=== PATIENT | female | born 1960 | race Caucasian/White ===

== ENCOUNTER 2022-05-07 13:22 | Outpatient (RCR) | payer OTHER, SELFPAY ==
[2022-05-07 13:37] LABS: Basophils Absolute Auto 0.07 K/uL (0.00-0.30); Basophils Percent Auto 0.9 % (0.0-3.0); Eosinophils Absolute Auto 0.28 K/uL (0.00-0.50); Eosinophils Percent Auto 3.6 % (0.0-7.0); Hematocrit 38.8 % (33.0-51.0); Hemoglobin* 12.9 gm/dL (12.0-16.0); Lymphocytes Absolute Auto 2.68 K/uL (0.90-2.90); Lymphocytes Percent Auto 34.7 % (20-44); Mean Corpuscular HGB Conc 33 gm/dL (32-36); Mean Corpuscular Hemoglobin 32 pg (26-34); Mean Corpuscular Volume 97 fL (80-100); Monocytes Percent Auto 6.7 % (0.0-11.0); Neutrophils Absolute Auto 4.18 K/uL (1.7-7.0); Neutrophils Percent Auto 54.1 % (42.0-72.0); Platelet Count* 276 K/uL (140-440); RDW Coefficient of Variation % 13.7 % (11.5-15.5); White Blood Count* 7.73 K/uL (4.50-11.00)
[2022-05-07 13:42] LABS: Aspartate Amino Transferase* 22 U/L (12-35); Creatinine* 0.8 mg/dL (0.5-1.5); Estimated Glomerular Filt Rate 84 ml/min
[2022-05-07 13:50] LABS: Slide Review Reflex No
[2023-01-20 11:49] LABS: Basophils Percent Auto 1.3 % (0.0-3.0); Eosinophils Absolute Auto 0.22 K/uL (0.00-0.50); Eosinophils Percent Auto 2.9 % (0.0-7.0); Hematocrit 40.7 % (33.0-51.0); Hemoglobin* 13.5 gm/dL (12.0-16.0); Immature Granulocytes Abs Auto 0.01 K/uL (0.00-0.30); Immature Granulocytes Pct Auto 0.1 %; Lymphocytes Absolute Auto 2.83 K/uL (0.90-2.90); Lymphocytes Percent Auto 36.8 % (20-44); Mean Corpuscular HGB Conc 33 gm/dL (32-36); Mean Corpuscular Hemoglobin 32 pg (26-34); Mean Corpuscular Volume 95 fL (80-100); Neutrophils Absolute Auto 4.07 K/uL (1.7-7.0); Neutrophils Percent Auto 52.9 % (42.0-72.0); Platelet Count* 303 K/uL (140-440); RDW Coefficient of Variation % 12.9 % (11.5-15.5); Red Blood Count 4.29 m/uL (4.00-5.20); White Blood Count* 7.69 K/uL (4.50-11.00)
[2023-01-20 11:55] LABS: Creatinine* 0.8 mg/dL (0.5-1.5); Estimated Glomerular Filt Rate 84 ml/min
[2023-01-20 11:56] LABS: Aspartate Amino Transferase* 22 U/L (12-35)
[2023-01-20 11:58] LABS: Slide Review Reflex No
== END 2023-04-08 15:14 | disposition home or self-care (01) ==
LOC: LAB 13:22
PROVIDERS: PCP Internal Medicine
DX: M06.9 Rheumatoid arthritis, unspecified (principal)
CPT/HCPCS: 36415; 82565; 84450; 85025

== ENCOUNTER 2022-09-24 09:55 | Outpatient (CLI) | payer OTHER, SELFPAY | END 2022-09-24 09:56 | disposition home or self-care (01) | PROVIDERS: PCP Internal Medicine; Referring Provider Internal Medicine; Visit Provider Internal Medicine | DX: I10 Essential (primary) hypertension (principal); E03.9 Hypothyroidism, unspecified | CPT/HCPCS: 80048; 84443 ==

== ENCOUNTER 2022-12-18 11:10 | Outpatient (CLI) | payer OTHER, SELFPAY ==
--- NOTE | 2022-12-18 11:30 | CRLHL7_ITS ---
For Patients: As a result of the Century Cures Act, medical imaging exams and procedure reports are released immediately into your electronic medical record. You may view this report before your referring provider. If you have questions, please contact your health care provider. BILATERAL SCREENING MAMMOGRAM WITH COMPUTER-AIDED DETECTION AND TOMOSYNTHESIS TECHNIQUE: CC and MLO views were obtained. These mammographic images have been obtained using full-field digital technique. These mammographic images were interpreted with the benefit of computer-aided detection. Breast tomosynthesis was used in this interpretation. COMPARISON FILM: 04/17/21, 04/06/20, 04/05/19. FINDINGS: There are scattered areas of fibroglandular density. IMPRESSION: There is no radiographic evidence for malignancy. ASSESSMENT: BI-RADS Category 1: Negative RECOMMENDATION: Routine screening mammogram in 1 year. A lay language report of this examination will be provided to the patient. ALEX WESIS M.D. Diagnostic Radiologist [email or web address] Transcribed: 12/18/2022, 6:[address]/Dictated by: Alex Weiss MD @ 12/18/2022 11:55:00 AM (Electronically Signed)
== END 2022-12-18 11:11 | disposition home or self-care (01) ==
LOC: MAMMO 11:11
PROVIDERS: PCP Internal Medicine; Visit Provider Internal Medicine
DX: Z12.31 Encounter for screening mammogram for malignant neoplasm of breast (principal)
CPT/HCPCS: 77063; 77067

== ENCOUNTER 2023-06-01 11:33 | Emergency (ER) | payer OTHER, SELFPAY ==
[2023-06-01] VITALS (18 sets, daily range): BP systolic 138–166; BP diastolic 82–106; PULSE 77–139; RESP 16; TEMP 36.6; O2SAT 92–98; BMI 34.2
--- NOTE | 2023-06-01 12:05 | ED_ITS ---
HPI - Arrhythmia/Palpitations General Time Seen by Provider: 12:05 Date Seen: 06/01/23 Chief Complaint: Arrhythmia/Palpitations Stated Complaint: Elevated heartrate, lightheaded Time Seen by Provider: 06/01/23 12:05 Source: patient and RN notes reviewed Mode of arrival: ambulatory Limitations: no limitations History of Present Illness HPI narrative: Patient is a 63-year-old female coming in with a complaint of rapid heart rate. She maybe noticed it this morning upon getting up but was certainly there at 10:00 a.m.. By 10:00 a.m. she noticed it certainly was not resolving. She admits to alcoholic beverages last night. She is able to tell me that if she felt her heart rate this fast yesterday afternoon that she would certainly notice it. She denies any other recent episodes of a fast heart rate. She had a little cough maybe a few days ago but otherwise since then is felt normal, no illness, no fevers. Her heart rate was elevated in the 150s, nursing staff got an EKG appropriately on arrival in she is in atrial fibrillation with RVR. She felt lightheaded with this but has no chest pain, no shortness of breath. Has not had any recent edema. She does not have a history of prior arrhythmia that is been documented. She does have thyroid disease, is on levothyroxine, states it has been stable and gets checked yearly. She thinks last time was July. complaint: rapid heart beat and heart racing Related Data Home Medications Medication Instructions Recorded Confirmed cetirizine 10 mg tablet 10 mg PO QDAY PRN 01/24/22 06/01/23 folic acid 1 mg tablet 1 mg PO DAILY 09/26/22 06/01/23 methotrexate sodium 2.5 mg tablet 17.5 mg PO QWEEK 09/26/22 06/01/23 Previous Rx's Medication Instructions Recorded triamcinolone acetonide 0.1 % 1 applic topical QDAY PRN rash #80 06/17/22 topical cream grams levothyroxine 112 mcg tablet 112 - 168 mcg (1 - 1.5 x 112 mcg) 09/26/22 PO DAILY #100 tabs lisinopril 20 1 tab PO DAILY #90 tabs 09/26/22 mg-hydrochlorothiazide 25 mg tablet Allergies Allergy/AdvReac Type Severity Reaction Status Date / Time No Known Allergies Allergy Verified 06/01/23 11:50 Review of Systems Status of ROS: Reports: 6 or more systems reviewed and unremarkable except as noted in History and below PFSH [facility] Medical History History of anxiety ?Z86.59 - Personal history of other mental and behavioral disorders (ICD-10) Surgical History History of total knee replacement (2020) ?Z96.659 - Presence of unspecified artificial knee joint (ICD-10) History of laparoscopic cholecystectomy ?Z90.49 - Acquired absence of other specified parts of digestive tract (ICD- 10) History of knee surgery (05/30/10) ?Z98.890 - Other specified postprocedural states (ICD-10) History of hysterectomy (05/30/10) ?Z90.710 - Acquired absence of both cervix and uterus (ICD-10) Family History Father Colorectal cancer Social History Smoking Status: Former smoker Do you use any of these nicotine containing products: None Second hand tobacco smoke exposure: No How often do you have a drink containing alcohol: 2-3 times a week How many standard drinks containing alcohol do you have on a typical day: 3 or 4 How often do you have six or more drinks on one occasion: Less than monthly AUDIT-C Alcohol total score: 5 Non-prescribed substance use: denies use Little interest or pleasure in doing things: not at all Feeling down, depressed, or hopeless: not at all service: No Exam Const: Vital Signs, click to edit/add: Vital Signs - 24 hr 06/01/23 11:51 06/01/23 11:59 06/01/23 12:50 Temperature 97.8 F Pulse Rate 83 Pulse Rate [Pulse Oximeter] 139 H Respiratory Rate 16 Blood Pressure Blood Pressure [Ri ght Upper Arm] 166/106 H Pulse Oximetry 98 96 95 Oxygen Delivery Me thod Room Air 06/01/23 13:00 06/01/23 13:01 06/01/23 13:15 Temperature Pulse Rate 93 88 88 Pulse Rate [Pulse Oximeter] Respiratory Rate Blood Pressure 149/83 H Blood Pressure [Ri ght Upper Arm] Pulse Oximetry 96 94 96 Oxygen Delivery Me thod 06/01/23 13:30 06/01/23 13:31 Temperature Pulse Rate 94 93 Pulse Rate [Pulse Oximeter] Respiratory Rate Blood Pressure 150/95 H Blood Pressure [Ri ght Upper Arm] Pulse Oximetry 93 95 Oxygen Delivery Me thod Patient is a 63-year-old female that is alert, interactive, no apparent distress. She does have some mild proptosis, extraocular muscles intact, conjugate gaze, pupils are equal round. Symmetrical facial function. Neck is supple, no cervical adenopathy, no thyromegaly masses or nodules. She sits up easily, lungs are clear, good air entry, no wheezing or crackles. CV is initially fast, irregular at times, no murmur. As I am talking to her, do see her go into sinus tachycardia on the hospital monitor with a P-wave proceeding every QR axis, rate 102-104. She does go back into atrial fibrillation with RVR by the end of the time in with her. Nursing staff notes that they have been seen this intermittently on the monitor. She can tell when she is going back into the faster heart rate. Abdomen is soft, nontender, nondistended, no organomegaly. She has no lower extremity edema. Patient was ambulatory into the ED of her own accord. Follows commands, using extremities equally. Documenting provider has reviewed patient's vital signs: yes Course Course ED Course: Patient has atrial fibrillation with RVR intermittently. We have started a L of IV fluids as there is likely relative dehydration with alcohol use last night. Have ordered 5 mg IV metoprolol. Nurses are going to initially just give 2.5 mg IV metoprolol, can give this 2nd 2.5 if needed over the next 5-10 minutes. She will be on cardiac monitoring, pulse oximetry. Will obtain a chest x-ray to ensure no cardiopulmonary changes. She does not seem to be in any congestive heart failure. Will get full complement of labs and electrolytes including magnesium. She is not having chest pain but will look at her troponin. There is a mild strain pattern with her AFib with RVR. She is currently hemodynamically stable outside of the rapid heart rate. We have discussed cardioversion if she is not maintaining sinus rhythm on her own. I am hopeful with fluids that we can do medical cardioversion based on the intermittent sinus rhythm we are seeing. Reevaluation(s) Time of Reevaluation #1: 12:54 Reevaluation #1: Patient is in sinus rhythm on the monitor, in the 80s. She has been that way for about 5 minutes. Will have nursing staff get a repeat EKG. She has completed her 1 L of IV fluids, will order a 2 L over 2 hours while we observe her. Still awaiting her electrolytes. Discussed with them as they were questioning further management. Reviewed if she goes into sinus rhythm and stays in it here, would make recommendations for outpatient follow-up with an echo, ZIO patch monitoring. [facility] does come down here. Will await electrolytes/labs. She only received 2.5 mg of the IV metoprolol. Patient is aware that I will be replacing IV magnesium if it is lower relatively low. Time of Reevaluation #2: 12:58 Reevaluation #2: Magnesium is relatively low at 1.7. I have ordered 1 g IV magnesium. Time of Reevaluation #3: 14:52 Reevaluation #3: Patient is nearly done with her 2 L of IV fluids, magnesium is completed. She has maintained normal sinus rhythm. Will discharge her without anticoagulation at this point, with solitary episode I am not thinking she needs a suppressive medicine. Would recommend further outpatient follow-up with echo and ZIO patch monitoring. Vital Signs Vital signs: Initial Vital Signs Temperature 97.8 F 06/01/23 11:51 Temperature Source Temporal Artery Scan 06/01/23 11:51 Pulse Rate 139 H 06/01/23 11:51 Pulse Rhythm Irregular, Regularly Irregular 06/01/23 11:51 Pulse Strength 3+ Normal 06/01/23 11:51 Respiratory Rate 16 06/01/23 11:51 Blood Pressure 166/106 H 06/01/23 11:51 Blood Pressure Mean 126 H 06/01/23 11:51 Blood Pressure Position Sitting 06/01/23 11:51 Pulse Oximetry 98 06/01/23 11:51 Oxygen Delivery Method Room Air 06/01/23 11:51 Vital Signs Temperature 97.8 F 06/01/23 11:51 Pulse Rate 139 H 06/01/23 11:51 Respiratory Rate 16 06/01/23 11:51 Blood Pressure 166/106 H 06/01/23 11:51 Pulse Oximetry 98 06/01/23 11:51 Oxygen Delivery Method Room Air 06/01/23 11:51 Temperature 97.8 F 06/01/23 11:51 Pulse Rate 93 06/01/23 13:31 Respiratory Rate 16 06/01/23 11:51 Blood Pressure 150/95 H 06/01/23 13:31 Pulse Oximetry 95 06/01/23 13:31 Oxygen Delivery Method Room Air 06/01/23 11:51 Medications Administered Medications: Generic Name Dose Route Start Last Admin Trade Name Freq PRN Reason Stop Dose Admin Sodium Chloride 1,000 mls @ 500 mls/hr 06/01/23 12:55 06/01/23 13:06 0.9 % Sodium Chloride 1000 Ml IV 06/01/23 14:54 500 mls/hr .Q2H CHERRY Administration Discontinued Medications Generic Name Dose Route Start Last Admin Trade Name Freq PRN Reason Stop Dose Admin Sodium Chloride 1,000 mls @ 1,000 mls/hr 06/01/23 12:06 06/01/23 13:01 0.9 % Sodium Chloride 1000 Ml IV 06/01/23 13:05 Infused .Q1H CHERRY Infusion Magnesium Sulfate/Dextrose 1 gm in 100 mls @ 100 mls/hr 06/01/23 12:57 06/01/23 13:21 Magnesium Sulf 1 G/100 Ml-[id number] IVPB 06/01/23 13:56 100 mls/hr ONCE ONE Administration Metoprolol Tartrate 5 mg 06/01/23 12:05 06/01/23 12:18 Metoprolol Tartrate 1 Mg/Ml Inj IVP 06/01/23 12:06 2.5 mg ONCE ONE Administration MDM - Arrhythmia/Palpitations Lab Data Attestation: I reviewed the patient's lab results. Labs: Lab Results 06/01/23 06/01/23 Range/Units 12:08 12:16 WBC 7.41 (4.50-11.00) K/uL RBC 4.38 (4.00-5.20) m/uL Hgb 13.9 (12.0-16.0) gm/dL Hct 40.9 (33.0-51.0) % MCV 93 (80-100) fL MCH 32 (26-34) pg MCHC 34 (32-36) gm/dL RDW Coeff of Aishwarya 12.8 (11.5-15.5) % Plt Count 260 (140-440) K/uL Neut % (Auto) 69.7 (42.0-72.0) % Lymph % (Auto) 17.0 L (20-44) % [place] % (Auto) 10.4 (0.0-11.0) % Eos % (Auto) 1.9 (0.0-7.0) % Baso % (Auto) 0.9 (0.0-3.0) % Neut # (Auto) 5.16 (1.7-7.0) K/uL Lymph # (Auto) 1.30 (0.90-2.90) K/uL [place] # (Auto) 0.80 (0.00-0.90) K/UL Eos # (Auto) 0.14 (0.00-0.50) K/uL Baso # (Auto) 0.07 (0.00-0.30) K/uL Abs Immat Gran (auto) 0.01 (0.00-0.30) K/uL Imm/Tot Granulo (auto) 0.1 % Sodium 134 L (135-149) mmol/L Potassium 3.6 (3.6-5.1) mmol/L Chloride 97 (96-114) mmol/L Carbon Dioxide 26 (20-32) mmol/L Anion Gap 11 (7-15) mEq/L BUN 15 (7-30) mg/dL Creatinine 0.7 (0.5-1.5) mg/dL Estimated Creat Clear 46.13 Estimated GFR 98 ml/min Glucose 107 (60-115) mg/dL Lactate 1.4 (0.5-1.9) mmol/L Calcium 8.9 (8.4-10.6) mg/dL Magnesium 1.7 (1.5-2.6) mg/dL Total Bilirubin 0.8 (0.1-1.5) mg/dL AST 26 (12-35) U/L ALT 25 (4-35) U/L Alkaline Phosphatase 98 (40-150) U/L Troponin I < 0.01 L (0.01-0.04) ng/mL NT-Pro-B Natriuret Pep 274 pg/mL Total Protein 7.8 (6.0-8.3) g/dL Albumin 4.7 (3.3-5.0) g/dL TSH 1.630 (0.270-4.20) uIU/mL Ethyl Alcohol < 0.01 L (0.01-0.03) % Lab Acknowledgement Test Added Imaging Data Chest x-ray: Attestation: I have reviewed the pertinent imaging results. My impression: No evidence congestive heart failure, no x-ray evidence of cardiomegaly my preliminary review. Radiologist's impression: Patient: CHERYL JEFFERSON Facility:?[facility] Patient ID:?[id number] Site Patient ID:?[id number]. Site :?[id number] Study:?XRay Chest 1v portable-06/01/2023 12:59:51 PM Ordering Physician:Jovanna Iyer Final Report: INDICATION: Atrial fibrillation. FINDINGS: A portable AP view of the chest was obtained. The cardiac silhouette and pulmonary vasculature are within normal limits. The lungs are clear bilaterally. IMPRESSION: No evidence acute pulmonary disease. Dictated by Ottoniel Meyers MD @ 06/01/2023 1:39:44 PM (Electronic Signature) ECG Data Attestation: I personally reviewed and interpreted this ECG as follows: (Atrial fibrillation with RVR, 159 beats per minute. Poor R-wave progression in the anterior precordial leads and inferior, lateral precordial and lateral mild ST segment changes.) ECG interpretation date: 06/01/23 ECG interpretation time: 12:13 Prior ECG tracings: not available for review Interpretation: 12:57 p.m.: Patient shows conversion to sinus rhythm, 82 beats per minute. There is what appears to be a PVC in 3 the leads but is not in 1, do deem this to be probable artifact. QT corrected 450 milliseconds. No acute ischemia. Critical Care Time Critical Care Time Critical Care Time: Yes Attestation: The patient required my highest level preparedness to intervene emergently and I personally spent this critical care time directly and personally managing the patient. This critical care time included: Obtaining a history; Examining the patient; Pulse oximetry; Ordering and reviewing of studies; Arranging urgent treatment with development of a management plan; Evaluation of patients response to treatment; Frequent reassessment discussions with other providers. This critical care time was performed to assess and manage the high probability of imminent life-threatening deterioration that could result in multiorgan failure. It was exclusive of separate billable procedures and treating other patients and teaching time. Total Critical Care Time in Minutes: 45 Discharge Plan Discharge Clinical Impression: Paroxysmal atrial fibrillation with rapid ventricular response Patient Disposition: Home, Self-Care Condition: Stable Instructions: A-fib (Atrial Fibrillation) (ED) Additional Instructions: Stay hydrated, recommend minimal or no alcohol use. Need to follow up in clinic with your primary provider or someone that can see you within the next 1-2 weeks. Do recommend getting an outpatient echo scheduled, recommend getting a Zio patch which may have to be ordered through [facility]. In the meantime, should you note that your heart is racing nor heart rate is elevated again, please return to the ER. TSH was normal, no need to adjust your thyroid medicine. Activity Level: Activity as Tolerated Prescriptions: No Action cetirizine 10 mg tablet 10 mg PO QDAY PRN folic acid 1 mg tablet 1 mg PO DAILY methotrexate sodium 2.5 mg tablet 17.5 mg PO QWEEK lisinopril-hydrochlorothiazide 20-25 mg tablet 1 tab PO DAILY Qty: 90 3RF levothyroxine 112 mcg tablet 112 - 168 mcg PO DAILY Qty: 100 4RF Rx Instructions: 168 mcg (1 and 1/2 tabs) friday and friday, 112 mcg all other days triamcinolone acetonide 0.1 % cream 1 applic topical QDAY PRN (Reason: rash) Qty: 80 0RF Follow Up/Referrals: Hilda Palomares MD [Primary Care Provider] - Stand Alone Forms: [facility] Info Instructions
--- NOTE | 2023-06-01 12:06 | CRLHL7_ITS ---
For Patients: As a result of the Cures Act, medical imaging exams and procedure reports are released immediately into your electronic medical record. You may view this report before your referring provider. If you have questions, please contact your health care provider. INDICATION: Atrial fibrillation. FINDINGS: A portable AP view of the chest was obtained. The cardiac silhouette and pulmonary vasculature are within normal limits. The lungs are clear bilaterally. IMPRESSION: No evidence acute pulmonary disease. Dictated by Ottoniel Meyers MD @ 06/01/2023 1:39:44 PM (Electronically Signed)
[2023-06-01] MEDS: 0.9 % SODIUM CHLORIDE 1000 ml 1,000 ML IV (12:08)
[2023-06-01 12:15] LABS: Lactate* 1.4 mmol/L (0.5-1.9)
[2023-06-01] MEDS: METOPROLOL TARTRATE 1 MG/ML inj 5 MG IVP (12:18)
[2023-06-01 12:19] LABS: Basophils Absolute Auto 0.07 K/uL (0.00-0.30); Basophils Percent Auto 0.9 % (0.0-3.0); Eosinophils Absolute Auto 0.14 K/uL (0.00-0.50); Eosinophils Percent Auto 1.9 % (0.0-7.0); Hematocrit 40.9 % (33.0-51.0); Hemoglobin* 13.9 gm/dL (12.0-16.0); Immature Granulocytes Abs Auto 0.01 K/uL (0.00-0.30); Immature Granulocytes Pct Auto 0.1 %; Mean Corpuscular HGB Conc 34 gm/dL (32-36); Mean Corpuscular Hemoglobin 32 pg (26-34); Mean Corpuscular Volume 93 fL (80-100); Monocytes Percent Auto 10.4 % (0.0-11.0); Neutrophils Absolute Auto 5.16 K/uL (1.7-7.0); Neutrophils Percent Auto 69.7 % (42.0-72.0); Platelet Count* 260 K/uL (140-440); RDW Coefficient of Variation % 12.8 % (11.5-15.5); Red Blood Count 4.38 m/uL (4.00-5.20); Slide Review Reflex No; White Blood Count* 7.41 K/uL (4.50-11.00)
[2023-06-01 12:36] LABS: Albumin* 4.7 g/dL (3.3-5.0); Chloride* 97 mmol/L (96-114); Sodium* 134 mmol/L (135-149)
[2023-06-01 12:37] LABS: Potassium* 3.6 mmol/L (3.6-5.1)
[2023-06-01 12:39] LABS: Alanine Aminotransferase* 25 U/L (4-35); Alkaline Phosphatase* 98 U/L (40-150); Anion Gap 11 mEq/L (7-15); Aspartate Amino Transferase* 26 U/L (12-35); Bilirubin Total* 0.8 mg/dL (0.1-1.5); Blood Urea Nitrogen* 15 mg/dL (7-30); Calcium* 8.9 mg/dL (8.4-10.6); Carbon Dioxide* 26 mmol/L (20-32); Creatinine* 0.7 mg/dL (0.5-1.5); Est. Creatinine Clearance* 46.13; Estimated Glomerular Filt Rate 98 ml/min; Glucose* 107 mg/dL (60-115); Total Protein* 7.8 g/dL (6.0-8.3)
[2023-06-01 12:40] LABS: Magnesium* 1.7 mg/dL (1.5-2.6)
[2023-06-01 12:54] LABS: Ethanol* < 0.01 % (0.01-0.03); NT Pro B Type NatriureticPept* 274 pg/mL; Troponin I* < 0.01 ng/mL (0.01-0.04)
[2023-06-01] MEDS: 0.9 % SODIUM CHLORIDE 1000 ml 1,000 ML 500 ML IV (13:06)
--- NOTE | 2023-06-01 13:36 | ED.NURSE ---
reports that she is feeling better now that she has converted to nsr. did have a repeat 12 lead after she has had sustained nsr after the conversion around 1310. daughter at bs. is getting 1 gram of magnesium per mar. was assisted to bathroom ~1300 to urinate.
== END 2023-06-01 15:21 | disposition home or self-care (01) ==
PROVIDERS: Emergency Provider Family Medicine; PCP Internal Medicine
DX: I48.0 Paroxysmal atrial fibrillation (principal)
CPT/HCPCS: 36415; 71045; 80053; 82077; 83605; 83735; 83880; 84443; 84484; 85025; 94761; 96365; 96375; 99285; 99291; J3475; J7030

== ENCOUNTER 2023-06-19 08:38 | Outpatient (CLI) | payer OTHER, SELFPAY ==
--- OUTSIDE RECORDS SUMMARY | 2023-06-19 08:45 | XMS_ITS | Encounter Summary ---
Author Name Unknown Organization [facility] Address [address] [place] [address] Care Team Providers Care Emu Farm Worker Name Role Phone Elsewhere, Pcp Primary Care Provider Unavailabl e Reason for Visit * Outpatient (Routine) - Closed Specialty Diagnoses / Procedures Referred By Florian t Referred To Contact Dermatology Diagnoses Arthritis Rheumatoid (HCC) High Risk Medication Lesion Skin Alexandra Lopez, ANTONIO, C.N.P., D.N.P. [address] [place] [phone] [facility] Referral ID Status Reason Start Date Expiration Date Visits Re quested Visits Authorized [id number] Closed 05/09/2023 05/08/2024 1 1 Encounter Details Date Type Department Care Team (Latest Contact Info) Description 05/12/2023 11:20 AM VELVET STEAMER Comprehensive Visit Department of Dermatology in [place], [place] [address] [place] [phone] Jin Steiner M.D. [address] [place] [phone] Asteatosis (Primary Dx); Arthritis Rheumatoid (HCC); High Risk Medication; Lesion Skin; Keratosis Seborrheic Social History Tobacco Use Types Packs/Day Years Used Date Smoking Tobacco: Former Cigarettes 0 0 Q uit: 09/15/1998 Passive Smoke Exposure: Past Smokeless Tobacco: Never Alcohol Use Standard Drinks/Week Comments Yes 6 (1 standard drink = 0.6 oz pur e alcohol) Humiliation, Afraid, Rape, and Kick questionnair e Answer Date Recorded Within the last year, have y ou been afraid of your partner or ex-partner? No 07/13/2022 Within the last year, have y ou been humiliated or emotionally abused in other ways by your partner or ex-partner? No Within the last year, have y ou been kicked, hit, slapped, or otherwise physically hurt by your partner or ex-partner? No 07/13/2022 Within the last year, have y ou been raped or forced to have any kind of sexual activity by your partner or ex-partner? No 07/13/2022 Social Connection and Isolat ion Panel [NHANES] Answer Date Recorded In a typical week, how many times do you talk on the phone with family, friends, or neighbors? More than three times a week 07/13/2022 How often do you get togethe r with friends or relatives? More than three times a week 07/13/2022 How often do you attend [facility] or amish services? Patient declined 07/13/2022 Do you belong to any clubs o r organizations such as baptist groups, unions, fraternal or athletic groups, or school groups? Patient declined 07/13/2022 How often do you attend meet ings of the clubs or organizations you belong to? Patient declined 07/13/2022 Are you , , di vorced, , never , or living with a partner? 07/13/2022 AUDIT-C Answer Date Recorded Q1: How often do you have a drink containing alc ohol? 2-3 times a week 07/13/2022 Q2: How many drinks containi ng alcohol do you have on a typical day when you are drinking? 1 or 2 07/13/2022 Q3: How often do you have si x or more drinks on one occasion? Never 07/13/2022 Overall Financial Resource Strain (CARDIA) Answe r Date Recorded How hard is it for you to pa y for the very basics like food, housing, medical care, and heating? Patient declined 07/13/2022 [facility] Occupat ional Health - Occupational Stress Questionnaire Answer Date Recorded Do you feel stress - tense, restless, nervous, or anxious, or unable to sleep at night because your mind is troubled all the time - these days? Not at all 07/13/2022 Exercise Vital Sign Answer Date Recorde d On average, how many days pe r week do you engage in moderate to strenuous exercise (like a brisk walk)? 0 days 07/13/2022 On average, how many minutes do you engage in exercise at this level? 0 min 07/13/2022 Hunger Vital Sign Answer Date Recorded Within the past 12 months, y ou worried that your food would run out before you got the money to buy more. Never true 07/13/19 23 Within the past 12 months, t he food you bought just didn't last and you didn't have money to get more. Never true 07/13/2022 PRAPARE - Transportation Answer Date Re corded In the past 12 months, has l ack of transportation kept you from medical appointments or from getting medications? No 09/2022 In the past 12 months, has l ack of transportation kept you from meetings, work, or from getting things needed for daily living? No 07/13/2022 Housing Stability Vital Sign Answer Justin e Recorded In the last 12 months, was t here a time when you were not able to pay the mortgage or rent on time? No 07/13/2022 In the last 12 months, how many places have you lived? 1 07/13/2022 In the last 12 months, was t here a time when you did not have a steady place to sleep or slept in a retirement (including now)? No 07/13/2022 Nutrition Answer Date Recorded Nutrition: EVOO Fat Source No 07/13 On average, how many serving s of fruits and vegetables do you eat per day (serving size is equal to 1 cup or approximately the size of a tennis ball)? 2-3 07/13/2022 Dental Answer Date Recorded Dental: Regular Dentist Yes 10/16/19 Employment Answer Date Recorded Employment status Retired 07/13/2022 Education Answer Date Recorded What is the highest level of school you have completed or the highest degree you have received? 12th grade 07/14/2020 Sex and Gender Information Value Date Recorded Sex Assigned at Female 10/15/2021 8:27 AM CDT Gender Identity Female 10/15/2021 8:27 AM CDT Sexual Orientation Straight 10/15/2021 8: 27 AM CDT documented as of this encounter Consult Notes * Jin Steiner M.D. - 05/12/2023 11:20 AM CST SUBJECTIVE CHIEF COMPLAINT/REASON FOR VISIT General skin examination No history of skin cancer REFERRAL SOURCE Alexandra Lopez APRN, C.N.P., D.N.P. HISTORY OF PRESENT ILLNESS Cary Ingram is a very pleasant 63 y.o. female who is from [facility]. She presents for a general skin examination. She has no history of skin cancer. REVIEW OF SYSTEMS Current Outpatient Medications: cetirizine (ZyrTEC) 10 mg tablet, Take 10 mg by mouth daily., Disp: , Rfl: folic acid 1 mg tablet, Take 1 tablet (1 mg total) by mouth daily., Disp: 90 tablet, Rfl: 1 levothyroxine (SYNTHROID, LEVOTHROID) 112 mcg tablet, Take 112-168 mcg by mouth every morning before breakfast. Take 112 mg on Friday, Friday, , Friday and Friday. Take 168 mg (1.5 tablets) on Friday and Friday., Disp: , Rfl: lisinopril-hydroCHLOROthiazide (PRINZIDE,ZESTORETIC) 20-25 mg per tablet, Take 1 tablet by mouth daily., Disp: , Rfl: methotrexate 2.5 mg tablet, TAKE 7 TABLETS ( 17.5 MG TOTAL ) ONCE A WEEK, Disp: 84 tablet, Rfl: 1 predniSONE (DELTASONE) 2.5 mg tablet, Take 1 tablet (2.5 mg total) by mouth daily. all in AM with food, Disp: 90 tablet, Rfl: 0 triamcinolone (KENALOG) 0.1 % cream, Apply 1 application topically as needed., Disp: , Rfl: Allergies Allergen Reactions Pollen Extracts Other (see comments) Runny nose, itchy eyes, etc. 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 Family History Problem Relation Age of Onset Colon cancer Father Other cancer Father Tumor back of tongue Lung cancer Mother Other cancer Brother Sarcoma leg Social History Socioeconomic History Marital status: Highest education level: 12th grade Tobacco Use Smoking status: Former Packs/day: 0.00 Years: 0.00 Additional pack years: 0.00 Total pack years: 0.00 Types: Cigarettes Quit date: 09/15/1998 Years since quittin.6 Passive exposure: Past Smokeless tobacco: Never Vaping Use Vaping Use: never used Substance and Sexual Activity Alcohol use: Yes Alcohol/week: 6.0 standard drinks of alcohol Types: 2 Glasses of wine, 4 Cans of beer per week Drug use: Never Sexual activity: Not Currently Partners: Male control/protection: Post-menopausal OBJECTIVE VITAL SIGNS There were no vitals filed for this visit. PHYSICAL EXAMINATION Detailed Exam: General: Awake, alert, in no acute distress, and with appropriate affect. Eyes: No scleral injection or icterus. No eyelid abnormalities. Cardio: No lower extremity edema. Skin: I have examined the scalp, face, neck, chest, abdomen, back, bilateral upper, extremities, lower extremities, palms, soles, genitalia and buttocks Ledbetter type 2 skin with moderate changes of chronic sun exposure noted, freckling of the uppertrunk is noted. Generally dry skin noted. Scattered on the skin are multiple seborrheic keratoses and smith angiomas. None of them appeared suspicious for skin cancer or melanoma. Involving the right posterior scalp, a scaling patches noted consistent with seborrheic dermatitis. Involving the face, telangiectasias are noted. General: Alert, interactive 63 y.o. year old female, in no acute distress. ASSESSMENT / PLAN #1 No lesions suspicious for skin cancer or melanoma today. Ms. Ingram was reassured. Follow-up every 1-2 years or sooner if she notices any new lesions ofconcern. #2 Asteatosis We shared with her information on care of dry skin. #3 Keratosis Seborrheic Reassured these are benign require no specific treatment. #4 Scattered telangiectasias on the face These are benign. Observe. If she does want them treated for cosmetic purposes, consider laser. Shedeclines at this time which I think is very reasonable. ET STEAMER documented in this encounter Plan of Treatment Not on file documented as of this encounter Visit Diagnoses Diagnosis Asteatosis- Primary Arthritis Rheumatoid (HCC) High Risk Medication Lesion Skin Keratosis Seborrheic documented in this encounter Additional Health Concerns Infection Onset Date Last Indicated Resolved Time Protective Environment 10/10/2022 10/10/2022 documented as of this encounter Care Teams Emu Farm Worker Relationship Specialty Start Date End Date Elsewhere, Pcp PCP - General 05/22/18 documented as of this encounter
--- OUTSIDE RECORDS SUMMARY | 2023-06-19 08:45 | XMS_ITS | Clinical Summary ---
Author Name Unknown Organization [facility] Address [place], [place] [address] Care Team Providers Care Family Services Coordinator Name Role Phone [facility] Primary [facility] Provider Unavailable Allergies No known active allergies Medications Medication Sig Dispensed Refills Start Date End Date Status LEVOTHYROXINE 125 MCG TAB take 1 tablet (125 mcg) by oral route once daily 0 0 09/02/2008 Active Social History Tobacco Use Types Packs/Day Years Used Date Smoking Tobacco: Former Cigarettes Q uit: 06/09/1998 Tobacco Cessation:Counseling Given: Yes Alcohol Use Standard Drinks/Week Comments Yes 0 (1 standard drink = 0.6 oz pur e alcohol) occas Sex and Gender Information Value Date Recorded Sex Assigned at Not on file Gender Identity Not on file Sexual Orientation Not on file Obstetrics History Last Filed Vital Signs Vital Sign Reading Time Taken Comments Blood Pressure 147/86 07/11/2015 2:42 PM DRY COLOR MIXER Pulse 92 07/11/2015 2:42 PM DRY COLOR MIXER Temperature 36.4 ??C (97.6 ??F) 03/17/2009 8:12 AM CD T Respiratory Rate - - Oxygen Saturation 98% 07/11/2015 2:42 PM DRY COLOR MIXER Inhaled Oxygen Concentration - - Weight 86.5 kg (190 lb 9.6 oz) 07/11/2015 2:42 P M DRY COLOR MIXER Height - - Body Mass Index - - Plan of Treatment Health Maintenance Due Date Last Done Comments COVID-19 vaccine series (#1) 1961 Tdap 1972 Depression screening for age 12+ 1973 HIV for age 15-65 1976 BMI (ht and wt on same day) for age 18+ 1979 Hepatitis C screening for ag e 18-79 1979 Tetanus booster 1981 Pap test for age 21-65 1982 Colonoscopy through age 75 2006 Lipids for age 45-75 2006 Mammogram for age 45-75 2006 Zoster (shingles) series for age 50+ (1 of 2) 2011 Influenza for age 50-64 02/07/2023 Pneumococcal series for age 6-64 Aged Out No longer eligible based on patient's age to complete this topic Care Teams Family Services Coordinator Relationship Specialty Start Date End Date [facility] PCP - General 09/01/08
--- OUTSIDE RECORDS SUMMARY | 2023-06-19 08:45 | XMS_ITS | Referral Summary ---
Author Name Unknown Organization [facility] Address [address] [place] [address] Care Team Providers Care Personal Lines Account Manager Name Role Phone Elsewhere, Pcp Primary Care Provider Unavailabl e Source Comments Patient records contain information from all sites at [facility]. For routine questions regarding patient records, call [phone] during business hours, M-F 8:00 AM - 5:00 PM Central Time. Record requests for emergency care only can be directed to [phone] at any time.[facility] Encounters Date Type Department Care Team Description 05/12/2023 11:20 AM QA DEVELOPER Comprehensive Visit Department of Dermatology in [place], [place] [address] [place] [phone] Jin Steiner M.D. Asteatosis (Primary Dx); Arthritis Rheumatoid (HCC); High Risk Medication; Lesion Skin; Keratosis Seborrheic 05/09/2023 7:56 AM QA DEVELOPER - 05/09/2023 11:59 PM QA DEVELOPER Hospital Encounter Department of Laboratory Medicine and Pathology, [facility], in [place], [place] [address] [place] [phone] Alexandra Lopez APRN, C.N.P., D.N.P. Arthritis Rheumatoid (HCC); High Risk Medication Discharge Disposition: Home or Self Care 05/09/2023 10:30 AM QA DEVELOPER Office Visit Division of Rheumatology in [place], [place] [address] [place] [phone] Alexandra Lopez APRN, C.N.P., D.N.P. Lesion Skin (Primary Dx); Arthritis Rheumatoid (HCC); High Risk Medication 05/08/2023 12:00 PM QA DEVELOPER Clinical Communication Virtual Review in [place], [place] [address] [place] [address] Pre-visit Intake (PIETRO done 05/08 EEF) 04/07/2023 Refill Division of Rheumatology in [place], [place] [address] [place] [phone] Alexandra Lopez APRN, C.N.P., D.N.P. Med Refill from Last 3 Months Allergies Active Allergy Reactions Criticality Noted Date Comments Pollen Extracts Other (see comments) 07/14/2020 Runny nose, itchy eyes, etc. Medications Medication Sig Dispensed Refills Start Date End Date Status lisinopril-hydroCHL OROthiazide (PRINZIDE,ZESTORETI C) 20-25 mg per tablet Take 1 tablet by mouth daily. 0 04/24/2020 Active triamcinolone (KENALOG) 0.1 % cream Apply 1 application topically as needed. 0 04/18/2020 Active levothyroxine (SYNTHROID, LEVOTHROID) 112 mcg tablet Take 112-168 mcg by mouth every morning before breakfast. Take 112 mg on Friday, Friday, , Friday and Friday. Take 168 mg (1.5 tablets) on Friday and Friday. 0 Active cetirizine (ZyrTEC) 10 mg tablet Take 10 mg by mouth daily. 0 Active predniSONE (DELTASONE) 2.5 mg tabletIndications:A rthritis Rheumatoid (HCC) Take 1 tablet (2.5 mg total) by mouth daily. all in AM with food 90 tablet 0 07/15/2022 Active methotrexate 2.5 mg tabletIndications:A rthritis Rheumatoid (HCC) TAKE 7 TABLETS ( 17.5 MG TOTAL ) ONCE A WEEK 84 tablet 1 04/08/2023 Active folic acid 1 mg tabletIndications:A rthritis Rheumatoid (HCC) Take 1 tablet (1 mg total) by mouth daily. 90 tablet 1 05/09/2023 Active Active Problems Problem Noted Date Diagnosed Date Arthritis Rheumatoid 01/15/2022 Arthroplasty Total Knee Replacement Status Post Bilateral 07/17/2020 Resolved Problems Problem Noted Date Diagnosed Date Resolved Date Arthritis Inflammatory 07/17/202001/15 Immunizations Name Administration Dates Next Due Tdap 04/21/2008 Social History Tobacco Use Types Packs/Day Years [...] week 07/13/2022 How often do you attend chur or yazidism services? Patient declined 07/13/2022 Do you belong to any clubs o r organizations such as muslim groups, unions, fraternal or athletic groups, or [...] medical care, and heating? Patient declined 07/13/2022 [facility] of Occupat ional Health - Occupational Stress [...] place to sleep or slept in a intermediate (including now)? No 07/13/2022 Nutrition Answer Date [...] Orientation Straight 10/15/2021 8: 27 AM CDT Last Filed Vital Signs Vital Sign Reading Time Taken Comments Blood Pressure 134/82 05/09/2023 10:32 AM QA DEVELOPER Pulse 74 05/09/2023 10:32 AM QA DEVELOPER Temperature 37 ??C (98.6 ??F) 05/09/2023 10:32 AM QA DEVELOPER Respiratory Rate - - Oxygen Saturation - - Inhaled Oxygen Concentration - - Weight 85.1 kg (187 lb 9.8 oz) 05/09/2023 10:32 AM QA DEVELOPER Height 156.4 cm (5' 1.58) 05/09/2023 10:[address] Body Mass Index 34.79 05/09/2023 10:32 AM QA DEVELOPER Plan of Treatment Not on file Medical Devices Implanted Type Area Enterostomal Nurse Device Identifier Shelf Expiration Date Model / Serial / Lot Knee Implant- [id number] Implanted:06/09 (Quantity not on file) Knee Implant Bilatera l: Knee Description:Both joints were replaced. Procedures Procedure Name Priority Date/Time Associated Diagnosis Comments CREATININE WITH EGFR, S/P Routine 05/09/2023 8:08 AM QA DEVELOPER Arthritis Rheumatoid (HCC) High Risk Medication ASPARTATE AMINOTRANSFERASE (AST), S/P Routine 05/09/2023 8:08 AM QA DEVELOPER Arthritis Rheumatoid (HCC) High Risk Medication C-REACTIVE PROTEIN (CRP), S/P Routine 05/09/2023 8:08 AM QA DEVELOPER Arthritis Rheumatoid (HCC) High Risk Medication SEDIMENTATION RATE, B Routine 05/09/2023 8:08 AM QA DEVELOPER Arthritis Rheumatoid (HCC) High Risk Medication CBC WITH DIFFERENTIAL, B Routine 023 8:08 AM QA DEVELOPER Arthritis Rheumatoid (HCC) High Risk Medication from Last 3 Months Results * Sedimentation Rate (05/09/2023 8:08 AM QA DEVELOPER) Pathologist [facility] Sedimentation Rate, B 8 2 - 22 mm/h 05/09/2023 9:23 AM QA DEVELOPER DTL Blood (Blood, Venous) 05/09/2023 8:08 AM QA DEVELOPER 05/09/2023 8:31 AM QA DEVELOPER Alexandra Lopez APRN C.N.P., D.N.P. LAB B LOOD ADD-ON [facility] [address] [place] [address], [facility] [address] [place] [address] * (ABNORMAL) CBC with Differential, Blood (05/09/2023 8:08 AM QA DEVELOPER) [facility] Hemoglobin 13.3 11.6 - 15.0 g/dL 05/09/2023 8:44 AM QA DEVELOPER DTL Hematocrit 40.0 35.5 - 44.9 % 05/09/2023 8:44 AM QA DEVELOPER DTL Erythrocytes 4.09 3.92 - 5.13 x10(12)/L 05/09/2023 8:44 AM QA DEVELOPER DTL MCV 97.8 78.2 - 97.9 fL 05/09/2023 8:44 AM QA DEVELOPER DTL RBC Distrib Width 12.9 12.2 - 16.1 % 05/09/2023 8:44 AM QA DEVELOPER DTL Platelet Count 279 157 - 371 x10(9)/L 05/09/2023 8:44 AM QA DEVELOPER DTL Leukocytes 8.4 3.4 - 9.6 x10(9)/L 05/09/2023 8:44 AM QA DEVELOPER DTL Neutrophils 5.08 1.56 - 6.45 x10(9)/L 05/09/2023 8:44 AM QA DEVELOPER DHPM Lymphocytes 2.44 0.95 - 3.07 x10(9)/L 05/09/2023 8:44 AM QA DEVELOPER DTL Monocytes 0.53 0.26 - 0.81 x10(9)/L 05/09/2023 8:44 AM QA DEVELOPER DTL Eosinophils 0.24 0.03 - 0.48 x10(9)/L 05/09/2023 8:44 AM QA DEVELOPER DTL Basophils 0.09(H) 0.01 - 0.08 x10(9)/L 05/09/2023 8:44 AM QA DEVELOPER DTL Blood (Blood, Venous) 05/09/2023 8:08 AM QA DEVELOPER 05/09/2023 8:31 AM QA DEVELOPER Alexandra Lopez APRN, C.N.P., D.N.P. LAB B LOOD ADD-ON Performing Organization Address City/[facility]/ZIP Co de Phone Number [facility] [address] [place] [address], [facility] [address] [place], [place] [id number] [place] [address] 200 [place] [address] * CRP (C-Reactive Protein) (05/09/2023 8:08 AM QA DEVELOPER) C-Reactive Protein (CRP), S <3.0 <5.0 mg/L 05/09/2023 9:08 AM QA DEVELOPER DTL Blood (Blood, Venous) 05/09/2023 8:08 AM QA DEVELOPER 05/09/2023 8:50 AM QA DEVELOPER Alexandra Lopez APRN, C.N.P., D.N.P. LAB B LOOD ADD-ON [facility] [address] [place] [address], [facility] [address] [place] [address] * AST (Aspartate Aminotransferase) (05/09/2023 8:08 AM QA DEVELOPER) Aspartate Aminotransferase (AST), S 16 8 - 43 U/L 05/09/2023 9:08 AM QA DEVELOPER DTL Blood (Blood, Venous) 05/09/2023 8:08 AM QA DEVELOPER 05/09/2023 8:50 AM QA DEVELOPER James Wallace APRN.N.Viridiana., Rober.N.P. LAB B LOOD ADD-ON Performing Organization Address [place] de Phone Number [facility] [address] [place] [address], [facility] [address] [place] [address] * Creatinine with Estimated GFR (05/09/2023 8:08 AM QA DEVELOPER) Creatinine 0.86 0.59 - 1.04 mg/dL 05/09/2023 9:08 AM QA DEVELOPER DTL Estimated GFR (eGFR) 76 >=60 mL/min/BSA 05/09/2023 9:08 AM QA DEVELOPER DTL Comment: Estimated GFR calculated using the 2020 CKD_EPI creatinine equation. Blood (Blood, Venous) 05/09/2023 8:08 AM QA DEVELOPER 05/09/2023 8:50 AM QA DEVELOPER James Wallace APRN.N.P., D.N.P. LAB B LOOD ADD-ON Performing Organization Address [place] de Phone Number [facility] [address] [place] [address], [facility] [address] [place] [address] from Last 3 Months Additional Health Concerns Infection Onset Date Last Indicated Protective Environment 10/10/2022 3 Care Teams Personal Lines Account Manager Relationship Specialty Start Date End Date Elsewhere, Pcp PCP - General 05/22/18
--- OUTSIDE RECORDS SUMMARY | 2023-06-19 08:45 | XMS_ITS | Clinical Summary ---
Author Name Unknown Organization [facility] Address [address] [place] [address] Care Team Providers Care Java Designer Name Role Phone Elsewhere, Pcp Primary Care Provider Unavailabl e Source Comments Patient records contain information from all sites at [facility]. For routine questions regarding patient records, call [phone] during business hours, M-F 8:00 AM - 5:00 PM Central Time. Record requests for emergency care only can be directed to [phone] at any time.[facility] Allergies Active Allergy Reactions Criticality Noted Date [...] Diagnosed Date Resolved Date Arthritis Inflammatory 07/17/202001/15 Encounters Date Type Department Care Team Description 05/12/2023 11:20 AM CLERGY MEMBER Comprehensive Visit Department of Dermatology in [address] [phone] Jin Steiner M.D. Asteatosis (Primary Dx); Arthritis Rheumatoid (HCC); High Risk Medication; Lesion Skin; Keratosis Seborrheic 05/09/2023 10:30 AM CLERGY MEMBER Office Visit Division of Rheumatology in [address] [phone] Alexandra Lopez APRN, C.N.P., D.N.P. Lesion Skin (Primary Dx); Arthritis Rheumatoid (HCC); High Risk Medication 05/09/2023 7:56 AM CLERGY MEMBER - 05/09/2023 11:59 PM CLERGY MEMBER Hospital Encounter Department of Laboratory Medicine and Pathology, [facility], in [address] [phone] Alexandra Lopez APRN, C.N.P., D.N.P. Arthritis Rheumatoid (HCC); High Risk Medication Discharge Disposition: Home or Self Care 05/08/2023 12:00 PM CLERGY MEMBER Clinical Communication Virtual Review in [address] [address] Pre-visit Intake (PIETRO done 05/08) 04/07/2023 Refill Division of Rheumatology in [address] [phone] Alexandra Lopez APRN, C.N.P., D.N.P. Med Refill from Last 3 Months Immunizations Name Administration Dates Next Due Tdap 04/21/2008 Family History Medical History Relation Name Comments Other cancer Brother Florian Britt Sarcoma l eg Colon cancer Father Reji Britt Other cancer Father Reji Britt Tumor back o f tongue Lung cancer Mother Kenia Britt Relation Name Status Comments Brother Florian Britt Father Reji Britt Mother Kenia Britt Social History Tobacco Use Types Packs/Day Years [...] 07/13/2022 How often do you attend chur ch or cheondoism services? Patient declined 07/13/2022 Do you belong to any clubs o r organizations such as taoist groups, unions, fraternal or athletic groups, or [...] medical care, and heating? Patient declined 07/13/2022 [facility] Occup[facility] ional [facility] - Occupational [...] Comments Blood Pressure 134/82 05/09/2023 10:32 AM CLERGY MEMBER Pulse 74 05/09/2023 10:32 AM CLERGY MEMBER Temperature 37 ??C (98.6 ??F) 05/09/2023 10:32 AM CLERGY MEMBER Respiratory Rate - - Oxygen Saturation - - Inhaled Oxygen Concentration - - Weight 85.1 kg (187 lb 9.8 oz) 05/09/2023 10:32 AM CLERGY MEMBER Height 156.4 cm (5' 1.58) 05/09/2023 10:[address] Body Mass Index 34.79 05/09/2023 10:32 AM CLERGY MEMBER Plan of Treatment Health Maintenance Due Date Last Done Comments CT Colonography 1961 Cologuard 1961 Colonoscopy 1961 Colorectal Cancer Surveillance 1961 Fasting Glucose for Diabetes Screening 1961 Hepatitis C Screening 1961 Lipid (Cholesterol) Screening 1961 Potassium Level 1961 Sodium Level 1961 Thyroid Stimulating Hormone (TSH) test for thyroid function 1961 Pneumococcal vaccine (0-64 years) (1 of 2 - PCV) 1967 Zoster Vaccines (1 of 2) 1980 Mammogram 04/21/2009 04/21/2008, 03/09, 02/20/2006, Additional history exists COVID-19 Vaccine ( season) 2023 04/05/2022, 05/01/2021, 10/06/2020, Additional history exists Influenza Vaccine (#1) 2023 , 04/26/2021, 04/11/2020, Additional history exists Depression Screening (Annual PHQ-2) 06/09/2023 Creatinine Level (Kidney Function Test) 05/09/2024 05/09/2023, 01/20/2023, 10/10/2022, Additional history exists DTaP,Tdap,and Td Vaccines (3 - Td or Tdap) 04/06/2028 04/06/2018, 04/21/2008 HPV Vaccines Aged Out No longer eligi ble based on patient's age to complete this topic Medical Devices Implanted Type Area Reimbursement Analyst Device Identifier Shelf Expiration Date Model / Serial / Lot Knee Implant- [id number] Implanted:06/09 (Quantity not on file) Knee Implant Bilatera l: Knee Description:Both joints were replaced. Procedures Procedure Name Priority Date/Time Associated Diagnosis Comments CREATININE WITH EGFR, S/P Routine 05/09/2023 8:08 AM CLERGY MEMBER Arthritis Rheumatoid (HCC) High Risk Medication ASPARTATE AMINOTRANSFERASE (AST), S/P Routine 05/09/2023 8:08 AM CLERGY MEMBER Arthritis Rheumatoid (HCC) High Risk Medication C-REACTIVE PROTEIN (CRP), S/P Routine 05/09/2023 8:08 AM CLERGY MEMBER Arthritis Rheumatoid (HCC) High Risk Medication SEDIMENTATION RATE, B Routine 05/09/2023 8:08 AM CLERGY MEMBER Arthritis Rheumatoid (HCC) High Risk Medication CBC WITH DIFFERENTIAL, B Routine 023 8:08 AM CLERGY MEMBER Arthritis Rheumatoid (HCC) High Risk Medication from Last 3 Months Results * Sedimentation Rate (05/09/2023 8:08 AM CLERGY MEMBER) Sedimentation Rate, B 8 2 - 22 mm/h 05/09/2023 9:23 AM CLERGY MEMBER DTL Blood (Blood, Venous) 05/09/2023 8:08 AM CLERGY MEMBER 05/09/2023 8:31 AM CLERGY MEMBER Yonas Wallace APRNNCodyPCody, Rober.N.P. LAB B JULITO ADD-ON [facility] [address] [place] [address], [facility] DTL [facility] [address] [place] [address] * (ABNORMAL) CBC with Differential, Blood (05/09/2023 8:08 AM CLERGY MEMBER) Hemoglobin 13.3 11.6 - 15.0 g/dL 05/09/2023 8:44 AM CLERGY MEMBER DTL Hematocrit 40.0 35.5 - 44.9 % 05/09/2023 8:44 AM CLERGY MEMBER DTL Erythrocytes 4.09 3.92 - 5.13 x10(12)/L 05/09/2023 8:44 AM CLERGY MEMBER DTL MCV 97.8 78.2 - 97.9 fL 05/09/2023 8:44 AM CLERGY MEMBER DTL RBC Distrib Width 12.9 12.2 - 16.1 % 05/09/2023 8:44 AM CLERGY MEMBER DTL Platelet Count 279 157 - 371 x10(9)/L 05/09/2023 8:44 AM CLERGY MEMBER DTL Leukocytes 8.4 3.4 - 9.6 x10(9)/L 05/09/2023 8:44 AM CLERGY MEMBER DTL Neutrophils 5.08 1.56 - 6.45 x10(9)/L 05/09/2023 8:44 AM CLERGY MEMBER DHPM Lymphocytes 2.44 0.95 - 3.07 x10(9)/L 05/09/2023 8:44 AM CLERGY MEMBER DTL Monocytes 0.53 0.26 - 0.81 x10(9)/L 05/09/2023 8:44 AM CLERGY MEMBER DTL Eosinophils 0.24 0.03 - 0.48 x10(9)/L 05/09/2023 8:44 AM CLERGY MEMBER DTL Basophils 0.09(H) 0.01 - 0.08 x10(9)/L 05/09/2023 8:44 AM CLERGY MEMBER DTL Blood (Blood, Venous) 05/09/2023 8:08 AM CLERGY MEMBER 05/09/2023 8:31 AM CLERGY MEMBER Yonas Wallace APRNN.P., VargheseN.P. LAB B LOOD ADD-ON [facility] [address] [place] [address], [facility] [address] [place] [address] [facility] [address] [place] [address] * CRP (C-Reactive Protein) (05/09/2023 8:08 AM CLERGY MEMBER) C-Reactive Protein (CRP), S <3.0 <5.0 mg/L 05/09/2023 9:08 AM CLERGY MEMBER DT Blood (Blood, Venous) 05/09/2023 8:08 AM CLERGY MEMBER 05/09/2023 8:50 AM CLERGY MEMBER Yonas Wallace APRNN.P., Rober.N.P. LAB B LOOD ADD-ON Performing Organization Address City/[facility]/ZIP Co de Phone Number [facility] [address] [place] [address], [facility] 200 [place] [address] * AST (Aspartate Aminotransferase) (05/09/2023 8:08 AM CLERGY MEMBER) Aspartate Aminotransferase (AST), S 16 8 - 43 U/L 05/09/2023 9:08 AM CLERGY MEMBER DTL Blood (Blood, Venous) 05/09/2023 8:08 AM CLERGY MEMBER 05/09/2023 8:50 AM CLERGY MEMBER James Wallace APRN.N.P., Rober.N.P. LAB B LOOD ADD-ON [facility] [address] [place] [address], [facility] [address] [place] [address] * Creatinine with Estimated GFR (05/09/2023 8:08 AM CLERGY MEMBER) Creatinine 0.86 0.59 - 1.04 mg/dL 05/09/2023 9:08 AM CLERGY MEMBER DTL Estimated GFR (eGFR) 76 >=60 mL/min/BSA 05/09/2023 9:08 AM CLERGY MEMBER DTL Comment: Estimated GFR calculated using the 2020 CKD_EPI creatinine equation. Blood (Blood, Venous) 05/09/2023 8:08 AM CLERGY MEMBER 05/09/2023 8:50 AM CLERGY MEMBER Alexandra Lopez APRN, C.N.P., D.N.P. LAB B LOOD ADD-ON [facility] [address] [place] [address], [facility] [address] [place] [address] from Last 3 Months Additional Health Concerns Infection Onset Date Last Indicated Protective Environment 10/10/2022 3 Care Teams Java Designer Relationship Specialty Start Date End Date Elsewhere, Pcp PCP - General 05/22/18
--- OUTSIDE RECORDS SUMMARY | 2023-06-19 08:45 | XMS_ITS | Encounter Summary ---
Author Name Unknown Organization [facility] Address [address] [place] [address] Care Team Providers Care Soap Tender Name Role Phone Elsewhere, Pcp Primary Care Provider Unavailabl e Encounter Details Date Type Department Care Team (Latest Contact Info) Description 05/09/2023 7:56 AM RULING TECHNICIAN - 05/09/2023 11:59 PM [facility] Hospital Encounter Department of Laboratory Medicine and Pathology, [facility] in [place], [place] [address] [place] [phone] Alexandra Lopez, ANTONIO, C.N.P., D.N.P. [address] [place] [phone] Arthritis Rheumatoid (HCC); High Risk Medication Discharge Disposition: Home or Self Care Social History Tobacco Use Types Packs/Day Years [...] How often do you attend chur or scientology services? Patient declined 07/13/2022 Do you belong to any clubs o r organizations such as judaism groups, unions, fraternal or athletic groups, or [...] medical care, and heating? Patient declined 07/13/2022 [facility] Occupat ional Health - Occupational Stress [...] place to sleep or slept in a assisted (including now)? No 07/13/2022 Nutrition Answer Date [...] AM CDT documented as of this encounter Medications at Time of Discharge Medication Sig Dispensed Refills Start Date End Date cetirizine (ZyrTEC) 10 mg tablet Take 10 mg by mouth daily. 0 folic acid 1 mg tabletIndications:Arth ritis Rheumatoid (HCC) Take 1 tablet (1 mg total) by mouth daily. 90 tablet 1 05/09/2023 levothyroxine (SYNTHROID, LEVOTHROID) 112 mcg tablet Take 112-168 mcg by mouth every morning before breakfast. Take 112 mg on Friday, Friday, , Friday and Friday. Take 168 mg (1.5 tablets) on Friday and Friday. 0 lisinopril-hydroCHLORO thiazide (PRINZIDE,ZESTORETIC) 20-25 mg per tablet Take 1 tablet by mouth daily. 0 04/24/2020 methotrexate 2.5 mg tabletIndications:Arth ritis Rheumatoid (HCC) TAKE 7 TABLETS ( 17.5 MG TOTAL ) ONCE A WEEK 84 tablet 1 04/08/2023 predniSONE (DELTASONE) 2.5 mg tabletIndications:Arth ritis Rheumatoid (HCC) Take 1 tablet (2.5 mg total) by mouth daily. all in AM with food 90 tablet 0 07/15/2022 triamcinolone (KENALOG) 0.1 % cream Apply 1 application topically as needed. 0 04/18/2020 documented as of this encounter Plan of Treatment Not on file documented as of this encounter Procedures Procedure Name Priority Date/Time Associated Diagnosis Comments SEDIMENTATION RATE, B Routine 05/09/2023 8:08 AM RULING TECHNICIAN Arthritis Rheumatoid (HCC) High Risk Medication CBC WITH DIFFERENTIAL, B Routine 023 8:08 AM RULING TECHNICIAN Arthritis Rheumatoid (HCC) High Risk Medication C-REACTIVE PROTEIN (CRP), S/P Routine 05/09/2023 8:08 AM RULING TECHNICIAN Arthritis Rheumatoid (HCC) High Risk Medication ASPARTATE AMINOTRANSFERASE (AST), S/P Routine 05/09/2023 8:08 AM RULING TECHNICIAN Arthritis Rheumatoid (HCC) High Risk Medication CREATININE WITH EGFR, S/P Routine 05/09/2023 8:08 AM RULING TECHNICIAN Arthritis Rheumatoid (HCC) High Risk Medication documented in this encounter Results * Creatinine with Estimated GFR (05/09/2023 8:08 AM RULING TECHNICIAN) Creatinine 0.86 0.59 - 1.04 mg/dL 05/09/2023 9:08 AM RULING TECHNICIAN DTL Estimated GFR (eGFR) 76 >=60 mL/min/BSA 05/09/2023 9:08 AM RULING TECHNICIAN DTL Comment: Estimated GFR calculated using the 2020 CKD_EPI creatinine equation. Blood (Blood, Venous) 05/09/2023 8:08 AM RULING TECHNICIAN 05/09/2023 8:50 AM RULING TECHNICIAN Yonas Wallace APRNN.P., D.N.P. LAB B LOOD ADD-ON Performing Organization Address City/[facility] Co de Phone Number [facility] 200 [place], [place] [id number] [place] [address] 200 [place] [address] * AST (Aspartate Aminotransferase) (05/09/2023 8:08 AM RULING TECHNICIAN) Aspartate Aminotransferase (AST), S 16 8 - 43 U/L 05/09/2023 9:08 AM RULING TECHNICIAN DTL Blood (Blood, Venous) 05/09/2023 8:08 AM RULING TECHNICIAN 05/09/2023 8:50 AM RULING TECHNICIAN James Wallace APRN.N.P., D.N.P. LAB B LOOD ADD-ON Performing Organization Address [facility] Co de Phone Number [facility] 200 [place] [address], [facility] 200 [place] [address] * CRP (C-Reactive Protein) (05/09/2023 8:08 AM RULING TECHNICIAN) C-Reactive Protein (CRP), S <3.0 <5.0 mg/L 05/09/2023 9:08 AM RULING TECHNICIAN DTL Blood (Blood, Venous) 05/09/2023 8:08 AM RULING TECHNICIAN 05/09/2023 8:50 AM RULING TECHNICIAN James Wallace APRN.N.P., D.N.P. LAB B LOOD ADD-ON Performing Organization Address City/[facility] Co de Phone Number [facility] 200 [place] [address], [facility] [address] [place] [address] * Sedimentation Rate (05/09/2023 8:08 AM RULING TECHNICIAN) Pathologist [facility] Sedimentation Rate, B 8 2 - 22 mm/h 05/09/2023 9:23 AM RULING TECHNICIAN DTL Blood (Blood, Venous) 05/09/2023 8:08 AM RULING TECHNICIAN 05/09/2023 8:31 AM RULING TECHNICIAN Alexandra Lopez APRN, C.N.P., D.N.P. LAB B JULITO ADD-ON Performing Organization Address City/[facility]/ZIP Co de Phone Number [facility] [address] [place] [address], [facility] [address] [place] [address] * (ABNORMAL) CBC with Differential, Blood (05/09/2023 8:08 AM RULING TECHNICIAN) [facility] Hemoglobin 13.3 11.6 - 15.0 g/dL 05/09/2023 8:44 AM RULING TECHNICIAN DTL Hematocrit 40.0 35.5 - 44.9 % 05/09/2023 8:44 AM RULING TECHNICIAN DTL Erythrocytes 4.09 3.92 - 5.13 x10(12)/L 05/09/2023 8:44 AM RULING TECHNICIAN DTL MCV 97.8 78.2 - 97.9 fL 05/09/2023 8:44 AM RULING TECHNICIAN DTL RBC Distrib Width 12.9 12.2 - 16.1 % 05/09/2023 8:44 AM RULING TECHNICIAN DTL Platelet Count 279 157 - 371 x10(9)/L 05/09/2023 8:44 AM RULING TECHNICIAN DTL Leukocytes 8.4 3.4 - 9.6 x10(9)/L 05/09/2023 8:44 AM RULING TECHNICIAN DTL Neutrophils 5.08 1.56 - 6.45 x10(9)/L 05/09/2023 8:44 AM RULING TECHNICIAN DHPM Lymphocytes 2.44 0.95 - 3.07 x10(9)/L 05/09/2023 8:44 AM RULING TECHNICIAN DTL Monocytes 0.53 0.26 - 0.81 x10(9)/L 05/09/2023 8:44 AM RULING TECHNICIAN DTL Eosinophils 0.24 0.03 - 0.48 x10(9)/L 05/09/2023 8:44 AM RULING TECHNICIAN DTL Basophils 0.09(H) 0.01 - 0.08 x10(9)/L 05/09/2023 8:44 AM RULING TECHNICIAN DTL Blood (Blood, Venous) 05/09/2023 8:08 AM RULING TECHNICIAN 05/09/2023 8:31 AM RULING TECHNICIAN Alexandra Lopez APRN, C.N.P., D.N.P. LAB B LOOD ADD-ON [facility] [address] [place] [address], [facility] DTL [facility] [address] [place] [address] DHPM [facility] [address] [place] [address] documented in this encounter Visit Diagnoses Diagnosis Arthritis Rheumatoid (HCC) High Risk Medication documented in this encounter Additional Health Concerns Infection Onset Date Last Indicated Resolved Time Protective Environment 10/10/2022 10/10/2022 documented as of this encounter Care Teams Soap Tender Relationship Specialty Start Date End Date Elsewhere, Pcp PCP - General 05/22/18 documented as of this encounter
--- OUTSIDE RECORDS SUMMARY | 2023-06-19 08:45 | XMS_ITS ---
Author Name Unknown Organization [facility] Address [address] [place] [address] Care Team Providers Care Fiber Artist Name Role Phone Unavailable Unavailable Unavailable Surgery Details Not on file Complications Check Surgery Details section. Procedure Estimated Blood Loss Check Surgery Details section. Procedure Findings Check Surgery Details section. Procedure Specimens Taken Check Surgery Details section.
--- OUTSIDE RECORDS SUMMARY | 2023-06-19 08:46 | XMS_ITS | Encounter Summary ---
Author Name Unknown Organization [facility] Address [address] [place] [address] Care Team Providers Care Sap Bobj Developer Name Role Phone Elsewhere, Pcp Primary Care Provider Unavailabl e Encounter Details Date Type Department Care Team (Latest Contact Info) Description 10/10/2022 9:51 AM CDT - 10/10/2022 11:59 PM CDT Hospital Encounter Department of Laboratory Medicine and Pathology, [facility] in [place], [place] [address] [place] [phone] Alexandra Lopez, ANTONIO, C.N.P., D.N.P. [address] [place] [phone] Arthritis Rheumatoid (HCC) Discharge Disposition: Home or Self Care Social History Tobacco Use Types Packs/Day Years Used Date Smoking Tobacco: Former Cigarettes 0 0 Q uit: 09/15/1998 Smokeless Tobacco: Never Alcohol Use Standard Drinks/Week [...] How often do you attend chur or confucianist services? Patient declined 07/13/2022 Do you belong to any clubs o r organizations such as jehovah's witness groups, unions, fraternal or athletic groups, or [...] medical care, and heating? Patient declined 07/13/2022 [facility] of Occupat ional Health - Occupational [...] place to sleep or slept in a jail (including now)? No 07/13/2022 Nutrition Answer Date [...] Take 10 mg by mouth daily. 0 levothyroxine (SYNTHROID, LEVOTHROID) 112 mcg tablet Take 112-168 mcg by mouth every morning before breakfast. Take 112 mg on Friday, Friday, , Friday and Friday. Take 168 mg (1.5 tablets) on Friday and Friday. 0 lisinopril-hydroCHLOR Othiazide (PRINZIDE,ZESTORETIC) 20-25 mg per tablet Take 1 tablet by mouth daily. 0 04/24/2020 predniSONE (DELTASONE) 2.5 mg tabletIndications:Art hritis Rheumatoid (HCC) Take 1 tablet (2.5 mg total) by mouth daily. all in AM with food 90 tablet 0 07/15/2022 triamcinolone (KENALOG) 0.1 % cream Apply 1 application topically as needed. 0 04/18/2020 folic acid 1 mg tabletIndications:Art hritis Rheumatoid (HCC) Take 1 tablet (1 mg total) by mouth daily. 90 tablet 1 10/10/2022 05/09/2023 methotrexate 2.5 mg tabletIndications:Art hritis Rheumatoid (HCC) Take 7 tablets (17.5 mg total) by mouth once a week. 84 tablet 1 10/10/2022 04/08/2023 documented as of this encounter Plan of Treatment Not on file documented as of this encounter Procedures Procedure Name Priority Date/Time Associated Diagnosis Comments SEDIMENTATION RATE, B Routine 10/10/2022 10:05 AM CDT Arthritis Rheumatoid (HCC) CBC WITH DIFFERENTIAL, B Routine 023 10:05 AM CDT Arthritis Rheumatoid (HCC) C-REACTIVE PROTEIN (CRP), S/P Routine 10/10/2022 10:05 AM CDT Arthritis Rheumatoid (HCC) ASPARTATE AMINOTRANSFERASE (AST), S/P Routine 10/10/2022 10:05 AM CDT Arthritis Rheumatoid (HCC) CREATININE WITH EGFR, S/P Routine 10/10/2022 10:05 AM CDT Arthritis Rheumatoid (HCC) documented in this encounter Results * Creatinine with Estimated GFR (10/10/2022 10:05 AM CDT) Creatinine 0.87 0.59 - 1.04 mg/dL 10/10/2022 11:10 AM CDT DTL Estimated GFR (eGFR) 76 >=60 mL/min/BSA 10/10/2022 11:10 AM CDT DT Comment: Estimated GFR calculated using the 2020 CKD_EPI creatinine equation. Blood (Blood, Venous) 10/10/2022 10:05 AM CDT 10/10/2022 10:49 AM CDT James Wallace APRN.N.P., D.N.P. LAB B LOOD ADD-ON Performing Organization Address City/[facility] Co de Phone Number [facility] 200 [place] [address], [facility] 200 [place] [address] * AST (Aspartate Aminotransferase) (10/10/2022 10:05 AM CDT) Aspartate Aminotransferase (AST), S 19 8 - 43 U/L 10/10/2022 11:10 AM CDT DT Blood (Blood, Venous) 10/10/2022 10:05 AM CDT 10/10/2022 10:49 AM CDT James Wallace APRN.N.P., D.N.P. LAB B LOOD ADD-ON Performing Organization Address City/[facility] Co de Phone Number [facility] [address] [place] [address], [facility] [address] [place] [address] * CRP (C-Reactive Protein) (10/10/2022 10:05 AM CDT) C-Reactive Protein (CRP), S <3.0 <5.0 mg/L 10/10/2022 11:10 AM CDT DTL Blood (Blood, Venous) 10/10/2022 10:05 AM CDT 10/10/2022 10:49 AM CDT James Wallace APRN.N.P., D.N.P. LAB B LOOD ADD-ON Performing Organization Address City/[facility]/ZIP Co de Phone Number [facility] [address] [place] [address], [facility] [address] [place] [address] * Sedimentation Rate (10/10/2022 10:05 AM CDT) Pathologist [facility] Sedimentation Rate, B 10 2 - 22 mm/h 10/10/2022 11:34 AM CDT DTL Blood (Blood, Venous) 10/10/2022 10:05 AM CDT 10/10/2022 10:33 AM CDT Alexandra Lopez APRN, C.N.P., Rober.CelestinePCody LAB B LOOD ADD-ON Performing Organization Address City/[facility] Co de Phone Number [facility] [address] [place] [address], [facility] [address] [place] [address] * (ABNORMAL) CBC with Differential, Blood (10/10/2022 10:05 AM CDT) [facility] Hemoglobin 13.0 11.6 - 15.0 g/dL 10/10/2022 10:40 AM CDT DTL Hematocrit 39.2 35.5 - 44.9 % 10/10/2022 10:40 AM CDT DTL Erythrocytes 4.04 3.92 - 5.13 x10(12)/L 10/10/2022 10:40 AM CDT DTL MCV 97.0 78.2 - 97.9 fL 10/10/2022 10:40 AM CDT DTL RBC Distrib Width 13.2 12.2 - 16.1 % 10/10/2022 10:40 AM CDT DTL Platelet Count 276 157 - 371 x10(9)/L 10/10/2022 10:40 AM CDT DTL Leukocytes 7.7 3.4 - 9.6 x10(9)/L 10/10/2022 10:40 AM CDT DTL Neutrophils 3.86 1.56 - 6.45 x10(9)/L 10/10/2022 10:40 AM CDT DTL Lymphocytes 2.86 0.95 - 3.07 x10(9)/L 10/10/2022 10:40 AM CDT DTL Monocytes 0.61 0.26 - 0.81 x10(9)/L 10/10/2022 10:40 AM CDT DTL Eosinophils 0.28 0.03 - 0.48 x10(9)/L 10/10/2022 10:40 AM CDT DTL Basophils 0.10(H) 0.01 - 0.08 x10(9)/L 10/10/2022 10:40 AM CDT DTL Blood (Blood, Venous) 10/10/2022 10:05 AM CDT 10/10/2022 10:33 AM CDT Alexandra Lopez APRN, C.N.P., D.N.P. LAB B LOOD ADD-ON [facility] [address] [place] [address], [facility] DTFormerly named [facility] [address] [place] [address] documented in this encounter Visit Diagnoses Diagnosis Arthritis Rheumatoid (HCC) documented in this encounter Additional Health Concerns Infection Onset Date Last Indicated Resolved Time Protective Environment 10/10/2022 10/10/2022 documented as of this encounter Care Teams Sap Bobj Developer Relationship Specialty Start Date End Date Elsewhere, Pcp PCP - General 05/22/18 documented as of this encounter
--- OUTSIDE RECORDS SUMMARY | 2023-06-19 08:46 | XMS_ITS | Encounter Summary ---
Author Name Unknown Organization [facility] Address [address] [place] [address] Care Team Providers Care Captain Airline Pilot Name Role Phone Elsewhere, Pcp Primary Care Provider Unavailabl e Reason for Visit * Reason Onset Date Comments Previsit Preparation 07/11/2022 PIETRO done 2/ 2 EEF Encounter Details Date Type Department Care Team (Latest Contact Info) Description 07/11/2022 8:30 AM MENTAL HEALTH ADVANCED PRACTICE NURSE Clinical Communication Virtual Review in [place], [place] [address] [place] [address] Previsit Preparation (PIETRO done 2/2 EEF) Social History Tobacco Use Types Packs/Day Years Used Date Smoking Tobacco: Former Cigarettes 0 0 Q uit: 09/15/1998 Smokeless Tobacco: Never Tobacco Cessation:Counseling Given: Not Answered Alcohol Use Standard Drinks/Week Comments Yes 6 (1 standard drink = 0.6 oz pur e alcohol) Humiliation, Afraid, Rape, and Kick questionnair e Answer Date Recorded Within the last year, have y ou been afraid of your partner or ex-partner? No 10/15/2021 Within the last year, have y ou been humiliated or emotionally abused in other ways by your partner or ex-partner? No Within the last year, have y ou been kicked, hit, slapped, or otherwise physically hurt by your partner or ex-partner? No 10/15/2021 Within the last year, have y ou been raped or forced to have any kind of sexual activity by your partner or ex-partner? No 10/15/2021 Social Connection and Isolat ion Panel [NHANES] Answer Date Recorded In a typical week, how many times do you talk on the phone with family, friends, or neighbors? More than three times a week 10/15/2021 How often do you get togethe r with friends or relatives? Three times a week 10/15/2021 How often do you attend chur ch or scientologist services? 1 to 4 times per year 10/15/2021 Do you belong to any clubs o r organizations such as temple groups, unions, fraternal or athletic groups, or school groups? No 10/15/2021 How often do you attend meet ings of the clubs or organizations you belong to? Patient declined 10/15/2021 Are you , , di vorced, , never , or living with a partner? 10/15/2021 AUDIT-C Answer Date Recorded Q1: How often do you have a drink containing alc ohol? 2-3 times a week 10/15/2021 Q2: How many drinks containi ng alcohol do you have on a typical day when you are drinking? 1 or 2 10/15/2021 Q3: How often do you have si x or more drinks on one occasion? Never 10/15/2021 Overall Financial Resource Strain (CARDIA) Answe r Date Recorded How hard is it for you to pa y for the very basics like food, housing, medical care, and heating? Patient declined 10/15/2021 [facility] ional [facility] - Occupational Stress Questionnaire Answer Date Recorded Do you feel stress - tense, restless, nervous, or anxious, or unable to sleep at night because your mind is troubled all the time - these days? Not at all 10/15/2021 Exercise Vital Sign Answer Date Recorde d On average, how many days pe r week do you engage in moderate to strenuous exercise (like a brisk walk)? 0 days 10/15/2021 On average, how many minutes do you engage in exercise at this level? 0 min 10/15/2021 Hunger Vital Sign Answer Date Recorded Within the past 12 months, y ou worried that your food would run out before you got the money to buy more. Patient declined Within the past 12 months, t he food you bought just didn't last and you didn't have money to get more. Patient declined 02/2022 PRAPARE - Transportation Answer Date Re corded In the past 12 months, has l ack of transportation kept you from medical appointments or from getting medications? No 02/2022 In the past 12 months, has l ack of transportation kept you from meetings, work, or from getting things needed for daily living? No 10/15/2021 Housing Stability Vital Sign Answer Justin e Recorded In the last 12 months, was t here a time when you were not able to pay the mortgage or rent on time? Patient refused 10/16/19 In the last 12 months, how many places have you lived? 1 10/15/2021 In the last 12 months, was t here a time when you did not have a steady place to sleep or slept in a custodial (including now)? No 10/15/2021 Nutrition Answer Date Recorded Nutrition: EVOO Fat Source No 10/15 On average, how many serving s of fruits and vegetables do you eat per day (serving size is equal to 1 cup or approximately the size of a tennis ball)? 2-3 10/15/2021 Dental Answer Date Recorded Dental: Regular Dentist Yes 10/16/19 Employment Answer Date Recorded Employment status Retired 10/15/2021 Education Answer Date Recorded What is the highest level of school you have completed or the highest degree you have received? 12th grade 07/14/2020 Sex and Gender Information Value Date Recorded Sex Assigned at Female 10/15/2021 8:27 AM CDT Gender Identity Female 10/15/2021 8:27 AM CDT Sexual Orientation Straight 10/15/2021 8: 27 AM CDT documented as of this encounter Plan of Treatment Not on file documented as of this encounter Visit Diagnoses Not on filedocumented in this encounter Care Teams Captain Airline Pilot Relationship Specialty Start Date End Date Elsewhere, Pcp PCP - General 05/22/18 documented as of this encounter
--- OUTSIDE RECORDS SUMMARY | 2023-06-19 08:46 | XMS_ITS | Encounter Summary ---
Author Name Unknown Organization [facility] Address [address] [place] [address] Care Team Providers Care Law Enforcement Instructor Name Role Phone Elsewhere, Pcp Primary Care Provider Unavailabl e Reason for Referral * Outpatient (Routine) - Authorized Specialty Diagnoses / Procedures Referred By Florian cazares Referred To Contact Research Diagnoses Arthritis Rheumatoid (HCC) Steve Steiner III, M.D. [address] [place] [phone] [facility] Referral ID Status Reason Start Date Expiration Date V isits Requested Visits Authorized [id number] Authorized 06/06/2022 06/05/2025 1 1 R RESOURCE AGENT Encounter Details Date Type Department Care Team (Late st Contact Info) Description 06/06/2022 Orders Only Division of Rheumatology in [place], [place] [address] [place] [phone] Carie Burkett C.C.R.CCody, ACRP [address] [place] [phone] Arthritis Rheumatoid (HCC) (Primary Dx) Social History Tobacco Use Types Packs/Day Years [...] often do you attend chur ch or restorationist services? 1 to 4 times per year 10/15/2021 Do you belong to any clubs o r organizations such as adventism groups, unions, fraternal or athletic groups, or [...] medical care, and heating? Patient declined 10/15/2021 [facility] [place] [facility] Occupat ional Health - Occupational Stress [...] slept in a intermediate (including now)? No 10/15/2021 Nutrition Answer Date [...] as of this encounter Plan of Treatment Scheduled Referrals Name Type Priority Associated Diagnoses Order Schedule Research Car Rental Clerk office visit (clinic) Outpatient Referral Routine Arthritis Rheumatoid (HCC) Expected: 07/15/2022, Expires: 09/05/2023 documented as of this encounter Results * Miscellaneous Research, B (07/15/2022 10:40 AM WATER RESOURCE AGENT) Number of Specimens 5 07/15/2022 10:40 AM WATER RESOURCE AGENT HSS Blood (Blood, Venous) 07/15/2022 10:40 AM WATER RESOURCE AGENT 07/15/2022 10:40 AM WATER RESOURCE AGENT Steve Steiner III, M.D. LAB RESEARCH NO R ESULT ROUTING Performing Organization Address City/[facility]/ZIP Co de Phone Number [facility] [address] [place] [address], [facility] HSS [facility] [address] [place] [address] * Sedimentation Rate (07/15/2022 10:40 AM WATER RESOURCE AGENT) Sedimentation Rate, B 8 2 - 22 mm/h 07/15/2022 11:54 AM WATER RESOURCE AGENT DTL Blood (Blood, Venous) 07/15/2022 10:40 AM WATER RESOURCE AGENT 07/15/2022 11:03 AM WATER RESOURCE AGENT Steve Steiner III, M.D. LAB BLOOD ADD-ON Performing Organization Address City/[facility]/ZIP Co de Phone Number [facility] [address] [place] [address], [facility] DTL [facility] [address] [place] [address] documented in this encounter Visit Diagnoses Diagnosis Arthritis Rheumatoid (HCC)- Primary documented in this encounter Care Teams Law Enforcement Instructor Relationship Specialty Start Date End Date Elsewhere, Pcp PCP - General 05/22/18 documented as of this encounter
--- OUTSIDE RECORDS SUMMARY | 2023-06-19 08:46 | XMS_ITS | Encounter Summary ---
Author Name Unknown Organization [facility] Address [address] [place] [address] Care Team Providers Care Mig Tig Welder Name Role Phone Elsewhere, Pcp Primary Care Provider Unavailsalmia e Reason for Referral * Outpatient (Routine) - Closed Specialty Diagnoses / Procedures Referred By Florian t Referred To Contact Rheumatology Diagnoses Arthritis Rheumatoid (HCC) Alexandra Lopez APRN, C.N.P., D.N.P. [address] [place] [phone] [facility] Referral ID Status Reason Start Date Expiration Date Visits Re quested Visits Authorized [id number] Closed 07/15/2022 07/14/2025 1 1 GER NIGHT Reason for Visit * Outpatient (Routine) - Closed Specialty Diagnoses / Procedures Referred By Contac t Referred To Contact Rheumatology Ottoniel Talamantes M.D. [address] [place] [phone] [facility] Referral ID Status Reason Start Date Expiration Date Visits Re quested Visits Authorized [id number] Closed 03/20/2022 03/19/2025 1 1 Encounter Details Date Type Department Care Team (Latest Contact Info) Description 07/15/2022 1:00 PM MANAGER NIGHT Office Visit Division of Rheumatology in [place], [place] [address] [place] [phone] Alexandra Lopez APRN, C.N.P., D.N.P. 200 [place] [phone] Arthritis Rheumatoid (HCC) (Primary Dx) Social History [...] week 07/13/2022 How often do you attend [facility] or religion services? Patient declined 07/13/2022 Do you belong to any clubs o r organizations such as caodaism groups, unions, fraternal or athletic groups, or [...] medical care, and heating? Patient declined 07/13/2022 [facility] Questionnaire Answer Date Recorded [...] place to sleep or slept in a alf (including now)? No 07/13/2022 Nutrition Answer Date [...] AM CDT documented as of this encounter Last Filed Vital Signs Vital Sign Reading Time Taken Comments Blood Pressure 128/78 07/15/2022 12:56 PM MANAGER NIGHT Pulse 76 07/15/2022 12:56 PM MANAGER NIGHT Temperature 36.6 ??C (97.9 ??F) 07/15/2022 12:[address] Respiratory Rate - - Oxygen Saturation - - Inhaled Oxygen Concentration - - Weight 84.4 kg (186 lb 1.1 oz) 07/15/2022 12:56 PM MANAGER NIGHT Height 156.2 cm (5' 1.5) 07/15/2022 12:56 PM CS T Body Mass Index 34.59 07/15/2022 12:56 PM MANAGER NIGHT documented in this encounter Patient Instructions * Patient Instructions* Alexandra Lopez APRN, C.N.P., D.N.P. - 07/15/2022 1:00 PM MANAGER NIGHT Increase methotrexate to 7 tablets weekly. Continue folic acid daily. Starting around August 15, try decreasing prednisone to 2.5 mg daily for 2-4 weeks, and then try stopping. Follow up in 3 months. GER NIGHT documented in this encounter Progress Notes * Alexandra Lopez APRN, C.N.P., D.N.P. - 07/15/2022 1:00 PM CST SUBJECTIVE CHIEF COMPLAINT / REASON FOR VISIT Cary Ingram is a 62 y.o. female who presents for follow up of rheumatoid arthritis. HISTORY OF PRESENT ILLNESS Ms. Ingram has been followed by Dr. Talamantes. He saw her initially in July 2020 at which time she had a positive Rheumatoid Factor, she had undergone bilateral TKAs, but there was no evidence ofan inflammatory arthritis at that time. She returned to see him again in January 2022 following [facility] where [facility] demonstrated synovitis and tenosynovitis in her fingers. She had been given a course of prednisone that was helpful. Laboratory evaluation at that time included negative ALVARO, CCP, tick panel. Rheumatoid factor was significantly positive. At that time she met criteria for the diagnosis of rheumatoid arthritis and was started on methotrexate 15 mg weekly. She was also provided a prednisone burst and taper. She presents today for follow-up. I am meeting her for the 1st time today. She shares that she overall is doing significantly better. She reported she did completely taper off the prednisone, howevermore than a month ago she restarted it at 2.5 mg daily as she was experiencing some increased swelling and stiffness in her hands. About 1 week ago she increased to 5 mg daily. She is not certain shenoticed an improvement between 2.5 in 5 mg daily but in general somewhat better when on prednisone.She is tolerating methotrexate 15 mg weekly without any side effects. In general she reports some stiffness in her hands for the 1st 30 minutes or less in the morning. No nighttime pain. No recent, significant illnesses. No fevers, night sweats, skin rashes. Social history: She is . She has several children and grandchildren that live in the area and 1 that lives with her. Previous Reports Reviewed:lab reports and office notes The following portions of the patient's history were reviewed and updated as appropriate: allergies, current medications, family history, medical history, social history, surgical history, and problem list. REVIEW OF SYSTEMS Pertinent positives and negatives as documented in the above history of present illness. The following systems were negative: Constitutional, Skin, Eyes, ENT, Respiratory, Cardiovascular, Gastrointestinal, Genitourinary, Hematologic, Musculoskeletal, Neurological, Psychiatric OBJECTIVE PHYSICAL EXAMINATION Vitals reviewed. Constitutional Appearance: She is well-developed. Eyes Conjunctiva/sclera: Conjunctivae normal. Pupils: Pupils are equal, round, and reactive to light. Cardiovascular Rate and Rhythm: Normal rate and regular rhythm. Heart sounds: Normal heart sounds. Pulmonary Effort: Pulmonary effort is normal. Breath sounds: Normal breath sounds. Musculoskeletal Cervical back: Normal range of motion and neck supple. Comments: No synovitis of the upper and lower extremities including hands, wrists, elbows, knees, ankles or feet bilaterally. Range of motion of the extremities are within functional limits bilaterally. Lymphadenopathy Cervical: No cervical adenopathy. Skin General: Skin is warm and dry. Comments: No rheumatic rashes noted. Neurological Mental Status: She is alert and oriented to person, place, and time. Lab: Labs completed today include a normal CBC with differential, creatinine, AST, CRP. ASSESSMENT / PLAN #1 Arthritis Rheumatoid (HCC) It sounds as though Cary is significantly improved from the time of her initial visit in January. Unfortunately, she did experience some recurrence of symptoms as she tapered off of prednisone. Thereis no obvious joint tenderness or synovitis on exam today. Inflammatory markers are normal. Given that she feels better on a little bit of prednisone, I have recommended increasing methotrexate slightly to 17.5 mg weekly. After taking this dose for the next month she should then try decreasing prednisone down to 2.5 mg daily. After another 2-4 weeks, she can then consider stopping prednisone. I will plan to see her back in a few months for reassessment. I have encouraged her to contact me sooner with any questions or concerns. #2 High Risk Medication Recommend CBC with differential, creatinine, AST every 3 months while taking methotrexate. We will check these prior to her next visit. I answered the patient's questions to the best of my ability. The patient seemed pleased with our interaction. If she should have any additional questions or concerns, I have asked that she contact us at that time. PATIENT EDUCATION Ready to learn, no apparent learning barriers were identified; learning preferences include listening. Explained diagnosis and treatment plan; patient expressed understanding of the content. GER NIGHT documented in this encounter Plan of Treatment Scheduled Referrals Name Type Priority Associated Diagnoses Order Schedule Rheumatology office visit (clinic) Outpatient Referral Routine Arthritis Rheumatoid (HCC) Expected: 10/07/2022, Expires: 10/13/2023 documented as of this encounter Results * Creatinine with Estimated GFR (10/10/2022 10:05 AM CDT) Creatinine 0.87 0.59 - 1.04 mg/dL 10/10/2022 11:10 AM CDT DTL Estimated GFR (eGFR) 76 >=60 mL/min/BSA 10/10/2022 11:10 AM CDT DTL Comment: Estimated GFR calculated using the 2020 CKD_EPI creatinine equation. Blood (Blood, Venous) 10/10/2022 10:05 AM CDT 10/10/2022 10:49 AM CDT Alexandra Lopez APRN, C.N.P., D.N.P. LAB B LOOD ADD-ON Performing Organization Address City/[facility]/ZIP Co de Phone Number [facility] [place] [address] [place] [address] * AST (Aspartate Aminotransferase) (10/10/2022 10:05 AM CDT) Aspartate Aminotransferase (AST), S 19 8 - 43 U/L 10/10/2022 11:10 AM CDT DTL Blood (Blood, Venous) 10/10/2022 10:05 AM CDT 10/10/2022 10:49 AM CDT Alexandra Lopez APRN, C.N.P., D.N.P. LAB B LOOD ADD-ON [facility] [place] [address] [place], [place] [id number] [place] [address] * CRP (C-Reactive Protein) (10/10/2022 10:05 AM CDT) C-Reactive Protein (CRP), S <3.0 <5.0 mg/L 10/10/2022 11:10 AM CDT DTL Blood (Blood, Venous) 10/10/2022 10:05 AM CDT 10/10/2022 10:49 AM CDT James Wallace APRN.N.P., Rober.N.P. LAB B LOOD ADD-ON Performing Organization Address [facility] Co de Phone Number [facility] [place] [address] [place] [address] * Sedimentation Rate (10/10/2022 10:05 AM CDT) Pathologist [facility] Sedimentation Rate, B 10 2 - 22 mm/h 10/10/2022 11:34 AM CDT DTL Blood (Blood, Venous) 10/10/2022 10:05 AM CDT 10/10/2022 10:33 AM CDT James Wallace APRN.N.P., Rober.N.P. LAB B LOOD ADD-ON Performing Organization Address [facility] Co de Phone Number [facility] [place] [address] [place] [address] * (ABNORMAL) CBC with Differential, Blood (10/10/2022 10:05 AM CDT) [facility] Hemoglobin 13.0 11.6 - 15.0 g/dL 10/10/2022 [...] APRN, C.N.P., D.N.P. LAB B LOOD ADD-ON [facility] [place] [address] [place] [address], [facility] [address] [place] [address] documented in this encounter Visit Diagnoses Diagnosis Arthritis Rheumatoid (HCC)- Primary documented in this encounter Care Teams Mig Tig Welder Relationship Specialty Start Date End Date Elsewhere, Pcp PCP - General 05/22/18 documented as of this encounter
--- OUTSIDE RECORDS SUMMARY | 2023-06-19 08:46 | XMS_ITS | Encounter Summary ---
Author Name Unknown Organization [facility] Address [address] [place] [address] Care Team Providers Care Shipping Associate Name Role Phone Elsewhere, Pcp Primary Care Provider Unavailabl e Reason for Visit * Outpatient (Routine) - Authorized Specialty Diagnoses / Procedures Referred By Florian cazares Referred To Contact Research Diagnoses Arthritis Rheumatoid (HCC) Steve Steiner III, M.D. [address] [place] [phone] [facility] Referral ID Status Reason Start Date Expiration Date V isits Requested Visits Authorized [id number] Authorized 06/06/2022 06/05/2025 1 1 Encounter Details Date Type Department Care Team (Latest Contact Info) Description 07/15/2022 10:30 AM SEASONAL WAREHOUSE ASSOCIATE Clinical Support - [facility] Division of Rheumatology in [place], [place] [address] [place] [phone] Steve Steiner III, M.D. [address] [place] [phone] Raiza Gamino [address] [place] [phone] Arthritis Rheumatoid (HCC) Social History Tobacco Use Types Packs/Day Years [...] week 07/13/2022 How often do you attend [facility] or religion services? Patient declined 07/13/2022 Do you belong to any clubs o r organizations such as yarsanism groups, unions, fraternal or athletic groups, or [...] medical care, and heating? Patient declined 07/13/2022 [facility] of Occupat ional Health - Occupational [...] place to sleep or slept in a long-term (including now)? No 07/13/2022 Nutrition Answer Date [...] as of this encounter Visit Diagnoses Diagnosis Arthritis Rheumatoid (HCC) documented in this encounter Care Teams Shipping Associate Relationship Specialty Start Date End Date Elsewhere, Pcp PCP - General 05/22/18 documented as of this encounter
--- OUTSIDE RECORDS SUMMARY | 2023-06-19 08:46 | XMS_ITS | Encounter Summary ---
Author Name Unknown Organization [facility] Address [address] [place] [address] Care Team Providers Care Code Enforcement Inspector Name Role Phone Elsewhere, Pcp Primary Care Provider Unavailabl e Reason for Visit * Reason Onset Date Comments Pre-visit Intake 05/08/2023 PIETRO done 05/08 EEF Encounter Details Date Type Department Care Team (Latest Contact Info) Description 05/08/2023 12:00 PM ASSOCIATE DIRECTOR OF SALES Clinical Communication Virtual Review in [place], [place] [address] [place] [address] Pre-visit Intake (PIETRO done 05/08 EEF) Social History Tobacco Use Types Packs/Day [...] often do you attend chur ch or yazidism services? Patient declined 07/13/2022 Do [...] medical care, and heating? Patient declined 07/13/2022 [facility] of Occupat ional Health - Occupational Stress [...] place to sleep or slept in a senior care (including now)? No 07/13/2022 Nutrition Answer Date [...] Diagnoses Not on filedocumented in this encounter Additional Health Concerns Infection Onset Date Last Indicated Resolved Time Protective Environment 10/10/2022 10/10/2022 documented as of this encounter Care Teams Code Enforcement Inspector Relationship Specialty Start Date End Date Elsewhere, Pcp PCP - General 05/22/18 documented as of this encounter
--- OUTSIDE RECORDS SUMMARY | 2023-06-19 08:46 | XMS_ITS | Encounter Summary ---
Author Name Unknown Organization [facility] Address [address] [place] [address] Care Team Providers Care Safe Technician Name Role Phone Elsewhere, Pcp Primary Care Provider Uma e Reason for Referral * Outpatient (Routine) - Authorized Specialty Diagnoses / Procedures Referred By Contac t Referred To Contact Rheumatology Diagnoses Arthritis Rheumatoid (HCC) High Risk Medication Alexandra Lopez APRN, C.N.P., D.N.P. [address] [place] [phone] [facility] Referral ID Status Reason Start Date Expiration Date V isits Requested Visits Authorized [id number] Authorized 05/09/2023 05/08/2026 1 1 TIONS SPECIALIST * Outpatient (Routine) - Closed Specialty Diagnoses / Procedures Referred By Contac t Referred To Contact Dermatology Diagnoses Arthritis Rheumatoid (HCC) High Risk Medication Lesion Skin Alexandra Lopez APRN, C.N.P., D.N.P. [address] [place] [phone] [facility] Referral ID Status Reason Start Date Expiration Date Visits Re quested Visits Authorized [id number] Closed 05/09/2023 05/08/2024 1 1 TIONS SPECIALIST Reason for Visit * Outpatient (Routine) - Closed Specialty Diagnoses / Procedures Referred By Florian cazares Referred To Contact Rheumatology Diagnoses Arthritis Rheumatoid (HCC) High Risk Medication Alexandra Lopez APRN, C.N.P., D.N.P. [address] [place] [address] [facility] Referral ID Status Reason Start Date Expiration Date Visits Re quested Visits Authorized [id number] Closed 10/10/2022 10/09/2025 1 1 Encounter Details Date Type Department Care Team (Latest Contact Info) Description 05/09/2023 10:30 AM RELATIONS SPECIALIST Office Visit Division of Rheumatology in [place], [place] [address] [place] [phone] Alexandra Lopez APRN, James.N.P., D.N.P. [address] [place] [phone] Lesion Skin (Primary Dx); Arthritis Rheumatoid (HCC); High Risk Medication Social History Tobacco Use Types Packs/Day Years [...] often do you attend chur ch or judaism services? Patient declined 07/13/2022 Do you belong to any clubs o r organizations such as latter-day groups, unions, fraternal or athletic groups, or [...] medical care, and heating? Patient declined 07/13/2022 [facility] - Occupational [...] place to sleep or slept in a fci (including now)? No 07/13/2022 Nutrition Answer Date [...] Comments Blood Pressure 134/82 05/09/2023 10:32 AM RELATIONS SPECIALIST Pulse 74 05/09/2023 10:32 AM RELATIONS SPECIALIST Temperature 37 ??C (98.6 ??F) 05/09/2023 10:32 AM RELATIONS SPECIALIST Respiratory Rate - - Oxygen Saturation - - Inhaled Oxygen Concentration - - Weight 85.1 kg (187 lb 9.8 oz) 05/09/2023 10:32 AM RELATIONS SPECIALIST Height 156.4 cm (5' 1.58) 05/09/2023 10:[address] Body Mass Index 34.79 05/09/2023 10:32 AM RELATIONS SPECIALIST documented in this encounter Progress Notes * Alexandra Lopez, HOMEMAKER COMPANION, C.N.P., D.N.P. - 05/09/2023 10:30 AM CST SUBJECTIVE CHIEF COMPLAINT / REASON FOR VISIT Cary Ingram is a 63 y.o. female who presents for follow up [...] also provided a prednisone burst and taper. In July 2022, she reported significant improvement. She had completely tapered off prednisone, however about a month prior to her visit she restarted 2.5 mg daily due to some swelling and stiffness in her hands. About a week prior to the visit she increase to 5 mg daily. In general she felt better with some prednisone on board. I suggested increasing methotrexate from 15 mg weekly up to 17.5 mg weekly along with an effort to taper off prednisone. In October 2022, she had been off prednisone since late August. In general she was doing quite well. There was no joint tenderness or synovitis on exam and inflammatory markers were normal so the plan wasto continue methotrexate 17.5 mg weekly. She returns today for follow-up. She remains on methotrexate 17.5 mg weekly. She denies any flares since I saw her last. She is not taken any prednisone. She denies nighttime pain. She has a little bit of morning stiffness in her hands but nothing that is lasting. She occasionally notes some inflammation or maybe swelling in her hands, but nothing lasting. Denies recent illnesses. She has not scheduled influenza or COVID vaccines. She is maybe considering influenza vaccine. Her primary care provider has also talked to her about Shingrix vaccine and she is also considering that. We also discussed RSV vaccine today. She also wonders about a dermatology skin check. She does have several moles and feels some of themare changing. She has 1 area on her right upper back that is likely an actinic keratosis. Social history: She is . She has [...] in the above history of present illness. REVIEW OF SYSTEMS OBJECTIVE PHYSICAL EXAMINATION Vitals reviewed. Constitutional Appearance: She is well-developed. HENT Mouth/Throat: Mouth: Mucous membranes are moist. Pharynx: Oropharynx is clear. Eyes Conjunctiva/sclera: Conjunctivae normal. Pupils: Pupils are [...] General: Skin is warm and dry. Comments: On the right upper back there is a dry, scaly, white-colored, raised lesions, likely actinic keratosis. Neurological Mental Status: She is alert and oriented to person, place, and time. Lab: Labs completed today include a stable CBC with differential, creatinine, AST. ESR and CRP are both normal. ASSESSMENT / PLAN #1 Arthritis Rheumatoid (HCC) Cary is stable from a rheumatoid arthritis standpoint. There is no joint tenderness or synovitis on exam. Inflammatory markers remain normal. I have recommended that she continue methotrexate 17.5 mg weekly along with daily folic acid supplementation. I will review her request to try taking berberine supplement with our pharmacist to ensure there are not any drug interaction concerns she should be aware of. I will share this information with her once I have been able to connect with our pharmacist. She will consider updating vaccines as discussed today and noted above. I will plan to follow-up with her in about 6 months. She can contact me in the interim with questions or concerns. #2 High Risk Medication She is enrolled in our nurse monitoring protocol for methotrexate monitoring. She requires every 3 months CBC with differential, creatinine, AST while taking methotrexate. #3 Lesion Skin I suspect the lesion of concern on her right upper back is an actinic keratosis, however will referher to Dermatology for further evaluation of this as well as a full skin check. I answered the patient's questions to the best of my ability. The patient seemed pleased with our interaction. If she should have any additional questions or concerns, I have asked that she contact us at that time. PATIENT EDUCATION Ready to learn, no apparent learning barriers were identified; learning preferences include listening. Explained diagnosis and treatment plan; patient expressed understanding of the content. TIONS SPECIALIST documented in this encounter Plan of Treatment Scheduled Orders Name Type Priority Associated Diagnoses Orde r Schedule CBC with Differential, Blood Lab Routine Arthritis Rheumatoid (HCC) High Risk Medication Expected: 11/08/2023 (Approximate), Expires: 05/09/2024 Sedimentation Rate Lab Routine Arthritis Rheumatoid (HCC) High Risk Medication Expected: 11/08/2023 (Approximate), Expires: 05/09/2024 CRP (C-Reactive Protein) Lab Routine Arthritis Rheumatoid (HCC) High Risk Medication Expected: 11/08/2023 (Approximate), Expires: 05/09/2024 AST (Aspartate Aminotransferase) Lab Routine Arthritis Rheumatoid (HCC) High Risk Medication Expected: 11/08/2023 (Approximate), Expires: 05/09/2024 Creatinine with Estimated GFR Lab Routine Arthritis Rheumatoid (HCC) High Risk Medication Expected: 11/08/2023 (Approximate), Expires: 05/09/2024 Scheduled Referrals Name Type Priority Associated Diagnoses Order Schedule Dermatology - Skin check consult (clinic) Outpatient Referral Routine Arthritis Rheumatoid (HCC) High Risk Medication Lesion Skin Expected: 05/09/2023 (Approximate), Expires: 08/07/2024 Rheumatology office visit (clinic) Outpatient Referral Routine Arthritis Rheumatoid (HCC) High Risk Medication Expected: 11/08/2023 (Approximate), Expires: 08/07/2024 documented as of this encounter Visit Diagnoses Diagnosis Lesion Skin- Primary Arthritis Rheumatoid (HCC) High Risk Medication documented in this encounter Additional Health Concerns Infection Onset Date Last Indicated Resolved Time Protective Environment 10/10/2022 10/10/2022 documented as of this encounter Care Teams Safe Technician Relationship Specialty Start Date End Date Elsewhere, Pcp PCP - General 05/22/18 documented as of this encounter
--- OUTSIDE RECORDS SUMMARY | 2023-06-19 08:46 | XMS_ITS | Encounter Summary ---
Author Name Unknown Organization [facility] Address [address] [place] [address] Care Team Providers Care Interactive Project Manager Name Role Phone Elsewhere, Pcp Primary Care Provider Unavailabl e Encounter Details Date Type Department Care Team (Latest Contact Info) Description 07/15/2022 10:32 AM PERSONAL BANKING OFFICER - 07/15/2022 11:59 PM [facility] Hospital Encounter Department of Laboratory Medicine and Pathology, [facility] in [place], [place] [address] [place] [address] Ottoniel Talamantes M.D. [address] [place] [phone] Arthritis Rheumatoid (HCC) Discharge Disposition: Home or [...] How often do you attend chur or cheondoism services? Patient declined 07/13/2022 Do you belong to any clubs o r organizations such as protestant groups, unions, fraternal or athletic groups, or [...] medical care, and heating? Patient declined 07/13/2022 [facility] - Occupational [...] place to sleep or slept in a longterm (including now)? No 07/13/2022 Nutrition Answer Date [...] total) by mouth daily. 90 tablet 1 07/15/2022 10/10/2022 methotrexate 2.5 mg tabletIndications:Art hritis Rheumatoid (HCC) Take 7 tablets (17.5 mg total) by mouth once a week. 84 tablet 1 07/15/2022 10/10/2022 documented as of this encounter Plan of Treatment Not on file documented as of this encounter Procedures Procedure Name Priority Date/Time Associated Diagnosis Comments [facility] RESEARCH ORDER, B Routine 10:40 AM PERSONAL BANKING OFFICER Arthritis Rheumatoid (HCC) SEDIMENTATION RATE, B Routine 07/15/2022 10:40 AM PERSONAL BANKING OFFICER Arthritis Rheumatoid (HCC) CBC WITH DIFFERENTIAL, B Routine 023 10:40 AM PERSONAL BANKING OFFICER Arthritis Rheumatoid (HCC) C-REACTIVE PROTEIN (CRP), S/P Routine 07/15/2022 10:40 AM PERSONAL BANKING OFFICER Arthritis Rheumatoid (HCC) ASPARTATE AMINOTRANSFERASE (AST), S/P Routine 07/15/2022 10:40 AM PERSONAL BANKING OFFICER Arthritis Rheumatoid (HCC) CREATININE WITH EGFR, S/P Routine 07/15/2022 10:40 AM PERSONAL BANKING OFFICER Arthritis Rheumatoid (HCC) documented in this encounter Results * Miscellaneous Research, B (07/15/2022 10:40 AM PERSONAL BANKING OFFICER) Number of Specimens 5 07/15/2022 10:40 AM PERSONAL BANKING OFFICER HSS Blood (Blood, Venous) 07/15/2022 10:40 AM PERSONAL BANKING OFFICER 07/15/2022 10:40 AM PERSONAL BANKING OFFICER Steve Steiner III, M.D. LAB RESEARCH NO R ESULT [facility] [address] [place] [address], [facility] HSS [facility] [address] [place] [address] * Sedimentation Rate (07/15/2022 10:40 AM PERSONAL BANKING OFFICER) Sedimentation Rate, B 8 2 - 22 mm/h 07/15/2022 11:54 AM PERSONAL BANKING OFFICER DTL Blood (Blood, Venous) 07/15/2022 10:40 AM PERSONAL BANKING OFFICER 07/15/2022 11:03 AM PERSONAL BANKING OFFICER Steve Steiner III, M.D. LAB BLOOD ADD-ON Performing Organization Address City/[facility]/ZIP Co de Phone Number [facility] [address] [place], [place] [phone] DTL [facility] [address] [place] [address] * Creatinine with Estimated GFR (07/15/2022 10:40 AM PERSONAL BANKING OFFICER) Creatinine 0.91 0.59 - 1.04 mg/dL 07/15/2022 11:38 AM PERSONAL BANKING OFFICER DTL Estimated GFR (eGFR) 72 >=60 mL/min/BSA 07/15/2022 11:38 AM PERSONAL BANKING OFFICER DTL Comment: Estimated GFR calculated using the 2020 CKD_EPI creatinine equation. Blood (Blood, Venous) 07/15/2022 10:40 AM PERSONAL BANKING OFFICER 07/15/2022 11:13 AM PERSONAL BANKING OFFICER Ottoniel Talamantes M.D. LAB BLOOD ADD-ON [facility] [address] [place] [address], [facility] DTL [facility] [address] [place] [address] * AST (Aspartate Aminotransferase) (07/15/2022 10:40 AM PERSONAL BANKING OFFICER) Aspartate Aminotransferase (AST), S 19 8 - 43 U/L 07/15/2022 11:38 AM PERSONAL BANKING OFFICER DTL Blood (Blood, Venous) 07/15/2022 10:40 AM PERSONAL BANKING OFFICER 07/15/2022 11:13 AM PERSONAL BANKING OFFICER Ottoniel Talamantes M.D. LAB BLOOD ADD-ON Performing Organization Address City/[facility]/ZIP Co de Phone Number [facility] [address] [place], [place] [phone] [place] [address] [facility] [address] [place] [address] * CRP (C-Reactive Protein) (07/15/2022 10:40 AM PERSONAL BANKING OFFICER) Pathologist [facility] C-Reactive Protein (CRP), S <3.0 <=8.0 mg/L 07/15/2022 11:38 AM PERSONAL BANKING OFFICER DTL Blood (Blood, Venous) 07/15/2022 10:40 AM PERSONAL BANKING OFFICER 07/15/2022 11:13 AM PERSONAL BANKING OFFICER Ottoniel Talamantes M.D. LAB BLOOD ADD-ON Performing Organization Address City/[facility] Co de Phone Number [facility] [address] [place], [place] [phone] [place] [address] [facility] [address] [place] [address] * CBC with Differential, Blood (07/15/2022 10:40 AM PERSONAL BANKING OFFICER) Pathologist [facility] Hemoglobin 12.8 11.6 - 15.0 g/dL 07/15/2022 11:10 AM PERSONAL BANKING OFFICER DTL Hematocrit 38.3 35.5 - 44.9 % 07/15/2022 11:10 AM PERSONAL BANKING OFFICER DTL Erythrocytes 3.92 3.92 - 5.13 x10(12)/L 07/15/2022 11:10 AM PERSONAL BANKING OFFICER DTL MCV 97.7 78.2 - 97.9 fL 07/15/2022 11:10 AM PERSONAL BANKING OFFICER DTL RBC Distrib Width 13.2 12.2 - 16.1 % 07/15/2022 11:10 AM PERSONAL BANKING OFFICER DTL Platelet Count 275 157 - 371 x10(9)/L 07/15/2022 11:10 AM PERSONAL BANKING OFFICER DTL Leukocytes 8.6 3.4 - 9.6 x10(9)/L 07/15/2022 11:10 AM PERSONAL BANKING OFFICER DTL Neutrophils 5.66 1.56 - 6.45 x10(9)/L 07/15/2022 11:10 AM PERSONAL BANKING OFFICER DTL Lymphocytes 2.17 0.95 - 3.07 x10(9)/L 07/15/2022 11:10 AM PERSONAL BANKING OFFICER DTL Monocytes 0.49 0.26 - 0.81 x10(9)/L 07/15/2022 11:10 AM PERSONAL BANKING OFFICER DTL Eosinophils 0.19 0.03 - 0.48 x10(9)/L 07/15/2022 11:10 AM PERSONAL BANKING OFFICER DTL Basophils 0.07 0.01 - 0.08 x10(9)/L 07/15/2022 11:10 AM PERSONAL BANKING OFFICER DTL Blood (Blood, Venous) 07/15/2022 10:40 AM PERSONAL BANKING OFFICER 07/15/2022 11:03 AM PERSONAL BANKING OFFICER Ottoniel Talamantes M.D. LAB BLOOD ADD-ON [facility] [address] [address], [facility] DTL [facility] [address] [place] [address] documented in this encounter Visit Diagnoses Diagnosis Arthritis Rheumatoid (HCC) documented in this encounter Care Teams Interactive Project Manager Relationship Specialty Start Date End Date Elsewhere, Pcp PCP - General 05/22/18 documented as of this encounter
--- OUTSIDE RECORDS SUMMARY | 2023-06-19 08:46 | XMS_ITS | Encounter Summary ---
Author Name Unknown Organization [facility] Address [address] [place] [address] Care Team Providers Care Heater Helper Forge Name Role Phone Elsewhere, Pcp Primary Care Provider Unavailabl e Reason for Visit * Reason Onset Date Comments Lab Monitoring 01/20/2023 Collected 3 Encounter Details Date Type Department Care Team (Latest Contact Info) Description 01/20/2023 Clinical Communication Division of Rheumatology in [place], [place] [address] [place] [phone] Alexandra Lopez, ANTONIO, C.N.P., D.N.P. [address] [place] [phone] Lab Monitoring (Collected 01/20/23) Social History Tobacco Use Types Packs/Day Years [...] How often do you attend chur or church services? Patient declined 07/13/2022 Do you belong to any clubs o r organizations such as synagogue groups, unions, fraternal or athletic groups, or [...] medical care, and heating? Patient declined 07/13/2022 [facility] Questionnaire Answer [...] AM CDT documented as of this encounter Miscellaneous Notes * Telephone Encounter - Dianna Martinez, L.P.N. - 01/21/2023 11:06 AM CDT ASSESSMENT Rheumatology monitoring labs completed at an external lab on 01/20/2023 were reviewed per outside lab reference ranges. All monitored labs are within the reference range.. Labs reviewed: hemoglobin, leukocytes, platelets, absolute neutrophil count, AST, and creatinine External labs were entered into Labs Tab and sent for scanning. PLAN Patient to continue with current plan of care. documented in this encounter Plan of Treatment Not on file documented as of this encounter Procedures Procedure Name Priority Date/Time Associated Diagnosis Comments CBC WITH DIFFERENTIAL, B Routine 01/20/2023 ASPARTATE AMINOTRANSFERASE (AST), S/P Routine 01/20/2023 CREATININE WITH EGFR, S/P Routine 01/20/2023 documented in this encounter Results * AST (Aspartate Aminotransferase) (01/20/2023) [facility] EXT AST 22 12 - 35 [facility] Blood (Blood, Venous) James Wallace APRN.N.P., D.N.P. LAB B LOOD ADD-ON Performing Organization Address City/[facility]/ZIP Co de Phone Number [facility] [address] [place] [address], [facility] [phone] * Creatinine with Estimated GFR (01/20/2023) [facility] EXT Creatinine 0.8 0.5 - 1.5 mg/dL [facility] Blood (Blood, Venous) Alexandra Lopez APRN C.N.P., D.N.P. LAB B LOOD ADD-ON [facility] [address] [place] [address], [facility] [phone] * CBC with Differential, Blood (01/20/2023) Pathologist [facility] EXT Platelet Count 303 140 - 440 [facility] EXT Neutrophils 4.07 1.7 - 7.0 [facility] EXT Hemoglobin 13.5 12 - 16 [facility] EXT White Blood Cell (WBC) Count 7.7 4.5 - 11.0 [facility] Blood (Blood, Venous) Alexandra Lopez APRN, C.N.P., D.N.P. LAB B LOOD ADD-ON [facility] [address] [phone] documented in this encounter Visit Diagnoses Not on filedocumented in this encounter Additional Health Concerns Infection Onset Date Last Indicated Resolved Time Protective Environment 10/10/2022 10/10/2022 documented as of this encounter Care Teams Heater Helper Forge Relationship Specialty Start Date End Date Elsewhere, Pcp PCP - General 05/22/18 documented as of this encounter
--- OUTSIDE RECORDS SUMMARY | 2023-06-19 08:46 | XMS_ITS | Encounter Summary ---
Author Name Unknown Organization [facility] Address [address] [place] [address] Care Team Providers Care Survey Field Technician Name Role Phone Elsewhere, Pcp Primary Care Provider Unavailabl e Reason for Visit * Reason Comments Med Refill Encounter Details Date Type Department Care Team (Late st Contact Info) Description 04/07/2023 Refill Division of Rheumatology in [place], [place] [address] [place] [phone] Alexandra Lopez, MERCHANDISING REPRESENTATIVE, C.N.P., D.N.P. [address] [place] [phone] Med Refill Social History Tobacco Use Types Packs/Day Years [...] often do you attend chur ch or rastafarian services? Patient declined 07/13/2022 Do you belong to any clubs o r organizations such as scientologist groups, unions, fraternal or athletic groups, or [...] medical care, and heating? Patient declined 07/13/2022 [facility] Questionnaire Answer Date [...] encounter Miscellaneous Notes * Telephone Encounter - Bruno Williamson R.N. - 04/08/2023 1:28 PM CDT Prescription renewal request for methotrexate received from pharmacy. HISTORY OF PRESENT ILLNESS Last Rheum visit: 10/10/22 with Alexandra Lopez APRN, CNP Future office visit: 05/09/23 Last monitoring labs/eye exam: 01/20/23: within protocol parameters. Prescription request matches current plan of care. Prescription request matches a current prescription in the Medication List. Exclusion criteria: None (If an alert appeared, it was determined to be an approved exception) ASSESSMENT/PLAN Prescription request renewed per nursing protocol. documented in this encounter Plan of Treatment Not on file documented as of this encounter Visit Diagnoses Diagnosis Arthritis Rheumatoid (HCC) documented in this encounter Additional Health Concerns Infection Onset Date Last Indicated Resolved Time Protective Environment 10/10/2022 10/10/2022 documented as of this encounter Care Teams Survey Field Technician Relationship Specialty Start Date End Date Elsewhere, Pcp PCP - General 05/22/18 documented as of this encounter
--- NOTE | 2023-06-19 09:00 | CRLHL7_ITS ---
For Patients: As a result of the Century Cures Act, medical imaging exams and procedure reports are released immediately into your electronic medical record. You may view this report before your referring provider. If you have questions, please contact your health care provider. INDICATION: Epigastric pain toward the left which radiates to back TECHNIQUE: Volumetric helical scanning of the abdomen and pelvis was performed with 92 cc of Isovue 370 contrast material IV. Coronal and sagittal reconstructions were obtained. COMPARISON: MRCP of 10/02/2020 FINDINGS: There is no evidence of bowel obstruction or inflammation. Sigmoid diverticulosis is noted but there is no evidence of diverticulitis. A normal appendix is noted. The liver is normal in size and shape. Several small liver cysts are again demonstrated. Postop changes of cholecystectomy are demonstrated. The bile ducts are within normal limits. The spleen is normal. A 1.2 cm right adrenal adenoma is demonstrated and in retrospect is unchanged from the prior study. On the previous MRI, this demonstrated loss of signal on qom-sg-gncce T1-weighted images, consistent with the presence of fat. The left adrenal is normal. A new 1 cm hyperdense cyst or solid mass arises from the posteromedial upper left kidney as seen on image 42 of series 2. the kidneys are otherwise unremarkable. No lymphadenopathy is evident. Postop changes of hysterectomy are demonstrate. A 1.6 cm right ovarian cyst is demonstrated as well as a 1.4 cm left ovarian cyst. No free fluid is demonstrated. The lung bases are essentially clear, and heart size is normal. IMPRESSION: 1. Sigmoid diverticulosis but no evidence of diverticulitis. 2. New 1 cm hyperdense left renal cyst or solid mass arising from the posteromedial superior kidney. MRI recommended. 3. 1.6 cm right ovarian cyst and 1.4 cm left ovarian cyst. Pelvic ultrasound suggested. 4. Post cholecystectomy and hysterectomy. 5. 1.2 cm right adrenal adenoma, unchanged. 6. Liver cysts. Please note that all CT scans at this facility use dose modulation, iterative reconstruction, and/or weight-based dosing when appropriate to reduce radiation dose to as low as reasonably achievable. Dictated by Ottoniel Yeh MD @ 06/20/2023 8:06:13 AM (Electronically Signed)
== END 2023-06-19 08:39 | disposition home or self-care (01) ==
LOC: CT 08:39
PROVIDERS: PCP Internal Medicine; Visit Provider Internal Medicine
DX: R10.13 Epigastric pain (principal); K57.30 Diverticulosis of large intestine without perforation or abscess without bleeding; N83.201 Unspecified ovarian cyst, right side; N28.1 Cyst of kidney, acquired; K76.89 Other specified diseases of liver
CPT/HCPCS: 74177; Q9967

== ENCOUNTER 2023-06-25 13:40 | Outpatient (CLI) | payer OTHER, SELFPAY ==
--- OUTSIDE RECORDS SUMMARY | 2023-06-25 14:02 | XMS_ITS | Encounter Summary ---
Author Name Unknown Organization [facility] Address [address] [place] [address] Care Team Providers Care Ignition Specialist Name Role Phone Elsewhere, Pcp Primary Care Provider Unavailabl e Encounter Details Date Type Department Care Team (Latest Contact Info) Description 05/09/2023 7:56 AM HIP HOP DANCE INSTRUCTOR - 05/09/2023 11:59 PM [facility] Hospital Encounter Department of Laboratory Medicine and Pathology, [facility] in [place], [place] [address] [place] [phone] Alexandra Lopez, ANTONIO, C.N.P., D.N.P. [address] [place] [phone] Arthritis Rheumatoid (HCC); High Risk Medication Discharge [...] any clubs o r organizations such as pentecostal groups, unions, fraternal or athletic groups, or [...] medical care, and heating? Patient declined 07/13/2022 [facility] Occupat ional Health - [...] place to sleep or slept in a mcfp (including now)? No 07/13/2022 Nutrition Answer Date [...] SEDIMENTATION RATE, B Routine 05/09/2023 8:08 AM HIP HOP DANCE INSTRUCTOR Arthritis Rheumatoid (HCC) High Risk Medication CBC WITH DIFFERENTIAL, B Routine 023 8:08 AM HIP HOP DANCE INSTRUCTOR Arthritis Rheumatoid (HCC) High Risk Medication C-REACTIVE PROTEIN (CRP), S/P Routine 05/09/2023 8:08 AM HIP HOP DANCE INSTRUCTOR Arthritis Rheumatoid (HCC) High Risk Medication ASPARTATE AMINOTRANSFERASE (AST), S/P Routine 05/09/2023 8:08 AM HIP HOP DANCE INSTRUCTOR Arthritis Rheumatoid (HCC) High Risk Medication CREATININE WITH EGFR, S/P Routine 05/09/2023 8:08 AM HIP HOP DANCE INSTRUCTOR Arthritis Rheumatoid (HCC) High Risk Medication documented in this encounter Results * Creatinine with Estimated GFR (05/09/2023 8:08 AM HIP HOP DANCE INSTRUCTOR) Creatinine 0.86 0.59 - 1.04 mg/dL 05/09/2023 9:08 AM HIP HOP DANCE INSTRUCTOR DTL Estimated GFR (eGFR) 76 >=60 mL/min/BSA 05/09/2023 9:08 AM HIP HOP DANCE INSTRUCTOR DTL Comment: Estimated GFR calculated using the 2020 CKD_EPI creatinine equation. Blood (Blood, Venous) 05/09/2023 8:08 AM HIP HOP DANCE INSTRUCTOR 05/09/2023 8:50 AM HIP HOP DANCE INSTRUCTOR Yonas Wallace APRNN.P., D.N.P. LAB B LOOD ADD-ON Performing Organization Address City/[facility] [address]/[facility] Co de Phone Number [facility] 200 [place], [place] [id number] [place] [address] 200 [place] [address] * AST (Aspartate Aminotransferase) (05/09/2023 8:08 AM HIP HOP DANCE INSTRUCTOR) Aspartate Aminotransferase (AST), S 16 8 - 43 U/L 05/09/2023 9:08 AM HIP HOP DANCE INSTRUCTOR DTL Blood (Blood, Venous) 05/09/2023 8:08 AM HIP HOP DANCE INSTRUCTOR 05/09/2023 8:50 AM HIP HOP DANCE INSTRUCTOR James Wallace APRN.N.P., D.N.P. LAB B LOOD ADD-ON Performing Organization Address [facility] [address]/[facility] Co de Phone Number [facility] 200 [place] [address], [facility] 200 [place] [address] * CRP (C-Reactive Protein) (05/09/2023 8:08 AM HIP HOP DANCE INSTRUCTOR) C-Reactive Protein (CRP), S <3.0 <5.0 mg/L 05/09/2023 9:08 AM HIP HOP DANCE INSTRUCTOR DTL Blood (Blood, Venous) 05/09/2023 8:08 AM HIP HOP DANCE INSTRUCTOR 05/09/2023 8:50 AM HIP HOP DANCE INSTRUCTOR James Wallace APRN.N.P., D.N.P. LAB B LOOD ADD-ON Performing Organization Address City/[facility] [address]/[facility] Co de Phone Number [facility] 200 [place] [address], [facility] 200 [place] [address] * Sedimentation Rate (05/09/2023 8:08 AM HIP HOP DANCE INSTRUCTOR) Pathologist [facility] Sedimentation Rate, B 8 2 - 22 mm/h 05/09/2023 9:23 AM HIP HOP DANCE INSTRUCTOR DTL Blood (Blood, Venous) 05/09/2023 8:08 AM HIP HOP DANCE INSTRUCTOR 05/09/2023 8:31 AM HIP HOP DANCE INSTRUCTOR Alexandra Lopez APRN, C.N.P., D.N.P. LAB B JULITO ADD-ON Performing Organization Address City/[facility] [address]/ZIP Co de Phone Number [facility] 200 [place] [address], [facility] 200 [place] [address] * (ABNORMAL) CBC with Differential, Blood (05/09/2023 8:08 AM HIP HOP DANCE INSTRUCTOR) [facility] Hemoglobin 13.3 11.6 - 15.0 g/dL 05/09/2023 8:44 AM HIP HOP DANCE INSTRUCTOR DTL Hematocrit 40.0 35.5 - 44.9 % 05/09/2023 8:44 AM HIP HOP DANCE INSTRUCTOR DTL Erythrocytes 4.09 3.92 - 5.13 x10(12)/L 05/09/2023 8:44 AM HIP HOP DANCE INSTRUCTOR DTL MCV 97.8 78.2 - 97.9 fL 05/09/2023 8:44 AM HIP HOP DANCE INSTRUCTOR DTL RBC Distrib Width 12.9 12.2 - 16.1 % 05/09/2023 8:44 AM HIP HOP DANCE INSTRUCTOR DTL Platelet Count 279 157 - 371 x10(9)/L 05/09/2023 8:44 AM HIP HOP DANCE INSTRUCTOR DTL Leukocytes 8.4 3.4 - 9.6 x10(9)/L 05/09/2023 8:44 AM HIP HOP DANCE INSTRUCTOR DTL Neutrophils 5.08 1.56 - 6.45 x10(9)/L 05/09/2023 8:44 AM HIP HOP DANCE INSTRUCTOR DHPM Lymphocytes 2.44 0.95 - 3.07 x10(9)/L 05/09/2023 8:44 AM HIP HOP DANCE INSTRUCTOR DTL Monocytes 0.53 0.26 - 0.81 x10(9)/L 05/09/2023 8:44 AM HIP HOP DANCE INSTRUCTOR DTL Eosinophils 0.24 0.03 - 0.48 x10(9)/L 05/09/2023 8:44 AM HIP HOP DANCE INSTRUCTOR DTL Basophils 0.09(H) 0.01 - 0.08 x10(9)/L 05/09/2023 8:44 AM HIP HOP DANCE INSTRUCTOR DTL Blood (Blood, Venous) 05/09/2023 8:08 AM HIP HOP DANCE INSTRUCTOR 05/09/2023 8:31 AM HIP HOP DANCE INSTRUCTOR Alexandra Lopez APRN, C.N.P., D.N.P. LAB B LOOD ADD-ON [facility] [address] [place] [address], [facility] DTL [facility] [address] [place] [address] [facility] [address] [place] [address] documented in this encounter Visit Diagnoses Diagnosis Arthritis Rheumatoid (HCC) High Risk Medication documented in this encounter Additional Health Concerns Infection Onset Date Last Indicated Resolved Time Protective Environment 10/10/2022 10/10/2022 documented as of this encounter Care Teams Ignition Specialist Relationship Specialty Start Date End Date Elsewhere, Pcp PCP - General 05/22/18 documented as of this encounter
--- OUTSIDE RECORDS SUMMARY | 2023-06-25 14:02 | XMS_ITS | Encounter Summary ---
Author Name Unknown Organization [facility] Address [address] [place] [address] Care Team Providers Care Square Shear Operator Name Role Phone Elsewhere, Pcp Primary Care Provider Unavailabl e Reason for Visit * Outpatient (Routine) - Closed Specialty Diagnoses / Procedures Referred By Florian t Referred To Contact Dermatology Diagnoses Arthritis Rheumatoid (HCC) High Risk Medication Lesion Skin Alexandra Lopez, ANTONIO, C.N.P., D.N.P. [address] [place] [phone] [facility] Referral ID Status Reason Start Date Expiration Date Visits Re quested Visits Authorized [id number] Closed 05/09/2023 05/08/2024 1 1 Encounter Details Date Type Department Care Team (Latest Contact Info) Description 05/12/2023 11:20 AM HEALTH IT SPECIALIST Comprehensive Visit Department of Dermatology in [place], [place] [address] [place] [phone] Jin Steiner M.D. [address] [place] [phone] Asteatosis (Primary Dx); Arthritis Rheumatoid (HCC); High [...] week 07/13/2022 [facility] or yarsanism services? Patient declined 07/13/2022 Do you belong to any clubs o r organizations such as amish groups, unions, fraternal or athletic groups, or [...] medical care, and heating? Patient declined 07/13/2022 [facility] of Occupat ional Health - Occupational Stress [...] to sleep or slept in a senior living (including now)? No 07/13/2022 Nutrition Answer Date [...] pleasant 63 y.o. female who is from [facility]. She presents for a general skin [...] time which I think is very reasonable. TH IT SPECIALIST documented in this encounter Plan of Treatment Not on file documented as of this encounter Visit Diagnoses Diagnosis Asteatosis- Primary Arthritis Rheumatoid (HCC) High Risk Medication Lesion Skin Keratosis Seborrheic documented in this encounter Additional Health Concerns Infection Onset Date Last Indicated Resolved Time Protective Environment 10/10/2022 10/10/2022 documented as of this encounter Care Teams Square Shear Operator Relationship Specialty Start Date End Date Elsewhere, Pcp PCP - General 05/22/18 documented as of this encounter
--- OUTSIDE RECORDS SUMMARY | 2023-06-25 14:02 | XMS_ITS | Encounter Summary ---
Author Name Unknown Organization [facility] Address [address] [place] [address] Care Team Providers Care Smokehouse Worker Name Role Phone Elsewhere, Pcp Primary Care Provider Uma e Reason for Referral * Outpatient (Routine) - Closed Specialty Diagnoses / Procedures Referred By Florian cazares Referred To Contact Rheumatology Diagnoses Arthritis Rheumatoid (HCC) High Risk Medication Alexandra Lopez APRN, C.N.P., D.N.P. [address] [place] [phone] [facility] Referral ID Status Reason Start Date Expiration Date Visits Re quested Visits Authorized [id number] Closed 10/10/2022 10/09/2025 1 1 Reason for Visit * Outpatient (Routine) - Closed Specialty Diagnoses / Procedures Referred By Florian cazarse Referred To Contact Rheumatology Diagnoses Arthritis Rheumatoid (HCC) Alexandra Lopez APRN, C.N.P., D.N.P. [address] [place] [phone] [facility] Referral ID Status Reason Start Date Expiration Date Visits Re quested Visits Authorized [id number] Closed 07/15/2022 07/14/2025 1 1 Encounter Details Date Type Department Care Team (Latest Contact Info) Description 10/10/2022 2:45 PM CDT Office Visit Division of Rheumatology in [place], [place] [address] [place] [phone] Alexandra Lopez, ANTONIO, C.N.P., D.N.P. [address] [place] [phone] High Risk Medication (Primary Dx); Arthritis Rheumatoid (HCC) Social History Tobacco Use [...] How often do you attend chur or hinduism services? Patient declined 07/13/2022 Do you belong [...] medical care, and heating? Patient declined 07/13/2022 [facility] Occupat ional Health - [...] Sign Reading Time Taken Comments Blood Pressure 136/80 10/10/2022 2:25 PM CDT Pulse 73 10/10/2022 2:25 PM CDT Temperature 37.2 ??C (99 ??F) 10/10/2022 2:25 PM CDT Respiratory Rate - - Oxygen Saturation - - Inhaled Oxygen Concentration - - Weight 82.8 kg (182 lb 8.7 oz) 10/10/2022 2:25 P M CDT Height 156.1 cm (5' 1.46) 10/10/2022 2:25 PM CD T Body Mass Index 33.98 10/10/2022 2:25 PM CDT documented in this encounter Patient Instructions * Patient Instructions* Alexandra Lopez APRN, C.N.P., D.N.P. - 10/10/2022 2:45 PM CDT Labs once sometime in January. Appointment with me in April. If you have a flare: Prednisone 20 mg daily for 3-7 days, then decrease by 5 mg every 3-7 days until off. documented in this encounter Progress Notes * Alexandra Lopez APRN, C.N.P., D.N.P. - 10/10/2022 2:45 PM CDT SUBJECTIVE CHIEF COMPLAINT / REASON FOR VISIT [...] with an effort to taper off prednisone. She returns today for follow up. She confirms she is currently taking methotrexate 17.5 mg weekly. She has been off of prednisone since around August 29. In general, she feels as though she is doingwell. Occasionally she feels she sees some ???puffiness?? around her 3rd fingers but there is not any associated pain or stiffness with this. In general she describes some morning stiffness that is fairly short-lived. She has had some symptoms in the top of her left foot. She recalls having this in the past, prior to her diagnosis of rheumatoid arthritis. She had an MRI and went to physical therapy. She thinks prednisone as eventually what made it better. This has primarily bothered her with walking but she has occasionally noticed it at rest. She denies any nighttime pain. She reports she has been healthy since I saw her last. She has noticed some photosensitivity since taking methotrexate and being in the sun this spring. Social history: She is . She has [...] in the above history of present illness. Respiratory: Positive for dry cough. The following systems were negative: Constitutional, Skin, Eyes, ENT, Cardiovascular, Gastrointestinal, Genitourinary, Hematologic, Musculoskeletal, Neurological, Psychiatric [...] Skin General: Skin is warm and dry. Neurological Mental Status: She is alert and oriented to person, place, and time. Lab: Labs completed today include a CBC with differential which is unremarkable with the exception of mild basophilia. Creatinine and AST are both normal. ESR and CRP are both normal. ASSESSMENT / PLAN #1 Arthritis Rheumatoid (HCC) Ms. Ingram seems to be doing quite well overall from a rheumatoid arthritis standpoint. There is no joint tenderness or synovitis on exam today. Inflammatory markers are normal. I would recommend she continue her current dose of methotrexate 17.5 mg weekly along with daily folic acid supplementation. We did discuss that should she have a flare, it would be reasonable for her to take a prednisone burst and taper starting at 20 mg daily for 3-7 days and then decreasing by 5 mg every 3-7 days as tolerated. I will plan to see her back in about 6 months. I have encouraged her to contact me sooner with any questions or concerns. #2 High Risk Medication Recommend CBC with differential, creatinine, AST every 3 months while taking methotrexate. She has a lab letter to complete these locally between visits. I answered the patient's questions to the best of my ability. The patient seemed pleased with our interaction. If she should have any additional questions or concerns, I have asked that she contact us at that time. PATIENT EDUCATION Ready to learn, no apparent learning barriers were identified; learning preferences include listening. Explained diagnosis and treatment plan; patient expressed understanding of the content. documented in this encounter Plan of Treatment Scheduled Referrals Name Type Priority Associated Diagnoses Order Schedule Rheumatology office visit (clinic) Outpatient Referral Routine Arthritis Rheumatoid (HCC) High Risk Medication Expected: 04/12/2023 (Approximate), Expires: 01/11/2024 documented as of this encounter Results * Creatinine with Estimated GFR (05/09/2023 8:08 AM ASSISTANT FOREMAN) Creatinine 0.86 0.59 - 1.04 mg/dL 05/09/2023 9:08 AM ASSISTANT FOREMAN DTL Estimated GFR (eGFR) 76 >=60 mL/min/BSA 05/09/2023 9:08 AM ASSISTANT FOREMAN DTL Comment: Estimated GFR calculated using the 2020 CKD_EPI creatinine equation. Blood (Blood, Venous) 05/09/2023 8:08 AM ASSISTANT FOREMAN 05/09/2023 8:50 AM ASSISTANT FOREMAN Alexandra Lopez APRN, C.N.P., D.N.P. LAB B LOOD ADD-ON [facility] [address] [place] [address], [facility] [address] [place] [address] * AST (Aspartate Aminotransferase) (05/09/2023 8:08 AM ASSISTANT FOREMAN) Aspartate Aminotransferase (AST), S 16 8 - 43 U/L 05/09/2023 9:08 AM ASSISTANT FOREMAN DTL Blood (Blood, Venous) 05/09/2023 8:08 AM ASSISTANT FOREMAN 05/09/2023 8:50 AM ASSISTANT FOREMAN Yonas Wallace APRNN.P., D.N.P. LAB B LOOD ADD-ON Performing Organization Address City/[facility]/ZIP Co de Phone Number [facility] 200 [place], [place] [phone] [place] [address] 200 [place] [address] * CRP (C-Reactive Protein) (05/09/2023 8:08 AM ASSISTANT FOREMAN) C-Reactive Protein (CRP), S <3.0 <5.0 mg/L 05/09/2023 9:08 AM ASSISTANT FOREMAN DTL Blood (Blood, Venous) 05/09/2023 8:08 AM ASSISTANT FOREMAN 05/09/2023 8:50 AM ASSISTANT FOREMAN James Wallace APRN.N.P., D.N.P. LAB B LOOD ADD-ON Performing Organization Address City/[facility]/ZIP Co de Phone Number [facility] 200 [place], [place] [phone] [place] [address] 200 [place] [address] * Sedimentation Rate (05/09/2023 8:08 AM ASSISTANT FOREMAN) Pathologist [facility] Sedimentation Rate, B 8 2 - 22 mm/h 05/09/2023 9:23 AM ASSISTANT FOREMAN DTL Blood (Blood, Venous) 05/09/2023 8:08 AM ASSISTANT FOREMAN 05/09/2023 8:31 AM ASSISTANT FOREMAN James Wallace APRN.N.P., D.N.P. LAB B LOOD ADD-ON Performing Organization Address City/[facility] Co de Phone Number [facility] [address] 200 [place] [address] * (ABNORMAL) CBC with Differential, Blood (05/09/2023 8:08 AM ASSISTANT FOREMAN) Pathologist [facility] Hemoglobin 13.3 11.6 - 15.0 g/dL 05/09/2023 8:44 AM ASSISTANT FOREMAN DTL Hematocrit 40.0 35.5 - 44.9 % 05/09/2023 8:44 AM ASSISTANT FOREMAN DTL Erythrocytes 4.09 3.92 - 5.13 x10(12)/L 05/09/2023 8:44 AM ASSISTANT FOREMAN DTL MCV 97.8 78.2 - 97.9 fL 05/09/2023 8:44 AM ASSISTANT FOREMAN DTL RBC Distrib Width 12.9 12.2 - 16.1 % 05/09/2023 8:44 AM ASSISTANT FOREMAN DTL Platelet Count 279 157 - 371 x10(9)/L 05/09/2023 8:44 AM ASSISTANT FOREMAN DTL Leukocytes 8.4 3.4 - 9.6 x10(9)/L 05/09/2023 8:44 AM ASSISTANT FOREMAN DTL Neutrophils 5.08 1.56 - 6.45 x10(9)/L 05/09/2023 8:44 AM ASSISTANT FOREMAN PM Lymphocytes 2.44 0.95 - 3.07 x10(9)/L 05/09/2023 8:44 AM ASSISTANT FOREMAN DTL Monocytes 0.53 0.26 - 0.81 x10(9)/L 05/09/2023 8:44 AM ASSISTANT FOREMAN DTL Eosinophils 0.24 0.03 - 0.48 x10(9)/L 05/09/2023 8:44 AM ASSISTANT FOREMAN DTL Basophils 0.09(H) 0.01 - 0.08 x10(9)/L 05/09/2023 8:44 AM ASSISTANT FOREMAN DTL Blood (Blood, Venous) 05/09/2023 8:08 AM ASSISTANT FOREMAN 05/09/2023 8:31 AM ASSISTANT FOREMAN Alexandra Lopez APRN, C.N.P., D.N.P. LAB B LOOD ADD-ON [facility] [address] [place] [address], [facility] DTL [facility] [address] [place] [address] [facility] 200 [place] [address] documented in this encounter Visit Diagnoses Diagnosis High Risk Medication- Primary Arthritis Rheumatoid (HCC) documented in this encounter Additional Health Concerns Infection Onset Date Last Indicated Resolved Time Protective Environment 10/10/2022 10/10/2022 documented as of this encounter Care Teams Smokehouse Worker Relationship Specialty Start Date End Date Elsewhere, Pcp PCP - General 05/22/18 documented as of this encounter
--- OUTSIDE RECORDS SUMMARY | 2023-06-25 14:02 | XMS_ITS | Encounter Summary ---
Author Name Unknown Organization [facility] Address [address] [place] [address] Care Team Providers Care Advertising Coordinator Name Role Phone Elsewhere, Pcp Primary Care Provider Uma e Reason for Referral * Outpatient (Routine) - Authorized Specialty Diagnoses / Procedures Referred By Contac t Referred To Contact Rheumatology Diagnoses Arthritis Rheumatoid (HCC) High Risk Medication Alexandra Lopez APRN, C.N.P., D.N.P. [address] [place] [phone] [facility] Referral ID Status Reason Start Date Expiration Date V isits Requested Visits Authorized [id number] Authorized 05/09/2023 05/08/2026 1 1 LE STITCH OPERATOR * Outpatient (Routine) - Closed Specialty Diagnoses / Procedures Referred By Contac t Referred To Contact Dermatology Diagnoses Arthritis Rheumatoid (HCC) High Risk Medication Lesion Skin Alexandra Lopez APRN, C.N.P., D.N.P. [address] [place] [phone] [facility] Referral ID Status Reason Start Date Expiration Date Visits Re quested Visits Authorized [id number] Closed 05/09/2023 05/08/2024 1 1 LE STITCH OPERATOR Reason for Visit * Outpatient (Routine) - Closed Specialty Diagnoses / Procedures Referred By Florian cazares Referred To Contact Rheumatology Diagnoses Arthritis Rheumatoid (HCC) High Risk Medication Alexandra Lopez APRN, C.N.P., D.N.P. [address] [place] [phone] [facility] Referral ID Status Reason Start Date Expiration Date Visits Re quested Visits Authorized [id number] Closed 10/10/2022 10/09/2025 1 1 Encounter Details Date Type Department Care Team (Latest Contact Info) Description 05/09/2023 10:30 AM SADDLE STITCH OPERATOR Office Visit Division of Rheumatology in [place], [place] [address] [place] [phone] Alexandra Lopez APRN, James.N.P., D.N.P. [address] [place] [phone] Lesion Skin (Primary Dx); Arthritis Rheumatoid (HCC); [...] often do you attend chur ch or protestant services? Patient declined 07/13/2022 Do you belong to any clubs o r organizations such as latter day groups, unions, fraternal or athletic groups, or [...] medical care, and heating? Patient declined 07/13/2022 [facility] of Occupat ional Health - [...] place to sleep or slept in a care home (including now)? No 07/13/2022 Nutrition Answer Date [...] Comments Blood Pressure 134/82 05/09/2023 10:32 AM SADDLE STITCH OPERATOR Pulse 74 05/09/2023 10:32 AM SADDLE STITCH OPERATOR Temperature 37 ??C (98.6 ??F) 05/09/2023 10:32 AM SADDLE STITCH OPERATOR Respiratory Rate - - Oxygen Saturation - - Inhaled Oxygen Concentration - - Weight 85.1 kg (187 lb 9.8 oz) 05/09/2023 10:32 AM SADDLE STITCH OPERATOR Height 156.4 cm (5' 1.58) 05/09/2023 10:[address] Body Mass Index 34.79 05/09/2023 10:32 AM SADDLE STITCH OPERATOR documented in this encounter Progress Notes * Alexandra Lopez, LEGAL NURSE CONSULTANT, C.N.P., D.N.P. - 05/09/2023 10:30 AM CST [...] plan; patient expressed understanding of the content. LE STITCH OPERATOR documented in this encounter Plan of Treatment [...] documented as of this encounter Care Teams Advertising Coordinator Relationship Specialty Start Date End Date Elsewhere, Pcp PCP - General 05/22/18 documented as of this encounter
--- OUTSIDE RECORDS SUMMARY | 2023-06-25 14:02 | XMS_ITS | Encounter Summary ---
Author Name Unknown Organization [facility] Address [address] [place] [address] Care Team Providers Care Fitness Centre Manager Name Role Phone Elsewhere, Pcp Primary Care Provider Unavailabl e Reason for Visit * Reason Onset Date Comments Pre-visit Intake 05/08/2023 PIETRO done 05/08 EEF Encounter Details Date Type Department Care Team (Latest Contact Info) Description 05/08/2023 12:00 PM JAIL OFFICER Clinical Communication Virtual Review in [place], [place] [address] [place] [address] Pre-visit Intake (PIETRO done 05/08 EEF) Social [...] often do you attend chur ch or tenriism services? Patient declined 07/13/2022 Do you belong to any clubs o r organizations such as buddhism groups, unions, fraternal or athletic groups, or [...] medical care, and heating? Patient declined 07/13/2022 [facility] of Occupat ional Health - [...] place to sleep or slept in a chcf (including now)? No 07/13/2022 Nutrition Answer Date [...] documented as of this encounter Care Teams Fitness Centre Manager Relationship Specialty Start Date End Date Elsewhere, Pcp PCP - General 05/22/18 documented as of this encounter
--- OUTSIDE RECORDS SUMMARY | 2023-06-25 14:02 | XMS_ITS | Clinical Summary ---
Author Name Unknown Organization [facility] Address [address] [place] [address] Care Team Providers Care Life Educator Name Role Phone Elsewhere, Pcp Primary Care Provider Unavailabl e Source Comments Patient records contain information from all sites at [facility]. For routine questions regarding patient records, call [phone] during business hours, M-F 8:00 AM - 5:00 PM Central Time. Record requests for emergency care only can be directed to [phone] at any time.[facility] Allergies Active Allergy Reactions Criticality Noted Date [...] Department Care Team Description 05/12/2023 11:20 AM EDUCATION INSTRUCTOR Comprehensive Visit Department of Dermatology in [address] [phone] Jin Steiner M.D. Asteatosis (Primary Dx); Arthritis Rheumatoid (HCC); High Risk Medication; Lesion Skin; Keratosis Seborrheic 05/09/2023 10:30 AM EDUCATION INSTRUCTOR Office Visit Division of Rheumatology in [address] [phone] Alexandra Lopez APRN, C.N.P., D.N.P. Lesion Skin (Primary Dx); Arthritis Rheumatoid (HCC); High Risk Medication 05/09/2023 7:56 AM EDUCATION INSTRUCTOR - 05/09/2023 11:59 PM EDUCATION INSTRUCTOR Hospital Encounter Department of Laboratory Medicine and Pathology, [facility], in [address] [phone] Alexandra Lopez APRN, C.N.P., D.N.P. Arthritis Rheumatoid (HCC); High Risk Medication Discharge Disposition: Home or Self Care 05/08/2023 12:00 PM EDUCATION INSTRUCTOR Clinical Communication Virtual Review in [address] [address] Pre-visit Intake (PIETRO done 05/08) 04/07/2023 Refill Division of Rheumatology in [address] [phone] Alexandra Lopez APRN, C.N.P., D.N.P. Med Refill [...] often do you attend chur ch or orthodox services? Patient declined 07/13/2022 Do you belong to any clubs o r organizations such as sikh groups, unions, fraternal or athletic groups, or [...] medical care, and heating? Patient declined 07/13/2022 [facility] - Occupational [...] Comments Blood Pressure 134/82 05/09/2023 10:32 AM EDUCATION INSTRUCTOR Pulse 74 05/09/2023 10:32 AM EDUCATION INSTRUCTOR Temperature 37 ??C (98.6 ??F) 05/09/2023 10:32 AM EDUCATION INSTRUCTOR Respiratory Rate - - Oxygen Saturation - - Inhaled Oxygen Concentration - - Weight 85.1 kg (187 lb 9.8 oz) 05/09/2023 10:32 AM EDUCATION INSTRUCTOR Height 156.4 cm (5' 1.58) 05/09/2023 10:[address] Body Mass Index 34.79 05/09/2023 10:32 AM EDUCATION INSTRUCTOR Plan of Treatment Health Maintenance Due Date [...] this topic Medical Devices Implanted Type Area Diversional Therapist Device Identifier Shelf Expiration Date Model / Serial / Lot Knee Implant- [id number] Implanted:06/09 (Quantity not on file) Knee Implant Bilatera l: Knee Description:Both joints were replaced. Procedures Procedure Name Priority Date/Time Associated Diagnosis Comments CREATININE WITH EGFR, S/P Routine 05/09/2023 8:08 AM EDUCATION INSTRUCTOR Arthritis Rheumatoid (HCC) High Risk Medication ASPARTATE AMINOTRANSFERASE (AST), S/P Routine 05/09/2023 8:08 AM EDUCATION INSTRUCTOR Arthritis Rheumatoid (HCC) High Risk Medication C-REACTIVE PROTEIN (CRP), S/P Routine 05/09/2023 8:08 AM EDUCATION INSTRUCTOR Arthritis Rheumatoid (HCC) High Risk Medication SEDIMENTATION RATE, B Routine 05/09/2023 8:08 AM EDUCATION INSTRUCTOR Arthritis Rheumatoid (HCC) High Risk Medication CBC WITH DIFFERENTIAL, B Routine 023 8:08 AM EDUCATION INSTRUCTOR Arthritis Rheumatoid (HCC) High Risk Medication from Last 3 Months Results * Sedimentation Rate (05/09/2023 8:08 AM EDUCATION INSTRUCTOR) Sedimentation Rate, B 8 2 - 22 mm/h 05/09/2023 9:23 AM EDUCATION INSTRUCTOR DTL Blood (Blood, Venous) 05/09/2023 8:08 AM EDUCATION INSTRUCTOR 05/09/2023 8:31 AM EDUCATION INSTRUCTOR Yonas Wallace APRNNCodyPCody, Rober.N.P. LAB B JULITO ADD-ON [facility] [address] [place] [address], [facility] DTL [facility] [address] [place] [address] * (ABNORMAL) CBC with Differential, Blood (05/09/2023 8:08 AM EDUCATION INSTRUCTOR) Hemoglobin 13.3 11.6 - 15.0 g/dL 05/09/2023 8:44 AM EDUCATION INSTRUCTOR DTL Hematocrit 40.0 35.5 - 44.9 % 05/09/2023 8:44 AM EDUCATION INSTRUCTOR DTL Erythrocytes 4.09 3.92 - 5.13 x10(12)/L 05/09/2023 8:44 AM EDUCATION INSTRUCTOR DTL MCV 97.8 78.2 - 97.9 fL 05/09/2023 8:44 AM EDUCATION INSTRUCTOR DTL RBC Distrib Width 12.9 12.2 - 16.1 % 05/09/2023 8:44 AM EDUCATION INSTRUCTOR DTL Platelet Count 279 157 - 371 x10(9)/L 05/09/2023 8:44 AM EDUCATION INSTRUCTOR DTL Leukocytes 8.4 3.4 - 9.6 x10(9)/L 05/09/2023 8:44 AM EDUCATION INSTRUCTOR DTL Neutrophils 5.08 1.56 - 6.45 x10(9)/L 05/09/2023 8:44 AM EDUCATION INSTRUCTOR DHPM Lymphocytes 2.44 0.95 - 3.07 x10(9)/L 05/09/2023 8:44 AM EDUCATION INSTRUCTOR DTL Monocytes 0.53 0.26 - 0.81 x10(9)/L 05/09/2023 8:44 AM EDUCATION INSTRUCTOR DTL Eosinophils 0.24 0.03 - 0.48 x10(9)/L 05/09/2023 8:44 AM EDUCATION INSTRUCTOR DTL Basophils 0.09(H) 0.01 - 0.08 x10(9)/L 05/09/2023 8:44 AM EDUCATION INSTRUCTOR DTL Blood (Blood, Venous) 05/09/2023 8:08 AM EDUCATION INSTRUCTOR 05/09/2023 8:31 AM EDUCATION INSTRUCTOR Yonas Wallace APRNN.P., VargheseN.P. LAB B LOOD ADD-ON [facility] [address] [place] [address], [facility] [address] [place] [address] [facility] [address] [place] [address] * CRP (C-Reactive Protein) (05/09/2023 8:08 AM EDUCATION INSTRUCTOR) C-Reactive Protein (CRP), S <3.0 <5.0 mg/L 05/09/2023 9:08 AM EDUCATION INSTRUCTOR DT Blood (Blood, Venous) 05/09/2023 8:08 AM EDUCATION INSTRUCTOR 05/09/2023 8:50 AM EDUCATION INSTRUCTOR Yonas Wallace APRNN.P., Rober.N.P. LAB B LOOD ADD-ON Performing Organization Address City/[facility]/ZIP Co de Phone Number [facility] [address] [place] [address], [facility] [address] [place] [address] * AST (Aspartate Aminotransferase) (05/09/2023 8:08 AM EDUCATION INSTRUCTOR) Aspartate Aminotransferase (AST), S 16 8 - 43 U/L 05/09/2023 9:08 AM EDUCATION INSTRUCTOR DTL Blood (Blood, Venous) 05/09/2023 8:08 AM EDUCATION INSTRUCTOR 05/09/2023 8:50 AM EDUCATION INSTRUCTOR James Wallace APRN.N.P., Rober.N.P. LAB B LOOD ADD-ON [facility] [address] [place] [address], [facility] [address] [place] [address] * Creatinine with Estimated GFR (05/09/2023 8:08 AM EDUCATION INSTRUCTOR) Creatinine 0.86 0.59 - 1.04 mg/dL 05/09/2023 9:08 AM EDUCATION INSTRUCTOR DTL Estimated GFR (eGFR) 76 >=60 mL/min/BSA 05/09/2023 9:08 AM EDUCATION INSTRUCTOR DTL Comment: Estimated GFR calculated using the 2020 CKD_EPI creatinine equation. Blood (Blood, Venous) 05/09/2023 8:08 AM EDUCATION INSTRUCTOR 05/09/2023 8:50 AM EDUCATION INSTRUCTOR Alexandra Lopez APRN, C.N.P., D.N.P. LAB B LOOD ADD-ON [facility] [address] [place] [address], [facility] [address] [place] [address] from Last 3 Months Additional Health Concerns Infection Onset Date Last Indicated Protective Environment 10/10/2022 3 Care Teams Life Educator Relationship Specialty Start Date End Date Elsewhere, Pcp PCP - General 05/22/18
--- OUTSIDE RECORDS SUMMARY | 2023-06-25 14:02 | XMS_ITS | Encounter Summary ---
Author Name Unknown Organization [facility] Address [address] [place] [address] Care Team Providers Care Commercial Housekeeper Name Role Phone Elsewhere, Pcp Primary Care Provider Unavailabl e Reason for Visit * Reason Onset Date Comments Lab Monitoring 01/20/2023 Collected 3 Encounter Details Date Type Department Care Team (Latest Contact Info) Description 01/20/2023 Clinical Communication Division of Rheumatology in [place], [place] [address] [place] [phone] Alexandra Lopez, ANTONIO, C.N.P., D.N.P. [address] [place] [phone] Lab Monitoring (Collected 01/20/23) Social History Tobacco [...] How often do you attend chur or samaritan services? Patient declined 07/13/2022 Do you belong [...] care, and heating? Patient declined 07/13/2022 [facility]ational Stress Questionnaire Answer [...] encounter Results * AST (Aspartate Aminotransferase) (01/20/2023) [facility] EXT AST 22 12 - 35 [facility] Blood (Blood, Venous) James Wallace APRN.N.P., D.N.P. LAB B LOOD ADD-ON Performing Organization Address City/[facility]/ZIP Co de Phone Number [facility] [address] [place] [address], [facility] [phone] * Creatinine with Estimated GFR (01/20/2023) [facility] EXT Creatinine 0.8 0.5 - 1.5 mg/dL [facility] Blood (Blood, Venous) Alexandra Lopez APRN C.N.P., D.N.P. LAB B LOOD ADD-ON [facility] [address] [place] [address], [facility] [phone] * CBC with Differential, Blood (01/20/2023) Pathologist [facility] EXT Platelet Count 303 140 - 440 [facility] EXT Neutrophils 4.07 1.7 - 7.0 [facility] EXT Hemoglobin 13.5 12 - 16 [facility] EXT White Blood Cell (WBC) Count 7.7 4.5 - 11.0 [facility] Blood (Blood, Venous) Alexandra Lopez APRN, C.N.P., D.N.P. LAB B LOOD ADD-ON [facility] [address] [phone] documented in this encounter Visit Diagnoses Not on filedocumented in this encounter Additional Health Concerns Infection Onset Date Last Indicated Resolved Time Protective Environment 10/10/2022 10/10/2022 documented as of this encounter Care Teams Commercial Housekeeper Relationship Specialty Start Date End Date Elsewhere, Pcp PCP - General 05/22/18 documented as of this encounter
--- OUTSIDE RECORDS SUMMARY | 2023-06-25 14:02 | XMS_ITS ---
Author Name Unknown Organization [facility] Address [address] [place] [address] Care Team Providers Care Fuse Maker Name Role Phone Unavailable Unavailable Unavailable Surgery Details Not on file Complications Check Surgery Details section. Procedure Estimated Blood Loss Check Surgery Details section. Procedure Findings Check Surgery Details section. Procedure Specimens Taken Check Surgery Details section.
--- OUTSIDE RECORDS SUMMARY | 2023-06-25 14:02 | XMS_ITS | Referral Summary ---
Author Name Unknown Organization [facility] Address [address] [place] [address] Care Team Providers Care Compliance Administrator Name Role Phone Elsewhere, Pcp Primary Care Provider Unavailabl e Source Comments Patient records contain information from all sites at [facility]. For routine questions regarding patient records, call [phone] during business hours, M-F 8:00 AM - 5:00 PM Central Time. Record requests for emergency care only can be directed to [phone] at any time.[facility] Encounters Date Type Department Care Team Description 05/12/2023 11:20 AM JAIL OFFICER Comprehensive Visit Department of Dermatology in [place], [place] [address] [place] [phone] Jin Steiner M.D. Asteatosis (Primary Dx); Arthritis Rheumatoid (HCC); High Risk Medication; Lesion Skin; Keratosis Seborrheic 05/09/2023 7:56 AM JAIL OFFICER - 05/09/2023 11:59 PM JAIL OFFICER Hospital Encounter Department of Laboratory Medicine and Pathology, [facility], in [place], [place] [address] [place] [phone] Alexandra Lopez APRN, C.N.P., D.N.P. Arthritis Rheumatoid (HCC); High Risk Medication Discharge Disposition: Home or Self Care 05/09/2023 10:30 AM JAIL OFFICER Office Visit Division of Rheumatology in [place], [place] [address] [place] [address] Alexandra Lopez APRN, C.N.P., D.N.P. Lesion Skin (Primary Dx); Arthritis Rheumatoid (HCC); High Risk Medication 05/08/2023 12:00 PM JAIL OFFICER Clinical Communication Virtual Review in [place], [place] [address] [place] [address] Pre-visit Intake (PIETRO done 05/08 EEF) 04/07/2023 Refill Division of Rheumatology in [place], [place] [address] [place] [address] Alexandra Lopez APRN, C.N.P., D.N.P. Med Refill [...] How often do you attend chur or worship services? Patient declined 07/13/2022 Do you belong [...] care, and heating? Patient declined 07/13/2022 [facility] ional [facility] - [...] Comments Blood Pressure 134/82 05/09/2023 10:32 AM JAIL OFFICER Pulse 74 05/09/2023 10:32 AM JAIL OFFICER Temperature 37 ??C (98.6 ??F) 05/09/2023 10:32 AM JAIL OFFICER Respiratory Rate - - Oxygen Saturation - - Inhaled Oxygen Concentration - - Weight 85.1 kg (187 lb 9.8 oz) 05/09/2023 10:32 AM JAIL OFFICER Height 156.4 cm (5' 1.58) 05/09/2023 10:[address] Body Mass Index 34.79 05/09/2023 10:32 AM JAIL OFFICER Plan of Treatment Not on file Medical Devices Implanted Type Area Pipe And Test Supervisor Device Identifier Shelf Expiration Date Model / Serial / Lot Knee Implant- [id number] Implanted:06/09 (Quantity not on file) Knee Implant Bilatera l: Knee Description:Both joints were replaced. Procedures Procedure Name Priority Date/Time Associated Diagnosis Comments CREATININE WITH EGFR, S/P Routine 05/09/2023 8:08 AM JAIL OFFICER Arthritis Rheumatoid (HCC) High Risk Medication ASPARTATE AMINOTRANSFERASE (AST), S/P Routine 05/09/2023 8:08 AM JAIL OFFICER Arthritis Rheumatoid (HCC) High Risk Medication C-REACTIVE PROTEIN (CRP), S/P Routine 05/09/2023 8:08 AM JAIL OFFICER Arthritis Rheumatoid (HCC) High Risk Medication SEDIMENTATION RATE, B Routine 05/09/2023 8:08 AM JAIL OFFICER Arthritis Rheumatoid (HCC) High Risk Medication CBC WITH DIFFERENTIAL, B Routine 023 8:08 AM JAIL OFFICER Arthritis Rheumatoid (HCC) High Risk Medication from Last 3 Months Results * Sedimentation Rate (05/09/2023 8:08 AM JAIL OFFICER) Pathologist [facility] Sedimentation Rate, B 8 2 - 22 mm/h 05/09/2023 9:23 AM JAIL OFFICER DTL Blood (Blood, Venous) 05/09/2023 8:08 AM JAIL OFFICER 05/09/2023 8:31 AM JAIL OFFICER Alexandra Lopez APRN C.N.P., D.N.P. LAB B LOOD ADD-ON [facility] [address] [place] [address], [facility] [address] [place] [address] * (ABNORMAL) CBC with Differential, Blood (05/09/2023 8:08 AM JAIL OFFICER) [facility] Hemoglobin 13.3 11.6 - 15.0 g/dL 05/09/2023 8:44 AM JAIL OFFICER DTL Hematocrit 40.0 35.5 - 44.9 % 05/09/2023 8:44 AM JAIL OFFICER DTL Erythrocytes 4.09 3.92 - 5.13 x10(12)/L 05/09/2023 8:44 AM JAIL OFFICER DTL MCV 97.8 78.2 - 97.9 fL 05/09/2023 8:44 AM JAIL OFFICER DTL RBC Distrib Width 12.9 12.2 - 16.1 % 05/09/2023 8:44 AM JAIL OFFICER DTL Platelet Count 279 157 - 371 x10(9)/L 05/09/2023 8:44 AM JAIL OFFICER DTL Leukocytes 8.4 3.4 - 9.6 x10(9)/L 05/09/2023 8:44 AM JAIL OFFICER DTL Neutrophils 5.08 1.56 - 6.45 x10(9)/L 05/09/2023 8:44 AM JAIL OFFICER DHPM Lymphocytes 2.44 0.95 - 3.07 x10(9)/L 05/09/2023 8:44 AM JAIL OFFICER DTL Monocytes 0.53 0.26 - 0.81 x10(9)/L 05/09/2023 8:44 AM JAIL OFFICER DTL Eosinophils 0.24 0.03 - 0.48 x10(9)/L 05/09/2023 8:44 AM JAIL OFFICER DTL Basophils 0.09(H) 0.01 - 0.08 x10(9)/L 05/09/2023 8:44 AM JAIL OFFICER DTL Blood (Blood, Venous) 05/09/2023 8:08 AM JAIL OFFICER 05/09/2023 8:31 AM JAIL OFFICER Alexandra Lopez APRN, C.N.P., D.N.P. LAB B LOOD ADD-ON Performing Organization Address City/[facility]/ZIP Co de Phone Number [facility] [address] [place] [address], [facility] [address] [place], [place] [id number] [place] [address] 200 [place] [address] * CRP (C-Reactive Protein) (05/09/2023 8:08 AM JAIL OFFICER) C-Reactive Protein (CRP), S <3.0 <5.0 mg/L 05/09/2023 9:08 AM JAIL OFFICER DTL Blood (Blood, Venous) 05/09/2023 8:08 AM JAIL OFFICER 05/09/2023 8:50 AM JAIL OFFICER Alexandra Lopez APRN, C.N.P., D.N.P. LAB B LOOD ADD-ON [facility] 200 [place] [address], [facility] 200 [place] [address] * AST (Aspartate Aminotransferase) (05/09/2023 8:08 AM JAIL OFFICER) Aspartate Aminotransferase (AST), S 16 8 - 43 U/L 05/09/2023 9:08 AM JAIL OFFICER DTL Blood (Blood, Venous) 05/09/2023 8:08 AM JAIL OFFICER 05/09/2023 8:50 AM JAIL OFFICER James Wallace APRN.N.Viridiana., Rober.N.P. LAB B LOOD ADD-ON Performing Organization Address [facility] de Phone Number [facility] 200 [place] [address], [facility] 200 [place] [address] * Creatinine with Estimated GFR (05/09/2023 8:08 AM JAIL OFFICER) Creatinine 0.86 0.59 - 1.04 mg/dL 05/09/2023 9:08 AM JAIL OFFICER DTL Estimated GFR (eGFR) 76 >=60 mL/min/BSA 05/09/2023 9:08 AM JAIL OFFICER DTL Comment: Estimated GFR calculated using the 2020 CKD_EPI creatinine equation. Blood (Blood, Venous) 05/09/2023 8:08 AM JAIL OFFICER 05/09/2023 8:50 AM JAIL OFFICER James Wallace APRN.N.P., D.N.P. LAB B LOOD ADD-ON Performing Organization Address [facility] de Phone Number [facility] [address] [place] [address], [facility] 200 [place] [address] from Last 3 Months Additional Health Concerns Infection Onset Date Last Indicated Protective Environment 10/10/2022 3 Care Teams Compliance Administrator Relationship Specialty Start Date End Date Elsewhere, Pcp PCP - General 05/22/18
--- OUTSIDE RECORDS SUMMARY | 2023-06-25 14:02 | XMS_ITS | Encounter Summary ---
Author Name Unknown Organization [facility] Address [address] [place] [address] Care Team Providers Care Supply Room Clerk Name Role Phone Elsewhere, Pcp Primary Care Provider Unavailabl e Reason for Visit * Reason Comments Med Refill Encounter Details Date Type Department Care Team (Late st Contact Info) Description 04/07/2023 Refill Division of Rheumatology in [place], [place] [address] [place] [phone] Alexandra Lopez, SMART ENERGY SPECIALIST, C.N.P., D.N.P. [address] [place] [address] Med Refill Social History Tobacco Use Types [...] often do you attend chur ch or nondenominational services? Patient declined 07/13/2022 Do you belong to any clubs o r organizations such as presybeterian groups, unions, fraternal or athletic groups, or [...] medical care, and heating? Patient declined 07/13/2022 [facility] Questionnaire Answer Date Recorded [...] place to sleep or slept in a penitentiary (including now)? No 07/13/2022 Nutrition Answer Date [...] documented as of this encounter Care Teams Supply Room Clerk Relationship Specialty Start Date End Date Elsewhere, Pcp PCP - General 05/22/18 documented as of this encounter
--- OUTSIDE RECORDS SUMMARY | 2023-06-25 14:02 | XMS_ITS | Clinical Summary ---
Author Name Unknown Organization [facility] Address [place], [place] [address] Care Team Providers Care School Crossing Guard Supervisor Name Role Phone Julienne [facility] Primary Care Provider Unavailable Allergies [...] Comments Blood Pressure 147/86 07/11/2015 2:42 PM RETURNS SUPERVISOR Pulse 92 07/11/2015 2:42 PM RETURNS SUPERVISOR Temperature 36.4 ??C (97.6 ??F) 03/17/2009 8:12 AM CD T Respiratory Rate - - Oxygen Saturation 98% 07/11/2015 2:42 PM RETURNS SUPERVISOR Inhaled Oxygen Concentration - - Weight 86.5 kg (190 lb 9.6 oz) 07/11/2015 2:42 P M RETURNS SUPERVISOR Height - - Body Mass Index - - Plan of Treatment Upcoming Encounters Date Type Department Care Team (Late st Contact Info) Description 06/25/2023 2:00 PM RETURNS SUPERVISOR Orders Only [facility] [address] [place] [address] Health Maintenance Due Date Last Done Comments [...] age to complete this topic Care Teams School Crossing Guard Supervisor Relationship Specialty Start Date End Date [facility] PCP - General 09/01/08
--- OUTSIDE RECORDS SUMMARY | 2023-06-25 14:03 | XMS_ITS | Encounter Summary ---
Author Name Unknown Organization [facility] Address [address] [place] [address] Care Team Providers Care Electric Pile Driver Operator Name Role Phone Elsewhere, Pcp Primary Care Provider Unavailabl e Reason for Visit * Reason Onset Date Comments Previsit Preparation 07/11/2022 PIETRO done 2/ 2 EEF Encounter Details Date Type Department Care Team (Latest Contact Info) Description 07/11/2022 8:30 AM ASPHALT SCREED OPERATOR Clinical Communication Virtual Review in [place], [place] [address] [place] [address] Previsit Preparation (PIETRO done 2/2 EEF) Social [...] often do you attend chur ch or yarsanism services? 1 to 4 times per year 10/15/2021 Do you belong to any clubs o r organizations such as voodoo groups, unions, fraternal or athletic groups, or [...] medical care, and heating? Patient declined 10/15/2021 [facility] Occupat ional Health - [...] place to sleep or slept in a skilled nursing (including now)? No 10/15/2021 Nutrition Answer Date [...] on filedocumented in this encounter Care Teams Electric Pile Driver Operator Relationship Specialty Start Date End Date Elsewhere, Pcp PCP - General 05/22/18 documented as of this encounter
--- OUTSIDE RECORDS SUMMARY | 2023-06-25 14:03 | XMS_ITS | Encounter Summary ---
Author Name Unknown Organization [facility] Address [address] [place] [address] Care Team Providers Care Director Of Archives Name Role Phone Elsewhere, Pcp Primary Care Provider Unavailsalima e Reason for Referral * Outpatient (Routine) - Closed Specialty Diagnoses / Procedures Referred By Florian t Referred To Contact Rheumatology Diagnoses Arthritis Rheumatoid (HCC) Alexandra Lopez APRN, C.N.P., D.N.P. [address] [place] [phone] [facility] Referral ID Status Reason Start Date Expiration Date Visits Re quested Visits Authorized [id number] Closed 07/15/2022 07/14/2025 1 1 STICS VICE PRESIDENT Reason for Visit * Outpatient (Routine) - Closed Specialty Diagnoses / Procedures Referred By Contac t Referred To Contact Rheumatology Ottoniel Talamantes M.D. [address] [place] [phone] [facility] Referral ID Status Reason Start Date Expiration Date Visits Re quested Visits Authorized [id number] Closed 03/20/2022 03/19/2025 1 1 Encounter Details Date Type Department Care Team (Latest Contact Info) Description 07/15/2022 1:00 PM LOGISTICS VICE PRESIDENT Office Visit Division of Rheumatology in [place], [place] [address] [place] [phone] Alexandra Lopez APRN, C.N.P., D.N.P. 200 [place] [phone] Arthritis Rheumatoid (HCC) (Primary Dx) Social History [...] week 07/13/2022 How often do you attend [facility] or taoism services? Patient declined 07/13/2022 Do you belong [...] medical care, and heating? Patient declined [facility]/13/[facility]22 [facility] - [facility]ational Stress Questionnaire Answer Date [...] Comments Blood Pressure 128/78 07/15/2022 12:56 PM LOGISTICS VICE PRESIDENT Pulse 76 07/15/2022 12:56 PM LOGISTICS VICE PRESIDENT Temperature 36.6 ??C (97.9 ??F) 07/15/2022 12:[address] Respiratory Rate - - Oxygen Saturation - - Inhaled Oxygen Concentration - - Weight 84.4 kg (186 lb 1.1 oz) 07/15/2022 12:56 PM LOGISTICS VICE PRESIDENT Height 156.2 cm (5' 1.5) 07/15/2022 12:56 PM CS T Body Mass Index 34.59 07/15/2022 12:56 PM LOGISTICS VICE PRESIDENT documented in this encounter Patient Instructions * Patient Instructions* Alexandra Lopez APRN, C.N.P., D.N.P. - 07/15/2022 1:00 PM LOGISTICS VICE PRESIDENT Increase methotrexate to 7 tablets weekly. Continue folic acid daily. Starting around August 15, try decreasing prednisone to 2.5 mg daily for 2-4 weeks, and then try stopping. Follow up in 3 months. STICS VICE PRESIDENT documented in this encounter Progress Notes * [...] plan; patient expressed understanding of the content. STICS VICE PRESIDENT documented in this encounter Plan of Treatment [...] LAB B LOOD ADD-ON Performing Organization Address City/[facility]/ZIP Co de Phone Number [facility] 200 [place] [address] * AST (Aspartate Aminotransferase) (10/10/2022 10:05 AM CDT) Aspartate Aminotransferase (AST), S 19 8 - 43 U/L 10/10/2022 11:10 AM CDT DTL Blood (Blood, Venous) 10/10/2022 10:05 AM CDT 10/10/2022 10:49 AM CDT Alexandra Lopez APRN, C.N.P., D.N.P. LAB B LOOD ADD-ON [facility] 200 [place], [place] [phone] [place] [address] * CRP (C-Reactive Protein) (10/10/2022 10:05 AM CDT) C-Reactive Protein (CRP), S <3.0 <5.0 mg/L 10/10/2022 11:10 AM CDT DTL Blood (Blood, Venous) 10/10/2022 10:05 AM CDT 10/10/2022 10:49 AM CDT James Wallace APRN.N.P., Rober.N.P. LAB B LOOD ADD-ON Performing Organization Address [facility] Co de Phone Number [facility] 200 [place] [address] * Sedimentation Rate (10/10/2022 10:05 AM CDT) Pathologist [facility] Sedimentation Rate, B 10 2 - 22 mm/h 10/10/2022 11:34 AM CDT DTL Blood (Blood, Venous) 10/10/2022 10:05 AM CDT 10/10/2022 10:33 AM CDT James Wallace APRN.N.P., Rober.N.P. LAB B LOOD ADD-ON Performing Organization Address [facility] Co de Phone Number [facility] 200 [place] [address] * (ABNORMAL) CBC with Differential, Blood (10/10/2022 10:05 AM CDT) [facility] Hemoglobin 13.0 11.6 - 15.0 g/dL [...] B LOOD ADD-ON [facility] 200 [place] [address], [facility] 200 [place] [address] documented in this encounter Visit Diagnoses Diagnosis Arthritis Rheumatoid (HCC)- Primary documented in this encounter Care Teams Director Of Archives Relationship Specialty Start Date End Date Elsewhere, Pcp PCP - General 05/22/18 documented as of this encounter
--- OUTSIDE RECORDS SUMMARY | 2023-06-25 14:03 | XMS_ITS | Encounter Summary ---
Author Name Unknown Organization [facility] Address [address] [place] [address] Care Team Providers Care Registered Nurse First Assistant Name Role Phone Elsewhere, Pcp Primary Care Provider Unavailabl e Encounter Details Date Type Department Care Team (Latest Contact Info) Description 07/15/2022 10:32 AM REGION MANAGER - 07/15/2022 11:59 PM [facility] Hospital Encounter Department of Laboratory Medicine and Pathology, [facility] in [place], [place] [address] [place] [phone] Ottoniel Talamantes M.D. [address] [place] [phone] Arthritis Rheumatoid (HCC) Discharge Disposition: Home or [...] How often do you attend chur or buddhist services? Patient declined 07/13/2022 Do you belong [...] medical care, and heating? Patient declined 07/13/2022 [facility] - Occupational Stress [...] Procedure Name Priority Date/Time Associated Diagnosis Comments [facility] [place] [place] RESEARCH ORDER, B Routine 10:40 AM REGION MANAGER Arthritis Rheumatoid (HCC) SEDIMENTATION RATE, B Routine 07/15/2022 10:40 AM REGION MANAGER Arthritis Rheumatoid (HCC) CBC WITH DIFFERENTIAL, B Routine 023 10:40 AM REGION MANAGER Arthritis Rheumatoid (HCC) C-REACTIVE PROTEIN (CRP), S/P Routine 07/15/2022 10:40 AM REGION MANAGER Arthritis Rheumatoid (HCC) ASPARTATE AMINOTRANSFERASE (AST), S/P Routine 07/15/2022 10:40 AM REGION MANAGER Arthritis Rheumatoid (HCC) CREATININE WITH EGFR, S/P Routine 07/15/2022 10:40 AM REGION MANAGER Arthritis Rheumatoid (HCC) documented in this encounter Results * Miscellaneous Research, B (07/15/2022 10:40 AM REGION MANAGER) Number of Specimens 5 07/15/2022 10:40 AM REGION MANAGER HSS Blood (Blood, Venous) 07/15/2022 10:40 AM REGION MANAGER 07/15/2022 10:40 AM REGION MANAGER Steve Steiner III, M.D. LAB RESEARCH NO R ESULT ROUTING [facility] 200 [place] [address], [facility] HSS [facility] 200 [place] [address] * Sedimentation Rate (07/15/2022 10:40 AM REGION MANAGER) Sedimentation Rate, B 8 2 - 22 mm/h 07/15/2022 11:54 AM REGION MANAGER DTL Blood (Blood, Venous) 07/15/2022 10:40 AM REGION MANAGER 07/15/2022 11:03 AM REGION MANAGER Steve Steiner III, M.D. LAB BLOOD ADD-ON Performing Organization Address City/[facility]/ZIP Co de Phone Number [facility] [address] [place], [place] [address] DTL [facility] 200 [place] [address] * Creatinine with Estimated GFR (07/15/2022 10:40 AM REGION MANAGER) Creatinine 0.91 0.59 - 1.04 mg/dL 07/15/2022 11:38 AM REGION MANAGER DTL Estimated GFR (eGFR) 72 >=60 mL/min/BSA 07/15/2022 11:38 AM REGION MANAGER DTL Comment: Estimated GFR calculated using the 2020 CKD_EPI creatinine equation. Blood (Blood, Venous) 07/15/2022 10:40 AM REGION MANAGER 07/15/2022 11:13 AM REGION MANAGER Ottoniel Talamantes M.D. LAB BLOOD ADD-ON [facility] [address] [place] [address], [facility] DTL [facility] 200 [place] [address] * AST (Aspartate Aminotransferase) (07/15/2022 10:40 AM REGION MANAGER) Aspartate Aminotransferase (AST), S 19 8 - 43 U/L 07/15/2022 11:38 AM REGION MANAGER DTL Blood (Blood, Venous) 07/15/2022 10:40 AM REGION MANAGER 07/15/2022 11:13 AM REGION MANAGER Ottoniel Talamantes M.D. LAB BLOOD ADD-ON Performing Organization Address City/[facility]/ZIP Co de Phone Number [facility] 200 [place], [place] [phone] [place] [address] [facility] 200 [place] [address] * CRP (C-Reactive Protein) (07/15/2022 10:40 AM REGION MANAGER) Pathologist [facility] C-Reactive Protein (CRP), S <3.0 <=8.0 mg/L 07/15/2022 11:38 AM REGION MANAGER DTL Blood (Blood, Venous) 07/15/2022 10:40 AM REGION MANAGER 07/15/2022 11:13 AM REGION MANAGER Ottoniel Talamantes M.D. LAB BLOOD ADD-ON Performing Organization Address City/[facility] Co de Phone Number [facility] 200 [place], [place] [phone] [place] [address] [facility] 200 [place] [address] * CBC with Differential, Blood (07/15/2022 10:40 AM REGION MANAGER) Pathologist [facility] Hemoglobin 12.8 11.6 - 15.0 g/dL 07/15/2022 11:10 AM REGION MANAGER DTL Hematocrit 38.3 35.5 - 44.9 % 07/15/2022 11:10 AM REGION MANAGER DTL Erythrocytes 3.92 3.92 - 5.13 x10(12)/L 07/15/2022 11:10 AM REGION MANAGER DTL MCV 97.7 78.2 - 97.9 fL 07/15/2022 11:10 AM REGION MANAGER DTL RBC Distrib Width 13.2 12.2 - 16.1 % 07/15/2022 11:10 AM REGION MANAGER DTL Platelet Count 275 157 - 371 x10(9)/L 07/15/2022 11:10 AM REGION MANAGER DTL Leukocytes 8.6 3.4 - 9.6 x10(9)/L 07/15/2022 11:10 AM REGION MANAGER DTL Neutrophils 5.66 1.56 - 6.45 x10(9)/L 07/15/2022 11:10 AM REGION MANAGER DTL Lymphocytes 2.17 0.95 - 3.07 x10(9)/L 07/15/2022 11:10 AM REGION MANAGER DTL Monocytes 0.49 0.26 - 0.81 x10(9)/L 07/15/2022 11:10 AM REGION MANAGER DTL Eosinophils 0.19 0.03 - 0.48 x10(9)/L 07/15/2022 11:10 AM REGION MANAGER DTL Basophils 0.07 0.01 - 0.08 x10(9)/L 07/15/2022 11:10 AM REGION MANAGER DTL Blood (Blood, Venous) 07/15/2022 10:40 AM REGION MANAGER 07/15/2022 11:03 AM REGION MANAGER Ottoniel Talamantes M.D. LAB BLOOD ADD-ON [facility] [address] [address], [facility] DTL [facility] 200 [place] [address] documented in this encounter Visit Diagnoses Diagnosis Arthritis Rheumatoid (HCC) documented in this encounter Care Teams Registered Nurse First Assistant Relationship Specialty Start Date End Date Elsewhere, Pcp PCP - General 05/22/18 documented as of this encounter
--- OUTSIDE RECORDS SUMMARY | 2023-06-25 14:03 | XMS_ITS | Encounter Summary ---
Author Name Unknown Organization [facility] Address [address] [place] [address] Care Team Providers Care Motor Electrician Name Role Phone Elsewhere, Pcp Primary Care Provider Unavailabl e Encounter Details Date Type Department Care Team (Latest Contact Info) Description 10/10/2022 9:51 AM CDT - 10/10/2022 11:59 PM CDT Hospital Encounter Department of Laboratory Medicine and Pathology, [facility] in [place], [place] [address] [place] [phone] Alexandra Lopez, ANTONIO, C.N.P., D.N.P. [address] [place] [phone] Arthritis Rheumatoid (HCC) Discharge Disposition: Home or [...] How often do you attend chur or sabianist services? Patient declined 07/13/2022 Do you belong [...] LAB B LOOD ADD-ON Performing Organization Address City/[facility] Co de Phone Number [facility] 200 [place] [address], [facility] 200 [place] [address] * AST (Aspartate Aminotransferase) (10/10/2022 10:05 AM CDT) Aspartate Aminotransferase (AST), S 19 8 - 43 U/L 10/10/2022 11:10 AM CDT DT Blood (Blood, Venous) 10/10/2022 10:05 AM CDT 10/10/2022 10:49 AM CDT James Wallace APRN.N.P., D.N.P. LAB B LOOD ADD-ON Performing Organization Address City/[facility] Co de Phone Number [facility] 200 [place] [address], [facility] 200 [place] [address] * CRP (C-Reactive Protein) (10/10/2022 10:05 AM CDT) C-Reactive Protein (CRP), S <3.0 <5.0 mg/L 10/10/2022 11:10 AM CDT DTL Blood (Blood, Venous) 10/10/2022 10:05 AM CDT 10/10/2022 10:49 AM CDT James Wallace APRN.N.P., D.N.P. LAB B LOOD ADD-ON Performing Organization Address City/[facility]/ZIP Co de Phone Number [facility] 200 [place] [address], [facility] 200 [place] [address] * Sedimentation Rate (10/10/2022 10:05 AM CDT) Pathologist [facility] Sedimentation Rate, B 10 2 - 22 mm/h 10/10/2022 11:34 AM CDT DTL Blood (Blood, Venous) 10/10/2022 10:05 AM CDT 10/10/2022 10:33 AM CDT Alexandra Lopez APRN, C.N.P., Rober.CelestinePCody LAB B LOOD ADD-ON Performing Organization Address City/[facility] Co de Phone Number [facility] 200 [place] [address], [facility] 200 [place] [address] * (ABNORMAL) CBC with Differential, Blood (10/10/2022 10:05 AM CDT) [facility] Hemoglobin 13.0 11.6 - 15.0 g/dL 10/10/2022 [...] APRN, C.N.P., D.N.P. LAB B LOOD ADD-ON [facility] 200 [place] [address], [facility] [address] [place] [address] documented in this encounter Visit Diagnoses Diagnosis Arthritis Rheumatoid (HCC) documented in this encounter Additional Health Concerns Infection Onset Date Last Indicated Resolved Time Protective Environment 10/10/2022 10/10/2022 documented as of this encounter Care Teams Motor Electrician Relationship Specialty Start Date End Date Elsewhere, Pcp PCP - General 05/22/18 documented as of this encounter
--- OUTSIDE RECORDS SUMMARY | 2023-06-25 14:03 | XMS_ITS | Encounter Summary ---
Author Name Unknown Organization [facility] Address [address] [place] [address] Care Team Providers Care Network Contract Manager Name Role Phone Elsewhere, Pcp Primary Care Provider Unavailabl e Reason for Visit * Outpatient (Routine) - Authorized Specialty Diagnoses / Procedures Referred By Florian cazares Referred To Contact Research Diagnoses Arthritis Rheumatoid (HCC) Steve Steiner III, M.D. [address] [place] [phone] [facility] Referral ID Status Reason Start Date Expiration Date V isits Requested Visits Authorized [id number] Authorized 06/06/2022 06/05/2025 1 1 Encounter Details Date Type Department Care Team (Latest Contact Info) Description 07/15/2022 10:30 AM RASPBERRY CHECKER Clinical Support - [facility] Division of Rheumatology in [place], [place] [address] [place] [phone] Steve Steiner III, M.D. [address] [place] [phone] Raiza Gamino [address] [place] [phone] Arthritis Rheumatoid (HCC) Social History Tobacco [...] week 07/13/2022 How often do you attend [facility] or scientologist services? Patient declined 07/13/2022 Do you belong to any clubs o r organizations such as anabaptist groups, unions, fraternal or athletic groups, or [...] medical care, and heating? Patient declined 07/13/2022 [facility]at ional [facility] [...] slept in a custodial (including now)? No 07/13/2022 Nutrition Answer Date [...] (HCC) documented in this encounter Care Teams Network Contract Manager Relationship Specialty Start Date End Date Elsewhere, Pcp PCP - General 05/22/18 documented as of this encounter
== END 2023-06-25 13:41 | disposition home or self-care (01) ==
LOC: RAD 13:41
PROVIDERS: PCP Internal Medicine; Visit Provider Internal Medicine
DX: I48.91 Unspecified atrial fibrillation (principal); I51.7 Cardiomegaly; Z86.79 Personal history of other diseases of the circulatory system
CPT/HCPCS: 93306

== ENCOUNTER 2023-07-02 15:42 | Outpatient (CLI) | payer OTHER, SELFPAY ==
--- OUTSIDE RECORDS SUMMARY | 2023-07-02 15:47 | XMS_ITS ---
Author Name Unknown Organization [facility] Address [address] [place] [address] Care Team Providers Care Stereo Compiler Name Role Phone Unavailable Unavailable Unavailable Surgery Details Not on file Complications Check Surgery Details section. Procedure Estimated Blood Loss Check Surgery Details section. Procedure Findings Check Surgery Details section. Procedure Specimens Taken Check Surgery Details section.
--- OUTSIDE RECORDS SUMMARY | 2023-07-02 15:47 | XMS_ITS | Encounter Summary ---
Author Name Unknown Organization [facility] Address [address] [place] [address] Care Team Providers Care Microelectronics Technician Name Role Phone Elsewhere, Pcp Primary Care Provider Unavailabl e Reason for Visit * Reason Onset Date Comments Lab Monitoring 01/20/2023 Collected 3 Encounter Details Date Type Department Care Team (Latest Contact Info) Description 01/20/2023 Clinical Communication Division of Rheumatology in [place], [place] [address] [place] [phone] Alexandra Lopez, ANTONIO, C.N.P., D.N.P. [address] [place] [phone] Lab Monitoring (Collected 01/20/23) Social History Tobacco [...] How often do you attend chur or uatsdin services? Patient declined 07/13/2022 Do you belong to any clubs o r organizations such as mandaeism groups, unions, fraternal or athletic groups, or [...] medical care, and heating? Patient declined [facility] [...] encounter Results * AST (Aspartate Aminotransferase) (01/20/2023) [facility] EXT AST 22 12 - 35 [facility] Blood (Blood, Venous) James Wallace APRN.N.P., D.N.P. LAB B LOOD ADD-ON Performing Organization Address City/[facility]/ZIP Co de Phone Number [facility] [address] [place] [address], [facility] [phone] * Creatinine with Estimated GFR (01/20/2023) [facility] EXT Creatinine 0.8 0.5 - 1.5 mg/dL [facility] Blood (Blood, Venous) Alexandra Lopez APRN C.N.P., D.N.P. LAB B LOOD ADD-ON [facility] [address] [place] [address], [facility] [phone] * CBC with Differential, Blood (01/20/2023) Pathologist [facility] EXT Platelet Count 303 140 - 440 [facility] EXT Neutrophils 4.07 1.7 - 7.0 [facility] EXT Hemoglobin 13.5 12 - 16 [facility] EXT White Blood Cell (WBC) Count 7.7 4.5 - 11.0 [facility] Blood (Blood, Venous) Alexandra Lopez APRN, C.N.P., D.N.P. LAB B LOOD ADD-ON [facility] [address] [phone] documented in this encounter Visit Diagnoses Not on filedocumented in this encounter Additional Health Concerns Infection Onset Date Last Indicated Resolved Time Protective Environment 10/10/2022 10/10/2022 documented as of this encounter Care Teams Microelectronics Technician Relationship Specialty Start Date End Date Elsewhere, Pcp PCP - General 05/22/18 documented as of this encounter
--- OUTSIDE RECORDS SUMMARY | 2023-07-02 15:47 | XMS_ITS | Clinical Summary ---
Author Name Unknown Organization [employer] [facility] Address [place], [place] [address] Care Team Providers Care Canvas Shop Laborer Name Role Phone [facility] Provider Unavailable Allergies No known active allergies Medications Medication Sig Dispensed Refills Start Date End Date Status LEVOTHYROXINE 125 MCG TAB take 1 tablet (125 mcg) by oral route once daily 0 0 09/02/2008 Active Encounters Date Type Department Care Team Description 06/25/2023 2:00 PM LEAD JAVASCRIPT DEVELOPER Orders Only [facility] [address] [place] [address] 2 scans: (2-Ord) ECHO TTE COMPLETE WO CONTRAST ([id number]) 06/25/2023 Travel from Last 3 Months Social History Tobacco Use Types Packs/Day Years [...] Comments Blood Pressure 147/86 07/11/2015 2:42 PM LEAD JAVASCRIPT DEVELOPER Pulse 92 07/11/2015 2:42 PM LEAD JAVASCRIPT DEVELOPER Temperature 36.4 ??C (97.6 ??F) 03/17/2009 8:12 AM CD T Respiratory Rate - - Oxygen Saturation 98% 07/11/2015 2:42 PM LEAD JAVASCRIPT DEVELOPER Inhaled Oxygen Concentration - - Weight 86.5 kg (190 lb 9.6 oz) 07/11/2015 2:42 P M LEAD JAVASCRIPT DEVELOPER Height - - Body Mass Index - [...] on patient's age to complete this topic Procedures Procedure Name Priority Date/Time Associated Diagnosis Comments ECHO TTE COMPLETE WO CONTRAST Routine 06/25/2023 3:01 PM LEAD JAVASCRIPT DEVELOPER A-fib (HC) from Last 3 Months Results * ECHO TTE COMPLETE WO CONTRAST (06/25/2023 3:01 PM LEAD JAVASCRIPT DEVELOPER) AORTIC VALVE MEAN PG 4 mmHg EJECTION FRACTION 71 % LVEDD 4.5 cm EJECTION FRACTION 60 - 65% Anatomical Region Laterality Modality Ultrasound 06/25/2023 2:21 PM LEAD JAVASCRIPT DEVELOPER Narrative 06/26/2023 4:56 PM LEAD JAVASCRIPT DEVELOPER ECHOCARDIOGRAM CARY Vu PLESCHOURT ? Accession#: ?? [id number] : ?1960 63 years Study Date: ?? 06/25/2023 2:21:33 PM Gender: F ?BP: ? 169/93 mmHg Height: 155.00 cm ?BSA: ?1.83 m? ? ? Weight: 84.00 kg ? Tech: ? MTS ? Referring MD: HILDA PALOMARES Site: ? [facility] Reading Location: Mobile-OP Patient Location: Outpatient. Procedure: 2D, Color Doppler and Spectral Doppler. Indication for study: A Fib Cardiac Rhythm: Normal sinus.Study quality: Technically limited. Final Impressions: 1. Technically limited exam. 2. Normal LV size, normal wall thickness, normal global systolic function with an estimated EF of 60 - 65%. 3. Right ventricular cavity size is normal, global systolic RV function is normal. 4. Mildly enlarged left atrium. 5. No significant functional valve disease detected. Chamber Sizes and Function Normal left ventricular size, normal wall thickness, normal global systolic function with an estimated EF of 60 - 65%. Left atrial size is mildly enlarged. Right ventricular cavity size is normal, global systolic RV function is normal. RV wall thickness is normal. The right atrium is normal. Right atrial volume index is 21 ml/m? ? ?. Right atrial area is 16 cm? ? ?. The pulmonary artery is of normal size and origin. The sinus of Valsalva is normal sized. The ascending aorta is not well visualized. Valves, RV Pressures and Diastolic Function The aortic valve is trileaflet, no stenosis and no regurgitation. The mitral valve is normal in structure, trace mitral regurgitation. Normal diastolic function. The tricuspid valve is normal in structure. Tricuspid regurgitation is trace regurgitation. The pulmonic valve is normal. No pulmonary regurgitation. Masses, Effusion, Shunts There is no pericardial effusion. The inferior vena cava is normal sized, respiratory size variation greater than 50%. No left to right shunting was detected by limited color flow Doppler interrogation of the interatrial septum. MEASUREMENTS AND CALCULATIONS 2-D Measurements and LV Function: LVID (d) 4.5 cm LV FS% (2D) ?? 31 % LVID (s) 3.1 cm LVOT diameter 2.0 cm IVS (d) ??1.0 cm HR ?70 bpm LVPW (d) 1.0 cm LA Vol index ??35 ml/m2 Ao Sinus 3.1 cm RA Vol index ??21 ml/m2 ?RA area ? 16 cm?RV Max 4C (d) 2.9 cm Diastology: Mitral ?Tissue Doppler ?Pulmonary veins E Peak 0.9 m/s ??e', Septum ? 0.09 m/s Pulm s ?73.9 cm/s A Peak 0.5 m/s ??e', Lateral ?0.12 m/s Pulm d ?62.2 cm/s E/A ?1.9 ?E/e' Average ?? 9.06 ? Pulm s/d ratio ??1.19 DT ? 243 msec Aortic Valve: Vmax ? 1.3 m/s ??SATURNINO (V) ?? 2.89 cm? ? ? VTI ?0.30 m ?? SATURNINO (I) ?? 2.87 cm? ? ? LVOT V max ? 1.2 m/s ??Max PG ?7 mmHg LVOT VTI ? 0.27 m ?? Mean PG ?? 4 mmHg SV ? 87 ml ?Dim Index 0.89 SV index ? 48 ml/m? ? ? CO ?6.1 l/min AV Ejection Time 0.33 sec CI ?3.3 l/min/m? ? ? AV Flow Rate ? 261 ml/s Mitral Valve: MVA ?3.1 cm? ? ? MV P 1/2 70 msec Tricuspid Valve and estimated PA pressures: TAPSE 3.0 cm . This study was interpreted by an [facility] accredited facility. CC: [facility] (med records) [facility]. ??Final ?? Procedure Note Zenon Bates MD - 06/26/2023 ECHOCARDIOGRAM CARY JEFFERSON : 1960 63 years Study Date: 06/25/2023 2:21:33 PM Gender: F BP: 169/93 mmHg Height: 155.00 cm BSA: 1.83 m? ? ? Weight: 84.00 kg Tech: [facility] Referring MD: HILDA PALOMARES Site: [facility] Reading Location: Mobile-OP Patient Location: Outpatient. Procedure: 2D, Color Doppler and Spectral Doppler. Indication for study: A Fib Cardiac Rhythm: Normal sinus.Study quality: Technically limited. Final Impressions: 1. Technically limited exam. 2. Normal LV size, normal wall thickness, normal global systolic functionwith an estimated EF of 60 - 65%. 3. Right ventricular cavity size is normal, global systolic RV functionis normal. 4. Mildly enlarged left atrium. 5. No significant functional valve disease detected. Chamber Sizes and Function Normal left ventricular size, normal wall thickness, normal globalsystolic function with an estimated EF of 60 - 65%. Left atrial size ismildly enlarged. Right ventricular cavity size is normal, global systolicRV function is normal. RV wall thickness is normal. The right atrium isnormal. Right atrial volume index is 21 ml/m? ? ?. Right atrial area is 16cm? ? ?. The pulmonary artery is of normal size and origin. The sinus ofValsalva is normal sized. The ascending aorta is not well visualized. Valves, RV Pressures and Diastolic Function The aortic valve is trileaflet, no stenosis and no regurgitation. Themitral valve is normal in structure, trace mitral regurgitation. Normaldiastolic function. The tricuspid valve is normal in structure. Tricuspidregurgitation is trace regurgitation. The pulmonic valve is normal. Nopulmonary regurgitation. Masses, Effusion, Shunts There is no pericardial effusion. The inferior vena cava is normal sized,respiratory size variation greater than 50%. No left to right shunting wasdetected by limited color flow Doppler interrogation of the interatrialseptum. MEASUREMENTS AND CALCULATIONS 2-D Measurements and LV Function: LVID (d) 4.5 cm LV FS% (2D) 31 % LVID (s) 3.1 cm LVOT diameter 2.0 cm IVS (d) 1.0 cm HR 70 bpm LVPW (d) 1.0 cm LA Vol index 35 ml/m2 Ao Sinus 3.1 cm RA Vol index 21 ml/m2 RA area 16 cm? ? ? RV Max 4C (d) 2.9 cm Diastology: Mitral Tissue Doppler Pulmonary veins E Peak 0.9 m/s e', Septum 0.09 m/s Pulm s 73.9 cm/s A Peak 0.5 m/s e', Lateral 0.12 m/s Pulm d 62.2 cm/s E/A 1.9 E/e' Average 9.06 Pulm s/d ratio 1.19 DT 243 msec Aortic Valve: Vmax 1.3 m/s SATURNINO (V) 2.89 cm? ? ? VTI 0.30 m SATURNINO (I) 2.87 cm? ? ? LVOT V max 1.2 m/s Max PG 7 mmHg LVOT VTI 0.27 m Mean PG 4 mmHg SV 87 ml Dim Index 0.89 SV index 48 ml/m? ? ? CO 6.1 l/min AV Ejection Time 0.33 sec CI 3.3 l/min/m? ? ? AV Flow Rate 261 ml/s Mitral Valve: MVA 3.1 cm? ? ? MV P 1/2 70 msec Tricuspid Valve and estimated PA pressures: TAPSE 3.0 cm . This study was interpreted by an [facility] accredited facility. CC: [facility] (med records) [facility]. Final Hilda Palomares MD ECHO ORD from Last 3 Months Care Teams Canvas Shop Laborer Relationship Specialty Start Date End Date [facility] PCP - General 09/01/08
--- OUTSIDE RECORDS SUMMARY | 2023-07-02 15:47 | XMS_ITS | Encounter Summary ---
Author Name Unknown Organization [facility] Address [address] [place] [address] Care Team Providers Care Transplanter Orchid Name Role Phone Elsewhere, Pcp Primary Care Provider Unavailabl e Reason for Visit * Outpatient (Routine) - Closed Specialty Diagnoses / Procedures Referred By Florian t Referred To Contact Dermatology Diagnoses Arthritis Rheumatoid (HCC) High Risk Medication Lesion Skin Alexandra Lopez, ANTONIO, C.N.P., D.N.P. [address] [place] [phone] [facility] Referral ID Status Reason Start Date Expiration Date Visits Re quested Visits Authorized [id number] Closed 05/09/2023 05/08/2024 1 1 Encounter Details Date Type Department Care Team (Latest Contact Info) Description 05/12/2023 11:20 AM TIMBER POISONER Comprehensive Visit Department of Dermatology in [place], [place] [address] [place] [phone] Jin Steiner M.D. [address] [place] [phone] Asteatosis (Primary Dx); Arthritis Rheumatoid (HCC); High [...] week 07/13/2022 How often do you attend [facility] or sikhism services? Patient declined 07/13/2022 Do you belong to any clubs o r organizations such as jainism groups, unions, fraternal or athletic groups, or [...] medical care, and heating? Patient declined 07/13/2022 [facility] - Occupational [...] place to sleep or slept in a detention (including now)? No 07/13/2022 Nutrition Answer Date [...] pleasant 63 y.o. female who is from [facility]. She presents for a general skin examination. [...] time which I think is very reasonable. ER POISONER documented in this encounter Plan of Treatment Not on file documented as of this encounter Visit Diagnoses Diagnosis Asteatosis- Primary Arthritis Rheumatoid (HCC) High Risk Medication Lesion Skin Keratosis Seborrheic documented in this encounter Additional Health Concerns Infection Onset Date Last Indicated Resolved Time Protective Environment 10/10/2022 10/10/2022 documented as of this encounter Care Teams Transplanter Orchid Relationship Specialty Start Date End Date Elsewhere, Pcp PCP - General 05/22/18 documented as of this encounter
--- OUTSIDE RECORDS SUMMARY | 2023-07-02 15:47 | XMS_ITS | Clinical Summary ---
Author Name Unknown Organization [facility] Address [address] [place] [address] Care Team Providers Care Marketing Operations Analyst Name Role Phone Elsewhere, Pcp Primary Care Provider Unavailabl e Source Comments Patient records contain information from all sites at [facility]. For routine questions regarding patient records, call [phone] during business hours, M-F 8:00 AM - 5:00 PM Central Time. Record requests for emergency care only can be directed to [phone] at any time.[facility] Allergies Active Allergy Reactions Criticality Noted Date [...] Department Care Team Description 05/12/2023 11:20 AM REGIONAL VICE PRESIDENT LIFE SALES Comprehensive Visit Department of Dermatology in [address] [phone] Jin Steiner M.D. Asteatosis (Primary Dx); Arthritis Rheumatoid (HCC); High Risk Medication; Lesion Skin; Keratosis Seborrheic 05/09/2023 10:30 AM REGIONAL VICE PRESIDENT LIFE SALES Office Visit Division of Rheumatology in [address] [phone] Alexandra Lopez APRN, C.N.P., D.N.P. Lesion Skin (Primary Dx); Arthritis Rheumatoid (HCC); High Risk Medication 05/09/2023 7:56 AM REGIONAL VICE PRESIDENT LIFE SALES - 05/09/2023 11:59 PM REGIONAL VICE PRESIDENT LIFE SALES Hospital Encounter Department of Laboratory Medicine and Pathology, [facility], in [address] [phone] Alexandra Lopez APRN, C.N.P., D.N.P. Arthritis Rheumatoid (HCC); High Risk Medication Discharge Disposition: Home or Self Care 05/08/2023 12:00 PM REGIONAL VICE PRESIDENT LIFE SALES Clinical Communication Virtual Review in [address] [address] Pre-visit Intake (PIETRO done 05/08) 04/07/2023 Refill Division of Rheumatology in [address] [phone] Alexandra Lopez APRN, C.N.P., D.N.P. Med Refill [...] Brother Florian Britt Father Reji Britt Mother Kneia Britt Social History Tobacco Use Types Packs/Day [...] any clubs o r organizations such as denominational groups, unions, fraternal or athletic groups, or [...] care, and heating? Patient declined 07/13/2022 [facility] Occupat ional Health - [...] place to sleep or slept in a halfway (including now)? No 07/13/2022 Nutrition Answer Date [...] Comments Blood Pressure 134/82 05/09/2023 10:32 AM REGIONAL VICE PRESIDENT LIFE SALES Pulse 74 05/09/2023 10:32 AM REGIONAL VICE PRESIDENT LIFE SALES Temperature 37 ??C (98.6 ??F) 05/09/2023 10:32 AM REGIONAL VICE PRESIDENT LIFE SALES Respiratory Rate - - Oxygen Saturation - - Inhaled Oxygen Concentration - - Weight 85.1 kg (187 lb 9.8 oz) 05/09/2023 10:32 AM REGIONAL VICE PRESIDENT LIFE SALES Height 156.4 cm (5' 1.58) 05/09/2023 10:[address] Body Mass Index 34.79 05/09/2023 10:32 AM REGIONAL VICE PRESIDENT LIFE SALES Plan of Treatment Health Maintenance Due Date [...] this topic Medical Devices Implanted Type Area Americanization Teacher Device Identifier Shelf Expiration Date Model / Serial / Lot Knee Implant- [id number] Implanted:06/09 (Quantity not on file) Knee Implant Bilatera l: Knee Description:Both joints were replaced. Procedures Procedure Name Priority Date/Time Associated Diagnosis Comments CREATININE WITH EGFR, S/P Routine 05/09/2023 8:08 AM REGIONAL VICE PRESIDENT LIFE SALES Arthritis Rheumatoid (HCC) High Risk Medication ASPARTATE AMINOTRANSFERASE (AST), S/P Routine 05/09/2023 8:08 AM REGIONAL VICE PRESIDENT LIFE SALES Arthritis Rheumatoid (HCC) High Risk Medication C-REACTIVE PROTEIN (CRP), S/P Routine 05/09/2023 8:08 AM REGIONAL VICE PRESIDENT LIFE SALES Arthritis Rheumatoid (HCC) High Risk Medication SEDIMENTATION RATE, B Routine 05/09/2023 8:08 AM REGIONAL VICE PRESIDENT LIFE SALES Arthritis Rheumatoid (HCC) High Risk Medication CBC WITH DIFFERENTIAL, B Routine 023 8:08 AM REGIONAL VICE PRESIDENT LIFE SALES Arthritis Rheumatoid (HCC) High Risk Medication from Last 3 Months Results * Sedimentation Rate (05/09/2023 8:08 AM REGIONAL VICE PRESIDENT LIFE SALES) Sedimentation Rate, B 8 2 - 22 mm/h 05/09/2023 9:23 AM REGIONAL VICE PRESIDENT LIFE SALES DTL Blood (Blood, Venous) 05/09/2023 8:08 AM REGIONAL VICE PRESIDENT LIFE SALES 05/09/2023 8:31 AM REGIONAL VICE PRESIDENT LIFE SALES Yonas Wallace APRNNCodyPCody, Rober.N.P. LAB B JULITO ADD-ON [facility] [employer] [facility] [address] [place] [address], [facility] DTL [facility] [address] [place] [address] * (ABNORMAL) CBC with Differential, Blood (05/09/2023 8:08 AM REGIONAL VICE PRESIDENT LIFE SALES) Hemoglobin 13.3 11.6 - 15.0 g/dL 05/09/2023 8:44 AM REGIONAL VICE PRESIDENT LIFE SALES DTL Hematocrit 40.0 35.5 - 44.9 % 05/09/2023 8:44 AM REGIONAL VICE PRESIDENT LIFE SALES DTL Erythrocytes 4.09 3.92 - 5.13 x10(12)/L 05/09/2023 8:44 AM REGIONAL VICE PRESIDENT LIFE SALES DTL MCV 97.8 78.2 - 97.9 fL 05/09/2023 8:44 AM REGIONAL VICE PRESIDENT LIFE SALES DTL RBC Distrib Width 12.9 12.2 - 16.1 % 05/09/2023 8:44 AM REGIONAL VICE PRESIDENT LIFE SALES DTL Platelet Count 279 157 - 371 x10(9)/L 05/09/2023 8:44 AM REGIONAL VICE PRESIDENT LIFE SALES DTL Leukocytes 8.4 3.4 - 9.6 x10(9)/L 05/09/2023 8:44 AM REGIONAL VICE PRESIDENT LIFE SALES DTL Neutrophils 5.08 1.56 - 6.45 x10(9)/L 05/09/2023 8:44 AM REGIONAL VICE PRESIDENT LIFE SALES DHPM Lymphocytes 2.44 0.95 - 3.07 x10(9)/L 05/09/2023 8:44 AM REGIONAL VICE PRESIDENT [employer] SALES DTL Monocytes 0.53 0.26 - 0.81 x10(9)/L 05/09/2023 8:44 AM REGIONAL VICE PRESIDENT [employer] SALES DTL Eosinophils 0.24 0.03 - 0.48 x10(9)/L 05/09/2023 8:44 AM REGIONAL VICE PRESIDENT LIFE SALES DTL Basophils 0.09(H) 0.01 - 0.08 x10(9)/L 05/09/2023 8:44 AM REGIONAL VICE PRESIDENT LIFE SALES DTL Blood (Blood, Venous) 05/09/2023 8:08 AM REGIONAL VICE PRESIDENT LIFE SALES 05/09/2023 8:31 AM REGIONAL VICE PRESIDENT LIFE SALES Yonas Wallace APRNN.P., VargheseN.P. LAB B LOOD ADD-ON [facility] [address] [place] [address], [facility] [address] [place] [address] [facility] [address] [place] [address] * CRP (C-Reactive Protein) (05/09/2023 8:08 AM REGIONAL VICE PRESIDENT LIFE SALES) C-Reactive Protein (CRP), S <3.0 <5.0 mg/L 05/09/2023 9:08 AM REGIONAL VICE PRESIDENT LIFE SALES DT Blood (Blood, Venous) 05/09/2023 8:08 AM REGIONAL VICE PRESIDENT LIFE SALES 05/09/2023 8:50 AM REGIONAL VICE PRESIDENT LIFE SALES Yonas Wallace APRNN.P., Rober.N.P. LAB B LOOD ADD-ON Performing Organization Address City/[facility]/ZIP Co de Phone Number [facility] [address] [place] [address], [facility] [address] [place] [address] * AST (Aspartate Aminotransferase) (05/09/2023 8:08 AM REGIONAL VICE PRESIDENT LIFE SALES) Aspartate Aminotransferase (AST), S 16 8 - 43 U/L 05/09/2023 9:08 AM REGIONAL VICE PRESIDENT LIFE SALES DTL Blood (Blood, Venous) 05/09/2023 8:08 AM REGIONAL VICE PRESIDENT LIFE SALES 05/09/2023 8:50 AM REGIONAL VICE PRESIDENT LIFE SALES James Wallace APRN.N.P., Rober.N.P. LAB B LOOD ADD-ON [facility] [address] [place] [address], [facility] [address] [place] [address] * Creatinine with Estimated GFR (05/09/2023 8:08 AM REGIONAL VICE PRESIDENT LIFE SALES) Creatinine 0.86 0.59 - 1.04 mg/dL 05/09/2023 9:08 AM REGIONAL VICE PRESIDENT LIFE SALES DTL Estimated GFR (eGFR) 76 >=60 mL/min/BSA 05/09/2023 9:08 AM REGIONAL VICE PRESIDENT LIFE SALES DTL Comment: Estimated GFR calculated using the 2020 CKD_EPI creatinine equation. Blood (Blood, Venous) 05/09/2023 8:08 AM REGIONAL VICE PRESIDENT LIFE SALES 05/09/2023 8:50 AM REGIONAL VICE PRESIDENT LIFE SALES Alexandra Lopez APRN, C.N.P., D.N.P. LAB B LOOD ADD-ON [facility] [address] [place] [address], [facility] [address] [place] [address] from Last 3 Months Additional Health Concerns Infection Onset Date Last Indicated Protective Environment 10/10/2022 3 Care Teams Marketing Operations Analyst Relationship Specialty Start Date End Date Elsewhere, Pcp PCP - General 05/22/18
--- OUTSIDE RECORDS SUMMARY | 2023-07-02 15:47 | XMS_ITS | Encounter Summary ---
Author Name Unknown Organization [facility] Address [address] [place] [address] Care Team Providers Care Manager Telemetry Name Role Phone Elsewhere, Pcp Primary Care Provider Uma e Reason for Referral * Outpatient (Routine) - Closed Specialty Diagnoses / Procedures Referred By Florian cazares Referred To Contact Rheumatology Diagnoses Arthritis Rheumatoid (HCC) High Risk Medication Alexandra Lopez APRN, C.N.P., D.N.P. [address] [place] [phone] [facility] Referral ID Status Reason Start Date Expiration Date Visits Re quested Visits Authorized [id number] Closed 10/10/2022 10/09/2025 1 1 Reason for Visit * Outpatient (Routine) - Closed Specialty Diagnoses / Procedures Referred By Florian cazares Referred To Contact Rheumatology Diagnoses Arthritis Rheumatoid (HCC) Alexandra Lopez APRN, C.N.P., D.N.P. [address] [place] [phone] [facility] Referral ID Status Reason Start Date Expiration Date Visits Re quested Visits Authorized [id number] Closed 07/15/2022 07/14/2025 1 1 Encounter Details Date Type Department Care Team (Latest Contact Info) Description 10/10/2022 2:45 PM CDT Office Visit Division of Rheumatology in [place], [place] [address] [place] [phone] Alexandra Lopez, ANTONIO, C.N.P., D.N.P. [address] [place] [phone] High Risk Medication (Primary Dx); Arthritis Rheumatoid [...] How often do you attend chur or spiritism services? Patient declined 07/13/2022 Do you belong to any clubs o r organizations such as samaritan groups, unions, fraternal or athletic groups, or [...] medical care, and heating? Patient declined 07/13/2022 [facility] [...] Creatinine with Estimated GFR (05/09/2023 8:08 AM COMMUNITY CENTER COORDINATOR) Creatinine 0.86 0.59 - 1.04 mg/dL 05/09/2023 9:08 AM COMMUNITY CENTER COORDINATOR DTL Estimated GFR (eGFR) 76 >=60 mL/min/BSA 05/09/2023 9:08 AM COMMUNITY CENTER COORDINATOR DTL Comment: Estimated GFR calculated using the 2020 CKD_EPI creatinine equation. Blood (Blood, Venous) 05/09/2023 8:08 AM COMMUNITY CENTER COORDINATOR 05/09/2023 8:50 AM COMMUNITY CENTER COORDINATOR Alexandra Lopez APRN, C.N.P., D.N.P. LAB B LOOD ADD-ON [facility] [address] [place] [address], [facility] [address] [place] [address] * AST (Aspartate Aminotransferase) (05/09/2023 8:08 AM COMMUNITY CENTER COORDINATOR) Aspartate Aminotransferase (AST), S 16 8 - 43 U/L 05/09/2023 9:08 AM COMMUNITY CENTER COORDINATOR DTL Blood (Blood, Venous) 05/09/2023 8:08 AM COMMUNITY CENTER COORDINATOR 05/09/2023 8:50 AM COMMUNITY CENTER COORDINATOR Yonas Wallace APRNN.P., D.N.P. LAB B LOOD ADD-ON Performing Organization Address City/[facility]/ZIP Co de Phone Number [facility] [place] 200 [place], [place] [phone] [place] [address] 200 [place] [address] * CRP (C-Reactive Protein) (05/09/2023 8:08 AM COMMUNITY CENTER COORDINATOR) C-Reactive Protein (CRP), S <3.0 <5.0 mg/L 05/09/2023 9:08 AM COMMUNITY CENTER COORDINATOR DTL Blood (Blood, Venous) 05/09/2023 8:08 AM COMMUNITY CENTER COORDINATOR 05/09/2023 8:50 AM COMMUNITY CENTER COORDINATOR James Wallace APRN.N.P., D.N.P. LAB B LOOD ADD-ON Performing Organization Address City/[facility]/ZIP Co de Phone Number [facility] [place] 200 [place], [place] [phone] [place] [address] 200 [place] [address] * Sedimentation Rate (05/09/2023 8:08 AM COMMUNITY CENTER COORDINATOR) Pathologist [facility] Sedimentation Rate, B 8 2 - 22 mm/h 05/09/2023 9:23 AM COMMUNITY CENTER COORDINATOR DTL Blood (Blood, Venous) 05/09/2023 8:08 AM COMMUNITY CENTER COORDINATOR 05/09/2023 8:31 AM COMMUNITY CENTER COORDINATOR James Wallace APRN.N.P., D.N.P. LAB B LOOD ADD-ON Performing Organization Address City/[facility] Co de Phone Number [facility] [place] [address] 200 [place] [address] * (ABNORMAL) CBC with Differential, Blood (05/09/2023 8:08 AM COMMUNITY CENTER COORDINATOR) Pathologist [facility] Hemoglobin 13.3 11.6 - 15.0 g/dL 05/09/2023 8:44 AM COMMUNITY CENTER COORDINATOR DTL Hematocrit 40.0 35.5 - 44.9 % 05/09/2023 8:44 AM COMMUNITY CENTER COORDINATOR DTL Erythrocytes 4.09 3.92 - 5.13 x10(12)/L 05/09/2023 8:44 AM COMMUNITY CENTER COORDINATOR DTL MCV 97.8 78.2 - 97.9 fL 05/09/2023 8:44 AM COMMUNITY CENTER COORDINATOR DTL RBC Distrib Width 12.9 12.2 - 16.1 % 05/09/2023 8:44 AM COMMUNITY CENTER COORDINATOR DTL Platelet Count 279 157 - 371 x10(9)/L 05/09/2023 8:44 AM COMMUNITY CENTER COORDINATOR DTL Leukocytes 8.4 3.4 - 9.6 x10(9)/L 05/09/2023 8:44 AM COMMUNITY CENTER COORDINATOR DTL Neutrophils 5.08 1.56 - 6.45 x10(9)/L 05/09/2023 8:44 AM COMMUNITY CENTER COORDINATOR PM Lymphocytes 2.44 0.95 - 3.07 x10(9)/L 05/09/2023 8:44 AM COMMUNITY CENTER COORDINATOR DTL Monocytes 0.53 0.26 - 0.81 x10(9)/L 05/09/2023 8:44 AM COMMUNITY CENTER COORDINATOR DTL Eosinophils 0.24 0.03 - 0.48 x10(9)/L 05/09/2023 8:44 AM COMMUNITY CENTER COORDINATOR DTL Basophils 0.09(H) 0.01 - 0.08 x10(9)/L 05/09/2023 8:44 AM COMMUNITY CENTER COORDINATOR DTL Blood (Blood, Venous) 05/09/2023 8:08 AM COMMUNITY CENTER COORDINATOR 05/09/2023 8:31 AM COMMUNITY CENTER COORDINATOR Alexandra Lopez APRN, C.N.P., D.N.P. LAB B LOOD ADD-ON [facility] [place] [address] [place] [address], [facility] DTL [facility] [address] [place] [address] [facility] 200 [place] [address] documented in this encounter Visit Diagnoses Diagnosis High Risk Medication- Primary Arthritis Rheumatoid (HCC) documented in this encounter Additional Health Concerns Infection Onset Date Last Indicated Resolved Time Protective Environment 10/10/2022 10/10/2022 documented as of this encounter Care Teams Manager Telemetry Relationship Specialty Start Date End Date Elsewhere, Pcp PCP - General 05/22/18 documented as of this encounter
--- OUTSIDE RECORDS SUMMARY | 2023-07-02 15:47 | XMS_ITS | Referral Summary ---
Author Name Unknown Organization [facility] Address [address] [place] [phone] Care Team Providers Care Ux Engineer Name Role Phone Elsewhere, Pcp Primary Care Provider Unavailabl e Source Comments Patient records contain information from all sites at [facility]. For routine questions regarding patient records, call [phone] during business hours, M-F 8:00 AM - 5:00 PM Central Time. Record requests for emergency care only can be directed to [phone] at any time.[facility] Encounters Date Type Department Care Team Description 05/12/2023 11:20 AM ORTHODONTIC TREATMENT COORDINATOR Comprehensive Visit Department of Dermatology in [place], [place] [address] [place] [phone] Jin Steiner M.D. Asteatosis (Primary Dx); Arthritis Rheumatoid (HCC); High Risk Medication; Lesion Skin; Keratosis Seborrheic 05/09/2023 7:56 AM ORTHODONTIC TREATMENT COORDINATOR - 05/09/2023 11:59 PM ORTHODONTIC TREATMENT COORDINATOR Hospital Encounter Department of Laboratory Medicine and Pathology, [facility], in [place], [place] [address] [place] [phone] Alexandra Lopez APRN, C.N.P., D.N.P. Arthritis Rheumatoid (HCC); High Risk Medication Discharge Disposition: Home or Self Care 05/09/2023 10:30 AM ORTHODONTIC TREATMENT COORDINATOR Office Visit Division of Rheumatology in [place], [place] [address] [place] [phone] Alexandra Lopez APRN, C.N.P., D.N.P. Lesion Skin (Primary Dx); Arthritis Rheumatoid (HCC); High Risk Medication 05/08/2023 12:00 PM ORTHODONTIC TREATMENT COORDINATOR Clinical Communication Virtual Review in [place], [place] [address] [place] [address] Pre-visit Intake (PIETRO done 05/08 EEF) 04/07/2023 Refill Division of Rheumatology in [place], [place] [address] [place] [phone] Alexandra Lopez APRN, C.N.P., D.N.P. Med Refill [...] How often do you attend chur or restorationist services? Patient declined 07/13/2022 Do you belong to any clubs o r organizations such as mosque groups, unions, fraternal or athletic groups, or [...] medical care, and heating? Patient declined 07/13/2022 [facility] - Occupational [...] Comments Blood Pressure 134/82 05/09/2023 10:32 AM ORTHODONTIC TREATMENT COORDINATOR Pulse 74 05/09/2023 10:32 AM ORTHODONTIC TREATMENT COORDINATOR Temperature 37 ??C (98.6 ??F) 05/09/2023 10:32 AM ORTHODONTIC TREATMENT COORDINATOR Respiratory Rate - - Oxygen Saturation - - Inhaled Oxygen Concentration - - Weight 85.1 kg (187 lb 9.8 oz) 05/09/2023 10:32 AM ORTHODONTIC TREATMENT COORDINATOR Height 156.4 cm (5' 1.58) 05/09/2023 10:[address] Body Mass Index 34.79 05/09/2023 10:32 AM ORTHODONTIC TREATMENT COORDINATOR Plan of Treatment Not on file Medical Devices Implanted Type Area Intramural Director Device Identifier Shelf Expiration Date Model / Serial / Lot Knee Implant- [id number] Implanted:06/09 (Quantity not on file) Knee Implant Bilatera l: Knee Description:Both joints were replaced. Procedures Procedure Name Priority Date/Time Associated Diagnosis Comments CREATININE WITH EGFR, S/P Routine 05/09/2023 8:08 AM ORTHODONTIC TREATMENT COORDINATOR Arthritis Rheumatoid (HCC) High Risk Medication ASPARTATE AMINOTRANSFERASE (AST), S/P Routine 05/09/2023 8:08 AM ORTHODONTIC TREATMENT COORDINATOR Arthritis Rheumatoid (HCC) High Risk Medication C-REACTIVE PROTEIN (CRP), S/P Routine 05/09/2023 8:08 AM ORTHODONTIC TREATMENT COORDINATOR Arthritis Rheumatoid (HCC) High Risk Medication SEDIMENTATION RATE, B Routine 05/09/2023 8:08 AM ORTHODONTIC TREATMENT COORDINATOR Arthritis Rheumatoid (HCC) High Risk Medication CBC WITH DIFFERENTIAL, B Routine 023 8:08 AM ORTHODONTIC TREATMENT COORDINATOR Arthritis Rheumatoid (HCC) High Risk Medication from Last 3 Months Results * Sedimentation Rate (05/09/2023 8:08 AM ORTHODONTIC TREATMENT COORDINATOR) Pathologist [facility] Sedimentation Rate, B 8 2 - 22 mm/h 05/09/2023 9:23 AM ORTHODONTIC TREATMENT COORDINATOR DTL Blood (Blood, Venous) 05/09/2023 8:08 AM ORTHODONTIC TREATMENT COORDINATOR 05/09/2023 8:31 AM ORTHODONTIC TREATMENT COORDINATOR Alexandra Lopez APRN C.N.P., D.N.P. LAB B LOOD ADD-ON [facility] [address] [place] [address], [facility] [address] [place] [address] * (ABNORMAL) CBC with Differential, Blood (05/09/2023 8:08 AM ORTHODONTIC TREATMENT COORDINATOR) [facility] Hemoglobin 13.3 11.6 - 15.0 g/dL 05/09/2023 8:44 AM ORTHODONTIC TREATMENT COORDINATOR DTL Hematocrit 40.0 35.5 - 44.9 % 05/09/2023 8:44 AM ORTHODONTIC TREATMENT COORDINATOR DTL Erythrocytes 4.09 3.92 - 5.13 x10(12)/L 05/09/2023 8:44 AM ORTHODONTIC TREATMENT COORDINATOR DTL MCV 97.8 78.2 - 97.9 fL 05/09/2023 8:44 AM ORTHODONTIC TREATMENT COORDINATOR DTL RBC Distrib Width 12.9 12.2 - 16.1 % 05/09/2023 8:44 AM ORTHODONTIC TREATMENT COORDINATOR DTL Platelet Count 279 157 - 371 x10(9)/L 05/09/2023 8:44 AM ORTHODONTIC TREATMENT COORDINATOR DTL Leukocytes 8.4 3.4 - 9.6 x10(9)/L 05/09/2023 8:44 AM ORTHODONTIC TREATMENT COORDINATOR DTL Neutrophils 5.08 1.56 - 6.45 x10(9)/L 05/09/2023 8:44 AM ORTHODONTIC TREATMENT COORDINATOR DHPM Lymphocytes 2.44 0.95 - 3.07 x10(9)/L 05/09/2023 8:44 AM ORTHODONTIC TREATMENT COORDINATOR DTL Monocytes 0.53 0.26 - 0.81 x10(9)/L 05/09/2023 8:44 AM ORTHODONTIC TREATMENT COORDINATOR DTL Eosinophils 0.24 0.03 - 0.48 x10(9)/L 05/09/2023 8:44 AM ORTHODONTIC TREATMENT COORDINATOR DTL Basophils 0.09(H) 0.01 - 0.08 x10(9)/L 05/09/2023 8:44 AM ORTHODONTIC TREATMENT COORDINATOR DTL Blood (Blood, Venous) 05/09/2023 8:08 AM ORTHODONTIC TREATMENT COORDINATOR 05/09/2023 8:31 AM ORTHODONTIC TREATMENT COORDINATOR Alexandra Lopez APRN, C.N.P., D.N.P. LAB B LOOD ADD-ON Performing Organization Address City/[facility]/ZIP Co de Phone Number [facility] 200 [place] [address], [facility] 200 [place], [place] [phone] [place] [address] 200 [place] [address] * CRP (C-Reactive Protein) (05/09/2023 8:08 AM ORTHODONTIC TREATMENT COORDINATOR) C-Reactive Protein (CRP), S <3.0 <5.0 mg/L 05/09/2023 9:08 AM ORTHODONTIC TREATMENT COORDINATOR DTL Blood (Blood, Venous) 05/09/2023 8:08 AM ORTHODONTIC TREATMENT COORDINATOR 05/09/2023 8:50 AM ORTHODONTIC TREATMENT COORDINATOR Alexandra Lopez APRN, C.N.P., D.N.P. LAB B LOOD ADD-ON [facility] 200 [place] [address], [facility] 200 [place] [address] * AST (Aspartate Aminotransferase) (05/09/2023 8:08 AM ORTHODONTIC TREATMENT COORDINATOR) Aspartate Aminotransferase (AST), S 16 8 - 43 U/L 05/09/2023 9:08 AM ORTHODONTIC TREATMENT COORDINATOR DTL Blood (Blood, Venous) 05/09/2023 8:08 AM ORTHODONTIC TREATMENT COORDINATOR 05/09/2023 8:50 AM ORTHODONTIC TREATMENT COORDINATOR James Wallace APRN.N.Viridiana., Rober.N.P. LAB B LOOD ADD-ON Performing Organization Address [facility] de Phone Number [facility] 200 [place] [address], [facility] 200 [place] [address] * Creatinine with Estimated GFR (05/09/2023 8:08 AM ORTHODONTIC TREATMENT COORDINATOR) Creatinine 0.86 0.59 - 1.04 mg/dL 05/09/2023 9:08 AM ORTHODONTIC TREATMENT COORDINATOR DTL Estimated GFR (eGFR) 76 >=60 mL/min/BSA 05/09/2023 9:08 AM ORTHODONTIC TREATMENT COORDINATOR DTL Comment: Estimated GFR calculated using the 2020 CKD_EPI creatinine equation. Blood (Blood, Venous) 05/09/2023 8:08 AM ORTHODONTIC TREATMENT COORDINATOR 05/09/2023 8:50 AM ORTHODONTIC TREATMENT COORDINATOR James Wallace APRN.N.P., D.N.P. LAB B LOOD ADD-ON Performing Organization Address [facility] de Phone Number [facility] 200 [place] [address], [facility] 200 [place] [address] from Last 3 Months Additional Health Concerns Infection Onset Date Last Indicated Protective Environment 10/10/2022 3 Care Teams Ux Engineer Relationship Specialty Start Date End Date Elsewhere, Pcp PCP - General 05/22/18
--- OUTSIDE RECORDS SUMMARY | 2023-07-02 15:47 | XMS_ITS | Encounter Summary ---
Author Name Unknown Organization [facility] Address [address] [place] [address] Care Team Providers Care Counselling Psychologist Name Role Phone Elsewhere, Pcp Primary Care Provider Unavailabl e Encounter Details Date Type Department Care Team (Latest Contact Info) Description 10/10/2022 9:51 AM CDT - 10/10/2022 11:59 PM CDT Hospital Encounter Department of Laboratory Medicine and Pathology, [facility] in [place], [place] [address] [place] [phone] Alexandra Lopez, ANTONIO, C.N.P., D.N.P. [address] [place] [phone] Arthritis Rheumatoid (HCC) Discharge Disposition: Home or [...] How often do you attend chur or synagogue services? Patient declined 07/13/2022 Do you belong to any clubs o r organizations such as rastafarian groups, unions, fraternal or athletic groups, or [...] place to sleep or slept in a long term (including now)? No 07/13/2022 Nutrition Answer Date [...] LAB B LOOD ADD-ON Performing Organization Address City/[facility] Co de Phone Number [facility] 200 [place] [address], [facility] 200 [place] [address] * AST (Aspartate Aminotransferase) (10/10/2022 10:05 AM CDT) Aspartate Aminotransferase (AST), S 19 8 - 43 U/L 10/10/2022 11:10 AM CDT DT Blood (Blood, Venous) 10/10/2022 10:05 AM CDT 10/10/2022 10:49 AM CDT James Wallace APRN.N.P., D.N.P. LAB B LOOD ADD-ON Performing Organization Address City/[facility] Co de Phone Number [facility] 200 [place] [address], [facility] 200 [place] [address] * CRP (C-Reactive Protein) (10/10/2022 10:05 AM CDT) C-Reactive Protein (CRP), S <3.0 <5.0 mg/L 10/10/2022 11:10 AM CDT DTL Blood (Blood, Venous) 10/10/2022 10:05 AM CDT 10/10/2022 10:49 AM CDT James Wallace APRN.N.P., D.N.P. LAB B LOOD ADD-ON Performing Organization Address City/[facility]/ZIP Co de Phone Number [facility] 200 [place] [address], [facility] 200 [place] [address] * Sedimentation Rate (10/10/2022 10:05 AM CDT) Pathologist [facility] Sedimentation Rate, B 10 2 - 22 mm/h 10/10/2022 11:34 AM CDT DTL Blood (Blood, Venous) 10/10/2022 10:05 AM CDT 10/10/2022 10:33 AM CDT Alexandra Lopez APRN, C.N.P., Rober.CelestinePCody LAB B LOOD ADD-ON Performing Organization Address City/[facility] Co de Phone Number [facility] 200 [place] [address], [facility] 200 [place] [address] * (ABNORMAL) CBC with Differential, Blood (10/10/2022 10:05 AM CDT) [facility] Hemoglobin 13.0 11.6 - 15.0 g/dL 10/10/2022 [...] D.N.P. LAB B LOOD ADD-ON [facility] 200 [place] [address], [facility] [address] [place] [address] documented in this encounter Visit Diagnoses Diagnosis Arthritis Rheumatoid (HCC) documented in this encounter Additional Health Concerns Infection Onset Date Last Indicated Resolved Time Protective Environment 10/10/2022 10/10/2022 documented as of this encounter Care Teams Counselling Psychologist Relationship Specialty Start Date End Date Elsewhere, Pcp PCP - General 05/22/18 documented as of this encounter
--- OUTSIDE RECORDS SUMMARY | 2023-07-02 15:47 | XMS_ITS | Encounter Summary ---
Author Name Unknown Organization [facility] Address [address] [place] [address] Care Team Providers Care Plow Holder Name Role Phone Elsewhere, Pcp Primary Care Provider Unavailabl e Encounter Details Date Type Department Care Team (Latest Contact Info) Description 05/09/2023 7:56 AM GAME ARTIST - 05/09/2023 11:59 PM [facility] Hospital Encounter Department of Laboratory Medicine and Pathology, [facility] in [place], [place] [address] [place] [phone] Alexandra Lopez, ANTONIO, C.N.P., D.N.P. [address] [place] [phone] Arthritis Rheumatoid (HCC); High Risk Medication Discharge [...] How often do you attend chur or quaker services? Patient declined 07/13/2022 Do you belong to any clubs o r organizations such as nondenominational groups, unions, fraternal or athletic groups, or [...] place to sleep or slept in a mcc (including now)? No 07/13/2022 Nutrition Answer Date [...] SEDIMENTATION RATE, B Routine 05/09/2023 8:08 AM GAME ARTIST Arthritis Rheumatoid (HCC) High Risk Medication CBC WITH DIFFERENTIAL, B Routine 023 8:08 AM GAME ARTIST Arthritis Rheumatoid (HCC) High Risk Medication C-REACTIVE PROTEIN (CRP), S/P Routine 05/09/2023 8:08 AM GAME ARTIST Arthritis Rheumatoid (HCC) High Risk Medication ASPARTATE AMINOTRANSFERASE (AST), S/P Routine 05/09/2023 8:08 AM GAME ARTIST Arthritis Rheumatoid (HCC) High Risk Medication CREATININE WITH EGFR, S/P Routine 05/09/2023 8:08 AM GAME ARTIST Arthritis Rheumatoid (HCC) High Risk Medication documented in this encounter Results * Creatinine with Estimated GFR (05/09/2023 8:08 AM GAME ARTIST) Creatinine 0.86 0.59 - 1.04 mg/dL 05/09/2023 9:08 AM GAME ARTIST DTL Estimated GFR (eGFR) 76 >=60 mL/min/BSA 05/09/2023 9:08 AM GAME ARTIST DTL Comment: Estimated GFR calculated using the 2020 CKD_EPI creatinine equation. Blood (Blood, Venous) 05/09/2023 8:08 AM GAME ARTIST 05/09/2023 8:50 AM GAME ARTIST Yonas Wallace APRNN.P., D.N.P. LAB B LOOD ADD-ON Performing Organization Address City/[facility] Co de Phone Number [facility] 200 [place], [place] [phone] [place] [address] 200 [place] [address] * AST (Aspartate Aminotransferase) (05/09/2023 8:08 AM GAME ARTIST) Aspartate Aminotransferase (AST), S 16 8 - 43 U/L 05/09/2023 9:08 AM GAME ARTIST DTL Blood (Blood, Venous) 05/09/2023 8:08 AM GAME ARTIST 05/09/2023 8:50 AM GAME ARTIST James Wallace APRN.N.P., D.N.P. LAB B LOOD ADD-ON Performing Organization Address [facility] Co de Phone Number [facility] 200 [place] [address], [facility] 200 [place] [address] * CRP (C-Reactive Protein) (05/09/2023 8:08 AM GAME ARTIST) C-Reactive Protein (CRP), S <3.0 <5.0 mg/L 05/09/2023 9:08 AM GAME ARTIST DTL Blood (Blood, Venous) 05/09/2023 8:08 AM GAME ARTIST 05/09/2023 8:50 AM GAME ARTIST James Wallace APRN.N.P., D.N.P. LAB B LOOD ADD-ON Performing Organization Address City/[facility] Co de Phone Number [facility] 200 [place] [address], [facility] 200 [place] [address] * Sedimentation Rate (05/09/2023 8:08 AM GAME ARTIST) Pathologist [facility] Sedimentation Rate, B 8 2 - 22 mm/h 05/09/2023 9:23 AM GAME ARTIST DTL Blood (Blood, Venous) 05/09/2023 8:08 AM GAME ARTIST 05/09/2023 8:31 AM GAME ARTIST Alexandra Lopez APRN, C.N.P., D.N.P. LAB B JULITO ADD-ON Performing Organization Address City/[facility]/ZIP Co de Phone Number [facility] 200 [place] [address], [facility] 200 [place] [address] * (ABNORMAL) CBC with Differential, Blood (05/09/2023 8:08 AM GAME ARTIST) [facility] Hemoglobin 13.3 11.6 - 15.0 g/dL 05/09/2023 8:44 AM GAME ARTIST DTL Hematocrit 40.0 35.5 - 44.9 % 05/09/2023 8:44 AM GAME ARTIST DTL Erythrocytes 4.09 3.92 - 5.13 x10(12)/L 05/09/2023 8:44 AM GAME ARTIST DTL MCV 97.8 78.2 - 97.9 fL 05/09/2023 8:44 AM GAME ARTIST DTL RBC Distrib Width 12.9 12.2 - 16.1 % 05/09/2023 8:44 AM GAME ARTIST DTL Platelet Count 279 157 - 371 x10(9)/L 05/09/2023 8:44 AM GAME ARTIST DTL Leukocytes 8.4 3.4 - 9.6 x10(9)/L 05/09/2023 8:44 AM GAME ARTIST DTL Neutrophils 5.08 1.56 - 6.45 x10(9)/L 05/09/2023 8:44 AM GAME ARTIST DHPM Lymphocytes 2.44 0.95 - 3.07 x10(9)/L 05/09/2023 8:44 AM GAME ARTIST DTL Monocytes 0.53 0.26 - 0.81 x10(9)/L 05/09/2023 8:44 AM GAME ARTIST DTL Eosinophils 0.24 0.03 - 0.48 x10(9)/L 05/09/2023 8:44 AM GAME ARTIST DTL Basophils 0.09(H) 0.01 - 0.08 x10(9)/L 05/09/2023 8:44 AM GAME ARTIST DTL Blood (Blood, Venous) 05/09/2023 8:08 AM GAME ARTIST 05/09/2023 8:31 AM GAME ARTIST Alexandra Lopez APRN, C.N.P., D.N.P. LAB B LOOD ADD-ON [facility] [address] [place] [address], [facility] DTL [facility] [address] [place] [address] DHPM [facility] [address] [place] [address] documented in this encounter Visit Diagnoses Diagnosis Arthritis Rheumatoid (HCC) High Risk Medication documented in this encounter Additional Health Concerns Infection Onset Date Last Indicated Resolved Time Protective Environment 10/10/2022 10/10/2022 documented as of this encounter Care Teams Plow Holder Relationship Specialty Start Date End Date Elsewhere, Pcp PCP - General 05/22/18 documented as of this encounter
--- OUTSIDE RECORDS SUMMARY | 2023-07-02 15:47 | XMS_ITS | Encounter Summary ---
Author Name Unknown Organization [facility] Address [address] [place] [address] Care Team Providers Care Watch Electrician Name Role Phone Elsewhere, Pcp Primary Care Provider Uma e Reason for Referral * Outpatient (Routine) - Authorized Specialty Diagnoses / Procedures Referred By Contac t Referred To Contact Rheumatology Diagnoses Arthritis Rheumatoid (HCC) High Risk Medication Alexandra Lopez APRN, C.N.P., D.N.P. [address] [place] [phone] [facility] Referral ID Status Reason Start Date Expiration Date V isits Requested Visits Authorized [id number] Authorized 05/09/2023 05/08/2026 1 1 NG MACHINE TENDER * Outpatient (Routine) - Closed Specialty Diagnoses / Procedures Referred By Contac t Referred To Contact Dermatology Diagnoses Arthritis Rheumatoid (HCC) High Risk Medication Lesion Skin Alexandra Lopez APRN, C.N.P., D.N.P. [address] [place] [phone] [facility] Referral ID Status Reason Start Date Expiration Date Visits Re quested Visits Authorized [id number] Closed 05/09/2023 05/08/2024 1 1 NG MACHINE TENDER Reason for Visit * Outpatient (Routine) - Closed Specialty Diagnoses / Procedures Referred By Florian cazares Referred To Contact Rheumatology Diagnoses Arthritis Rheumatoid (HCC) High Risk Medication Alexandra Lopez APRN, C.N.P., D.N.P. [address] [place] [phone] [facility] Referral ID Status Reason Start Date Expiration Date Visits Re quested Visits Authorized [id number] Closed 10/10/2022 10/09/2025 1 1 Encounter Details Date Type Department Care Team (Latest Contact Info) Description 05/09/2023 10:30 AM DRYING MACHINE TENDER Office Visit Division of Rheumatology in [place], [place] [address] [place] [phone] Alexandra Lopez APRN, James.N.P., D.N.P. [address] [place] [phone] Lesion Skin (Primary Dx); Arthritis Rheumatoid (HCC); [...] often do you attend chur ch or congregation services? Patient declined 07/13/2022 Do you belong to any clubs o r organizations such as christianity groups, unions, fraternal or athletic groups, or [...] medical care, and heating? Patient declined 07/13/2022 [facility] Occupat ional [facility] - Occupational Stress [...] Comments Blood Pressure 134/82 05/09/2023 10:32 AM DRYING MACHINE TENDER Pulse 74 05/09/2023 10:32 AM DRYING MACHINE TENDER Temperature 37 ??C (98.6 ??F) 05/09/2023 10:32 AM DRYING MACHINE TENDER Respiratory Rate - - Oxygen Saturation - - Inhaled Oxygen Concentration - - Weight 85.1 kg (187 lb 9.8 oz) 05/09/2023 10:32 AM DRYING MACHINE TENDER Height 156.4 cm (5' 1.58) 05/09/2023 10:[address] Body Mass Index 34.79 05/09/2023 10:32 AM DRYING MACHINE TENDER documented in this encounter Progress Notes * Alexandra Lopez, CREDIT AND LOAN COLLECTIONS SUPERVISOR, C.N.P., D.N.P. - 05/09/2023 10:30 AM CST [...] plan; patient expressed understanding of the content. NG MACHINE TENDER documented in this encounter Plan of Treatment [...] documented as of this encounter Care Teams Watch Electrician Relationship Specialty Start Date End Date Elsewhere, Pcp PCP - General 05/22/18 documented as of this encounter
--- OUTSIDE RECORDS SUMMARY | 2023-07-02 15:47 | XMS_ITS | Encounter Summary ---
Author Name Unknown Organization [facility] Address [address] [place] [address] Care Team Providers Care Processes Chemical Design Engineer Name Role Phone Elsewhere, Pcp Primary Care Provider Unavailabl e Reason for Visit * Reason Comments Med Refill Encounter Details Date Type Department Care Team (Late st Contact Info) Description 04/07/2023 Refill Division of Rheumatology in [place], [place] [address] [place] [phone] Alexandra Lopez, VAMP CREASER, C.N.P., D.N.P. [address] [place] [phone] Med Refill Social History Tobacco Use Types [...] often do you attend chur ch or yazdanism services? Patient declined 07/13/2022 Do you belong to any clubs o r organizations such as religious groups, unions, fraternal or athletic groups, or [...] medical care, and heating? Patient declined 07/13/2022 [facility] Questionnaire Answer Date Recorded [...] place to sleep or slept in a group home (including now)? No 07/13/2022 Nutrition Answer [...] documented as of this encounter Care Teams Processes Chemical Design Engineer Relationship Specialty Start Date End Date Elsewhere, Pcp PCP - General 05/22/18 documented as of this encounter
--- OUTSIDE RECORDS SUMMARY | 2023-07-02 15:47 | XMS_ITS | Encounter Summary ---
Author Name Unknown Organization [facility] Address [address] [place] [address] Care Team Providers Care Molded Goods Operator Name Role Phone Elsewhere, Pcp Primary Care Provider Unavailabl e Reason for Visit * Reason Onset Date Comments Pre-visit Intake 05/08/2023 PIETRO done 05/08 EEF Encounter Details Date Type Department Care Team (Latest Contact Info) Description 05/08/2023 12:00 PM CONTOUR BAND SAW OPERATOR VERTICAL Clinical Communication Virtual Review in [place], [place] [address] [place] [address] Pre-visit Intake (PIETRO done 05/08 EEF) Social [...] often do you attend chur ch or latter day services? Patient declined 07/13/2022 Do you belong to any clubs o r organizations such as orthodoxy groups, unions, fraternal or athletic groups, or [...] medical care, and heating? Patient declined 07/13/2022 [facility] Occupat ional Health - [...] documented as of this encounter Care Teams Molded Goods Operator Relationship Specialty Start Date End Date Elsewhere, Pcp PCP - General 05/22/18 documented as of this encounter
--- OUTSIDE RECORDS SUMMARY | 2023-07-02 15:48 | XMS_ITS | Encounter Summary ---
Author Name Unknown Organization [facility] Address [address] [place] [address] Care Team Providers Care Maintenance Technician Name Role Phone Elsewhere, Pcp Primary Care Provider Unavailabl e Encounter Details Date Type Department Care Team (Latest Contact Info) Description 07/15/2022 10:32 AM PET CARE ASSOCIATE - 07/15/2022 11:59 PM [facility] Hospital Encounter Department of Laboratory Medicine and Pathology, [facility] in [place], [place] [address] [place] [phone] Ottoniel Talamantes M.D. [address] [place] [phone] Arthritis Rheumatoid (HCC) Discharge Disposition: Home or [...] How often do you attend chur or oriental orthodox services? Patient declined 07/13/2022 Do you [...] medical care, and heating? Patient declined 07/13/2022 [facility] [place] [facility] Occupat ional [facility] - [...] Procedure Name Priority Date/Time Associated Diagnosis Comments [facility] RESEARCH ORDER, B Routine 10:40 AM PET CARE ASSOCIATE Arthritis Rheumatoid (HCC) SEDIMENTATION RATE, B Routine 07/15/2022 10:40 AM PET CARE ASSOCIATE Arthritis Rheumatoid (HCC) CBC WITH DIFFERENTIAL, B Routine 023 10:40 AM PET CARE ASSOCIATE Arthritis Rheumatoid (HCC) C-REACTIVE PROTEIN (CRP), S/P Routine 07/15/2022 10:40 AM PET CARE ASSOCIATE Arthritis Rheumatoid (HCC) ASPARTATE AMINOTRANSFERASE (AST), S/P Routine 07/15/2022 10:40 AM PET CARE ASSOCIATE Arthritis Rheumatoid (HCC) CREATININE WITH EGFR, S/P Routine 07/15/2022 10:40 AM PET CARE ASSOCIATE Arthritis Rheumatoid (HCC) documented in this encounter Results * Miscellaneous Research, B (07/15/2022 10:40 AM PET CARE ASSOCIATE) Number of Specimens 5 07/15/2022 10:40 AM PET CARE ASSOCIATE HSS Blood (Blood, Venous) 07/15/2022 10:40 AM PET CARE ASSOCIATE 07/15/2022 10:40 AM PET CARE ASSOCIATE Steve Steiner III, M.D. LAB RESEARCH NO R ESULT ROUTING [facility] [place] 200 [place] [address], [facility] HSS [facility] 200 [place] [address] * Sedimentation Rate (07/15/2022 10:40 AM PET CARE ASSOCIATE) Sedimentation Rate, B 8 2 - 22 mm/h 07/15/2022 11:54 AM PET CARE ASSOCIATE DTL Blood (Blood, Venous) 07/15/2022 10:40 AM PET CARE ASSOCIATE 07/15/2022 11:03 AM PET CARE ASSOCIATE Steve Steiner III, M.D. LAB BLOOD ADD-ON Performing Organization Address City/[facility]/ZIP Co de Phone Number [facility] [place] [address] [place], [place] [address] DTL [facility] 200 [place] [address] * Creatinine with Estimated GFR (07/15/2022 10:40 AM PET CARE ASSOCIATE) Creatinine 0.91 0.59 - 1.04 mg/dL 07/15/2022 11:38 AM PET CARE ASSOCIATE DTL Estimated GFR (eGFR) 72 >=60 mL/min/BSA 07/15/2022 11:38 AM PET CARE ASSOCIATE DTL Comment: Estimated GFR calculated using the 2020 CKD_EPI creatinine equation. Blood (Blood, Venous) 07/15/2022 10:40 AM PET CARE ASSOCIATE 07/15/2022 11:13 AM PET CARE ASSOCIATE Ottoniel Talamantes M.D. LAB BLOOD ADD-ON [facility] [place] [address] [place] [address], [facility] DTL [facility] 200 [place] [address] * AST (Aspartate Aminotransferase) (07/15/2022 10:40 AM PET CARE ASSOCIATE) Aspartate Aminotransferase (AST), S 19 8 - 43 U/L 07/15/2022 11:38 AM PET CARE ASSOCIATE DTL Blood (Blood, Venous) 07/15/2022 10:40 AM PET CARE ASSOCIATE 07/15/2022 11:13 AM PET CARE ASSOCIATE Ottoniel Talamantes M.D. LAB BLOOD ADD-ON Performing Organization Address City/[facility]/ZIP Co de Phone Number [facility] [place] 200 [place], [place] [id number] [place] [address] [facility] 200 [place] [address] * CRP (C-Reactive Protein) (07/15/2022 10:40 AM PET CARE ASSOCIATE) Pathologist [facility] C-Reactive Protein (CRP), S <3.0 <=8.0 mg/L 07/15/2022 11:38 AM PET CARE ASSOCIATE DTL Blood (Blood, Venous) 07/15/2022 10:40 AM PET CARE ASSOCIATE 07/15/2022 11:13 AM PET CARE ASSOCIATE Ottoniel Talamantes M.D. LAB BLOOD ADD-ON Performing Organization Address City/[facility] Co de Phone Number [facility] [place] 200 [place], [place] [phone] [place] [address] [facility] 200 [place] [address] * CBC with Differential, Blood (07/15/2022 10:40 AM PET CARE ASSOCIATE) Pathologist [facility] Hemoglobin 12.8 11.6 - 15.0 g/dL 07/15/2022 11:10 AM PET CARE ASSOCIATE DTL Hematocrit 38.3 35.5 - 44.9 % 07/15/2022 11:10 AM PET CARE ASSOCIATE DTL Erythrocytes 3.92 3.92 - 5.13 x10(12)/L 07/15/2022 11:10 AM PET CARE ASSOCIATE DTL MCV 97.7 78.2 - 97.9 fL 07/15/2022 11:10 AM PET CARE ASSOCIATE DTL RBC Distrib Width 13.2 12.2 - 16.1 % 07/15/2022 11:10 AM PET CARE ASSOCIATE DTL Platelet Count 275 157 - 371 x10(9)/L 07/15/2022 11:10 AM PET CARE ASSOCIATE DTL Leukocytes 8.6 3.4 - 9.6 x10(9)/L 07/15/2022 11:10 AM PET CARE ASSOCIATE DTL Neutrophils 5.66 1.56 - 6.45 x10(9)/L 07/15/2022 11:10 AM PET CARE ASSOCIATE DTL Lymphocytes 2.17 0.95 - 3.07 x10(9)/L 07/15/2022 11:10 AM PET CARE ASSOCIATE DTL Monocytes 0.49 0.26 - 0.81 x10(9)/L 07/15/2022 11:10 AM PET CARE ASSOCIATE DTL Eosinophils 0.19 0.03 - 0.48 x10(9)/L 07/15/2022 11:10 AM PET CARE ASSOCIATE DTL Basophils 0.07 0.01 - 0.08 x10(9)/L 07/15/2022 11:10 AM PET CARE ASSOCIATE DTL Blood (Blood, Venous) 07/15/2022 10:40 AM PET CARE ASSOCIATE 07/15/2022 11:03 AM PET CARE ASSOCIATE Ottoniel Talamantes M.D. LAB BLOOD ADD-ON [facility] [address] [address], [facility] DTL [facility] 200 [place] [address] documented in this encounter Visit Diagnoses Diagnosis Arthritis Rheumatoid (HCC) documented in this encounter Care Teams Maintenance Technician Relationship Specialty Start Date End Date Elsewhere, Pcp PCP - General 05/22/18 documented as of this encounter
--- OUTSIDE RECORDS SUMMARY | 2023-07-02 15:48 | XMS_ITS | Encounter Summary ---
Author Name Unknown Organization [facility] Address [address] [place] [address] Care Team Providers Care Division Road Supervisor Name Role Phone Elsewhere, Pcp Primary Care Provider Unavailabl e Reason for Visit * Outpatient (Routine) - Authorized Specialty Diagnoses / Procedures Referred By Florian cazares Referred To Contact Research Diagnoses Arthritis Rheumatoid (HCC) Steve Steiner III, M.D. [address] [place] [phone] [facility] Referral ID Status Reason Start Date Expiration Date V isits Requested Visits Authorized [id number] Authorized 06/06/2022 06/05/2025 1 1 Encounter Details Date Type Department Care Team (Latest Contact Info) Description 07/15/2022 10:30 AM BIOLOGIST AIDE Clinical Support - [facility] Division of Rheumatology in [place], [place] [address] [place] [phone] Steve Steiner III, M.D. [address] [place] [phone] Raiza Gamino [address] [place] [phone] Arthritis Rheumatoid (HCC) Social History Tobacco [...] week 07/13/2022 How often do you attend [facility] or [facility] services? Patient declined 07/13/2022 Do you belong to any clubs o r organizations such as sabianism groups, unions, fraternal or athletic groups, or [...] medical care, and heating? Patient declined 07/13/2022 [facility] of Occupat ional Health - [...] (HCC) documented in this encounter Care Teams Division Road Supervisor Relationship Specialty Start Date End Date Elsewhere, Pcp PCP - General 05/22/18 documented as of this encounter
--- OUTSIDE RECORDS SUMMARY | 2023-07-02 15:48 | XMS_ITS | Encounter Summary ---
Author Name Unknown Organization [facility] Address [address] [place] [address] Care Team Providers Care Energy Infrastructure Engineer Name Role Phone Elsewhere, Pcp Primary Care Provider Unavailsalima e Reason for Referral * Outpatient (Routine) - Closed Specialty Diagnoses / Procedures Referred By Florian t Referred To Contact Rheumatology Diagnoses Arthritis Rheumatoid (HCC) Alexandra Lopez APRN, C.N.P., D.N.P. [address] [place] [phone] [facility] Referral ID Status Reason Start Date Expiration Date Visits Re quested Visits Authorized [id number] Closed 07/15/2022 07/14/2025 1 1 GRINDER Reason for Visit * Outpatient (Routine) - Closed Specialty Diagnoses / Procedures Referred By Contac t Referred To Contact Rheumatology Ottoniel Talamantes M.D. [address] [place] [phone] [facility] Referral ID Status Reason Start Date Expiration Date Visits Re quested Visits Authorized [id number] Closed 03/20/2022 03/19/2025 1 1 Encounter Details Date Type Department Care Team (Latest Contact Info) Description 07/15/2022 1:00 PM SAW GRINDER Office Visit Division of Rheumatology in [place], [place] [address] [place] [phone] Alexandra Lopez APRN, C.N.P., D.N.P. 200 [place] [phone] Arthritis Rheumatoid (HCC) (Primary Dx) Social History [...] week 07/13/2022 How often do you attend [facility] or gnosticism services? Patient declined 07/13/2022 Do you belong [...] medical care, and heating? Patient declined 07/[facility]22 [facility] Occupational Stress Questionnaire Answer [...] Comments Blood Pressure 128/78 07/15/2022 12:56 PM SAW GRINDER Pulse 76 07/15/2022 12:56 PM SAW GRINDER Temperature 36.6 ??C (97.9 ??F) 07/15/2022 12:[address] Respiratory Rate - - Oxygen Saturation - - Inhaled Oxygen Concentration - - Weight 84.4 kg (186 lb 1.1 oz) 07/15/2022 12:56 PM SAW GRINDER Height 156.2 cm (5' 1.5) 07/15/2022 12:56 PM CS T Body Mass Index 34.59 07/15/2022 12:56 PM SAW GRINDER documented in this encounter Patient Instructions * Patient Instructions* Alexandra Lopez APRN, C.N.P., D.N.P. - 07/15/2022 1:00 PM SAW GRINDER Increase methotrexate to 7 tablets weekly. Continue folic acid daily. Starting around August 15, try decreasing prednisone to 2.5 mg daily for 2-4 weeks, and then try stopping. Follow up in 3 months. GRINDER documented in this encounter Progress Notes * [...] plan; patient expressed understanding of the content. GRINDER documented in this encounter Plan of Treatment [...] LAB B LOOD ADD-ON Performing Organization Address City/[facility]/ZIP Co de Phone Number [facility] 200 [place] [address] * AST (Aspartate Aminotransferase) (10/10/2022 10:05 AM CDT) Aspartate Aminotransferase (AST), S 19 8 - 43 U/L 10/10/2022 11:10 AM CDT DTL Blood (Blood, Venous) 10/10/2022 10:05 AM CDT 10/10/2022 10:49 AM CDT Alexandra Lopez APRN, C.N.P., D.N.P. LAB B LOOD ADD-ON [facility] 200 [place], [place] [phone] [place] [address] * CRP (C-Reactive Protein) (10/10/2022 10:05 AM CDT) C-Reactive Protein (CRP), S <3.0 <5.0 mg/L 10/10/2022 11:10 AM CDT DTL Blood (Blood, Venous) 10/10/2022 10:05 AM CDT 10/10/2022 10:49 AM CDT James Wallace APRN.N.P., Rober.N.P. LAB B LOOD ADD-ON Performing Organization Address [facility] Co de Phone Number [facility] 200 [place] [address] * Sedimentation Rate (10/10/2022 10:05 AM CDT) Pathologist [facility] Sedimentation Rate, B 10 2 - 22 mm/h 10/10/2022 11:34 AM CDT DTL Blood (Blood, Venous) 10/10/2022 10:05 AM CDT 10/10/2022 10:33 AM CDT James Wallace APRN.N.P., Rober.N.P. LAB B LOOD ADD-ON Performing Organization Address [facility] Co de Phone Number [facility] 200 [place] [address] * (ABNORMAL) CBC with Differential, Blood (10/10/2022 10:05 AM CDT) [facility] Hemoglobin 13.0 11.6 - 15.0 g/dL 10/10/2022 [...] APRN, C.N.P., D.N.P. LAB B LOOD ADD-ON [facility] 200 [place] [address], [facility] 200 [place] [address] documented in this encounter Visit Diagnoses Diagnosis Arthritis Rheumatoid (HCC)- Primary documented in this encounter Care Teams Energy Infrastructure Engineer Relationship Specialty Start Date End Date Elsewhere, Pcp PCP - General 05/22/18 documented as of this encounter
--- OUTSIDE RECORDS SUMMARY | 2023-07-02 15:48 | XMS_ITS | Encounter Summary ---
Author Name Unknown Organization [facility] Address [address] [place] [address] Care Team Providers Care Biodiesel Engine Specialist Name Role Phone Elsewhere, Pcp Primary Care Provider Unavailabl e Reason for Visit * Reason Onset Date Comments Previsit Preparation 07/11/2022 PIETRO done 2/ 2 EEF Encounter Details Date Type Department Care Team (Latest Contact Info) Description 07/11/2022 8:30 AM BUTCHER'S ASSISTANT Clinical Communication Virtual Review in [place], [place] [address] [place] [address] Previsit Preparation (PIETRO done 2/2 EEF) Social [...] often do you attend chur ch or mandaeism services? 1 to 4 times per year 10/15/2021 Do you belong to any clubs o r organizations such as oriental orthodox groups, unions, fraternal or athletic groups, or [...] medical care, and heating? Patient declined 10/15/2021 [facility] - [...] place to sleep or slept in a half-way (including now)? No 10/15/2021 Nutrition Answer Date [...] on filedocumented in this encounter Care Teams Biodiesel Engine Specialist Relationship Specialty Start Date End Date Elsewhere, Pcp PCP - General 05/22/18 documented as of this encounter
--- NOTE | 2023-07-02 16:00 | CRLHL7_ITS ---
For Patients: As a result of the Century Cures Act, medical imaging exams and procedure reports are released immediately into your electronic medical record. You may view this report before your referring provider. If you have questions, please contact your health care provider. INDICATION: FOLLOW UP CYST SEEN ON CT COMPARISON: CT 06/19/2023 TECHNIQUE: 2D valencia scale and color Doppler images were acquired of the pelvis using a transabdominal and transvaginal approach. FINDINGS: The uterus is absent. The right ovary measures 2.6 x 1.5 x 1.8 cm in size and the left ovary is not visualized. No abnormal vascularity. Simple right ovarian cyst measures 1.7 x 1.4 x 1.3 cm. There are no suspicious fluid collections within the cul-de-sac. IMPRESSION: Simple right ovarian cyst measures 1.7 cm. No further follow-up indicated. Dictated by Alex Oviedo MD @ 07/03/2023 9:20:49 AM (Electronically Signed)
--- NOTE | 2023-07-02 17:30 | CRLHL7_ITS ---
For Patients: As a result of the Century Cures Act, medical imaging exams and procedure reports are released immediately into your electronic medical record. You may view this report before your referring provider. If you have questions, please contact your health care provider. INDICATION: Left renal lesion. COMPARISON: CT scan of the abdomen and pelvis dated 19 June 2023. TECHNIQUE: Abdominal MRI with T1 in- and out of phase, T2, diffusion weighted, and progressively delayed post-contrast images. Intravenous gadolinium administered. FINDINGS: No fatty infiltration of the liver. Scattered cysts in the liver with the largest extending off the lower portion of segment 5 measuring 4.0 cm. No focal abnormalities identified in the visualized portions of the spleen, pancreas, and left adrenal gland. 1.2 cm right adrenal adenoma. 9 mm lesion extending off the posterior aspect of the superior pole of the left kidney shows heterogeneous enhancement. No other focal liver lesions. No hydronephrosis. No adenopathy. Impression : 1. 9 mm enhancing lesion extending off the posterior aspect of the superior pole of the left kidney is suspicious for a small renal cell carcinoma. Recommend urology consultation. Dictated by Mark Umanzor MD @ 07/06/2023 9:14:23 AM (Electronically Signed)
== END 2023-07-02 15:43 | disposition home or self-care (01) ==
LOC: US 15:43
PROVIDERS: PCP Internal Medicine; Visit Provider Internal Medicine
DX: N28.89 Other specified disorders of kidney and ureter (principal); N28.9 Disorder of kidney and ureter, unspecified; N83.201 Unspecified ovarian cyst, right side
CPT/HCPCS: 74183; 76830; 76856; A9575

== ENCOUNTER 2023-12-19 07:46 | Outpatient (CLI) | payer OTHER, SELFPAY ==
--- OUTSIDE RECORDS SUMMARY | 2023-12-19 17:11 | XMS_ITS | Clinical Summary ---
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
--- OUTSIDE RECORDS SUMMARY | 2023-12-19 17:12 | XMS_ITS | Encounter Summary ---
Author Organization [facility] Address [address] [place] [address] Care Team Providers Care Voice Professor Name Role Phone Elsewhere, Pcp Primary Care Provider Unavailabl e Encounter Details Date Type Department Care Team (Latest Contact Info) Description 11/10/2023 10:29 AM CDT - 11/10/2023 11:59 PM CDT Hospital Encounter Department of Laboratory Medicine and Pathology, [facility] in [place], [place] [address] [place] [phone] Alexandra Lopez, ANTONIO, C.N.P., D.N.P. [address] [place] [phone] Arthritis Rheumatoid (HCC); High Risk Medication; Medication Therapy Prison Not Anticoagulant Discharge Disposition: Home or Self Care Social History Tobacco Use Types Packs/Day Years Used Date Smoking Tobacco: Former Cigarettes Q uit: 09/15/1998 Passive Smoke Exposure: Past Smokeless Tobacco: Never Alcohol Use Standard Drinks/Week Comments Yes 6 (1 standard drink = 0.6 oz pur e alcohol) [facility] Utilities Answer Date Recorded In the past 12 months has e electric, gas, oil, or water company threatened to shut off services in your home? No 10/16/2023 Humiliation, Afraid, Rape, and Kick questionnair e [...] week 07/13/2022 How often do you attend [facility] or jainism services? Patient declined 07/13/2022 Do you belong [...] medical care, and heating? Patient declined 07/13/2022 [facility] - Occupational [...] to strenuous exercise (like a brisk walk)? 2 days 10/16/2023 On average, how many minutes do you engage in exercise at this level? 30 min 10/16/2023 Hunger Vital Sign Answer Date Recorded Within the past 12 months, y ou worried that your food would run out before you got the money to buy more. Never true 10/16/19 24 Within the past 12 months, t he food you bought just didn't last and you didn't have money to get more. Never true 10/16/2023 PRAPARE - Transportation Answer Date Re corded In the past 12 months, has l ack of transportation kept you from medical appointments or from getting medications? No 02/2024 In the past 12 months, has l ack of transportation kept you from meetings, work, or from getting things needed for daily living? No 10/16/2023 Nutrition Answer Date Recorded On average, how many serving s of fruits and vegetables do you eat per day (serving size is equal to 1 cup or approximately the size of a tennis ball)? 3-5 10/16/2023 Dental Answer Date Recorded Dental: Regular Dentist Yes 10/16/19 Employment Answer Date Recorded Employment status Retired 10/16/2023 Housing Stability Answer Date Recorded What is your living situation today? I have a [facility] place to live 10/16/2023 Education Answer Date Recorded What is the [...] tablet Take 10 mg by mouth daily. folic acid 1 mg tabletIndications:Arth ritis Rheumatoid (HCC) take 1 tablet daily 90 tablet 2 11/07/2023 levothyroxine (SYNTHROID, LEVOTHROID) 112 mcg tablet Take 112-168 mcg by mouth every morning before breakfast. Take 112 mg on Friday, Friday, , Friday and Friday. Take 168 mg (1.5 tablets) on Friday and Friday. lisinopril-hydroCHLORO thiazide (PRINZIDE,ZESTORETIC) 20-25 mg per tablet Take 1 tablet by mouth daily. 04/24/2020 methotrexate 2.5 mg tabletIndications:Arth ritis Rheumatoid (HCC) TAKE 7 TABLETS ( 17.5 MG TOTAL ) ONCE A WEEK 84 tablet 1 09/25/2023 multivitamin tablet Take 1 tablet by mouth daily. predniSONE (DELTASONE) 2.5 mg tabletIndications:Arth ritis Rheumatoid (HCC) Take 1 tablet (2.5 mg total) by mouth daily. all in AM with food 90 tablet 07/15/2022 triamcinolone (KENALOG) 0.1 % cream Apply 1 application topically as needed. 04/18/2020 documented as of this encounter Plan of Treatment Upcoming Encounters Date Type Department Care Team (Late st Contact Info) Description 02/10/2024 9:30 AM CDT Appointment Department of Laboratory Medicine and Pathology, [facility] in [place], [place] [address] [place] [phone] Alexandra Lopez, EXCELSIOR CUTTER, C.N.P., D.N.P. [address] [place] [phone] documented as of this encounter Procedures Procedure Name Priority Date/Time Associated Diagnosis Comments SEDIMENTATION RATE, B Routine 11/10/2023 10:50 AM CDT Arthritis Rheumatoid (HCC) High Risk Medication CBC WITH DIFFERENTIAL, B Routine 11/10/2023 10:50 AM CDT Medication Therapy Support Technician Not Anticoagulant C-REACTIVE PROTEIN (CRP), S/P Routine 11/10/2023 10:50 AM CDT Arthritis Rheumatoid (HCC) High Risk Medication ALANINE AMINOTRANSFERASE (ALT), S/P Routine 11/10/2023 10:50 AM CDT Medication Therapy Support Technician Not Anticoagulant ASPARTATE AMINOTRANSFERASE (AST), S/P Routine 11/10/2023 10:50 AM CDT Medication Therapy Support Technician Not Anticoagulant CREATININE WITH EGFR, S/P Routine 11/10/2023 10:50 AM CDT Medication Therapy Prison Not Anticoagulant documented in this encounter Results * Creatinine with Estimated GFR (11/10/2023 10:50 AM CDT) Creatinine 0.85 0.59 - 1.04 mg/dL 11/10/2023 11:49 AM CDT DTL Estimated GFR (eGFR) 77 >=60 mL/min/BSA 11/10/2023 11:49 AM CDT DTL Comment: Estimated GFR calculated using the 2020 CKD_EPI creatinine equation. Blood (Blood, Venous) 11/10/2023 10:50 AM CDT 11/10/2023 11:24 AM CDT Alexandra Lopez APRN, C.N.P., D.N.P. LAB B LOOD ADD-ON Performing Organization Address City/[facility]/ZIP Co de Phone Number [facility] 200 [place] [address] * ALT (Alanine Aminotransferase) (11/10/2023 10:50 AM CDT) [facility] Alanine Aminotransferase (ALT), S 23 7 - 45 U/L 11/10/2023 11:49 AM CDT DT Blood (Blood, Venous) 11/10/2023 10:50 AM CDT 11/10/2023 11:24 AM CDT Alexandra Lopez APRN, C.N.P., D.N.P. LAB B LOOD ADD-ON Performing Organization Address City/[facility]/ZIP Co de Phone Number [facility] [address] [place] [address] * AST (Aspartate Aminotransferase) (11/10/2023 10:50 AM CDT) Pathologist [facility] Aspartate Aminotransferase (AST), S 18 8 - 43 U/L 11/10/2023 11:49 AM CDT DTL Blood (Blood, Venous) 11/10/2023 10:50 AM CDT 11/10/2023 11:24 AM CDT Alexandra Lopez APRN C.N.P., D.N.P. LAB B LOOD ADD-ON [facility] [address] [place] [address], [facility] DTL [facility] [address] [place] [address] * (ABNORMAL) CBC with Differential, Blood (11/10/2023 10:50 AM CDT) Pathologist [facility] Hemoglobin 13.0 11.6 - 15.0 g/dL 11/10/2023 11:53 AM CDT DTL Hematocrit 39.5 35.5 - 44.9 % 11/10/2023 11:53 AM CDT DTL Erythrocytes 4.11 3.92 - 5.13 x10(12)/L 11/10/2023 11:53 AM CDT DTL MCV 96.1 78.2 - 97.9 fL 11/10/2023 11:53 AM CDT DTL RBC Distrib Width 12.9 12.2 - 16.1 % 11/10/2023 11:53 AM CDT DTL Platelet Count 296 157 - 371 x10(9)/L 11/10/2023 11:53 AM CDT DTL Leukocytes 7.5 3.4 - 9.6 x10(9)/L 11/10/2023 11:53 AM CDT DTL Neutrophils 4.11 1.56 - 6.45 x10(9)/L 11/10/2023 11:52 AM CDT [facility] Lymphocytes 2.62 0.95 - 3.07 x10(9)/L 11/10/2023 11:53 AM CDT DTL Monocytes 0.45 0.26 - 0.81 x10(9)/L 11/10/2023 11:53 AM CDT DTL Eosinophils 0.19 0.03 - 0.48 x10(9)/L 11/10/2023 11:53 AM CDT DTL Basophils 0.09(H) 0.01 - 0.08 x10(9)/L 11/10/2023 11:53 AM CDT DTL Blood (Blood, Venous) 11/10/2023 10:50 AM CDT 11/10/2023 11:13 AM CDT James Wallace APRN.N.P., Rober.N.P. LAB B LOOD ADD-ON Performing Organization Address City/[facility]/ZIP Co de Phone Number [facility] 200 [place] [address], [facility] 200 [place], [place] [phone] [place] [address] 200 [place] [address] * CRP (C-Reactive Protein) (11/10/2023 10:50 AM CDT) Pathologist [facility] C-Reactive Protein (CRP), S 4.1 <5.0 mg/L 11/10/2023 11:49 AM CDT DTL Blood (Blood, Venous) 11/10/2023 10:50 AM CDT 11/10/2023 11:24 AM CDT James Wallace APRN.N.P., D.N.P. LAB B LOOD ADD-ON Performing Organization Address City/[facility]/ZIP Co de Phone Number [facility] 200 [place] [address], [facility] 200 [place] [address] * Sedimentation Rate (11/10/2023 10:50 AM CDT) Sedimentation Rate, B 16 2 - 22 mm/h 11/10/2023 12:34 PM CDT DTL Blood (Blood, Venous) 11/10/2023 10:50 AM CDT 11/10/2023 11:13 AM CDT Alexandra Lopez APRN, C.N.P., D.N.P. LAB B JULITO ADD-ON [facility] [address] [place] [address], [facility] [address] [place] [address] documented in this encounter Visit Diagnoses Diagnosis Arthritis Rheumatoid (HCC) High Risk Medication Medication Therapy Support Technician Not Anticoagulant documented in this encounter Additional Health Concerns Infection Onset Date Last Indicated Resolved Time Protective Environment 10/10/2022 10/10/2022 documented as of this encounter Care Teams Voice Professor Relationship Specialty Start Date End Date Elsewhere, Pcp PCP - General 05/22/18 documented as of this encounter
--- OUTSIDE RECORDS SUMMARY | 2023-12-19 17:12 | XMS_ITS | Encounter Summary ---
Author Organization [facility] Address [address] [place] [id number] Care Team Providers Care Booking Police Officer Name Role Phone Elsewhere, Pcp Primary Care Provider Unavailabl e Reason for Referral * Outpatient (Routine) - Authorized Specialty Diagnoses / Procedures Referred By Florian cazares Referred To Contact Urology Jessica Whitt M.D. [address] [place] [phone] Rickey Gupta M.D. [address] [place] [phone] Referral ID Status Reason Start Date Expiration Date V isits Requested Visits Authorized [id number] Authorized 10/17/2023 04/17/2025 1 1 * MRI/CAT/PET Scan (Routine) - Authorized Specialty Diagnoses / Procedures Referred By Contac t Referred To Contact Radiology Diagnoses Kidney And Ureter Disorder Procedures CT Abdomen Pelvis without and with IV Contrast Jessica Whitt M.D. [address] [place] [phone] [facility] Referral ID Status Reason Start Date Expiration Date V isits Requested Visits Authorized [id number] Authorized 10/17/2023 10/16/2024 1 1 * MRI/CAT/PET Scan (Routine) - Closed Specialty Diagnoses / Procedures Referred By Florian t Referred To Contact Radiology Diagnoses Nodule Pulmonary Procedures CT Chest without IV Contrast Jessica Whitt M.D. [address] [place] [phone] [facility] Referral ID Status Reason Start Date Expiration Date Visits Re quested Visits Authorized [id number] Closed 10/17/2023 10/16/2024 1 1 Reason for Visit * Outpatient (Routine) - Closed Specialty Diagnoses / Procedures Referred By Florian cazares Referred To Contact Urology Anders Bowens M.D. Chow, George K, M.D. [address] [place] [phone] Referral ID Status Reason Start Date Expiration Date Visits Re quested Visits Authorized [id number] Closed 07/14/2023 01/12/2025 1 1 Encounter Details Date Type Department Care Team (Late st Contact Info) Description 10/17/2023 2:30 PM CDT Office Visit Department of Urology in [place], [place] [address] [place] [phone] Rickey Gupta M.D. [address] [place] [phone] Kidney And Ureter Disorder (Primary Dx); Mass Kidney; Nodule Pulmonary Social History Tobacco Use Types Packs/Day Years Used Date Smoking Tobacco: Former Cigarettes Q uit: 09/15/1998 Passive Smoke Exposure: Past Smokeless Tobacco: Never Alcohol Use Standard Drinks/Week Comments Yes 6 (1 standard drink = 0.6 oz pur e alcohol) [facility] Utilities Answer Date Recorded In the past 12 months has e [employer], gas, oil, or water [employer] threatened to shut off services in your [...] How often do you attend chur or jainism services? Patient declined 07/13/2022 Do [...] medical care, and heating? Patient declined 07/13/2022 [facility] - Occupational [...] your living situation today? I have a [facility] place to live 10/16/2023 Education Answer [...] AM CDT documented as of this encounter Progress Notes * Jessica Whitt M.D. - 10/17/2023 2:30 PM CDT SUBJECTIVE CHIEF COMPLAINT/REASON FOR VISIT Renal mass on HISTORY OF PRESENT ILLNESS Ms. Ingram is a 63-year-old female who presents for follow-up regarding left renal lesion on active surveillance. We initially saw her on July 14, 2023. OBJECTIVE Imaging: I personally reviewed and interpreted the patient's imaging. Chest x-ray shows a 9 mm density at the right mid lung, not previously seen, but very unlikely related to her kidney mass. They recommend CT chest for further characterization. CT abdomen redemonstrates 1 cm enhancing left renal mass, essentially unchanged from prior imaging.No other new masses. Tiny bilateral renal cysts. ASSESSMENT / PLAN #1 Renal mass #2 Pulmonary lesion It was a pleasure to meet with Cody Solangedanisdebora alongside Dr. Gupta's in clinic today. She has a stable 1 cm left renal mass on active surveillance. No change on today's imaging, and would recommend following up in 6 months with repeat imaging to follow this. She does have an indeterminate right pulmonary density on her chest x-ray, so we will obtain a CT chest today to further characterize this. Given the small size of her renal mass, it is very unlikely to be related to the kidney mass if CT chest findings are concerning. Plan: - CT chest without IV contrast - CXR and CT abdomen without and with IV contrast, clinic visit with survivorship vs locally Signed by: Jessica Whitt M.D. 10/17/2023 2:49 PM CDT documented in this encounter Plan of Treatment Upcoming Encounters Date Type Department Care Team (Late st Contact Info) Description 02/10/2024 9:30 AM CDT Appointment Department of Laboratory Medicine and Pathology, [facility] in [place], [place] [address] [place] [phone] Alexandra Lopez, ANTONIO, C.N.P., D.N.P. [address] [place] [phone] Scheduled Orders Name Type Priority Associated Diagnoses Orde r Schedule Basic Metabolic Panel Lab Routine Mass Kidney Expected: 04/18/2024 (Approximate), Expires: 01/16/2025 CT Abdomen Pelvis without and with IV Contrast Imaging RAD - Routine (most inpatients and all outpatients) Kidney And Ureter Disorder Expected: 04/18/2024 (Approximate), Expires: 01/16/2025 Scheduled Referrals Name Type Priority Associated Diagnoses Orde r Schedule Urology office visit (clinic) Outpatient Referral Routine Expected: 04/18/2024 (Approximate), Expires: 01/16/2025 documented as of this encounter Results * CT Chest without IV Contrast (10/29/2023 10:34 AM CDT) Anatomical Region Laterality Modality Chest, Thoracic RST LOS, Tho racic ARZ LOS, Thoracic FLA LOS N/A Computed Tomography, Compute d Tomography Impressions 10/29/2023 1:29 PM CDT 1. ??The nodular opacity on the 10/17/2023 chest radiograph corresponds to a calcified granuloma and is associated with calcified thoracic lymph nodes. 2. ??Multiple bilateral solid and subsolid lung nodules measuring up to 6 mm are indeterminate. 3. ??Moderate upper lung predominant emphysema and mild bronchial wall thickening Narrative 10/29/2023 1:29 PM CDT EXAM: CT CHEST WITHOUT IV CONTRAST COMPARISON: No prior chest CT, comparison is made with 10/17/2023 chest radiographs FINDINGS: Airways, lungs, pleura: Mild diffuse bronchial wall thickening is associated with minimal scattered endobronchial plugging. Moderate upper lung predominant centrilobular emphysema. Nodular density present on 10/17/2023 radiographs corresponds to a calcified right middle lobe granuloma. Multiple, additional lung nodules of varying density are present bilaterally. Regulator Inspector lung nodules include: * ??6 mm, solid, posterior right upper lobe, (series 3, image 132). * ??Less than 3 mm, solid, anterior right upper lobe, (series 3, image 256). * ??4 mm, sub-solid, central right upper lobe, (series 3, image 260). * ??3 mm, solid, superior segment right lower lobe, (series 3, image 254). Smaller solid nodules are present in the left lung. No pleural effusion is present. Cardiovascular: ??Heart size is normal. No pericardial effusion is present. Lymph nodes: Calcified lymph nodes are compatible with sequelae of prior granulomatous disease. There are no enlarged noncalcified thoracic lymph nodes. Bones: Nonaggressive sclerotic lesion lesions are present in the manubrium and the lateral right fourth rib. No aggressive bone lesions. Upper abdomen: Cholecystectomy clips. Low-attenuation liver lesions are incompletely evaluated. Procedure Note Mike Garcia M.D. - 10/29/2023 EXAM: CT CHEST WITHOUT IV CONTRAST COMPARISON: No prior chest CT, comparison is made with 10/17/2023 chestradiographs FINDINGS: Airways, lungs, pleura: Mild diffuse bronchial wall thickening isassociated with minimal scattered endobronchial plugging. Moderate upperlung predominant centrilobular emphysema. Nodular density present on 10/17/2023 radiographs corresponds to acalcified right middle lobe granuloma. Multiple, additional lung nodulesof varying density are present bilaterally. Regulator Inspector lung nodulesinclude: * 6 mm, solid, posterior right upper lobe, (series 3, image 132). * Less than 3 mm, solid, anterior right upper lobe, (series 3, ). * 4 mm, sub-solid, central right upper lobe, (series 3, image 260). * 3 mm, solid, superior segment right lower lobe, (series 3, [id number]). Smaller solid nodules are present in the left lung. No pleural effusion ispresent. Cardiovascular: Heart size is normal. No pericardial effusion is present. Lymph nodes: Calcified lymph nodes are compatible with sequelae of priorgranulomatous disease. There are no enlarged noncalcified thoracic lymphnodes. Bones: Nonaggressive sclerotic lesion lesions are present in the manubriumand the lateral right fourth rib. No aggressive bone lesions. Upper abdomen: Cholecystectomy clips. Low-attenuation liver lesions areincompletely evaluated. IMPRESSION: 1. The nodular opacity on the 10/17/2023 chest radiograph corresponds to acalcified granuloma and is associated with calcified thoracic lymphnodes. 2. Multiple bilateral solid and subsolid lung nodules measuring up to 6mm are indeterminate. 3. Moderate upper lung predominant emphysema and mild bronchial wallthickening Jessica DE LA FUENTE CT PROCEDURES documented in this encounter Visit Diagnoses Diagnosis Kidney And Ureter Disorder- Primary Mass Kidney Nodule Pulmonary Nodule Pulmonary documented in this encounter Additional Health Concerns Infection Onset Date Last Indicated Resolved Time Protective Environment 10/10/2022 10/10/2022 documented as of this encounter Care Teams Booking Police Officer Relationship Specialty Start Date End Date Elsewhere, Pcp PCP - General 05/22/18 documented as of this encounter
--- OUTSIDE RECORDS SUMMARY | 2023-12-19 17:12 | XMS_ITS | Encounter Summary ---
Author Organization [facility] Address [address] [place] [address] Care Team Providers Care Commercial Artist Name Role Phone Elsewhere, Pcp Primary Care Provider Unavailabl e Reason for Referral * Outpatient (Routine) - Closed Specialty Diagnoses / Procedures Referred By Florian t Referred To Contact Pulmonary Medicine Diagnoses Nodules Pulmonary Multiple Procedures Pulmonary Medicine - Pulmonary nodule(s) eConsult Jessica Whitt M.D. [address] [place] [phone] [facility] Referral ID Status Reason Start Date Expiration Date Visits Re quested Visits Authorized [id number] Closed 11/04/2023 11/03/2024 1 1 Encounter Details Date Type Department Care Team (Late st Contact Info) Description 11/04/2023 Orders Only Department of Urology in [place], [place] [address] [place] [phone] Jessica Whitt M.D. [address] [place] [phone] Nodules Pulmonary Multiple (Primary Dx) Social History Tobacco Use Types Packs/Day Years Used Date Smoking Tobacco: Former Cigarettes Q uit: 09/15/1998 Passive Smoke Exposure: Past Smokeless Tobacco: Never Alcohol Use Standard Drinks/Week Comments Yes 6 (1 standard drink = 0.6 oz pur e alcohol) [facility] Utilities Answer Date Recorded In the past 12 months has th e electric, gas, oil, or water [employer] threatened to shut off services in your [...] often do you attend chur ch or synagogue services? Patient declined 07/13/2022 Do you belong to any clubs o r organizations such as episcopalian groups, unions, fraternal or athletic groups, or [...] medical care, and heating? Patient declined 07/13/2022 [facility] - Occupational Stress Questionnaire Answer Date [...] your living situation today? I have a [facility] place to live 10/16/2023 Education Answer [...] Appointment Department of Laboratory Medicine and Pathology, [facility] in [place], [place] [address] [place] [phone] Alexandra Lopez APRN, C.N.P., D.N.P. [address] [place] [phone] documented as of this encounter Visit Diagnoses Diagnosis Nodules Pulmonary Multiple- Primary documented in this encounter Additional Health Concerns Infection Onset Date Last Indicated Resolved Time Protective Environment 10/10/2022 10/10/2022 documented as of this encounter Care Teams Commercial Artist Relationship Specialty Start Date End Date Elsewhere, Pcp PCP - General 05/22/18 documented as of this encounter
--- OUTSIDE RECORDS SUMMARY | 2023-12-19 17:12 | XMS_ITS | Encounter Summary ---
Author Organization [facility] Address [address] [place] [address] Care Team Providers Care Art Psychotherapist Or Therapist Name Role Phone Elsewhere, Pcp Primary Care Provider Unavailabl e Reason for Visit * Reason Comments Med Refill Encounter Details Date Type Department Care Team (Late st Contact Info) Description 11/05/2023 Refill Division of Rheumatology in [place], [place] [address] [place] [phone] Alexandra Lopez, PUDDLER PILE [employer]IV[employer], C.N.P., D.N.P. [address] [place] [phone] Med Refill Social History Tobacco Use Types Packs/Day Years Used Date Smoking Tobacco: Former Cigarettes Q uit: 09/15/1998 Passive Smoke Exposure: Past Smokeless Tobacco: Never Alcohol Use Standard Drinks/Week Comments Yes 6 (1 standard drink = 0.6 oz pur e alcohol) [facility] Utilities Answer Date Recorded In the past 12 months has e [employer], gas, oil, or water [employer] threatened to shut off services in your [...] How often do you attend chur or christian services? Patient declined 07/13/2022 Do you belong to any clubs o r organizations such as episcopal groups, unions, fraternal or athletic groups, or [...] medical care, and heating? Patient declined 07/13/2022 [facility] - Occupational [...] your living situation today? I have a [facility] place to live 10/16/2023 Education Answer [...] encounter Miscellaneous Notes * Telephone Encounter - Raiza Canada R.N. - 11/07/2023 3:22 PM CDT Prescription renewal request for folic acid received from pharmacy. HISTORY OF PRESENT ILLNESS Last Rheum / VASC visit: 05/09/23 with Alexandra Lopez APRN, CNP Future office visit: 11/10/23 Last monitoring None Needed: Not required for medication renewal requested. Prescription request matches current plan of care. [...] Appointment Department of Laboratory Medicine and Pathology, [facility] in [place], [place] [address] [place] [phone] Alexandra Lopez APRN, C.N.P., D.N.P. [address] [place] [phone] documented as of this encounter Visit Diagnoses Diagnosis Arthritis Rheumatoid (HCC) documented in this encounter Additional Health Concerns Infection Onset Date Last Indicated Resolved Time Protective Environment 10/10/2022 10/10/2022 documented as of this encounter Care Teams Art Psychotherapist Or Therapist Relationship Specialty Start Date End Date Elsewhere, Pcp PCP - General 05/22/18 documented as of this encounter
--- OUTSIDE RECORDS SUMMARY | 2023-12-19 17:12 | XMS_ITS | Encounter Summary ---
Author Organization [facility] Address [address] [place] [address] Care Team Providers Care Arcgis Developer Name Role Phone Elsewhere, Pcp Primary Care Provider Unavailabl e Encounter Details Date Type Department Care Team (Late st Contact Info) Description 11/14/2023 Clinical Communication Primary [facility] on Demand at [facility] [address] [place] [phone] Mj Adams M.D. [address] [place] [phone] Social History Tobacco Use Types Packs/Day Years Used Date Smoking Tobacco: Former Cigarettes Q uit: 09/15/1998 Passive Smoke Exposure: Past Smokeless Tobacco: Never Alcohol Use Standard Drinks/Week Comments Yes 6 (1 standard drink = 0.6 oz pur e alcohol) [facility] Utilities Answer Date Recorded In the past 12 months has [facility] [employer], gas, oil, or water [employer] threatened to shut off services in your [...] How often do you attend chur or lutheran services? Patient declined 07/13/2022 Do you belong to any clubs o r organizations such as sikhism groups, unions, fraternal or athletic groups, or [...] medical care, and heating? Patient declined 07/13/2022 [facility]ational Stress Questionnaire [...] your living situation today? I have a [facility] place to live 10/16/2023 Education Answer Date [...] Appointment Department of Laboratory Medicine and Pathology, [facility] in [place], [place] [address] [place] [phone] Alexandra Lopez APRN, C.N.P., D.N.P. [address] [place] [phone] documented as of this encounter Visit Diagnoses Not on filedocumented in this encounter Additional Health Concerns Infection Onset Date Last Indicated Resolved Time Protective Environment 10/10/2022 10/10/2022 documented as of this encounter Care Teams Arcgis Developer Relationship Specialty Start Date End Date Elsewhere, Pcp PCP - General 05/22/18 documented as of this encounter
--- OUTSIDE RECORDS SUMMARY | 2023-12-19 17:12 | XMS_ITS | Clinical Summary ---
Author Organization [facility] Address [address] [place] [address] Care Team Providers Care Event Planner Name Role Phone Elsewhere, Pcp Primary Care Provider Unavailabl e Source Comments Patient records contain information from all sites at [facility]. For routine questions regarding patient records, call [phone] during business hours, M-F 8:00 AM - 5:00 PM Central Time. Record requests for emergency care only can be directed to [phone] at any time.[facility] Allergies Active Allergy Reactions Criticality Noted Date Comments Pollen Extracts Other (see comments) 07/14/2020 Runny nose, itchy eyes, etc. Medications Medication Sig Dispensed Refills Start Date End Date Status lisinopril-hydroCHL OROthiazide (PRINZIDE,ZESTORETI C) 20-25 mg per tablet Take 1 tablet by mouth daily. 04/24/2020 Active triamcinolone (KENALOG) 0.1 % cream Apply 1 application topically as needed. 04/18/2020 Active levothyroxine (SYNTHROID, LEVOTHROID) 112 mcg tablet Take 112-168 mcg by mouth every morning before breakfast. Take 112 mg on Friday, Friday, , Friday and Friday. Take 168 mg (1.5 tablets) on Friday and Friday. Active cetirizine (ZyrTEC) 10 mg tablet Take 10 mg by mouth daily. Active predniSONE (DELTASONE) 2.5 mg tabletIndications:A rthritis Rheumatoid (HCC) Take 1 tablet (2.5 mg total) by mouth daily. all in AM with food 90 tablet 07/15/2022 Active Additional Information Patient taking differently:2.5 mg oralAs needed, all in AM with food, Reported on 10/16/2023 methotrexate 2.5 mg tabletIndications:A rthritis Rheumatoid (HCC) TAKE 7 TABLETS ( 17.5 MG TOTAL ) ONCE A WEEK 84 tablet 1 09/25/2023 Active multivitamin tablet Take 1 tablet by mouth daily. 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 Nodules Pulmonary Multiple (Primary Dx) 12/01/2023 8:00 AM CDT Internal E-Consult Division of Pulmonary Medicine in [place], [place] [address] [place] [address] Marciano Sheth M.D. Nodules Pulmonary Multiple 11/14/2023 Clinical Communication Primary Care on Demand at [address] [phone] Mj Adams M.D. 11/13/2023 Clinical Communication Division of Rheumatology in [place], [place] [address] [place] [address] Veronica Benavides, Dmitriy Lab Monitoring 11/10/2023 2:45 PM CDT Office Visit Division of Rheumatology in [place], [place] [address] [place] [phone] Alexandra Lopez, ANTONIO, C.N.P., D.N.P. Arthritis Rheumatoid (HCC); High Risk Medication 11/10/2023 10:29 AM CDT - 11/10/2023 11:59 PM CDT Hospital Encounter Department of Laboratory Medicine and Pathology, [facility], in [place], [place] [address] [place] [address] Alexandra Lopez APRN C.N.P., D.N.P. Arthritis Rheumatoid (HCC); High Risk Medication; Medication Therapy Swage Tender Not Anticoagulant Discharge Disposition: Home or Self Care 11/07/2023 9:15 AM CDT Clinical Communication Virtual Review in [place], [place] 200 [place] [address] Pre-visit Intake 11/05/2023 Refill Division of Rheumatology in [place], [place] [address] [place] [phone] Alexandra Lopez APRN C.N.P., D.N.P. Med Refill 11/04/2023 Orders Only Department of Urology in [place], [place] [address] [place] [phone] Jessica Whitt M.D. Nodules Pulmonary Multiple (Primary Dx) 10/29/2023 10:03 AM CDT - 10/29/2023 11:59 PM CDT [facility] [place] [address] [place] [phone] Jessica Whitt M.D. Nodule Pulmonary Discharge Disposition: Home or Self Care 10/17/2023 2:30 PM CDT Office Visit Department of Urology in [address] [phone] Rickey Gupta M.D. Kidney And Ureter Disorder (Primary Dx); Mass Kidney; Nodule Pulmonary 10/17/2023 9:28 AM CDT - 10/17/2023 11:59 PM CDT Hospital Encounter Department of Radiology, [facility] in [place], [place] [address] [place] [phone] Anders Bowens M.D. Mass Kidney Discharge Disposition: Home or Self Care 10/17/2023 8:32 AM CDT - 10/17/2023 9:27 AM CDT Hospital Encounter Department of Radiology, [facility], in [place], [place] [address] [place] [phone] Anders Bowens M.D. Mass Kidney; Kidney And Ureter Disorder Discharge Disposition: Home or Self Care 10/16/2023 8:15 AM CDT Clinical Communication Virtual Review in [place], [place] [address] [place] [phone] Pre-visit Intake 09/23/2023 Refill Division of Rheumatology in [place], [place] [address] [place] [address] Alexandra Lopez, ANTONIO, C.N.P., D.N.P. Med Refill from Last 3 Months Immunizations Name Administration Dates Next Due Tdap 04/21/2008 Family History Medical History Relation Name Comments Other cancer Brother 1 Florian Rober Britt Sarcoma l eg Sleep apnea Brother 1 Florian Britt Diabetes Brother 2 Morris Britt Other cancer Brother 2 Morris M Lorenza Kidney Colon cancer Father Reji Britt Hypertension Father Reji Britt Other cancer Father Reji Britt Tumor back o f tongue Diabetes Father's Brother 1 Dexter Thyroid disease Father's Brother 2 Edmar Diabetes Father's Sister Alana Lung cancer Mother Kenia Rober Britt Diabetes Paternal Grandmother Luci Arias Relation Name Status Comments Brother 1 Florian Britt Brother 2 Morris Britt Father Reji Britt Father's Brother 1 Dexter Father's Brother 2 Edmar Father's Sister Alana Mother Kenia Britt Paternal Grandmother Luci Lanieron Social History Tobacco Use Types Packs/Day Years Used Date Smoking Tobacco: Former Cigarettes Q uit: 09/15/1998 Passive Smoke Exposure: Past Smokeless Tobacco: Never Tobacco Cessation:Counseling Given: Not Answered Alcohol Use Standard Drinks/Week Comments Yes 6 (1 standard drink = 0.6 oz pur e alcohol) [facility] Utilities Answer Date Recorded In the past 12 months has [facility] [employer], gas, oil, or water [employer] threatened to shut off services in your [...] often do you attend chur ch or temple services? Patient declined 07/13/2022 Do you belong to any clubs o r organizations such as sikhism groups, unions, [employer]WonderHow[employer] or athletic groups, or school groups? Patient [...] care, and heating? Patient declined 07/13/2022 [facility] - [...] your living situation today? I have a [facility] place to live 10/16/2023 Education Answer [...] Sign Reading Time Taken Comments Blood Pressure 142/82 11/10/2023 2:35 PM CDT Pulse 74 11/10/2023 2:35 PM CDT Temperature 36.6 ??C (97.9 ??F) 11/10/2023 2:35 PM CD T Respiratory Rate - - Oxygen Saturation - - Inhaled Oxygen Concentration - - Weight 85.6 kg (188 lb 11.4 oz) 11/10/2023 2:35 PM CDT Height 156.4 cm (5' 1.58) 11/10/2023 2:35 PM CD T Body Mass Index 34.99 11/10/2023 2:35 PM CDT Plan of Treatment Upcoming Encounters Date Type Department Care Team (Late Contact Info) Description 02/10/2024 9:30 AM CDT Appointment Department of Laboratory Medicine and Pathology, [facility], in [place], [place] [address] [place] [phone] Alexandra Lopez APRN, C.N.P., D.N.P. [address] [place] [phone] Health Maintenance Due Date Last Done Comments [...] 03/09, 02/20/2006, Additional history exists COVID-19 Vaccine (2022- season) 2023 04/05/2022, 05/01/2021, 10/06/2020, Additional history exists Depression Screening (Annual PHQ-2) 06/09/2023 Office Visit for Blood Pressure Check / Re-check 02/10/2024 11/10/2023 Influenza Vaccine (#1) 2024 , 04/26/2021, 04/11/2020, Additional history exists Creatinine Level (Kidney Function Test) 11/09/2024 11/10/2023, 08/13/2023, 05/09/2023, Additional history exists DTaP,Tdap,and Td Vaccines (3 - Td or Tdap) 04/06/2028 04/06/2018, 04/21/2008 HPV Vaccines Aged Out No longer eligi ble based on patient's age to complete this topic Medical Devices Implanted Type Area Air Brake Operator Device Identifier Shelf Expiration Date Model / Serial / Lot Knee Implant-1/11/2 021 Implanted:06/09 (Quantity not on file) Knee Implant Bilatera l: Knee Description:Both joints were replaced. Procedures Procedure Name Priority Date/Time Associated Diagnosis Comments CREATININE WITH EGFR, S/P Routine 11/10/2023 10:50 AM CDT Medication Therapy Swage Tender Not Anticoagulant ALANINE AMINOTRANSFERASE (ALT), S/P Routine 11/10/2023 10:50 AM CDT Medication Therapy Penit[facility]iary Not Anticoagulant ASPARTATE AMINOTRANSFERASE (AST), S/P Routine 11/10/2023 10:50 AM CDT Medication Therapy [facility]iary Not Anticoagulant CBC WITH DIFFERENTIAL, B Routine 11/10/2023 10:50 AM CDT Medication Therapy [facility]iary Not Anticoagulant C-REACTIVE PROTEIN (CRP), S/P Routine 11/10/2023 10:50 AM CDT Arthritis Rheumatoid (HCC) High Risk Medication SEDIMENTATION RATE, B Routine 11/10/2023 10:50 AM CDT Arthritis Rheumatoid (HCC) High Risk Medication CT CHEST WITHOUT IV CONTRAST RAD - Routine (most inpatients and all outpatients) 10/29/2023 10:34 AM CDT Nodule Pulmonary DX CHEST AP OR PA AND LATERAL 2 VIEWS RAD - Routine (most inpatients and all outpatients) 10/17/2023 9:35 AM CDT Mass Kidney CT ABDOMEN PELVIS WITH IV CONTRAST RAD - Routine (most inpatients and all outpatients) 10/17/2023 9:22 AM CDT Mass Kidney Kidney And Ureter Disorder BI BREAST SCREENING BILATERAL Routine 04/21/2008 9:55 AM CONTROL SYSTEMS DRAFTING OFFICER from Last 3 Months or Most Recently Relevant to Health Maintenance Results * Sedimentation Rate (11/10/2023 10:50 AM CDT) Sedimentation Rate, B 16 2 - 22 mm/h 11/10/2023 12:34 PM CDT DTL Blood (Blood, Venous) 11/10/2023 10:50 AM CDT 11/10/2023 11:13 AM CDT Alexandra Lopez APRN C.N.P., Rober.N.P. LAB B LOOD ADD-ON [facility] [address] [place] [address], [facility] DTL [facility] [address] [place] [address] * (ABNORMAL) CBC with Differential, Blood (11/10/2023 10:50 AM CDT) Hemoglobin 13.0 11.6 - 15.0 g/dL 11/10/2023 [...] Performing Organization Address City/[facility] Co de Phone Number [facility] [address] [place], [place] [phone] [place] [address] 200 [place] [address] * CRP (C-Reactive Protein) (11/10/2023 10:50 AM CDT) C-Reactive Protein (CRP), S 4.1 <5.0 mg/L 11/10/2023 11:49 AM CDT DTL Blood (Blood, Venous) 11/10/2023 10:50 AM CDT 11/10/2023 11:24 AM CDT James Wallace APRN.N.P., D.N.P. LAB B LOOD ADD-ON Performing Organization Address City/[facility] Co de Phone Number [facility] [address] [place], [place] [phone] [place] [address] 200 [place] [address] * ALT (Alanine Aminotransferase) (11/10/2023 10:50 AM CDT) Alanine Aminotransferase (ALT), S 23 7 - 45 U/L 11/10/2023 11:49 AM CDT DTL Blood (Blood, Venous) 11/10/2023 10:50 AM CDT 11/10/2023 11:24 AM CDT Yoans Wallace APRNN.P., Rober.N.P. LAB B LOOD ADD-ON [facility] [address] [place] [address] * AST (Aspartate Aminotransferase) (11/10/2023 10:50 AM CDT) Aspartate Aminotransferase (AST), S 18 8 - 43 U/L 11/10/2023 11:49 AM CDT DTL Blood (Blood, Venous) 11/10/2023 10:50 AM CDT 11/10/2023 11:24 AM CDT James Wallace APRN.N.P., D.N.P. LAB B LOOD ADD-ON Performing Organization Address [facility] Co de Phone Number [facility] [address] [facility] [address] [place] [address] * Creatinine with Estimated GFR (11/10/2023 10:50 [...] Performing Organization Address City/[facility]/ZIP Co de Phone Number [facility] [address] DTL [facility] [address] * CT Chest without IV Contrast (10/29/2023 [...] nodules of varying density are present bilaterally. Religious Healer lung nodules include: * ??6 mm, solid, [...] lung nodulesof varying density are present bilaterally. Religious Healer lung nodulesinclude: * 6 mm, solid, posterior right upper lobe, (series 3, image 132). * Less than 3 mm, solid, anterior right upper lobe, (series 3, ). * 4 mm, sub-solid, central right upper lobe, (series 3, image 260). * 3 mm, solid, superior segment right lower lobe, (series 3, [id number]). Smaller solid nodules are present in the [...] predominant emphysema and mild bronchial wallthickening Jessica Whitt M.D. IMtSevo CT PROCEDURES * DX Chest AP or PA and Lateral 2 Views (10/17/2023 9:35 AM CDT) Anatomical Region Laterality Modality Chest, Thoracic RST LOS, Tho racic ARZ LOS, Thoracic FLA LOS N/A Digital Radiography Impressions 10/17/2023 11:28 AM CDT Comparison with chest regressed from 06/01/2023. Indeterminate approximately 9 mm small nodular density projects over the right midlung laterally between the anterolateral sixth and seventh ribs; this region may have been previously obscured by an ECG lead. Chest CT is recommended for further evaluation. Remainder not significantly changed. Slight focal eventration right hemidiaphragm. Chest is otherwise negative. Upper abdominal surgical clips. Narrative 10/17/2023 11:28 AM CDT EXAM: ??DX CHEST AP OR PA AND LATERAL 2 VIEWS Procedure Note Renee Parson M.D. - 10/17/2023 EXAM: DX CHEST AP OR PA AND LATERAL 2 VIEWS IMPRESSION: Comparison with chest regressed from 06/01/2023. Indeterminateapproximately 9 mm small nodular density projects over the right midlunglaterally between the anterolateral sixth and seventh ribs; this regionmay have been previously obscured by an ECG lead. Chest CT is recommended for further evaluation. Remainder notsignificantly changed. Slight focal eventration right hemidiaphragm. Chestis otherwise negative. Upper abdominal surgical clips. Anders Bowens M.D. IMG DIAGNOSTIC IMAGI NG PROCEDURES * CT Abdomen Pelvis with IV Contrast (10/17/2023 9:22 AM CDT) Anatomical Region Laterality Modality Abdomen, Pelvis, Abdominal R ST LOS, Abdominal ARZ LOS, Abdominal FLA LOS N/A Computed Tomograp hy, Computed Tomography 10/17/2023 9:20 AM CDT Impressions 10/17/2023 9:42 AM CDT 1 cm solid left renal mass. ??No CT evidence of metastatic disease. Narrative 10/17/2023 9:42 AM CDT EXAM: ??CT ABDOMEN PELVIS WITH IV CONTRAST COMPARISON: ??Outside MRI abdomen 07/02/2023, outside CT abdomen pelvis 06/19/2023 FINDINGS: ?? 1 cm solid, enhancing mass in the posterior aspect of the upper pole of the left kidney. Tiny bilateral renal cysts. No other suspicious renal lesion. No hydronephrosis. Hepatic cysts. Cholecystectomy. Pancreas, spleen and left adrenal are unremarkable. 1.3 cm right adrenal nodule shown to represent an adenoma on outside MRI. No abdominal or pelvic lymphadenopathy. Hysterectomy. Colonic diverticulosis. Small fat-containing ventral hernia. Degenerative changes of the spine. Procedure Note Osvaldo Paredes M.D. - 10/17/2023 EXAM: CT ABDOMEN PELVIS WITH IV CONTRAST COMPARISON: Outside MRI abdomen 07/02/2023, outside CT abdomen pelvis06/19/2023 FINDINGS: 1 cm solid, enhancing mass in the posterior aspect of the upper pole ofthe left kidney. Tiny bilateral renal cysts. No other suspicious renallesion. No hydronephrosis. Hepatic cysts. Cholecystectomy. Pancreas, spleen and left adrenal areunremarkable. 1.3 cm right adrenal nodule shown to represent an adenoma onoutside MRI. No abdominal or pelvic lymphadenopathy. Hysterectomy. Colonicdiverticulosis. Small fat-containing ventral hernia. Degenerative changes of the spine. IMPRESSION: 1 cm solid left renal mass. No CT evidence of metastatic disease. Anders Bowens M.D. IMG CT PROCEDURES * BI Breast Screening Bilateral (04/21/2008 9:55 AM CONTROL SYSTEMS DRAFTING OFFICER) Anatomical Region Laterality Modality Breast Bilateral Mammography 04/21/2008 9:55 AM CONTROL SYSTEMS DRAFTING OFFICER Impressions 04/25/2008 12:59 PM CONTROL SYSTEMS DRAFTING OFFICER ACR BIRADS Category No. 1, negative. A letter has been sent to the patient. This study was evaluated with the assistance of CAD (R2 v5.3). ?? Broderick Treadwell M.D. ? Electronically signed by: ?? no valid signature 25-Apr-2008 12:59 Narrative 04/25/2008 12:59 PM CONTROL SYSTEMS DRAFTING OFFICER 21-Apr-2008 09:55:00 ??Exam: Mammo Screen Bilat Indications: ?? ORIGINAL REPORT - 25-Apr-2008 12:59:00 This [facility] ([facility]) exam was historically loaded. BILATERAL SCREENING MAMMOGRAM: ?? Breast symptoms: None. Previous mammography: 2006 and 2004. ?? Breast parenchyma: Extremely dense. ?? Comment: No significant change. ?? IMAGING Procedure Note Broderick Treadwell M.D. - 09/08/2017 21-Apr-2008 09:55:00 Exam: Mammo Screen Bilat Indications: ORIGINAL REPORT - 25-Apr-2008 12:59:00 This [facility] ([facility]) exam was historically loaded. BILATERAL SCREENING MAMMOGRAM: Breast symptoms: None. Previous mammography: 2006 and 2004. Breast parenchyma: Extremely dense. Comment: No significant change. IMAGING IMPRESSION: ACR BIRADS Category No. 1, negative. A letter has been sent to the patient.This study was evaluated with the assistance of CAD (R2 v5.3). Broderick Treadwell M.D. Electronically signed by: no valid signature 25-Apr-2008 12:59 Karen Johnson M.D. [facility] [place] from Last 3 Months or Most Recently Relevant to Health Maintenance Additional Health Concerns Infection Onset Date Last Indicated Protective Environment 10/10/2022 3 Care Teams Event Planner Relationship Specialty Start Date End Date Elsewhere, Pcp PCP - General 05/22/18
--- OUTSIDE RECORDS SUMMARY | 2023-12-19 17:12 | XMS_ITS | Encounter Summary ---
Author Organization [facility] Address [address] [place] [address] Care Team Providers Care Brusher Operator Name Role Phone Elsewhere, Pcp Primary Care Provider Unavailabl e Reason for Referral * Outpatient (Routine) - Closed Specialty Diagnoses / Procedures Referred By Florian cazares Referred To Contact Diagnoses Mass Kidney Procedures DX Chest AP or PA and Lateral 2 Views Anders Bowens M.D. [facility] Referral ID Status Reason Start Date Expiration Date Visits Re quested Visits Authorized [id number] Closed 07/14/2023 07/13/2024 1 1 Reason for Visit * Outpatient (Routine) - Closed Specialty Diagnoses / Procedures Referred By Florian cazares Referred To Contact Diagnoses Mass Kidney Procedures DX Chest AP or PA and Lateral 2 Views Anders Bowens M.D. [facility] Referral ID Status Reason Start Date Expiration Date Visits Re quested Visits Authorized [id number] Closed 07/14/2023 07/13/2024 1 1 Encounter Details Date Type Department Care Team (Latest Contact Info) Description 10/17/2023 9:28 AM CDT - 10/17/2023 11:59 PM CDT Hospital Encounter Department of Radiology, [facility], in [place], [place] [address] [place] [address] Anders Bowens M.D. Mass Kidney Discharge Disposition: Home or Self Care Social History Tobacco Use Types Packs/Day Years Used Date Smoking Tobacco: Former Cigarettes Q uit: 09/15/1998 Passive Smoke Exposure: Past Smokeless Tobacco: Never Alcohol Use Standard Drinks/Week Comments Yes 6 (1 standard drink = 0.6 oz pur e alcohol) [facility] Utilities Answer Date Recorded In the past 12 months has th e electric, gas, oil, or water company [...] 07/13/2022 How often do you attend [facility] or religion services? Patient declined 07/13/2022 [...] medical care, and heating? Patient declined 07/13/2022 [facility] Stress Questionnaire Answer Date [...] your living situation today? I have a [facility] place to live 10/16/2023 Education Answer Date [...] tablet Take 10 mg by mouth daily. levothyroxine (SYNTHROID, LEVOTHROID) 112 mcg tablet Take 112-168 mcg by mouth every morning before breakfast. Take 112 mg on Friday, Friday, , Friday and Friday. Take 168 mg (1.5 tablets) on Friday and Friday. lisinopril-hydroCHLOR Othiazide (PRINZIDE,ZESTORETIC) 20-25 mg per tablet Take 1 tablet by mouth daily. 04/24/2020 methotrexate 2.5 mg tabletIndications:Art hritis Rheumatoid (HCC) TAKE 7 TABLETS ( 17.5 MG TOTAL ) ONCE A WEEK 84 tablet 1 09/25/2023 multivitamin tablet Take 1 tablet by mouth daily. predniSONE (DELTASONE) 2.5 mg tabletIndications:Art hritis Rheumatoid (HCC) Take 1 tablet (2.5 mg total) by mouth daily. all in AM with food 90 tablet 07/15/2022 triamcinolone (KENALOG) 0.1 % cream Apply 1 application topically as needed. 04/18/2020 folic acid 1 mg tabletIndications:Art hritis Rheumatoid (HCC) Take 1 tablet (1 mg total) by mouth daily. 90 tablet 1 05/09/2023 11/07/2023 documented as of this encounter Plan of Treatment Upcoming Encounters Date Type Department Care Team (Late st Contact Info) Description 02/10/2024 9:30 AM CDT Appointment Department of Laboratory Medicine and Pathology, [facility] in [place], [place] [address] [place] [address] Alexandra Lopez, [employer], C.N.P., D.N.P. [address] [place] [address] documented as of this encounter Procedures Procedure Name Priority Date/Time Associated Diagnosis Comments DX CHEST AP OR PA AND LATERAL 2 VIEWS RAD - Routine (most inpatients and all outpatients) 10/17/2023 9:35 AM CDT Mass Kidney documented in this encounter Results * DX Chest AP or PA and [...] PA AND LATERAL 2 VIEWS Procedure Note Reene Parson M.D. - 10/17/2023 EXAM: DX CHEST [...] otherwise negative. Upper abdominal surgical clips. Anders [facility] DIAGNOSTIC IMAGI NG PROCEDURES documented in this encounter Visit Diagnoses Diagnosis Mass Kidney documented in this encounter Additional Health Concerns Infection Onset Date Last Indicated Resolved Time Protective Environment 10/10/2022 10/10/2022 documented as of this encounter Care Teams Brusher Operator Relationship Specialty Start Date End Date Elsewhere, Pcp PCP - General 05/22/18 documented as of this encounter
--- OUTSIDE RECORDS SUMMARY | 2023-12-19 17:12 | XMS_ITS | Encounter Summary ---
Author Organization [facility] Address [address] [place] [address] Care Team Providers Care Powder Press Operator Name Role Phone Elsewhere, Pcp Primary Care Provider Unavailabl e Reason for Visit * Reason Onset Date Comments Lab Monitoring 11/13/2023 Encounter Details Date Type Department Care Team (Latest Contact Info) Description 11/13/2023 Clinical Communication Division of Rheumatology in [place], [place] [address] [place] [address] Veronica Benavides, RCodyNCody Lab Monitoring Social History Tobacco Use Types Packs/Day Years Used Date Smoking Tobacco: Former Cigarettes Q uit: 09/15/1998 Passive Smoke Exposure: Past Smokeless Tobacco: Never Alcohol Use Standard Drinks/Week Comments Yes 6 (1 standard drink = 0.6 oz pur e alcohol) [facility] Utilities Answer Date Recorded In the past 12 months has [facility] [employer], gas, oil, or water [email or web address] threatened to shut off services in your [...] How often do you attend chur or baptist services? Patient declined 07/13/2022 Do you belong to any clubs o r organizations such as druze groups, unions, fraternal or athletic groups, or [...] medical care, and heating? Patient declined 07/13/2022 [facility] of Occupat ional Health - Occupational [...] your living situation today? I have a [facility] place to live 10/16/2023 Education Answer [...] encounter Miscellaneous Notes * Telephone Encounter - Veronica Benavides R.N. - 11/13/2023 4:56 PM CDT Documentation note only, patient not contacted ASSESSMENT Rheumatology monitoring labs completed on 11/10/2023 for methotrexate monitoring were reviewed per provider order. Labs reviewed: absolute neutrophil count, ALT, AST, creatinine, hemoglobin, leukocytes, platelets Labs viewable in Labs Tab of Chart Review. PLAN Patient to continue with current plan of care. Patient next due for monitoring labs three months after last monitoring labs; these future lab orders were placed. documented in this encounter Plan of Treatment Upcoming Encounters Date Type Department Care Team (Late st Contact Info) Description 02/10/2024 9:30 AM CDT Appointment Department of Laboratory Medicine and Pathology, [facility] in [place], [place] [address] [place] [address] Alexandra Lopez APRN, C.N.P., D.N.P. [address] [place] [address] Scheduled Orders Name Type Priority Associated Diagnoses Orde r Schedule CBC with Differential, Blood Lab Routine Medication Therapy Prison Not Anticoagulant Expected: 02/09/2024, Expires: 05/14/2024 AST (Aspartate Aminotransferase) Lab Routine Medication Therapy Prison Not Anticoagulant Expected: 02/09/2024, Expires: 05/14/2024 ALT (Alanine Aminotransferase) Lab Routine Medication Therapy Prison Not Anticoagulant Expected: 02/09/2024, Expires: 05/14/2024 Creatinine with Estimated GFR Lab Routine Medication Therapy Educational Technology Coordinator Not Anticoagulant Expected: 02/09/2024, Expires: 05/14/2024 documented as of this encounter Visit Diagnoses Diagnosis Medication Therapy Educational Technology Coordinator Not Anticoagulant- Primary documented in this encounter Additional Health Concerns Infection Onset Date Last Indicated Resolved Time Protective Environment 10/10/2022 10/10/2022 documented as of this encounter Care Teams Powder Press Operator Relationship Specialty Start Date End Date Elsewhere, Pcp PCP - General 05/22/18 documented as of this encounter
--- OUTSIDE RECORDS SUMMARY | 2023-12-19 17:12 | XMS_ITS ---
Author Organization [facility] Address [address] [place] [address] Care Team Providers Care Cath Lab Radiological Technologist Name Role Phone Unavailable Unavailable Unavailable Surgery Details Not on file Complications Check Surgery Details section. Procedure Estimated Blood Loss Check Surgery Details section. Procedure Findings Check Surgery Details section. Procedure Specimens Taken Check Surgery Details section.
--- OUTSIDE RECORDS SUMMARY | 2023-12-19 17:12 | XMS_ITS | Encounter Summary ---
Author Organization [facility] Address [address] [place] [address] Care Team Providers Care Retail Sales Merchandiser Name Role Phone Elsewhere, Pcp Primary Care Provider Uma e Reason for Referral * Outpatient (Routine) - Authorized Specialty Diagnoses / Procedures Referred By Florian cazares Referred To Contact Rheumatology Diagnoses Arthritis Rheumatoid (HCC) High Risk Medication Alexandra Lopez APRN, C.N.P., D.N.P. [address] [place] [address] [facility] Referral ID Status Reason Start Date Expiration Date V isits Requested Visits Authorized [id number] Authorized 11/10/2023 05/11/2025 1 1 Scheduling Instructions OK to schedule as video. Reason for Visit * Outpatient (Routine) - Closed Specialty Diagnoses / Procedures Referred By Florian cazares Referred To Contact Rheumatology Diagnoses Arthritis Rheumatoid (HCC) High Risk Medication Alexandra Lopez APRN, C.N.P., D.N.P. [address] [place] [address] [facility] Referral ID Status Reason Start Date Expiration Date Visits Re quested Visits Authorized [id number] Closed 05/09/2023 05/08/2026 1 1 Encounter Details Date Type Department Care Team (Latest Contact Info) Description 11/10/2023 2:45 PM CDT Office Visit Division of Rheumatology in [place], [place] [address] [place] [address] Alexandra Lopez, ANTONIO, C.N.P., D.N.P. [address] [place] [address] Arthritis Rheumatoid (HCC); High Risk Medication Social History Tobacco Use Types Packs/Day Years Used Date Smoking Tobacco: Former Cigarettes Q uit: 09/15/1998 Passive Smoke Exposure: Past Smokeless Tobacco: Never Alcohol Use Standard Drinks/Week Comments Yes 6 (1 standard drink = 0.6 oz pur e alcohol) [facility] Utilities Answer Date Recorded In the past 12 months has [employer], gas, oil, or water [employer] threatened to shut off services in your [...] often do you attend chur ch or buddhist services? Patient declined 07/13/2022 Do you belong to any clubs o r organizations such as catholic groups, unions, fraternal or athletic groups, or [...] [facility] of Occupat ional [facility] - Occupational Stress Questionnaire Answer Date [...] Date Recorded Dental: Regular Dentist Yes 10/16/19 22 Employment Answer Date Recorded Employment status Retired 10/16/2023 Housing Stability Answer Date Recorded What is your living situation today? I have a [facility] place to live 10/16/2023 Education Answer Date [...] Mass Index 34.99 11/10/2023 2:35 PM CDT documented in this encounter Progress Notes * Alexandra Lopez, ANTONIO, C.N.P., D.N.P. - 11/10/2023 2:45 PM CDT SUBJECTIVE CHIEF COMPLAINT / [...] plan wasto continue methotrexate 17.5 mg weekly. In May 2023, she continued to do reasonably well on methotrexate 17.5 mg weekly. She returns today for follow-up. She continues taking methotrexate 17.5 mg weekly. She feels like she is doing quite well overall, however she did have 1 flare in early October when her left foot was painful and swollen. She did take a course of prednisone and things resolved. She otherwise denies morning stiffness or nighttime pain. She has been followed by urology for renal mass which has been stable, however on chest x-ray a right lung nodule was found incidentally. She had a chest CT to look at this further and she does have several nodules that were identified. She has been referred to pulmonary for further evaluation. Shedenies any new respiratory symptoms such as worsening dyspnea or cough. She is a previous smoker (she smoked for about 24-25 years approximately 1 pack per day. She quit smoking in 1998. Social history: She is . She has [...] include a stable CBC with differential, creatinine, AST, ALT. CRP is normal. ASSESSMENT / PLAN #1 Arthritis Rheumatoid (HCC) Overall, Cary has done well over the last 6 months, with the exception of 1 minor flare which did respond well to prednisone. There is no joint tenderness or synovitis on exam today. Inflammatory markers are normal. I would recommend she continue methotrexate 17.5 mg weekly along with daily folic acid supplementation. I will plan to follow-up with her in 6 months. She is interested in trying to reduce her methotrexate dose back to her previous dose of 15 mg weekly, and we discussed that we would consider that at her next appointment if she does not have any flares in the interim. #2 High Risk Medication She is enrolled in our nurse monitoring protocol for methotrexate monitoring. She requires every 3 months CBC with differential, creatinine, AST while taking methotrexate. I answered the patient's questions to the [...] Appointment Department of Laboratory Medicine and Pathology, [facility] in [place] [address] [place] [address] Alexandra Lopez APRN, C.N.P., D.N.P. [address] [place] [address] Scheduled Orders Name Type Priority Associated Diagnoses Orde r Schedule CBC with Differential, Blood Lab Routine Arthritis Rheumatoid (HCC) High Risk Medication Expected: 05/11/2024 (Approximate), Expires: 11/09/2024 Sedimentation Rate Lab Routine Arthritis Rheumatoid (HCC) High Risk Medication Expected: 05/11/2024 (Approximate), Expires: 11/09/2024 CRP (C-Reactive Protein) Lab Routine Arthritis Rheumatoid (HCC) High Risk Medication Expected: 05/11/2024 (Approximate), Expires: 11/09/2024 AST (Aspartate Aminotransferase) Lab Routine Arthritis Rheumatoid (HCC) High Risk Medication Expected: 05/11/2024 (Approximate), Expires: 11/09/2024 Creatinine with Estimated GFR Lab Routine Arthritis Rheumatoid (HCC) High Risk Medication Expected: 05/11/2024 (Approximate), Expires: 11/09/2024 Scheduled Referrals Name Type Priority Associated Diagnoses Order Schedule Rheumatology office visit (clinic) Outpatient Referral Routine Arthritis Rheumatoid (HCC) High Risk Medication Expected: 05/11/2024, Expires: 02/09/2025 documented as of this encounter Visit Diagnoses Diagnosis Arthritis Rheumatoid (HCC) High Risk Medication documented in this encounter Additional Health Concerns Infection Onset Date Last Indicated Resolved Time Protective Environment 10/10/2022 10/10/2022 documented as of this encounter Care Teams Retail Sales Merchandiser Relationship Specialty Start Date End Date Elsewhere, Pcp PCP - General 05/22/18 documented as of this encounter
--- OUTSIDE RECORDS SUMMARY | 2023-12-19 17:12 | XMS_ITS | Encounter Summary ---
Author Organization [facility] Address [address] [place] [address] Care Team Providers Care Sock Examiner Name Role Phone Elsewhere, Pcp Primary Care Provider Unavailabl e Reason for Visit * Outpatient (Routine) - Closed Specialty Diagnoses / Procedures Referred By Florian cazares Referred To Contact Pulmonary Medicine Diagnoses Nodules Pulmonary Multiple Procedures Pulmonary Medicine - Pulmonary nodule(s) eConsult Jessica Whitt M.D. [address] [place] [phone] [facility] Referral ID Status Reason Start Date Expiration Date Visits Re quested Visits Authorized [id number] Closed 11/04/2023 11/03/2024 1 1 Encounter Details Date Type Department Care Team (Latest Contact Info) Description 12/01/2023 8:00 AM CDT Internal E-Consult Division of Pulmonary Medicine in [place], [place] [address] [place] [phone] Marciano Sheth M.D. [address] [place] [phone] Nodules Pulmonary Multiple Social History Tobacco Use Types Packs/Day Years Used Date Smoking Tobacco: Former Cigarettes Q uit: 09/15/1998 Passive Smoke Exposure: Past Smokeless Tobacco: Never Alcohol Use Standard Drinks/Week Comments Yes 6 (1 standard drink = 0.6 oz pur e alcohol) [facility] Utilities Answer Date Recorded In the past 12 months has [employer], gas, oil, or water company threatened [...] do you attend [facility] or jainism services? Patient declined 07/13/2022 [...] medical care, and heating? Patient declined 07/13/2022 [facility] of Occupat ional Health - Occupational Stress [...] your living situation today? I have a [facility] place to live 10/16/2023 Education Answer [...] as of this encounter Consult Notes * Marciano Sheth M.D. - 12/01/2023 8:00 AM CDT PULMONARY MEDICINE E-CONSULT SUBJECTIVE CHIEF COMPLAINT / REASON FOR CONSULT Review chest CT, calcified nodules suggesting history granulomatous disease, other smaller nodules, 1 cm kidney mass likely unrelated, other f/u needed? Referred By: Jessica Whitt M.D. HISTORY OF PRESENT ILLNESS This is a virtual consultation for the indication listed above. The patient was not seen or examined. Patient is referred for evaluation of abnormal chest CT. She has rheumatoid arthritis maintained on methotrexate. She was referred to urology for evaluationof a renal mass which is under surveillance. As part of this evaluation she underwent a chest x-raywhich showed calcified nodule which led to a chest CT prompting this eConsultation. She is described as being a former smoker. I do not see documentation of any active chest symptoms.I do not see documentation on her medication list of any inhaled medications. I do not see that shehas ever had pulmonary function testing performed for review. ASSESSMENT / PLAN 1. Emphysema and airway wall thickening, possible COPD 2. Multiple subcentimeter lung nodules I reviewed her chest CT dated 10/29/23. There are several findings. She has emphysema and diffuse airway thickening with regions of mucous plugging. This is suggestive of an obstructive lung disease diagnosis although there is no pulmonary function testing available to confirm. If she is having any chest symptoms such as cough or dyspnea, she would likely benefit from further evaluation which should, at a minimum, include complete pulmonary function testing with bronchodilator challenge as well as screening for alpha-1 antitrypsin deficiency if this has not previously been performed. This could be either orchestrated by her primary care provider or via Pulmonary Medicine consultation. There are several subcentimeter solid lung nodules warrants surveillance and a repeat chest CT in about six months would be reasonable. There is also calcified hilar adenopathy that may be sequelae of prior granulomatous infection that has fairly limited in extent. This is a virtual consultation, and I did not see or examine the patient. Marciano Sheth M.D. documented in this encounter Plan of Treatment Upcoming Encounters Date Type Department Care Team (Late st Contact Info) Description 02/10/2024 9:30 AM CDT Appointment Department of Laboratory Medicine and Pathology, [facility], in [place] [address] [place] [address] Alexandra Lopez APRN, C.N.P., D.N.P. [address] [place] [address] documented as of this encounter Visit Diagnoses Diagnosis Nodules Pulmonary Multiple documented in this encounter Additional Health Concerns Infection Onset Date Last Indicated Resolved Time Protective Environment 10/10/2022 10/10/2022 documented as of this encounter Care Teams Sock Examiner Relationship Specialty Start Date End Date Elsewhere, Pcp PCP - General 05/22/18 documented as of this encounter
--- OUTSIDE RECORDS SUMMARY | 2023-12-19 17:12 | XMS_ITS | Encounter Summary ---
Author Organization [facility] Address [address] [place] [address] Care Team Providers Care Manganese Wheeler Name Role Phone Elsewhere, Pcp Primary Care Provider Unavailabl e Reason for Referral * MRI/CAT/PET Scan (Routine) - Closed Specialty Diagnoses / Procedures Referred By Florian cazares Referred To Contact Radiology Diagnoses Nodule Pulmonary Procedures CT Chest without IV Contrast Jessica Whitt M.D. [address] [place] [phone] [facility] Referral ID Status Reason Start Date Expiration Date Visits Re quested Visits Authorized [id number] Closed 10/17/2023 10/16/2024 1 1 Reason for Visit * MRI/CAT/PET Scan (Routine) - Closed Specialty Diagnoses / Procedures Referred By Florian cazares Referred To Contact Radiology Diagnoses Nodule Pulmonary Procedures CT Chest without IV Contrast Jessica Whitt M.D. [address] [place] [address] [facility] Referral ID Status Reason Start Date Expiration Date Visits Re quested Visits Authorized [id number] Closed 10/17/2023 10/16/2024 1 1 Encounter Details Date Type Department Care Team ([facility] st Contact Info) Description 10/29/2023 10:03 AM CDT - 10/29/2023 11:59 PM CDT Hospital Encounter Department of Radiology, [facility], in [place], [place] [address] [place] [phone] Jessica Whitt M.D. [address] [place] [address] Nodule Pulmonary Discharge Disposition: Home or Self Care Social History Tobacco Use Types Packs/Day Years Used Date Smoking Tobacco: Former Cigarettes Q uit: 09/15/1998 Passive Smoke Exposure: Past Smokeless Tobacco: Never Alcohol Use Standard Drinks/Week Comments Yes 6 (1 standard drink = 0.6 oz pur e alcohol) [facility] Utilities Answer Date Recorded In the past [...] often do you attend chur ch or uatsdin services? Patient declined 07/13/2022 Do you belong to any clubs o r organizations such as islam groups, unions, fraternal or athletic groups, or [...] and heating? Patient declined 07/13/2022 [facility] of Occupat ional Health - Occupational [...] of Laboratory Medicine and Pathology, [facility], in [place], [place] [address] [place] [address] Alexandra Lopez, ANTONIO, C.N.P., D.N.P. [address] [facility] [address] documented as of this encounter Procedures Procedure Name Priority Date/Time Associated Diagnosis Comments CT CHEST WITHOUT IV CONTRAST RAD - Routine (most inpatients and all outpatients) 10/29/2023 10:34 AM CDT Nodule Pulmonary documented in this encounter Results * CT Chest without [...] nodules of varying density are present bilaterally. Tag Machine Operator lung nodules include: * ??6 mm, solid, [...] lung nodulesof varying density are present bilaterally. Tag Machine Operator lung nodulesinclude: * 6 mm, solid, posterior right upper lobe, (series 3, image 132). * Less than 3 mm, solid, anterior right upper lobe, (series 3, [id number]). * 4 mm, sub-solid, central right upper lobe, (series 3, image 260). * 3 mm, solid, superior segment right lower lobe, (series 3, [id number]). Smaller solid nodules are present in the [...] documented in this encounter Visit Diagnoses Diagnosis Nodule Pulmonary documented in this encounter Additional Health Concerns Infection Onset Date Last Indicated Resolved Time Protective Environment 10/10/2022 10/10/2022 documented as of this encounter Care Teams Manganese Wheeler Relationship Specialty Start Date End Date Elsewhere, Pcp PCP - General 05/22/18 documented as of this encounter
--- OUTSIDE RECORDS SUMMARY | 2023-12-19 17:12 | XMS_ITS | Encounter Summary ---
Author Organization [facility] Address [address] [place] [address] Care Team Providers Care Die Maintenance Technician Name Role Phone Elsewhere, Pcp Primary Care Provider Unavailabl e Reason for Visit * Reason Onset Date Comments Pre-visit Intake 11/07/2023 Encounter Details Date Type Department Care Team (Latest Contact Info) Description 11/07/2023 9:15 AM CDT Clinical Communication Virtual Review in [place], [place] [address] [place] [address] Pre-visit Intake Social History Tobacco Use Types Packs/Day Years Used Date Smoking Tobacco: Former Cigarettes Q uit: 09/15/1998 Passive Smoke Exposure: Past Smokeless Tobacco: Never Tobacco Cessation:Counseling Given: Not Answered Alcohol Use Standard Drinks/Week Comments Yes 6 (1 standard drink = 0.6 oz pur e alcohol) [facility] Utilities Answer Date Recorded In the past 12 months has [facility] [employer], gas, oil, or water [employer] threatened to shut off services in [...] How often do you attend chur or catholic services? Patient declined 07/13/2022 Do you belong to any clubs o r organizations such as congregational groups, [employer], [employer] or athletic groups, or school groups? Patient [...] medical care, and heating? Patient declined 07/13/2022 [facility] of Occupat ional Health - Occupational Stress [...] your living situation today? I have a [facility] place to live 10/16/2023 Education Answer Date [...] Appointment Department of Laboratory Medicine and Pathology, [facility] in [place], [place] [address] [place] [address] Alexandra Lopez APRN, C.N.P., D.N.P. [address] [place] [address] documented as of this encounter Visit Diagnoses Not on filedocumented in this encounter Additional Health Concerns Infection Onset Date Last Indicated Resolved Time Protective Environment 10/10/2022 10/10/2022 documented as of this encounter Care Teams Die Maintenance Technician Relationship Specialty Start Date End Date Elsewhere, Pcp PCP - General 05/22/18 documented as of this encounter
--- OUTSIDE RECORDS SUMMARY | 2023-12-19 17:12 | XMS_ITS | Encounter Summary ---
Author Organization [facility] Address [address] [place] [address] Care Team Providers Care Cement Mason Helper Name Role Phone Elsewhere, Pcp Primary Care Provider Unavailabl e Reason for Referral * MRI/CAT/PET Scan (Routine) - Authorized Specialty Diagnoses / Procedures Referred By Florian t Referred To Contact Radiology Diagnoses Nodules Pulmonary Multiple Procedures CT Chest without IV Contrast Jessica Whitt M.D. [address] [place] [phone] [facility] Referral ID Status Reason Start Date Expiration Date V isits Requested Visits Authorized [id number] Authorized 12/05/2023 12/04/2024 1 1 Encounter Details Date Type Department Care Team (Late st Contact Info) Description 12/05/2023 Orders Only Department of Urology in [place], [place] [address] [place] [phone] Jessica Whitt M.D. [address] [place] [phone] Nodules Pulmonary Multiple (Primary Dx) Social History Tobacco Use Types Packs/Day Years Used Date Smoking Tobacco: Former Cigarettes Q uit: 09/15/1998 Passive Smoke Exposure: Past Smokeless Tobacco: Never Alcohol Use Standard Drinks/Week Comments Yes 6 (1 standard drink = 0.6 oz pur e alcohol) [facility] Utilities Answer Date Recorded In the [...] often do you attend chur ch or episcopalian services? Patient declined 07/13/2022 Do you belong to any clubs o r organizations such as jew groups, unions, fraternal or athletic groups, or [...] medical care, and heating? Patient declined 07/13/2022 [facility] of Occupat ional Health - [...] your living situation today? I have a [facility] place to live 10/16/2023 Education Answer [...] Appointment Department of Laboratory Medicine and Pathology, [facility] in [place], [place] [address] [place] [address] Alexandra Lopez, ANTONIO, C.N.P., D.N.P. [address] [place] [address] Scheduled Orders Name Type Priority Associated Diagnoses Orde r Schedule CT Chest without IV Contrast Imaging RAD - Routine (most inpatients and all outpatients) Nodules Pulmonary Multiple Expected: 03/06/2024, Expires: 03/06/2025 documented as of this encounter Visit Diagnoses Diagnosis Nodules Pulmonary Multiple- Primary documented in this encounter Additional Health Concerns Infection Onset Date Last Indicated Resolved Time Protective Environment 10/10/2022 10/10/2022 documented as of this encounter Care Teams Cement Mason Helper Relationship Specialty Start Date End Date Elsewhere, Pcp PCP - General 05/22/18 documented as of this encounter
--- OUTSIDE RECORDS SUMMARY | 2023-12-19 17:12 | XMS_ITS | Referral Summary ---
Author Organization [facility] Address [address] [place] [address] Care Team Providers Care Mat Weaver Name Role Phone Elsewhere, Pcp Primary Care Provider Unavailabl e Source Comments Patient records contain information from all sites at [facility]. For routine questions regarding patient records, call [phone] during business hours, M-F 8:00 AM - 5:00 PM Central Time. Record requests for emergency care only can be directed to [phone] at any time.[facility] Encounters Date Type Department Care Team Description 12/05/2023 Orders Only Department of Urology in [place], [place] [address] [place] [phone] Jessica Whitt M.D. Nodules Pulmonary Multiple (Primary Dx) 12/01/2023 8:00 AM CDT Internal E-Consult Division of Pulmonary Medicine in [place], [place] [address] [place] [phone] Marciano Sheth M.D. Nodules Pulmonary Multiple 11/14/2023 Clinical Communication Primary Care on Demand at [address] [phone] Mj Adams M.D. 11/13/2023 Clinical Communication Division of Rheumatology in [place], [place] [address] [place] [phone] Veronica Benavides R.N. Lab Monitoring 11/10/2023 2:45 PM CDT Office Visit Division of Rheumatology in [place], [place] [address] [place] [phone] Alexandra Lopez APRN C.N.P., D.N.P. Arthritis Rheumatoid (HCC); High Risk Medication 11/10/2023 10:29 AM CDT - 11/10/2023 11:59 PM CDT Hospital Encounter Department of Laboratory Medicine and Pathology, [facility] in [place], [place] [address] [place] [phone] Alexandra Lopez APRN C.N.P., D.N.P. Arthritis Rheumatoid (HCC); High Risk Medication; Medication Therapy Group Home Not Anticoagulant Discharge Disposition: Home or Self Care 11/07/2023 9:15 AM CDT Clinical Communication Virtual Review in [place], [place] 200 [place] [address] Pre-visit Intake 11/05/2023 Refill Division of Rheumatology in [place], [place] [address] [place] [phone] Alexandra Lopez APRN C.N.P., D.N.P. Med Refill 11/04/2023 Orders Only Department of Urology in [place], [place] [address] [place] [phone] Jessica Whitt M.D. Nodules Pulmonary Multiple (Primary Dx) 10/29/2023 10:03 AM CDT - 10/29/2023 11:59 PM CDT Hospital Encounter Department of Radiology, [facility] in [place], [place] [address] [place] [phone] Jessica Whitt M.D. Nodule Pulmonary Discharge Disposition: Home or Self Care 10/17/2023 9:28 AM CDT - 10/17/2023 11:59 PM CDT Hospital Encounter Department of Radiology, [facility], in [place], [place] [address] [place] [phone] Anders Bowens M.D. Mass Kidney Discharge Disposition: Home or Self Care 10/17/2023 2:30 PM CDT Office Visit Department of Urology in [place], [place] [address] [place] [phone] Rickey Gupta M.D. Kidney And Ureter Disorder (Primary Dx); Mass Kidney; Nodule Pulmonary 10/17/2023 8:32 AM CDT - 10/17/2023 9:27 AM CDT Hospital Encounter Department of Radiology, [facility], in [place], [place] [address] [place] [phone] Anders Bowens M.D. Mass Kidney; Kidney And Ureter Disorder Discharge Disposition: Home or Self Care 10/16/2023 8:15 AM CDT Clinical Communication Virtual Review in [place], [place] 200 [place] [address] Pre-visit Intake 09/23/2023 Refill Division of Rheumatology in [place], [place] [address] [place] [phone] Alexandra Lopez, ANTONIO, C.N.P., D.N.P. Med Refill [...] drink = 0.6 oz pur e alcohol) [facility] Utilities Answer Date Recorded In the past 12 months has [employer], gas, oil, or water [employer] threatened to shut off services in your [...] week 07/13/2022 How often do you attend [facility] or zoroastrian services? Patient declined 07/13/2022 Do you belong to any clubs o r organizations such as evangelical groups, unions, fraternal or athletic groups, or [...] medical care, and heating? Patient declined 07/13/2022 [facility] - Occupational Stress Questionnaire Answer Date Recorded [...] your living situation today? I have a [facility] place to live 10/16/2023 Education Answer [...] Appointment Department of Laboratory Medicine and Pathology, [facility] in [place], [place] [address] [place] [address] Alexandra Lopez APRN, C.N.P., D.N.P. [address] [place] [address] Medical Devices Implanted Type Area Epic Prelude Analyst Device Identifier Shelf Expiration Date Model / Serial / Lot Knee Implant- [id number] Implanted:06/09 (Quantity not on file) Knee Implant Bilatera l: Knee Description:Both joints were replaced. Procedures Procedure Name Priority Date/Time Associated Diagnosis Comments CREATININE WITH EGFR, S/P Routine 11/10/2023 10:50 AM CDT Medication Therapy Fruit Or Nut Picker Not Anticoagulant ALANINE AMINOTRANSFERASE (ALT), S/P Routine 11/10/2023 10:50 AM CDT Medication Therapy Group Home Not Anticoagulant ASPARTATE AMINOTRANSFERASE (AST), S/P Routine 11/10/2023 10:50 AM CDT Medication Therapy Group Home Not Anticoagulant CBC WITH DIFFERENTIAL, B Routine 11/10/2023 10:50 AM CDT Medication Therapy Group Home Not Anticoagulant C-REACTIVE PROTEIN (CRP), S/P Routine [...] BREAST SCREENING BILATERAL Routine 04/21/2008 9:55 AM TAR LEVELER from Last 3 Months or Most Recently Relevant to Health Maintenance Results * Sedimentation Rate (11/10/2023 10:50 AM CDT) Sedimentation Rate, B 16 2 - 22 mm/h 11/10/2023 12:34 PM CDT DTL Blood (Blood, Venous) 11/10/2023 10:50 AM CDT 11/10/2023 11:13 AM CDT James Wallace APRN.N.P., Rober.N.P. LAB B JULITO ADD-ON [facility] 200 [place] [address], [facility] DTL [facility] 200 [place] [address] * (ABNORMAL) CBC with Differential, Blood (11/10/2023 [...] B LOOD ADD-ON [facility] 200 [place], [place] [phone] [place] [address] [address] [place], [place] [phone] [place] [address] [address] [place] [address] * CRP (C-Reactive Protein) (11/10/2023 10:50 AM CDT) C-Reactive Protein (CRP), S 4.1 <5.0 mg/L 11/10/2023 11:49 AM CDT DTL Blood (Blood, Venous) 11/10/2023 10:50 AM CDT 11/10/2023 11:24 AM CDT Yonas Wallace APRNN.P., Rober.N.P. LAB B LOOD ADD-ON Performing Organization Address City/[facility]/ZIP Co de Phone Number [facility] [address] [place], [place] [address] [place] 200 [place] [address] * ALT (Alanine Aminotransferase) (11/10/2023 10:50 AM CDT) Alanine Aminotransferase (ALT), S 23 7 - 45 U/L 11/10/2023 11:49 AM CDT DTL Blood (Blood, Venous) 11/10/2023 10:50 AM CDT 11/10/2023 11:24 AM CDT James Wallace APRN.N.P., Rober.N.P. LAB B LOOD ADD-ON [facility] 200 [place] [address], [facility] 200 [place] [address] * AST (Aspartate Aminotransferase) (11/10/2023 10:50 AM CDT) Aspartate Aminotransferase (AST), S 18 8 - 43 U/L 11/10/2023 11:49 AM CDT DTL Blood (Blood, Venous) 11/10/2023 10:50 AM CDT 11/10/2023 11:24 AM CDT Alexandra Lopez APRN, James.N.P., D.N.P. LAB B LOOD ADD-ON Performing Organization Address City/[facility]/ZIP Co de Phone Number [facility] 200 [place], [place] [address] 200 [place] [address] * Creatinine with Estimated GFR (11/10/2023 10:50 [...] B LOOD ADD-ON [facility] 200 [place], [place] [address] 200 [place] [address] * CT Chest without IV Contrast (10/29/2023 [...] nodules of varying density are present bilaterally. Radiator Core Tester lung nodules include: * ??6 mm, solid, [...] lung nodulesof varying density are present bilaterally. Radiator Core Tester lung nodulesinclude: * 6 mm, solid, posterior right upper lobe, (series 3, image 132). * Less than 3 mm, solid, anterior right upper lobe, (series 3, [id number]). * 4 mm, sub-solid, central right upper lobe, (series 3, image 260). * 3 mm, solid, superior segment right lower lobe, (series 3, [id number]). Smaller solid nodules are present in the [...] and mild bronchial wallthickening Jessica Whitt M.D. IMStevo CT PROCEDURES * DX Chest AP or [...] No CT evidence of metastatic disease. Anders DE LA FUENTE CT PROCEDURES * BI Breast Screening Bilateral (04/21/2008 9:55 AM TAR LEVELER) Anatomical Region Laterality Modality Breast Bilateral Mammography 04/21/2008 9:55 AM TAR LEVELER Impressions 04/25/2008 12:59 PM TAR LEVELER ACR BIRADS Category No. 1, negative. A letter has been sent to the patient. This study was evaluated with the assistance of CAD (R2 v5.3). ?? Broderick Treadwell M.D. ? Electronically signed by: ?? no valid signature 25-Apr-2008 12:59 Narrative 04/25/2008 12:59 PM TAR LEVELER 21-Apr-2008 09:55:00 ??Exam: Mammo Screen Bilat Indications: ?? ORIGINAL REPORT - 25-Apr-2008 12:59:[address] [facility] exam was historically loaded. BILATERAL SCREENING MAMMOGRAM: ?? Breast symptoms: None. Previous mammography: 2006 and 2004. ?? Breast parenchyma: Extremely dense. ?? Comment: No significant change. ?? IMAGING Procedure Note Broderick Treadwell M.D. - 09/08/2017 21-Apr-2008 09:55:00 Exam: Mammo Screen Bilat Indications: ORIGINAL REPORT - 25-Apr-2008 12:59:[address] [facility] ([facility]) exam was historically loaded. BILATERAL SCREENING [...] valid signature 25-Apr-2008 12:59 Karen Johnson M.D. IMG BI PROCEDUR ES from Last 3 Months or Most Recently Relevant to Health Maintenance Additional Health Concerns Infection Onset Date Last Indicated Protective Environment 10/10/2022 3 Care Teams Mat Weaver Relationship Specialty Start Date End Date Elsewhere, Pcp PCP - General 05/22/18
--- OUTSIDE RECORDS SUMMARY | 2023-12-19 17:13 | XMS_ITS | Encounter Summary ---
Author Organization [facility] Address [address] [place] [address] Care Team Providers Care Registered Nurse First Assistant Name Role Phone Elsewhere, Pcp Primary Care Provider Unavailabl e Reason for Referral * MRI/CAT/PET Scan (Routine) - Closed Specialty Diagnoses / Procedures Referred By Florian cazares Referred To Contact Radiology Diagnoses Mass Kidney Kidney And Ureter Disorder Procedures CT Abdomen Pelvis with IV Contrast CT Abdomen Pelvis without and with IV Contrast Anders Bowens M.D. [facility] Referral ID Status Reason Start Date Expiration Date Visits Re quested Visits Authorized [id number] Closed 07/14/2023 07/13/2024 1 1 Reason for Visit * MRI/CAT/PET Scan (Routine) - Closed Specialty Diagnoses / Procedures Referred By Florian cazares Referred To Contact Radiology Diagnoses Mass Kidney Kidney And Ureter Disorder Procedures CT Abdomen Pelvis with IV Contrast CT Abdomen Pelvis without and with IV Contrast Anders Bowens M.D. [facility] Referral ID Status Reason Start Date Expiration Date Visits Re quested Visits Authorized [id number] Closed 07/14/2023 07/13/2024 1 1 Encounter Details Date Type Department Care Team (Latest Contact Info) Description 10/17/2023 8:32 AM CDT - 10/17/2023 9:27 AM CDT Hospital Encounter Department of Radiology, [facility], in [place], [place] [address] [place] [address] Anders Bowens M.D. Mass Kidney; Kidney And Ureter Disorder Discharge Disposition: Home or Self Care Social History Tobacco Use Types Packs/Day Years Used Date Smoking Tobacco: Former Cigarettes Q uit: 09/15/1998 Passive Smoke Exposure: Past Smokeless Tobacco: Never Alcohol Use Standard Drinks/Week Comments Yes 6 (1 standard drink = 0.6 oz pur e alcohol) [facility] Utilities Answer Date Recorded In [...] How often do you attend chur or mandaen services? Patient declined 07/13/2022 Do you belong to any clubs o r organizations such as alevism groups, unions, fraternal or athletic groups, or [...] and heating? Patient declined 07/13/2022 [facility] - Occupational [...] your living situation today? [facility] 10/16/2023 Education Answer Date [...] Appointment Department of Laboratory Medicine and Pathology, [facility], in [place], [place] [address] [place] [address] Alexandra Lopez APRN, C.N.P., D.N.P. [address] [place] [address] documented as of this encounter Procedures Procedure Name Priority Date/Time Associated Diagnosis Comments CT ABDOMEN PELVIS WITH IV CONTRAST RAD - Routine (most inpatients and all outpatients) 10/17/2023 9:22 AM CDT Mass Kidney Kidney And Ureter Disorder documented in this encounter Results * CT Abdomen Pelvis with IV Contrast [...] disease. Anders [address] CT PROCEDURES documented in this encounter Visit Diagnoses Diagnosis Mass Kidney Kidney And Ureter Disorder documented in this encounter Administered Medications Inactive Administered Medications - up to 3 most recent administrations Medication Order MAR Action Action Date Dose Rate Site iohexoL 300 mg iodine/mL solution 1-200 mL (OMNIPAQUE) 1-200 mL, intravenous, Once in imaging, contrast, Starting on Fri10/17/23 at 0857, For 1 dose, Imaging Protocol Orders, Dose per Radiant Medication Guidelines Given 10/17/2023 9:16 AM CDT 140 mL sodium chloride (PF) 0.9 % injection 1-100 mL 1-100 mL, intravenous, Once, On Fri10/17/23 at 0915, For 1 dose, Imaging Protocol Orders, Dose per Radiant Medication Guidelines Given 10/17/2023 9:16 AM CDT 50 mL documented in this encounter Additional Health Concerns Infection Onset Date Last Indicated Resolved Time Protective Environment 10/10/2022 10/10/2022 documented as of this encounter Care Teams Registered Nurse First Assistant Relationship Specialty Start Date End Date Elsewhere, Pcp PCP - General 05/22/18 documented as of this encounter
--- OUTSIDE RECORDS SUMMARY | 2023-12-19 17:13 | XMS_ITS | Encounter Summary ---
Author Organization [facility] Address [address] [place] [address] Care Team Providers Care Shop Tailor Apprentice Name Role Phone Elsewhere, Pcp Primary Care Provider Unavailabl e Reason for Visit * Reason Onset Date Comments Pre-visit Intake 10/16/2023 Encounter Details Date Type Department Care Team (Latest Contact Info) Description 10/16/2023 8:15 AM CDT Clinical Communication Virtual Review in [place], [place] [address] [place] [address] Pre-visit Intake Social History Tobacco Use Types Packs/Day Years Used Date Smoking Tobacco: Former Cigarettes Q uit: 09/15/1998 Passive Smoke Exposure: Past Smokeless Tobacco: Never Tobacco Cessation:Counseling Given: Not Answered Alcohol Use Standard Drinks/Week Comments Yes 6 (1 standard drink = 0.6 oz pur e alcohol) [facility] Utilities Answer Date Recorded In the past 12 months has [facility] [employer], gas, oil, or water [employer] threatened to shut off services in your [...] How often do you attend chur or gnosticism services? Patient declined 07/13/2022 Do you belong to any clubs o r organizations such as oriental orthodox groups, [employer], fra[employer]ösler miniDa[employer] or athletic groups, or school groups? Patient [...] your living situation today? I have a [facility] place to live 10/16/2023 Education [...] Medicine and Pathology, [facility] in [place], [place] [address] [place] [address] Alexandra Lopez APRN, C.N.P., D.N.P. [address] [place] [address] documented as of this encounter Visit Diagnoses Not on filedocumented in this encounter Additional Health Concerns Infection Onset Date Last Indicated Resolved Time Protective Environment 10/10/2022 10/10/2022 documented as of this encounter Care Teams Shop Tailor Apprentice Relationship Specialty Start Date End Date Elsewhere, Pcp PCP - General 05/22/18 documented as of this encounter
--- OUTSIDE RECORDS SUMMARY | 2023-12-19 17:13 | XMS_ITS | Encounter Summary ---
Author Organization [facility] Address [address] [place] [address] Care Team Providers Care Engine Boss Name Role Phone Elsewhere, Pcp Primary Care Provider Unavailabl e Reason for Visit * Reason Comments Med Refill Encounter Details Date Type Department Care Team (Late st Contact Info) Description 09/23/2023 Refill Division of Rheumatology in [place], [place] [address] [place] [phone] Alexandra Lopez, FRESH MEAT GRADER, C.N.P., D.N.P. [address] [place] [phone] Med Refill Social History Tobacco Use Types [...] often do you attend chur ch or sikhism services? Patient declined 07/13/2022 Do you belong to any clubs o r organizations such as lutheran groups, unions, fraternal or athletic groups, or [...] and heating? Patient declined 07/13/2022 [facility] - Occupational Stress Questionnaire Answer Date [...] Notes * Telephone Encounter - Raiza Canada RCodyN. - 09/25/2023 2:29 PM CDT Prescription renewal request for methotrexate received from pharmacy. HISTORY OF PRESENT ILLNESS Last Rheum / VASC visit: 05/09/23 with Alexandra Lopez APRN, CNP Future office visit: 11/10/23 Last monitoring labs: 08/13/23: results within parameters Prescription request matches current plan of care. [...] Appointment Department of Laboratory Medicine and Pathology, [facility] in [place], [place] [address] [place] [phone] Alexandra Lopez APRN, C.N.P., D.N.P. [address] [place] [phone] documented as of this encounter Visit Diagnoses Diagnosis Arthritis Rheumatoid (HCC) documented in this encounter Additional Health Concerns Infection Onset Date Last Indicated Resolved Time Protective Environment 10/10/2022 10/10/2022 documented as of this encounter Care Teams Engine Boss Relationship Specialty Start Date End Date Elsewhere, Pcp PCP - General 05/22/18 documented as of this encounter
== END 2023-12-19 07:47 | disposition home or self-care (01) ==
LOC: NFLDREF 17:10
PROVIDERS: PCP Internal Medicine; Referring Provider Internal Medicine; Visit Provider Internal Medicine
DX: I10 Essential (primary) hypertension (principal); E03.9 Hypothyroidism, unspecified
CPT/HCPCS: 80048; 84443

== ENCOUNTER 2023-12-22 09:07 | Outpatient (CLI) | payer OTHER, SELFPAY ==
--- OUTSIDE RECORDS SUMMARY | 2023-12-22 09:09 | XMS_ITS | Referral Summary ---
Author Organization [facility] Address [address] [place] [address] Care Team Providers Care Mailing Machine Assistant Name Role Phone Elsewhere, Pcp Primary Care Provider Unavailabl e Source Comments Patient records contain information from all sites at [facility]. For routine questions regarding patient records, call [phone] during business hours, M-F 8:00 AM - 5:00 PM Central Time. Record requests for emergency care only can be directed to [phone] at any time.[facility] Encounters Date Type Department Care Team Description 12/05/2023 Orders Only Department of Urology in [place], [place] [address] [place] [phone] Jessica Whitt M.D. Nodules Pulmonary Multiple (Primary Dx) 12/01/2023 8:00 AM CDT Internal E-Consult Division of Pulmonary Medicine in [place], [place] [address] [place] [phone] Marciano Sheth M.D. Nodules Pulmonary Multiple 11/14/2023 Clinical Communication Primary Care on Demand at [address] [phone] Mj Adams M.D. 11/13/2023 Clinical Communication Division of Rheumatology in [place], [place] [address] [place] [phone] Veronica Benavides R.N. Lab Monitoring 11/10/2023 2:45 PM CDT Office Visit Division of Rheumatology in [place], [place] [address] [place] [phone] Alexandra Lopez APRN C.N.P., D.N.P. Arthritis Rheumatoid (HCC); High Risk Medication 11/10/2023 10:29 AM CDT - 11/10/2023 11:59 PM CDT Hospital Encounter Department of Laboratory Medicine and Pathology, [facility] in [place], [place] [address] [place] [phone] Alexandra Lopez APRN C.N.P., D.N.P. Arthritis Rheumatoid (HCC); High Risk Medication; Medication Therapy Detention Not Anticoagulant Discharge Disposition: Home or Self Care 11/07/2023 9:15 AM CDT Clinical Communication Virtual Review in [place], [place] 200 [place] [address] Pre-visit Intake 11/05/2023 Refill Division of Rheumatology in [place], [place] [address] [place] [phone] Alexandra Lopez APRN C.N.P., D.N.P. Med Refill 11/04/2023 Orders Only Department of Urology in [place], [place] [address] [place] [phone] Jessica Whitt M.D. Nodules Pulmonary Multiple (Primary Dx) 10/29/2023 10:03 AM CDT - 10/29/2023 11:59 PM CDT Hospital Encounter Department of Radiology, [facility] in [place], [place] [address] [place] [phone] Jessica Whitt M.D. Nodule Pulmonary Discharge Disposition: Home or Self Care 10/17/2023 9:28 AM CDT - 10/17/2023 11:59 PM CDT Hospital Encounter Department of Radiology, [facility], in [place], [place] [address] [place] [phone] Anders Bowens M.D. Mass Kidney Discharge Disposition: Home or Self Care 10/17/2023 2:30 PM CDT Office Visit Department of Urology in [place], [place] [address] [place] [phone] Rickey Gupta M.D. Kidney And Ureter Disorder (Primary Dx); Mass Kidney; Nodule Pulmonary 10/17/2023 8:32 AM CDT - 10/17/2023 9:27 AM CDT Hospital Encounter Department of Radiology, [facility], in [place], [place] [address] [place] [phone] Anders Bowens M.D. Mass Kidney; Kidney And Ureter Disorder Discharge Disposition: Home or Self Care 10/16/2023 8:15 AM CDT Clinical Communication Virtual Review in [place], [place] 200 [place] [address] Pre-visit Intake 09/23/2023 Refill Division of Rheumatology in [place], [place] [address] [place] [phone] Alexandra Lopez, ANTONIO, C.N.P., D.N.P. Med Refill [...] drink = 0.6 oz pur e alcohol) [facility] Utilities Answer Date Recorded In the past 12 months has [employer], gas, oil, or water [employer] threatened to shut off services in your [...] 07/13/2022 How often do you attend [facility] or alevism services? Patient declined 07/13/2022 Do you belong [...] declined 07/13/2022 [facility] - Occupational Stress Questionnaire Answer Date [...] your living situation today? I have a [facility] place to live 10/16/2023 Education Answer [...] Appointment Department of Laboratory Medicine and Pathology, [facility] in [place], [place] [address] [place] [address] Alexandra Lopez APRN, C.N.P., D.N.P. [address] [place] [address] Medical Devices Implanted Type Area Senior Genetic Counselor Device Identifier Shelf Expiration Date Model / Serial / Lot Knee Implant- 021 Implanted:06/09 (Quantity not on file) Knee Implant Bilatera l: Knee Description:Both joints were replaced. Procedures Procedure Name Priority Date/Time Associated Diagnosis Comments CREATININE WITH EGFR, S/P Routine 11/10/2023 10:50 AM CDT Medication Therapy Sports Book Board Attendant Not Anticoagulant ALANINE AMINOTRANSFERASE (ALT), S/P Routine 11/10/2023 10:50 AM CDT Medication Therapy Detention Not Anticoagulant ASPARTATE AMINOTRANSFERASE (AST), S/P Routine 11/10/2023 10:50 AM CDT Medication Therapy Detention Not Anticoagulant CBC WITH DIFFERENTIAL, B Routine 11/10/2023 10:50 AM CDT Medication Therapy Detention Not Anticoagulant C-REACTIVE PROTEIN (CRP), S/P Routine [...] BREAST SCREENING BILATERAL Routine 04/21/2008 9:55 AM VENEER JOINTER OPERATOR from Last 3 Months or Most Recently Relevant to Health Maintenance Results * Sedimentation Rate (11/10/2023 10:50 AM CDT) Sedimentation Rate, B 16 2 - 22 mm/h 11/10/2023 12:34 PM CDT DTL Blood (Blood, Venous) 11/10/2023 10:50 AM CDT 11/10/2023 11:13 AM CDT James Wallace APRN.N.P., Rober.N.P. LAB B JULITO ADD-ON [facility] 200 [place] [address], [facility] DTL [facility] 200 [place] [address] * (ABNORMAL) CBC with Differential, Blood (11/10/2023 [...] Wallace APRN.N.P., Rober.N.P. LAB B LOOD ADD-ON [facility] [place] 200 [place], [place] [phone] [place] [address] [address] [place], [place] [address] [place] [address] [address] [place] [address] * CRP (C-Reactive Protein) (11/10/2023 10:50 AM CDT) C-Reactive Protein (CRP), S 4.1 <5.0 mg/L 11/10/2023 11:49 AM CDT DTL Blood (Blood, Venous) 11/10/2023 10:50 AM CDT 11/10/2023 11:24 AM CDT Yonas Wallace APRNN.P., Rober.N.P. LAB B LOOD ADD-ON Performing Organization Address City/[facility]/ZIP Co de Phone Number [facility] [place] [address] [place], [place] [address] 200 [place] [address] * ALT (Alanine Aminotransferase) (11/10/2023 10:50 AM CDT) Alanine Aminotransferase (ALT), S 23 7 - 45 U/L 11/10/2023 11:49 AM CDT DTL Blood (Blood, Venous) 11/10/2023 10:50 AM CDT 11/10/2023 11:24 AM CDT James Wallace APRN.N.P., Rober.N.P. LAB B LOOD ADD-ON [facility] [place] 200 [place] [address], [facility] 200 [place] [address] * AST (Aspartate Aminotransferase) (11/10/2023 10:50 AM CDT) Aspartate Aminotransferase (AST), S 18 8 - 43 U/L 11/10/2023 11:49 AM CDT DTL Blood (Blood, Venous) 11/10/2023 10:50 AM CDT 11/10/2023 11:24 AM CDT Alexandra Lopez APRN, James.N.P., D.N.P. LAB B LOOD ADD-ON Performing Organization Address City/[facility]/ZIP Co de Phone Number [facility] [place] 200 [place], [place] [address] 200 [place] [address] * Creatinine with Estimated GFR (11/10/2023 10:50 AM CDT) Creatinine 0.85 0.59 - 1.04 mg/dL 11/10/2023 11:49 AM CDT DTL Estimated GFR (eGFR) 77 >=60 mL/min/BSA 11/10/2023 11:49 AM CDT DTL Comment: Estimated GFR calculated using the 2020 CKD_EPI creatinine equation. Blood (Blood, Venous) 11/10/2023 10:50 AM CDT 11/10/2023 11:24 AM CDT Alexandra Lopez APRN, C.N.P., D.N.P. LAB B LOOD ADD-ON [facility] [place] [address] [place], [place] [address] 200 [place] [address] * CT Chest without IV Contrast (10/29/2023 [...] nodules of varying density are present bilaterally. Water Conservationist lung nodules include: * ??6 mm, solid, [...] lung nodulesof varying density are present bilaterally. Water Conservationist lung nodulesinclude: * 6 mm, solid, posterior right upper lobe, (series 3, image 132). * Less than 3 mm, solid, anterior right upper lobe, (series 3, [id number]). * 4 mm, sub-solid, central right upper lobe, (series 3, image 260). * 3 mm, solid, superior segment right lower lobe, (series 3, [id number]). Smaller solid nodules are present in the [...] BI Breast Screening Bilateral (04/21/2008 9:55 AM VENEER JOINTER OPERATOR) Anatomical Region Laterality Modality Breast Bilateral Mammography 04/21/2008 9:55 AM VENEER JOINTER OPERATOR Impressions 04/25/2008 12:59 PM VENEER JOINTER OPERATOR ACR BIRADS Category No. 1, negative. A letter has been sent to the patient. This study was evaluated with the assistance of CAD (R2 v5.3). ?? Broderick Treadwell M.D. ? Electronically signed by: ?? no valid signature 25-Apr-2008 12:59 Narrative 04/25/2008 12:59 PM VENEER JOINTER OPERATOR 21-Apr-2008 09:55:00 ??Exam: Mammo Screen Bilat Indications: ?? ORIGINAL REPORT - 25-Apr-2008 12:59:00 This [facility] ([facility]) exam was historically loaded. BILATERAL SCREENING MAMMOGRAM: ?? Breast symptoms: None. Previous mammography: 2006 and 2004. ?? Breast parenchyma: Extremely dense. ?? Comment: No significant change. ?? IMAGING Procedure Note Broderick Treadwell M.D. - 09/08/2017 21-Apr-2008 09:55:00 Exam: Mammo Screen Bilat Indications: ORIGINAL REPORT - 25-Apr-2008 12:59:00 This [facility] ([facility]) exam was historically loaded. BILATERAL SCREENING [...] Indicated Protective Environment 10/10/2022 3 Care Teams Mailing Machine Assistant Relationship Specialty Start Date End Date Elsewhere, Pcp PCP - General 05/22/18
--- OUTSIDE RECORDS SUMMARY | 2023-12-22 09:09 | XMS_ITS ---
Author Organization [facility] Address [address] [place] [address] Care Team Providers Care Carton Stenciler Name Role Phone Unavailable Unavailable Unavailable Surgery Details Not on file Complications Check Surgery Details section. Procedure Estimated Blood Loss Check Surgery Details section. Procedure Findings Check Surgery Details section. Procedure Specimens Taken Check Surgery Details section.
--- OUTSIDE RECORDS SUMMARY | 2023-12-22 09:09 | XMS_ITS | Encounter Summary ---
Author Organization [facility] Address [address] [place] [address] Care Team Providers Care Catcher Helper Name Role Phone Elsewhere, Pcp Primary Care Provider Unavailabl e Reason for Referral * MRI/CAT/PET Scan (Routine) - Authorized Specialty Diagnoses / Procedures Referred By Florian t Referred To Contact Radiology Diagnoses Nodules Pulmonary Multiple Procedures CT Chest without IV Contrast Jessica Whitt M.D. [address] [place] [phone] [facility] Referral ID Status Reason Start Date Expiration Date V isits Requested Visits Authorized [id number] Authorized 12/05/2023 12/04/2024 1 1 Encounter Details Date Type Department Care Team (Late st Contact Info) Description 12/05/2023 Orders Only Department of Urology in [place], [place] [address] [place] [phone] Jessica Whitt M.D. [address] [place] [phone] Nodules Pulmonary Multiple (Primary Dx) Social History Tobacco Use Types Packs/Day Years Used Date Smoking Tobacco: Former Cigarettes Q uit: 09/15/1998 Passive Smoke Exposure: Past Smokeless Tobacco: Never Alcohol Use Standard Drinks/Week Comments Yes 6 (1 standard drink = 0.6 oz pur e alcohol) [facility] Utilities Answer Date Recorded In the [...] often do you attend chur ch or orthodoxy services? Patient declined 07/13/2022 Do you belong [...] medical care, and heating? Patient declined 07/13/2022 [facility] - Occupational [...] your living situation today? I have a [facility] place to live 10/16/2023 Education Answer [...] Appointment Department of Laboratory Medicine and Pathology, [facility] in [place], [place] [address] [place] [address] Alexandra Lopez, ANTONIO, C.N.P., D.N.P. [address] [place] [address] Scheduled Orders Name Type Priority Associated Diagnoses [...] documented as of this encounter Care Teams Catcher Helper Relationship Specialty Start Date End Date Elsewhere, Pcp PCP - General 05/22/18 documented as of this encounter
--- OUTSIDE RECORDS SUMMARY | 2023-12-22 09:09 | XMS_ITS | Clinical Summary ---
Author Organization [facility] Address [address] [place] [address] Care Team Providers Care Source Water Protection Specialist Name Role Phone Elsewhere, Pcp Primary Care Provider Unavailabl e Source Comments Patient records contain information from all sites at [facility]. For routine questions regarding patient records, call [phone] during business hours, M-F 8:00 AM - 5:00 PM Central Time. Record requests for emergency care only can be directed to [phone] at any time.[facility] Allergies Active Allergy Reactions Criticality Noted Date [...] 12/05/2023 Orders Only Department of Urology in [place], [place] [address] [place] [address] Jessica Whitt M.D. Nodules Pulmonary Multiple (Primary Dx) 12/01/2023 8:00 AM CDT Internal E-Consult Division of Pulmonary Medicine in [place], [place] [address] [place] [address] Marciano Sheth M.D. Nodules Pulmonary Multiple 11/14/2023 Clinical Communication Primary Care on Demand at [address] [phone] Mj Adams M.D. 11/13/2023 Clinical Communication Division of Rheumatology in [place], [place] [address] [place] [address] Veronica Benavides, Dmitriy Lab Monitoring 11/10/2023 2:45 PM CDT Office Visit Division of Rheumatology in [place], [place] [address] [place] [phone] Alexandra Lopez, ANTONIO, C.N.P., D.N.P. Arthritis Rheumatoid (HCC); High Risk Medication 11/10/2023 10:29 AM CDT - 11/10/2023 11:59 PM CDT Hospital Encounter Department of Laboratory Medicine and Pathology, [facility], in [place], [place] [address] [place] [address] Alexandra Lopez APRN C.N.P., D.N.P. Arthritis Rheumatoid (HCC); High Risk Medication; Medication Therapy Sports Announcer Not Anticoagulant Discharge Disposition: Home or Self Care 11/07/2023 9:15 AM CDT Clinical Communication Virtual Review in [place], [place] 200 [place] [address] Pre-visit Intake 11/05/2023 Refill Division of Rheumatology in [place], [place] [address] [place] [phone] Alexandra Lopez APRN C.N.P., D.N.P. Med Refill 11/04/2023 Orders Only Department of Urology in [place], [place] [address] [place] [phone] Jessica Whitt M.D. Nodules Pulmonary Multiple (Primary Dx) 10/29/2023 10:03 AM CDT - 10/29/2023 11:59 PM CDT Hospital Encounter [place] [address] [place] [phone] Jessica Whitt M.D. Nodule Pulmonary Discharge Disposition: Home or Self Care 10/17/2023 2:30 PM CDT Office Visit Department of Urology in [address] [phone] Rickey Gupta M.D. Kidney And Ureter Disorder (Primary Dx); Mass Kidney; Nodule Pulmonary 10/17/2023 9:28 AM CDT - 10/17/2023 11:59 PM CDT Hospital Encounter Department of Radiology, [facility] in [place], [place] [address] [place] [phone] Anders Bowens M.D. Mass Kidney Discharge Disposition: Home or Self Care 10/17/2023 8:32 AM CDT - 10/17/2023 9:27 AM CDT Hospital Encounter Department of Radiology, [facility], in [place], [place] [address] [place] [phone] Anders Bowens M.D. Mass Kidney; Kidney And Ureter Disorder Discharge Disposition: Home or Self Care 10/16/2023 8:15 AM CDT Clinical Communication Virtual Review in [place], [place] [address] [place] [phone] Pre-visit Intake 09/23/2023 Refill Division of Rheumatology in [place], [place] [address] [place] [address] Alexandra Lopez, ANTONIO, C.N.P., D.N.P. Med Refill [...] drink = 0.6 oz pur e alcohol) [facility] Utilities Answer Date Recorded In the past 12 months has [facility] [employer], gas, oil, or water [employer] threatened to shut off services in your [...] often do you attend chur ch or sikh services? Patient declined 07/13/2022 Do you belong to any clubs o r organizations such as islam groups, unions, fraHexaformer or athletic groups, or school groups? Patient [...] medical care, and heating? Patient declined 07/13/2022 [facility] - [...] your living situation today? I have a [facility] place to live 10/16/2023 Education [...] Appointment Department of Laboratory Medicine and Pathology, [facility], in [place], [place] [address] [place] [phone] Alexandra Lopez APRN, C.N.P., D.N.P. [address] [place] [phone] Health Maintenance Due Date Last Done Comments [...] this topic Medical Devices Implanted Type Area Automobile Mechanic Helper Device Identifier Shelf Expiration Date Model / Serial / Lot Knee Implant-1/11/2 021 Implanted:06/09 (Quantity not on file) Knee Implant Bilatera l: Knee Description:Both joints were replaced. Procedures Procedure Name Priority Date/Time Associated Diagnosis Comments CREATININE WITH EGFR, S/P Routine 11/10/2023 10:50 AM CDT Medication Therapy Sports Announcer Not Anticoagulant ALANINE AMINOTRANSFERASE (ALT), S/P Routine [...] BREAST SCREENING BILATERAL Routine 04/21/2008 9:55 AM THREAD INSPECTOR from Last 3 Months or Most Recently Relevant to Health Maintenance Results * Sedimentation Rate (11/10/2023 10:50 AM CDT) Sedimentation Rate, B 16 2 - 22 mm/h 11/10/2023 12:34 PM CDT DTL Blood (Blood, Venous) 11/10/2023 10:50 AM CDT 11/10/2023 11:13 AM CDT Alexandra Lopez APRN C.N.P., Rober.N.P. LAB B LOOD ADD-ON [facility] [address] [place] [address], [facility] DTL [facility] [address] [place] [address] * (ABNORMAL) CBC with Differential, Blood (11/10/2023 [...] LAB B LOOD ADD-ON Performing Organization Address City/[facility] Co de Phone Number [facility] 200 [place], [place] [phone] [place] [address] 200 [place] [address] * CRP (C-Reactive Protein) (11/10/2023 10:50 AM CDT) C-Reactive Protein (CRP), S 4.1 <5.0 mg/L 11/10/2023 11:49 AM CDT DTL Blood (Blood, Venous) 11/10/2023 10:50 AM CDT 11/10/2023 11:24 AM CDT James Wallace APRN.N.P., D.N.P. LAB B LOOD ADD-ON Performing Organization Address City/[facility] Co de Phone Number [facility] 200 [place], [place] [phone] [place] [address] 200 [place] [address] * ALT (Alanine Aminotransferase) (11/10/2023 10:50 AM CDT) Alanine Aminotransferase (ALT), S 23 7 - 45 U/L 11/10/2023 11:49 AM CDT DTL Blood (Blood, Venous) 11/10/2023 10:50 AM CDT 11/10/2023 11:24 AM CDT Yonas Wallace APRNN.P., Rober.N.P. LAB B LOOD ADD-ON [facility] [address] 200 [place] [address] * AST (Aspartate Aminotransferase) (11/10/2023 10:50 AM CDT) Aspartate Aminotransferase (AST), S 18 8 - 43 U/L 11/10/2023 11:49 AM CDT DTL Blood (Blood, Venous) 11/10/2023 10:50 AM CDT 11/10/2023 11:24 AM CDT James Wallace APRN.N.P., D.N.P. LAB B LOOD ADD-ON Performing Organization Address [facility] Co de Phone Number [facility] [address] [facility] 200 [place] [address] * Creatinine with Estimated GFR (11/10/2023 10:50 AM CDT) Creatinine 0.85 0.59 - 1.04 mg/dL 11/10/2023 11:49 AM CDT DTL Estimated GFR (eGFR) 77 >=60 mL/min/BSA 11/10/2023 11:49 AM CDT DTL Comment: Estimated GFR calculated using the 2020 CKD_EPI creatinine equation. Blood (Blood, Venous) 11/10/2023 10:50 AM CDT 11/10/2023 11:24 AM CDT James Wallace APRN.N.P., D.N.P. LAB B LOOD ADD-ON Performing Organization Address City/[facility]/ZIP Co de Phone Number [facility] [address] DTL [facility] [address] * CT Chest without IV Contrast (10/29/2023 [...] nodules of varying density are present bilaterally. Application Integration Specialist lung nodules include: * ??6 mm, solid, [...] lung nodulesof varying density are present bilaterally. Application Integration Specialist lung nodulesinclude: * 6 mm, solid, posterior right upper lobe, (series 3, image 132). * Less than 3 mm, solid, anterior right upper lobe, (series 3, ). * 4 mm, sub-solid, central right upper lobe, (series 3, image 260). * 3 mm, solid, superior segment right lower lobe, (series 3, ). Smaller solid nodules are present in the [...] BI Breast Screening Bilateral (04/21/2008 9:55 AM THREAD INSPECTOR) Anatomical Region Laterality Modality Breast Bilateral Mammography 04/21/2008 9:55 AM THREAD INSPECTOR Impressions 04/25/2008 12:59 PM THREAD INSPECTOR ACR BIRADS Category No. 1, negative. A letter has been sent to the patient. This study was evaluated with the assistance of CAD (R2 v5.3). ?? Broderick Treadwell M.D. ? Electronically signed by: ?? no valid signature 25-Apr-2008 12:59 Narrative 04/25/2008 12:59 PM THREAD INSPECTOR 21-Apr-2008 09:55:00 ??Exam: Mammo Screen Bilat Indications: ?? ORIGINAL REPORT - 25-Apr-2008 12:59:00 This [facility] ([facility]) exam was historically loaded. BILATERAL SCREENING MAMMOGRAM: ?? Breast symptoms: None. Previous mammography: 2006 and 2004. ?? Breast parenchyma: Extremely dense. ?? Comment: No significant change. ?? IMAGING Procedure Note Broderick Treadwell M.D. - 09/08/2017 21-Apr-2008 09:55:00 Exam: Mammo Screen Bilat Indications: ORIGINAL REPORT - 25-Apr-2008 12:59:00 This [facility] ([facility]) exam was historically loaded. BILATERAL [...] valid signature 25-Apr-2008 12:59 Karen Johnson M.D. [facility] BI YOUSUF ES from Last 3 Months or Most Recently Relevant to Health Maintenance Additional Health Concerns Infection Onset Date Last Indicated Protective Environment 10/10/2022 3 Care Teams Source Water Protection Specialist Relationship Specialty Start Date End Date Elsewhere, Pcp PCP - General 05/22/18
--- OUTSIDE RECORDS SUMMARY | 2023-12-22 09:09 | XMS_ITS | Clinical Summary ---
Author Organization [facility] Address [place], [place] [address] Care Team Providers Care Letterpress Setter Name Role Phone [facility] Primary Care Provider Unavailable Allergies [...] Comments Blood Pressure 147/86 07/11/2015 2:42 PM [facility] Pulse 92 07/11/2015 2:42 PM [facility] Temperature 36.4 ??C (97.6 ??F) 03/17/2009 8:12 AM CD T Respiratory Rate - - Oxygen Saturation 98% 07/11/2015 2:42 PM [facility] Inhaled Oxygen Concentration - - Weight 86.5 kg (190 lb 9.6 oz) 07/11/2015 2:42 P M [facility] Height - - Body Mass Index - [...] age to complete this topic Care Teams Letterpress Setter Relationship Specialty Start Date End Date [place], [facility] PCP - General 09/01/08
--- OUTSIDE RECORDS SUMMARY | 2023-12-22 09:10 | XMS_ITS | Encounter Summary ---
Author Organization [facility] Address [address] [place] [address] Care Team Providers Care Director Educational Radio Name Role Phone Elsewhere, Pcp Primary Care Provider Unavailabl e Encounter Details Date Type Department Care Team (Latest Contact Info) Description 11/10/2023 10:29 AM CDT - 11/10/2023 11:59 PM CDT Hospital Encounter Department of Laboratory Medicine and Pathology, [facility] in [place], [place] [address] [place] [phone] Alexandra Lopez, ANTONIO, C.N.P., D.N.P. [address] [place] [phone] Arthritis Rheumatoid (HCC); High Risk Medication; Medication Therapy Residential Not Anticoagulant Discharge Disposition: Home or Self [...] week 07/13/2022 How [facility] do you attend [facility] or [facility] services? Patient declined 07/13/2022 Do you belong [...] your living situation today? I have a [facility] place to live 10/16/2023 Education Answer [...] Appointment Department of Laboratory Medicine and Pathology, [facility] in [place], [place] [address] [place] [phone] Alexandra Lopez, BEHAVIORAL HEALTH CARE MANAGER, C.N.P., D.N.P. [address] [place] [phone] documented as of this encounter Procedures Procedure Name Priority Date/Time Associated Diagnosis Comments SEDIMENTATION RATE, B Routine 11/10/2023 10:50 AM CDT Arthritis Rheumatoid (HCC) High Risk Medication CBC WITH DIFFERENTIAL, B Routine 11/10/2023 10:50 AM CDT Medication Therapy Regulatory Technician Not Anticoagulant C-REACTIVE PROTEIN (CRP), S/P Routine 11/10/2023 10:50 AM CDT Arthritis Rheumatoid (HCC) High Risk Medication ALANINE AMINOTRANSFERASE (ALT), S/P Routine 11/10/2023 10:50 AM CDT Medication Therapy Regulatory Technician Not Anticoagulant ASPARTATE AMINOTRANSFERASE (AST), S/P Routine 11/10/2023 10:50 AM CDT Medication Therapy Regulatory Technician Not Anticoagulant CREATININE WITH EGFR, S/P Routine 11/10/2023 10:50 AM CDT Medication Therapy Residential Not Anticoagulant documented in this encounter Results [...] City/[facility]/ZIP Co de Phone Number [facility] 200 [place] [address] * ALT (Alanine Aminotransferase) (11/10/2023 10:50 AM CDT) [facility] Alanine Aminotransferase (ALT), S 23 7 - 45 U/L 11/10/2023 11:49 AM CDT DT Blood (Blood, Venous) 11/10/2023 10:50 AM CDT 11/10/2023 11:24 AM CDT Alexandra Lopez APRN, C.N.P., D.N.P. LAB B LOOD ADD-ON Performing Organization Address City/[facility]/ZIP Co de Phone Number [facility] 200 [place] [address] * AST (Aspartate Aminotransferase) (11/10/2023 10:50 AM CDT) Pathologist [facility] Aspartate Aminotransferase (AST), S 18 8 - 43 U/L 11/10/2023 11:49 AM CDT DTL Blood (Blood, Venous) 11/10/2023 10:50 AM CDT 11/10/2023 11:24 AM CDT Alexandra Lopez APRN C.N.P., D.N.P. LAB B LOOD ADD-ON [facility] [address] [place] [address], [facility] DTL [facility] [address] [place] [address] * (ABNORMAL) CBC with Differential, Blood (11/10/2023 10:50 AM CDT) Pathologist [facility] Hemoglobin 13.0 11.6 - 15.0 g/dL 11/10/2023 [...] City/[facility]/ZIP Co de Phone Number [facility] 200 [place] [address], [facility] 200 [place], [place] [phone] [place] [address] 200 [place] [address] * CRP (C-Reactive Protein) (11/10/2023 10:50 AM CDT) Pathologist [facility] C-Reactive Protein (CRP), S 4.1 <5.0 mg/L 11/10/2023 11:49 AM CDT DTL Blood (Blood, Venous) 11/10/2023 10:50 AM CDT 11/10/2023 11:24 AM CDT James Wlalace APRN.N.P., D.N.P. LAB B LOOD ADD-ON Performing Organization Address City/[facility]/ZIP Co de Phone Number [facility] 200 [place] [address], [facility] 200 [place] [address] * Sedimentation Rate (11/10/2023 10:50 AM CDT) Sedimentation Rate, B 16 2 - 22 mm/h 11/10/2023 12:34 PM CDT DTL Blood (Blood, Venous) 11/10/2023 10:50 AM CDT 11/10/2023 11:13 AM CDT Alexandra Lopez APRN, C.N.P., D.N.P. LAB B JULITO ADD-ON [facility] [address] [place] [address], [facility] [address] [place] [address] documented in this encounter Visit Diagnoses Diagnosis Arthritis Rheumatoid (HCC) High Risk Medication Medication Therapy Regulatory Technician Not Anticoagulant documented in this encounter Additional Health Concerns Infection Onset Date Last Indicated Resolved Time Protective Environment 10/10/2022 10/10/2022 documented as of this encounter Care Teams Director Educational Radio Relationship Specialty Start Date End Date Elsewhere, Pcp PCP - General 05/22/18 documented as of this encounter
--- OUTSIDE RECORDS SUMMARY | 2023-12-22 09:10 | XMS_ITS | Encounter Summary ---
Author Organization [facility] Address [address] [place] [address] Care Team Providers Care Testing Specialist Name Role Phone Elsewhere, Pcp Primary Care Provider Unavailabl e Encounter Details Date Type Department Care Team (Late st Contact Info) Description 11/14/2023 Clinical Communication Primary Care on Demand at [facility] [address] [place] [address] Mj Adams M.D. [address] [place] [address] Social History Tobacco Use Types Packs/Day Years Used Date Smoking Tobacco: Former Cigarettes Q uit: 09/15/1998 Passive Smoke Exposure: Past Smokeless Tobacco: Never Alcohol Use Standard Drinks/Week Comments Yes 6 (1 standard drink = 0.6 oz pur e alcohol) [facility] Utilities Answer Date Recorded In the past 12 months has [facility] [employer], gas, oil, or water [employer] threatened to shut off services in your [...] How often do you attend chur or judaism services? Patient declined 07/13/2022 Do [...] medical care, and heating? Patient declined 07/13/2022 [facility] - Occupational Stress Questionnaire [...] your living situation today? I have a [facility] place to live 10/16/2023 Education Answer [...] Appointment Department of Laboratory Medicine and Pathology, [facility] in [place], [place] [address] [place] [address] Alexandra Lopez APRN, C.N.P., D.N.P. [address] [place] [address] documented as of this encounter Visit Diagnoses Not on filedocumented in this encounter Additional Health Concerns Infection Onset Date Last Indicated Resolved Time Protective Environment 10/10/2022 10/10/2022 documented as of this encounter Care Teams Testing Specialist Relationship Specialty Start Date End Date Elsewhere, Pcp PCP - General 05/22/18 documented as of this encounter
--- OUTSIDE RECORDS SUMMARY | 2023-12-22 09:10 | XMS_ITS | Encounter Summary ---
Author Organization [facility] Address [address] [place] [address] Care Team Providers Care Investigative Shopper Name Role Phone Elsewhere, Pcp Primary Care Provider Unavailabl e Reason for Visit * Reason Comments Med Refill Encounter Details Date Type Department Care Team (Late st Contact Info) Description 09/23/2023 Refill Division of Rheumatology in [place], [place] [address] [place] [phone] Alexandra Lopez, LEMON GROWER, C.N.P., D.N.P. [address] [place] [phone] Med Refill Social History Tobacco Use Types [...] often do you attend chur ch or christianity services? Patient declined 07/13/2022 Do you belong to any clubs o r organizations such as congregation groups, unions, fraternal or athletic groups, or [...] and heating? Patient declined 07/13/2022 [facility] - Occupational Stress Questionnaire Answer Date [...] Appointment Department of Laboratory Medicine and Pathology, [facility] in [place], [place] [address] [place] [phone] Alexandra Lopez APRN, C.N.P., D.N.P. [address] [place] [phone] documented as of this encounter Visit Diagnoses Diagnosis Arthritis Rheumatoid (HCC) documented in this encounter Additional Health Concerns Infection Onset Date Last Indicated Resolved Time Protective Environment 10/10/2022 10/10/2022 documented as of this encounter Care Teams Investigative Shopper Relationship Specialty Start Date End Date Elsewhere, Pcp PCP - General 05/22/18 documented as of this encounter
--- OUTSIDE RECORDS SUMMARY | 2023-12-22 09:10 | XMS_ITS | Encounter Summary ---
Author Organization [facility] Address [address] [place] [address] Care Team Providers Care Pack Out Operator Name Role Phone Elsewhere, Pcp Primary Care Provider Unavailabl e Reason for Visit * Reason Comments Med Refill Encounter Details Date Type Department Care Team (Late st Contact Info) Description 11/05/2023 Refill Division of Rheumatology in [place], [place] [address] [place] [phone] Alexandra Lopez, PEDIATRICIAN, C.N.P., D.N.P. [address] [place] [phone] Med Refill Social History Tobacco Use Types Packs/Day Years Used Date Smoking Tobacco: Former Cigarettes Q uit: 09/15/1998 Passive Smoke Exposure: Past Smokeless Tobacco: Never Alcohol Use Standard Drinks/Week Comments Yes 6 (1 standard drink = 0.6 oz pur e alcohol) [facility] Utilities Answer Date Recorded In the past 12 months has e [employer], gas, oil, or water [employer] threatened to shut off services in your [...] How often do you attend chur or mu-ism services? Patient declined 07/13/2022 Do you belong [...] today? I have a [facility] place to live 10/16/2023 Education Answer [...] Appointment Department of Laboratory Medicine and Pathology, [facility] in [place], [place] [address] [place] [address] Alexandra Lopez APRN, C.N.P., D.N.P. [address] [place] [phone] documented as of this encounter Visit Diagnoses Diagnosis Arthritis Rheumatoid (HCC) documented in this encounter Additional Health Concerns Infection Onset Date Last Indicated Resolved Time Protective Environment 10/10/2022 10/10/2022 documented as of this encounter Care Teams Pack Out Operator Relationship Specialty Start Date End Date Elsewhere, Pcp PCP - General 05/22/18 documented as of this encounter
--- OUTSIDE RECORDS SUMMARY | 2023-12-22 09:10 | XMS_ITS | Encounter Summary ---
Author Organization [facility] Address [address] [place] [address] Care Team Providers Care District Director Name Role Phone Elsewhere, Pcp Primary Care Provider Unavailabl e Reason for Referral * MRI/CAT/PET Scan (Routine) - Closed Specialty Diagnoses / Procedures Referred By Florian cazares Referred To Contact Radiology Diagnoses Nodule Pulmonary Procedures CT Chest without IV Contrast Jessica Whitt M.D. [address] [place] [phone] [facility] Referral ID Status Reason Start Date Expiration Date Visits Re quested Visits Authorized [id number] Closed 10/17/2023 10/16/2024 1 1 Reason for Visit * MRI/CAT/PET Scan (Routine) - Closed Specialty Diagnoses / Procedures Referred By Florian cazares Referred To Contact Radiology Diagnoses Nodule Pulmonary Procedures CT Chest without IV Contrast Jessica Whitt M.D. 200 [place] [address] [facility] Referral ID Status Reason Start Date Expiration Date Visits Re quested Visits Authorized [id number] Closed 10/17/2023 10/16/2024 1 1 Encounter Details Date Type Department Care Team ([facility] st Contact Info) Description 10/29/2023 10:03 AM CDT - 10/29/2023 11:59 PM CDT Hospital Encounter Department of Radiology, [facility], in [place], [place] [address] [place] [phone] Jessica Whitt M.D. [address] [place] [address] Nodule Pulmonary Discharge Disposition: Home or Self Care Social History Tobacco Use Types Packs/Day Years Used Date Smoking Tobacco: Former Cigarettes Q uit: 09/15/1998 Passive Smoke Exposure: Past Smokeless Tobacco: Never Alcohol Use Standard Drinks/Week Comments Yes 6 (1 standard drink = 0.6 oz pur e alcohol) [facility] Utilities Answer Date Recorded In the [...] often do you attend chur ch or christian services? Patient declined 07/13/2022 Do [...] Appointment Department of Laboratory Medicine and Pathology, [facility], in [place], [place] [address] [place] [address] Alexandra Lopez, ANTONIO, C.N.P., D.N.P. [address] [place] [address] documented as of this encounter Procedures Procedure [...] nodules of varying density are present bilaterally. [employer] lung nodules include: * ??6 mm, solid, [...] lung nodulesof varying density are present bilaterally. [employer] lung nodulesinclude: * 6 mm, solid, posterior right upper lobe, (series 3, image 132). * Less than 3 mm, solid, anterior right upper lobe, (series 3, [id number]). * 4 mm, sub-solid, central right upper lobe, (series 3, image 260). * 3 mm, solid, superior segment right lower lobe, (series 3, [id number]). Smaller solid nodules are present in the [...] documented as of this encounter Care Teams District Director Relationship Specialty Start Date End Date Elsewhere, Pcp PCP - General 05/22/18 documented as of this encounter
--- OUTSIDE RECORDS SUMMARY | 2023-12-22 09:10 | XMS_ITS | Encounter Summary ---
Author Organization [facility] Address [address] [place] [address] Care Team Providers Care Brush Holder Assembler Name Role Phone Elsewhere, Pcp Primary Care Provider Unavailabl e Reason for Visit * Outpatient (Routine) - Closed Specialty Diagnoses / Procedures Referred By Florian cazares Referred To Contact Pulmonary Medicine Diagnoses Nodules Pulmonary Multiple Procedures Pulmonary Medicine - Pulmonary nodule(s) eConsult Jessica Whitt M.D. [address] [place] [phone] [facility] Referral ID Status Reason Start Date Expiration Date Visits Re quested Visits Authorized [id number] Closed 11/04/2023 11/03/2024 1 1 Encounter Details Date Type Department Care Team (Latest Contact Info) Description 12/01/2023 8:00 AM CDT Internal E-Consult Division of Pulmonary Medicine in [place], [place] [address] [place] [phone] Marciano Sheth M.D. [address] [place] [phone] Nodules Pulmonary Multiple Social History Tobacco Use Types Packs/Day Years Used Date Smoking Tobacco: Former Cigarettes Q uit: 09/15/1998 Passive Smoke Exposure: Past Smokeless Tobacco: Never Alcohol Use Standard Drinks/Week Comments Yes 6 (1 standard drink = 0.6 oz pur e alcohol) [facility] Utilities Answer Date Recorded In the past 12 months has [employer], gas, oil, or water company threatened [...] week 07/13/2022 How often do you attend [facility] or confucianism services? Patient declined 07/13/2022 Do you belong to any clubs o r organizations such as rastafari groups, unions, fraternal or athletic groups, or [...] medical care, and heating? Patient declined 07/13/2022 [facility] [place] of Occupat ional Health - Occupational Stress [...] Appointment Department of Laboratory Medicine and Pathology, [facility], in [place] [address] [place] [address] Alexandra Lopez APRN, C.N.P., D.N.P. [address] [place] [address] documented as of this encounter Visit Diagnoses Diagnosis Nodules Pulmonary Multiple documented in this encounter Additional Health Concerns Infection Onset Date Last Indicated Resolved Time Protective Environment 10/10/2022 10/10/2022 documented as of this encounter Care Teams Brush Holder Assembler Relationship Specialty Start Date End Date Elsewhere, Pcp PCP - General 05/22/18 documented as of this encounter
--- OUTSIDE RECORDS SUMMARY | 2023-12-22 09:10 | XMS_ITS | Encounter Summary ---
Author Organization [facility] Address [address] [place] [address] Care Team Providers Care Accounting Specialist Name Role Phone Elsewhere, Pcp Primary Care Provider Unavailabl e Reason for Visit * Reason Onset Date Comments Lab Monitoring 11/13/2023 Encounter Details Date Type Department Care Team (Latest Contact Info) Description 11/13/2023 Clinical Communication Division of Rheumatology in [place], [place] [address] [place] [address] Veronica Benavides, RCodyNCody Lab Monitoring Social History Tobacco Use Types Packs/Day Years Used Date Smoking Tobacco: Former Cigarettes Q uit: 09/15/1998 Passive Smoke Exposure: Past Smokeless Tobacco: Never Alcohol Use Standard Drinks/Week Comments Yes 6 (1 standard drink = 0.6 oz pur e alcohol) [facility] Utilities Answer Date Recorded In the past 12 months has [facility], gas, oil, or water [employer] threatened to shut off services in your [...] any clubs o r organizations such as christian groups, unions, fraternal or athletic groups, or [...] your living situation today? I have a [facility] place to live 10/16/2023 Education [...] Appointment Department of Laboratory Medicine and Pathology, [facility] in [place], [place] [address] [place] [address] Alexandra Lopez APRN, C.N.P., D.N.P. [address] [place] [address] Scheduled Orders Name Type Priority Associated Diagnoses Orde r Schedule CBC with Differential, Blood Lab Routine Medication Therapy Jail Not Anticoagulant Expected: 02/09/2024, Expires: 05/14/2024 AST (Aspartate Aminotransferase) Lab Routine Medication Therapy Jail Not Anticoagulant Expected: 02/09/2024, Expires: 05/14/2024 ALT (Alanine Aminotransferase) Lab Routine Medication Therapy Jail Not Anticoagulant Expected: 02/09/2024, Expires: 05/14/2024 Creatinine with Estimated GFR Lab Routine Medication Therapy Tile Layer Drainage Not Anticoagulant Expected: 02/09/2024, Expires: 05/14/2024 documented as of this encounter Visit Diagnoses Diagnosis Medication Therapy Tile Layer Drainage Not Anticoagulant- Primary documented in this encounter Additional Health Concerns Infection Onset Date Last Indicated Resolved Time Protective Environment 10/10/2022 10/10/2022 documented as of this encounter Care Teams Accounting Specialist Relationship Specialty Start Date End Date Elsewhere, Pcp PCP - General 05/22/18 documented as of this encounter
--- OUTSIDE RECORDS SUMMARY | 2023-12-22 09:10 | XMS_ITS | Encounter Summary ---
Author Organization [facility] Address [address] [place] [address] Care Team Providers Care Oil Well Gun Perforator Operator Name Role Phone Elsewhere, Pcp Primary Care Provider Uma e Reason for Referral * Outpatient (Routine) - Authorized Specialty Diagnoses / Procedures Referred By Florian cazares Referred To Contact Rheumatology Diagnoses Arthritis Rheumatoid (HCC) High Risk Medication Alexandra Lopez APRN, C.N.P., D.N.P. 200 [place] [address] [facility] Referral ID Status Reason Start Date Expiration Date V isits Requested Visits Authorized [id number] Authorized 11/10/2023 05/11/2025 1 1 Scheduling Instructions OK to schedule as video. Reason for Visit * Outpatient (Routine) - Closed Specialty Diagnoses / Procedures Referred By Florian cazares Referred To Contact Rheumatology Diagnoses Arthritis Rheumatoid (HCC) High Risk Medication Alexandra Lopez APRN, C.N.P., D.N.P. 200 [place] [address] [facility] Referral ID Status Reason Start Date Expiration Date Visits Re quested Visits Authorized [id number] Closed 05/09/2023 05/08/2026 1 1 Encounter Details Date Type Department Care Team (Latest Contact Info) Description 11/10/2023 2:45 PM CDT Office Visit Division of Rheumatology in [place], [place] [address] [place] [address] Alexandra Lopez, ANTONIO, C.N.P., D.N.P. 200 [place] [address] Arthritis Rheumatoid (HCC); High Risk Medication Social History Tobacco Use Types Packs/Day Years Used Date Smoking Tobacco: Former Cigarettes Q uit: 09/15/1998 Passive Smoke Exposure: Past Smokeless Tobacco: Never Alcohol Use Standard Drinks/Week Comments Yes 6 (1 standard drink = 0.6 oz pur e alcohol) [facility] Utilities Answer Date Recorded In the past 12 months has e [facility], gas, oil, or water [employer] threatened to shut off services in your [...] often do you attend chur ch or oriental orthodox services? Patient declined 07/13/2022 [...] medical care, and heating? Patient declined 07/13/2022 [facility] of Occupat ional [facility] - Occupational Stress Questionnaire Answer Date [...] Appointment Department of Laboratory Medicine and Pathology, [facility] in [place] [address] [place] [address] Alexandra Lopez APRN, C.N.P., D.N.P. [address] [place] [address] Scheduled Orders Name Type Priority Associated Diagnoses [...] documented as of this encounter Care Teams Oil Well Gun Perforator Operator Relationship Specialty Start Date End Date Elsewhere, Pcp PCP - General 05/22/18 documented as of this encounter
--- OUTSIDE RECORDS SUMMARY | 2023-12-22 09:10 | XMS_ITS | Encounter Summary ---
Author Organization [facility] Address [address] [place] [address] Care Team Providers Care Body Care Manager Name Role Phone Elsewhere, Pcp Primary Care Provider Unavailabl e Reason for Referral * Outpatient (Routine) - Authorized Specialty Diagnoses / Procedures Referred By Florian cazares Referred To Contact Urology Jessica Whitt M.D. [address] [place] [phone] Rickey Gupta M.D. [address] [place] [phone] Referral ID Status Reason Start Date Expiration Date V isits Requested Visits Authorized [id number] Authorized 10/17/2023 04/17/2025 1 1 * MRI/CAT/PET Scan (Routine) - Authorized Specialty Diagnoses / Procedures Referred By Contac t Referred To Contact Radiology Diagnoses Kidney And Ureter Disorder Procedures CT Abdomen Pelvis without and with IV Contrast Jessica Whitt M.D. [address] [place] [address] [facility] Referral ID Status Reason Start Date Expiration Date V isits Requested Visits Authorized [id number] Authorized 10/17/2023 10/16/2024 1 1 * MRI/CAT/PET Scan (Routine) - Closed Specialty Diagnoses / Procedures Referred By Florian t Referred To Contact Radiology Diagnoses Nodule Pulmonary Procedures CT Chest without IV Contrast Jessica Whitt M.D. [address] [place] [phone] [facility] Referral ID Status Reason Start Date Expiration Date Visits Re quested Visits Authorized [id number] Closed 10/17/2023 10/16/2024 1 1 Reason for Visit * Outpatient (Routine) - Closed Specialty Diagnoses / Procedures Referred By Florian cazares Referred To Contact Urology Anders Bowens M.D. Chow, George K, M.D. [address] [place] [phone] Referral ID Status Reason Start Date Expiration Date Visits Re quested Visits Authorized [id number] Closed 07/14/2023 01/12/2025 1 1 Encounter Details Date Type Department Care Team (Late st Contact Info) Description 10/17/2023 2:30 PM CDT Office Visit Department of Urology in [place], [place] [address] [place] [phone] Rickey Gupta M.D. [address] [place] [phone] Kidney And Ureter Disorder (Primary Dx); Mass Kidney; Nodule Pulmonary Social History Tobacco Use Types Packs/Day Years Used Date Smoking Tobacco: Former Cigarettes Q uit: 09/15/1998 Passive Smoke Exposure: Past Smokeless Tobacco: Never Alcohol Use Standard Drinks/Week Comments Yes 6 (1 standard drink = 0.6 oz pur e alcohol) [facility] Utilities Answer Date Recorded In the past 12 months has e [employer], gas, oil, or water [email or web address] threatened to shut off services in your [...] medical care, and heating? Patient declined 07/13/2022 [facility] - Occupational [...] your living situation today? I have a [facility] place to live 10/16/2023 Education [...] Laboratory Medicine and Pathology, [facility] in [place], [place] [address] [place] [phone] Alexandra Lopez, ANTONIO, C.N.P., D.N.P. [address] [place] [address] Scheduled Orders Name Type Priority Associated Diagnoses [...] nodules of varying density are present bilaterally. Management Information Systems Director lung nodules include: * ??6 mm, solid, [...] lung nodulesof varying density are present bilaterally. Management Information Systems Director lung nodulesinclude: * 6 mm, solid, posterior right upper lobe, (series 3, image 132). * Less than 3 mm, solid, anterior right upper lobe, (series 3, [id number]). * 4 mm, sub-solid, central right upper [...] documented as of this encounter Care Teams Body Care Manager Relationship Specialty Start Date End Date Elsewhere, Pcp PCP - General 05/22/18 documented as of this encounter
--- OUTSIDE RECORDS SUMMARY | 2023-12-22 09:10 | XMS_ITS | Encounter Summary ---
Author Organization [facility] Address [address] [place] [address] Care Team Providers Care Vulcanizing Machine Operator Name Role Phone Elsewhere, Pcp Primary Care Provider Unavailabl e Reason for Referral * Outpatient (Routine) - Closed Specialty Diagnoses / Procedures Referred By Florian cazares Referred To Contact Diagnoses Mass Kidney Procedures DX Chest AP or PA and Lateral 2 Views Anders Bowens M.D. [facility] Referral ID Status Reason Start Date Expiration Date Visits Re quested Visits Authorized [id number] Closed 07/14/2023 07/13/2024 1 1 Reason for Visit * Outpatient (Routine) - Closed Specialty Diagnoses / Procedures Referred By Florian cazares Referred To Contact Diagnoses Mass Kidney Procedures DX Chest AP or PA and Lateral 2 Views Anders Bowens M.D. [facility] Referral ID Status Reason Start Date Expiration Date Visits Re quested Visits Authorized [id number] Closed 07/14/2023 07/13/2024 1 1 Encounter Details Date Type Department Care Team (Latest Contact Info) Description 10/17/2023 9:28 AM CDT - 10/17/2023 11:59 PM CDT Hospital Encounter Department of Radiology, [facility], in [place], [place] [address] [place] [address] Anders Bowens M.D. Mass Kidney Discharge Disposition: Home or Self Care Social History Tobacco Use Types Packs/Day Years Used Date Smoking Tobacco: Former Cigarettes Q uit: 09/15/1998 Passive Smoke Exposure: Past Smokeless Tobacco: Never Alcohol Use Standard Drinks/Week Comments Yes 6 (1 standard drink = 0.6 oz pur e alcohol) [facility] Utilities Answer Date Recorded In the [...] How often do you attend [facility] or nondenominational services? Patient declined 07/13/2022 Do you belong to any clubs o r organizations such as tenriism groups, unions, fraternal or athletic groups, or [...] medical care, and heating? Patient declined 07/13/2022 [facility] - Occupational Stress Questionnaire Answer Date [...] your living situation today? I have a [facility] place to live 10/16/2023 Education Answer [...] Appointment Department of Laboratory Medicine and Pathology, [facility] in [place], [place] [address] [place] [address] Alexandra Lopez, FARM MANAGEMENT TEACHER, C.N.P., D.N.P. [address] [place] [address] documented as of this encounter Procedures Procedure [...] documented as of this encounter Care Teams Vulcanizing Machine Operator Relationship Specialty Start Date End Date Elsewhere, Pcp PCP - General 05/22/18 documented as of this encounter
--- OUTSIDE RECORDS SUMMARY | 2023-12-22 09:10 | XMS_ITS | Encounter Summary ---
Author Organization [facility] Address [address] [place] [address] Care Team Providers Care Transformation Coach Name Role Phone Elsewhere, Pcp Primary Care Provider Unavailabl e Reason for Visit * Reason Onset Date Comments Pre-visit Intake 11/07/2023 Encounter Details Date Type Department Care Team (Latest Contact Info) Description 11/07/2023 9:15 AM CDT Clinical Communication Virtual Review in [place], [place] [address] [place] [phone] Pre-visit Intake Social History Tobacco Use Types Packs/Day Years Used Date Smoking Tobacco: Former Cigarettes Q uit: 09/15/1998 Passive Smoke Exposure: Past Smokeless Tobacco: Never Tobacco Cessation:Counseling Given: Not Answered Alcohol Use Standard Drinks/Week Comments Yes 6 (1 standard drink = 0.6 oz pur e alcohol) [facility] Utilities Answer Date Recorded In the past 12 months has [facility] [employer], gas, oil, or water [employer] threatened to shut off services in your [...] How often do you attend chur or shinto services? Patient declined 07/13/2022 Do you belong to any clubs o r organizations such as yazidism groups, [employer], [employer] or athletic groups, or school groups? Patient [...] your living situation today? I have a [facility] place to live 10/16/2023 Education Answer [...] Appointment Department of Laboratory Medicine and Pathology, [facility] in [place], [place] [address] [place] [phone] Alexandra Lopez APRN, C.N.P., D.N.P. [address] [place] [address] documented as of this encounter Visit Diagnoses Not on filedocumented in this encounter Additional Health Concerns Infection Onset Date Last Indicated Resolved Time Protective Environment 10/10/2022 10/10/2022 documented as of this encounter Care Teams Transformation Coach Relationship Specialty Start Date End Date Elsewhere, Pcp PCP - General 05/22/18 documented as of this encounter
--- OUTSIDE RECORDS SUMMARY | 2023-12-22 09:10 | XMS_ITS | Encounter Summary ---
Author Organization [facility] Address [address] [place] [address] Care Team Providers Care Felt Hat Steamer Name Role Phone Elsewhere, Pcp Primary Care Provider Unavailabl e Reason for Referral * Outpatient (Routine) - Closed Specialty Diagnoses / Procedures Referred By Florian t Referred To Contact Pulmonary Medicine Diagnoses Nodules Pulmonary Multiple Procedures Pulmonary Medicine - Pulmonary nodule(s) eConsult Jessica Whitt M.D. [address] [place] [phone] [facility] Referral ID Status Reason Start Date Expiration Date Visits Re quested Visits Authorized [id number] Closed 11/04/2023 11/03/2024 1 1 Encounter Details Date Type Department Care Team (Late st Contact Info) Description 11/04/2023 Orders Only Department of Urology in [place], [place] [address] [place] [phone] Jessica Whitt M.D. [address] [place] [phone] Nodules Pulmonary Multiple (Primary Dx) Social History Tobacco Use Types Packs/Day Years Used Date Smoking Tobacco: Former Cigarettes Q uit: 09/15/1998 Passive Smoke Exposure: Past Smokeless Tobacco: Never Alcohol Use Standard Drinks/Week Comments Yes 6 (1 standard drink = 0.6 oz pur e alcohol) [facility] Utilities Answer Date Recorded In the past 12 months has th e electric, gas, oil, or water [employer] threatened to shut off services in your [...] often do you attend chur ch or alevism services? Patient declined 07/13/2022 Do you belong to any clubs o r organizations such as restorationism groups, unions, fraternal or athletic groups, or [...] medical care, and heating? Patient declined 07/13/2022 [facility] [place] [facility] - Occupational Stress Questionnaire Answer Date Recorded [...] your living situation today? I have a [facility] place to live 10/16/2023 Education Answer [...] and Pathology, [facility] in [place], [place] [address] [place] [address] Alexandra Lopez APRN, C.N.P., D.N.P. [address] [place] [phone] documented as of this encounter Visit Diagnoses Diagnosis Nodules Pulmonary Multiple- Primary documented in this encounter Additional Health Concerns Infection Onset Date Last Indicated Resolved Time Protective Environment 10/10/2022 10/10/2022 documented as of this encounter Care Teams Felt Hat Steamer Relationship Specialty Start Date End Date Elsewhere, Pcp PCP - General 05/22/18 documented as of this encounter
--- OUTSIDE RECORDS SUMMARY | 2023-12-22 09:10 | XMS_ITS | Encounter Summary ---
Author Organization [facility] Address [address] [place] [address] Care Team Providers Care Launch Steward Name Role Phone Elsewhere, Pcp Primary Care Provider Unavailabl e Reason for Visit * Reason Onset Date Comments Pre-visit Intake 10/16/2023 Encounter Details Date Type Department Care Team (Latest Contact Info) Description 10/16/2023 8:15 AM CDT Clinical Communication Virtual Review in [place], [place] [address] [place] [address] Pre-visit Intake Social History Tobacco Use Types Packs/Day Years Used Date Smoking Tobacco: Former Cigarettes Q uit: 09/15/1998 Passive Smoke Exposure: Past Smokeless Tobacco: Never Tobacco Cessation:Counseling Given: Not Answered Alcohol Use Standard Drinks/Week Comments Yes 6 (1 standard drink = 0.6 oz pur e alcohol) [facility] Utilities Answer Date Recorded In the past 12 months has [facility] [employer], gas, oil, or water [employer] threatened to shut off services in your [...] How often do you attend chur or hindu services? Patient declined 07/13/2022 Do you belong to any clubs o r organizations such as tenriism groups, [employer], fra[employer]astem or athletic groups, or school groups? Patient [...] medical care, and heating? Patient declined 07/13/2022 [facility] - Occupational [...] your living situation today? I have a [facility] place to live 10/16/2023 Education Answer Date [...] Appointment Department of Laboratory Medicine and Pathology, [facility] in [place], [place] [address] [place] [address] Alexandra Lopez APRN, C.N.P., D.N.P. [address] [place] [phone] documented as of this encounter Visit Diagnoses Not on filedocumented in this encounter Additional Health Concerns Infection Onset Date Last Indicated Resolved Time Protective Environment 10/10/2022 10/10/2022 documented as of this encounter Care Teams Launch Steward Relationship Specialty Start Date End Date Elsewhere, Pcp PCP - General 05/22/18 documented as of this encounter
--- OUTSIDE RECORDS SUMMARY | 2023-12-22 09:10 | XMS_ITS | Encounter Summary ---
Author Organization [facility] Address [address] [place] [address] Care Team Providers Care Social Security Benefits Interviewer Name Role Phone Elsewhere, Pcp Primary Care Provider Unavailabl e Reason for Referral * MRI/CAT/PET Scan (Routine) - Closed Specialty Diagnoses / Procedures Referred By Florian cazares Referred To Contact Radiology Diagnoses Mass Kidney Kidney And Ureter Disorder Procedures CT Abdomen Pelvis with IV Contrast CT Abdomen Pelvis without and with IV Contrast Anders Bowens M.D. [facility] Referral ID Status Reason Start Date Expiration Date Visits Re quested Visits Authorized [id number] Closed 07/14/2023 07/13/2024 1 1 Reason for Visit * MRI/CAT/PET Scan (Routine) - Closed Specialty Diagnoses / Procedures Referred By Florian cazares Referred To Contact Radiology Diagnoses Mass Kidney Kidney And Ureter Disorder Procedures CT Abdomen Pelvis with IV Contrast CT Abdomen Pelvis without and with IV Contrast Anders Bowens M.D. [facility] Referral ID Status Reason Start Date Expiration Date Visits Re quested Visits Authorized [id number] Closed 07/14/2023 07/13/2024 1 1 Encounter Details Date Type Department Care Team (Latest Contact Info) Description 10/17/2023 8:32 AM CDT - 10/17/2023 9:27 AM CDT Hospital Encounter Department of Radiology, [facility], in [place], [place] [address] [place] [address] Anders Bowens M.D. Mass Kidney; Kidney And Ureter Disorder Discharge Disposition: Home or Self Care Social History Tobacco Use Types Packs/Day Years Used Date Smoking Tobacco: Former Cigarettes Q uit: 09/15/1998 Passive Smoke Exposure: Past Smokeless Tobacco: Never Alcohol Use Standard Drinks/Week Comments Yes 6 (1 standard drink = 0.6 oz pur e alcohol) [facility] Utilities Answer Date Recorded In the past [...] How often do you attend chur or bahai services? Patient declined 07/13/2022 Do you belong [...] living situation today? [facility] 10/16/2023 Education Answer Date [...] Appointment Department of Laboratory Medicine and Pathology, [facility], in [place], [place] [address] [place] [address] Alexandra Lopez APRN, C.N.P., D.N.P. [address] [place] [address] documented as of this encounter Procedures Procedure [...] documented as of this encounter Care Teams Social Security Benefits Interviewer Relationship Specialty Start Date End Date Elsewhere, Pcp PCP - General 05/22/18 documented as of this encounter
--- NOTE | 2023-12-22 09:15 | CRLHL7_ITS ---
For Patients: As a result of the Century Cures Act, medical imaging exams and procedure reports are released immediately into your electronic medical record. You may view this report before your referring provider. If you have questions, please contact your health care provider. BILATERAL SCREENING MAMMOGRAM WITH COMPUTER-AIDED DETECTION AND TOMOSYNTHESIS TECHNIQUE: CC and MLO views were obtained. These mammographic images have been obtained using full-field digital technique. These mammographic images were interpreted with the benefit of computer-aided detection. Breast Tomosynthesis was used in this interpretation. COMPARISON FILM: 12/18/22, 04/17/21, 04/06/20. FINDINGS: The breasts are heterogeneously dense, which may obscure small masses. IMPRESSION: There is no radiographic evidence for malignancy. ASSESSMENT: BI-RADS Category 2: Benign RECOMMENDATION: Routine screening mammogram in 1 year. A lay language report of this examination will be provided to the patient. Alex Oviedo M.D. Diagnostic Radiologist [email or web address] SP/Dictated by: Alex Oviedo MD @ 12/22/2023 12:34:00 PM (Electronically Signed)
== END 2023-12-22 09:08 | disposition home or self-care (01) ==
LOC: MAMMO 09:07
PROVIDERS: PCP Internal Medicine; Visit Provider Internal Medicine
DX: Z12.31 Encounter for screening mammogram for malignant neoplasm of breast (principal); R92.2 Inconclusive mammogram
CPT/HCPCS: 77063; 77067

== ENCOUNTER 2024-05-31 10:33 | Outpatient (CLI) | payer OTHER, SELFPAY | END 2024-05-31 10:34 | disposition home or self-care (01) | LOC: SLEEP 10:34 | PROVIDERS: PCP Internal Medicine; Visit Provider Otolaryngology | DX: G47.33 Obstructive sleep apnea (adult) (pediatric) (principal); E66.9 Obesity, unspecified | CPT/HCPCS: 95806 ==

== ENCOUNTER 2024-09-09 07:02 | Outpatient (CLI) | payer OTHER, SELFPAY ==
--- NOTE | 2024-09-09 08:16 | P.ANES_ITS ---
Anesthesia Charges Start Date/Time Anesthesia Start Date: 09/09/24 Anesthesia Start Time: 07:50 Stop Date/Time Anesthesia Stop Date: 09/09/24 Anesthesia Stop Time: 08:13 Coding CPT Codes CPT Codes: ANES LWR INTST SCR COLSC - 24700 ([id number]) P3 - PATIENT W/SEVERE SYS DISEASE, QZ - DELIVERY ANALYST SVC W/O ZINC ETCHER BY
--- NOTE | 2024-09-09 08:16 | W.ANESCHARGE ---
Anesthesia Charges Start Date/Time Anesthesia Start Date: 09/09/24 Anesthesia Start Time: 07:50 Stop Date/Time Anesthesia Stop Date: 09/09/24 Anesthesia Stop Time: 08:13 Coding CPT Codes CPT Codes: ANES LWR INTST SCR COLSC - 98034 ([id number]) P3 - PATIENT W/SEVERE SYS DISEASE, QZ - CHIEF STATION ENGINEER SVC W/O ELECTRICAL TRYOUT PERSON BY
== END 2024-09-09 07:03 | disposition home or self-care (01) ==
LOC: OP CLINIC 07:04
PROVIDERS: PCP Internal Medicine; Visit Provider Internal Medicine
DX: Z12.11 Encounter for screening for malignant neoplasm of colon (principal); K57.30 Diverticulosis of large intestine without perforation or abscess without bleeding; Z86.0100 Personal history of colon polyps, unspecified
CPT/HCPCS: 00812; 45378; J2704

== ENCOUNTER 2024-09-21 14:38 | Outpatient (CLI) | payer OTHER, SELFPAY | END 2024-09-21 14:39 | disposition home or self-care (01) | LOC: NFLDREF 09-24 17:08 | PROVIDERS: PCP Internal Medicine; Referring Provider Internal Medicine | DX: N30.01 Acute cystitis with hematuria (principal); B96.20 Unspecified Escherichia coli [E. coli] as the cause of diseases classified elsewhere | CPT/HCPCS: 87086 ==

== ENCOUNTER 2025-01-04 15:04 | Outpatient (CLI) | payer OTHER, SELFPAY ==
--- NOTE | 2025-01-04 15:20 | CRLHL7_ITS ---
For Patients: As a result of the Century Cures Act, medical imaging exams and procedure reports are released immediately into your electronic medical record. You may view this report before your referring provider. If you have questions, please contact your health care provider. INDICATION: BILATERAL SCREENING MAMMOGRAM, ASYMPTOMATIC 64 Y/O FEMALE COMPARISON: 12/22/2023, 12/18/2022, 04/17/2021 TECHNIQUE: Digital mammogram in CC and MLO projections including computer-aided detection (CAD) and tomosynthesis. BREAST COMPOSITION: The breasts are heterogeneously dense, which may obscure small masses. FINDINGS: No suspicious findings. ASSESSMENT: BI-RADS 1 Negative RECOMMENDATION: Annual screening mammogram. A lay language report of this examination will be provided to the patient. Dictated by: Letha Slade MD @ 01/05/2025 11:07:29 (Electronically Signed)
== END 2025-01-04 15:05 | disposition home or self-care (01) ==
LOC: MAMMO 15:05
PROVIDERS: PCP Internal Medicine; Visit Provider Internal Medicine
DX: Z12.31 Encounter for screening mammogram for malignant neoplasm of breast (principal); R92.333 Mammographic heterogeneous density, bilateral breasts
CPT/HCPCS: 77063; 77067

== ENCOUNTER 2025-03-07 10:10 | Outpatient (CLI) | payer OTHER, SELFPAY | END 2025-03-07 10:11 | disposition home or self-care (01) | LOC: NFLDREF 03-08 14:54 | PROVIDERS: PCP Internal Medicine; Referring Provider Internal Medicine; Visit Provider Internal Medicine | DX: Z13.6 Encounter for screening for cardiovascular disorders (principal); E03.9 Hypothyroidism, unspecified; I10 Essential (primary) hypertension | CPT/HCPCS: 80048; 80061; 84443 ==